=== PATIENT | female | born 1950 | race Caucasian/White ===

== ENCOUNTER 2020-09-05 12:10 | Emergency (ER) | payer MEDICARE, SELFPAY ==
--- NOTE | ~2020-09-05 | XR_ITS ---
EXAMINATION: XR hand RT min 3V, XR wrist RT min 3V EXAM DATE: 09/05/2020 13:00 INDICATION: Initial encounter following injury, with pain of the right hand, wrist. Fall. TECHNIQUE: Right hand frontal, lateral and oblique projections obtained and reviewed. Right wrist fro ntal, frontal with ulnar deviation, oblique and lateral projections obtained and reviewed. There is no prior study for comparison. FINDINGS: Right metacarpal bones are unremarkable. Mildly wide appearing scapholunate joint space. Th ere is mild to moderate polyarticular distal interphalangeal, 1st carpometacarpal primary osteoarthri tis. There are no acute fractures or dislocations identified. There is no subcutaneous gas. The sof t tissue is unremarkable. There are no radiopaque foreign bodies. IMPRESSION: 1. Right hand, wrist exam without acute osseous findings. 2. Mildly wide scapholunate joint space, could indicate age-indeterminate partial dissociation. 3. Osteoarthritis. Reviewed, dictated and finalized at location B. T TRIMMER IMPRESSION: 1. Right hand, wrist exam without acute osseous findings. 2. Mildly wide scapholunate joint space, could indicate age-indeterminate part ial dissociation. 3. Osteoarthritis.
--- NOTE | ~2020-09-05 | XR_ITS ---
EXAMINATION: XR shoulder RT min 2V DATE: 09/05/2020 13:00 INDICATION: Right shoulder pain. Fall. TECHNIQUE: 3 views of right shoulder were obtained. COMPARISON: None. FINDINGS: Bone alignment is normal. No fracture. There is severe osteoarthritis of acromioclavicular joint and mild osteoarthritis of glenohumeral joint. IMPRESSION: 1. Polyarticular osteoarthritis. Reviewed, dictated and finalized at location A. DRILL PRESS OPERATOR
--- NOTE | 2020-09-05 12:35 | ED.UPPEXIN ---
HPI - Extremity Injury (Upper) General Chief Complaint: Extremity Injury, Upper Stated Complaint: Right Arm Pain History of Present Illness HPI narrative: Lorie White is a 70 yo female with hypothyroid, copd, chronic anticoagulation, HTN, high cholesterol, GERD, who fell this morning going down the basement stairs and hit her right shoulder and wrist. There is bruising on the right side after fall; went and got second covid vaccine before coming here to be seen. She has history of breast cancer and has a prosthesis on left breast and wears a sleeve on her left arm due to lymphedema; after fall she is having difficulty manipulating hand or wrist and has multiple bruises on her arm where she fell Related Data Home Medications Medication Instructions Recorded Confirmed albuterol sulfate INHALATION 09/05/20 apixaban [Eliquis] mg 09/05/20 aspirin 09/05/20 carvedilol 09/05/20 furosemide 09/05/20 gabapentin 09/05/20 levothyroxine 09/05/20 lorazepam 09/05/20 lovastatin mg 09/05/20 mirtazapine mg 09/05/20 pantoprazole PO 09/05/20 sacubitril-valsartan [Entresto] 09/05/20 sennosides-docusate sodium [Stool PO 09/05/20 Softener-Laxative] spironolactone 09/05/20 tramadol mg 09/05/20 zolpidem 09/05/20 Allergies Allergy/AdvReac Type Severity Reaction Status Date / Time erythromycin base Allergy Mild RASH Verified 10/13/15 17:47 morphine Allergy Mild RASH Verified 10/13/15 17:47 Penicillins Allergy Mild RASH Verified 10/13/15 17:47 Macrolide Antibiotics Allergy Unknown Verified 10/13/15 17:47 Cephalosporins AdvReac Intermediate Nausea and Verified 10/13/15 17:47 Vomiting codeine AdvReac Intermediate Nausea and Verified 10/13/15 17:47 Vomiting hydrocodone AdvReac Intermediate Confusion Verified 10/13/15 17:47 meperidine AdvReac Intermediate Nausea and Verified 10/13/15 17:47 Vomiting CYCLOBENZAPRINE HCL Allergy Mild Uncoded 10/13/15 17:47 Chicken Meat Allergy Unknown Uncoded 10/14/15 05:12 TAXATINE Allergy Unknown Uncoded 04/30/10 11:51 BUTORPHANOL TARTRATE AdvReac Intermediate Nausea and Uncoded 10/13/15 17:47 Vomiting Review of Systems Review of Systems: Narrative: CONSTITUTIONAL: Denies fever, chills, sweats. EYES: Denies visual changes, redness, discharge. ENT: Denies rhinorrhea, congestion, sore throat, otalgia. CARDIOVASCULAR: Denies chest pain, palpitations, edema. RESPIRATORY: Denies dyspnea, wheezing, cough GASTROINTESTINAL: Denies abdominal pain, nausea, vomiting, diarrhea. GENITOURINARY: Denies dysuria, hematuria, abnormal discharge SKIN: Denies rash or itching. NEUROLOGIC: Denies numbness, or focal weakness. PSYCHIATRIC: Denies anxiety or depression. Right-sided arm and shoulder pain after fall this morning PMFSH Past Medical History Medical History Chronic anticoagulation High cholesterol HTN (hypertension) Family History Family History (Updated 09/05/20 @ 12:45 by Mary Avitia CNP) Other Breast cancer Social History Social History (Updated 09/05/20 @ 12:45 by Mary Avitia CNP) Smoking status: Never smoker Alcohol intake: current Comments At time of signature, I agree with nursing past medical, surgical, social and family history. There is no relevant family history pertinent to the presenting complaint. Exam Narrative: Exam Narrative: GENERAL: This is a well-nourished, well-developed patient, in mild distress. HEAD: normocephalic, atraumatic. EYES: PERRL. Sclera clear/white. Vision is grossly intact. EARS: External ears normal, auditory canals clear and without drainage, TMs normal without perforation. Hearing grossly intact. NOSE: External nose normal without nasal discharge, nares without redness, no rhinorrhea. THROAT: Mucous membranes moist, posterior pharynx NECK: Neck supple, non-tender CARDIOVASCULAR: Regular rate and rhythm without murmurs, gallops, or rubs. RESP
[2020-09-05 12:37] VITALS: BP 144/86; PULSE 82; RESP 18; TEMP 36.9; O2SAT 96
== END 2020-09-05 13:50 | disposition home or self-care (01) ==
PROVIDERS: Emergency Provider Nurse Practitioner
DX: S63.501A Unspecified sprain of right wrist, initial encounter (principal); S66.911A Strain of unspecified muscle, fascia and tendon at wrist and hand level, right hand, initial encounter; S69.91XA Unspecified injury of right wrist, hand and finger(s), initial encounter; W10.9XXA Fall (on) (from) unspecified stairs and steps, initial encounter; E78.00 Pure hypercholesterolemia, unspecified; I10 Essential (primary) hypertension; Z79.01 Long term (current) use of anticoagulants
CPT/HCPCS: 73030; 73110; 73130; 99214; G0463

== ENCOUNTER 2021-01-22 18:33 | Emergency (ER) | payer MEDICARE, SELFPAY ==
--- NOTE | 2021-01-22 18:34 | ED.HEATRA ---
HPI - Head Injury General Chief complaint: Wound/Laceration Stated complaint: Laceration on back of head Time Seen by Provider: 01/22/21 18:34 Source: patient, family and RN notes reviewed History of Present Illness HPI Narrative: Patient is a 70-year-old female who presents the urgent care with complaints of a posterior head injury. Patient states that she was walking into her doorway and fell backwards onto the concrete hitting a metal door frame on her way down. Patient states she has a history of neuropathy and has difficulty with balance at times. Patient states that happened approximately 20 minutes prior to arrival. Patient denies any loss of consciousness but is currently complaining of dizziness, nausea and posterior headache. Patient is currently on a blood thinner. No other acute complaints. Patient and granddaughter aware of the plan of care. Some parts of this dictation were generated by voice recognition software and may contain typographical and/or grammatical inaccuracies. Related Data Allergies Allergy/AdvReac Type Severity Reaction Status Date / Time No Known Allergies Allergy Verified 01/22/21 18:55 Review of Systems Review of Systems: CONSTITUTIONAL: Denies fever, chills, or sweats. EYES: Denies visual changes, redness, or discharge. ENT: Denies rhinorrhea, congestion, sore throat, or otalgia. CARDIOVASCULAR: Denies chest pain, palpitations, or edema. RESPIRATORY: Denies cough or dyspnea. GASTROINTESTINAL: Reports of nausea GENITOURINARY: Denies dysuria or hematuria. SKIN: Reports of a laceration to the back of the head MUSCULOSKELETAL: Denies back pain, joint pain, or myalgia. NEUROLOGIC: Reports of headache and dizziness All other systems reviewed are negative, except as documented in HPI. PMFSH Comments At the time of my signature, I reviewed and agree with the nursing past medical, surgical, social, and family history. There is no relevant family history pertinent to the patient complaint. Exam Narrative: GENERAL: This is a well-nourished, well-developed patient, in no apparent distress. HEAD: normocephalic, atraumatic. EYES: PERRL. Sclera clear/white. Vision is grossly intact. EARS: External ears normal NOSE: External nose normal with no obvious nasal discharge, nares without redness, no rhinorrhea. THROAT: Mucous membranes moist NECK: Neck supple CARDIOVASCULAR: Paced-pacemaker in defibrillator RESPIRATORY: Clear to auscultation. Breath sounds equal bilaterally. No wheezes, rales, or rhonchi. SKIN: 4 cm laceration to the occipital lobe, bleeding controlled. Warm, intact with no suspicious lesions or rash, good texture and turgor. NEURO: awake, alert, and oriented to person, place and time. There were no obvious focal neurologic abnormalities. EXTREMITIES: No clubbing, cyanosis, or edema. Lymphedema to left upper extremity. Neuropathy to bilateral lower extremities Course Vital Signs Vital signs: Vital Signs Temperature 97.8 F 01/22/21 18:43 Pulse Rate 77 01/22/21 18:43 Respiratory Rate 20 01/22/21 18:43 Blood Pressure 126/55 L 01/22/21 18:43 Pulse Oximetry 95 01/22/21 18:43 Temperature 97.8 F 01/22/21 18:43 Pulse Rate 77 01/22/21 18:43 Respiratory Rate 20 01/22/21 18:43 Blood Pressure 126/55 L 01/22/21 18:43 Pulse Oximetry 95 01/22/21 18:43 Reviewed Transfer Transfered to: [facility] Transfer rationale: Head injury with dizziness, nausea and headache Accepting physician: Dr. Tay MDM - Head Injury MDM Narrative Medical decision making narrative: Explained to the patient she will need to go via EMS to [facility] due to history of 3 brain aneurysms, head injury, dizziness, headache and nausea. Granddaughter is aware of the transfer. Patient is currently stable and report given to Dr. Tay. Differential Diagnosis Differential diagnosis: Likely concussion without loss of consciousness, closed head injury, postconcussion syndrome and subdural hem
[2021-01-22 18:43] VITALS: BP 126/55; PULSE 77; RESP 20; TEMP 36.6; O2SAT 95
--- NOTE | 2021-01-22 19:11 | PC.NURSE ---
sandwich peddler had went to registration desk while pt was signing in, initially pt to go to rm 1 after registration per sandwich peddler, wc was taken to registration desk and pt taken to rm 1 and registration was completed in room after new concern pt may be unsteady at desk in chair. after exam by sandwich peddler pt and granddaughter aware of need for higher level of care and requested to go to [facility] via ems. transfer sheet was handed to this rn while ems was in room transferring pt to stretcher, granddaughter signed per pt request, upon calling for nurse to nurse report wrong pt label was noticed and immediately reported to charge aide at [facility]. charge aide did state would apply correct label.
--- NOTE | 2021-01-22 19:20 | PC.NURSE ---
[facility] here about 1847.
== END 2021-01-22 18:52 | disposition short-term general hospital (02) ==
PROVIDERS: Emergency Provider Nurse Practitioner Family
DX: S01.01XA Laceration without foreign body of scalp, initial encounter (principal); W19.XXXA Unspecified fall, initial encounter; Z86.73 Personal history of transient ischemic attack (TIA), and cerebral infarction without residual deficits; G62.9 Polyneuropathy, unspecified; Z95.810 Presence of automatic (implantable) cardiac defibrillator
CPT/HCPCS: 99215; G0463

== ENCOUNTER 2021-01-22 19:10 | Emergency (ER) | payer MEDICARE, SELFPAY ==
--- NOTE | ~2021-01-22 | CT_ITS ---
EXAMINATION: CT brain wo con INDICATION: Head injury COMPARISON: 11/10/2014 TECHNIQUE: Standard unenhanced head CT. The dose-length product (DLP) was 426.79 mGy-cm. The mA was a djusted according to patient size. Iterative reconstruction technique was employed. FINDINGS: There is a left posterior scalp laceration. There is no acute intraparenchymal hemorrhage. No evidence of mass lesion. No evidence of acute infarction. There is mild periventricular and subcor tical hypodensity probably related to small vessel ischemic disease. There is mild prominence of the sulci and ventricles related to cerebral atrophy. Intracranial calcified cerebral atherosclerosis is noted. There are no extra-axial collections. There is no mass effect or midline shift. Changes in the globes are likely from ocular lens surgery. There is mild mucosal thickening of the paranasal sinuse s. IMPRESSION: 1. Left posterior scalp laceration without acute intracranial abnormality. 2. Age related findings. Reviewed, dictated and finalized at location A.
--- NOTE | ~2021-01-22 | CT_ITS ---
EXAMINATION: CT cervical spine wo con DATE: 01/22/2021 19:37 INDICATION: Head injury, neck pain TECHNIQUE: Computed tomography (CT) of the cervical spine was performed without intravenous contrast. The dose-length product (DLP) was 426.79 mGy-cm. Automated exposure control and iterative reconstruc tion technique were employed. COMPARISON: None FINDINGS: There is no fracture, dislocation, or subluxation. There is severe loss of intervertebral d isc space height from C3-4 through C6-7. The vertebral body heights are maintained. The odontoid is i ntact. There is severe multilevel facet and uncovertebral joint osteoarthritis. A left subclavian end ovascular stent is noted. There are partially imaged leads of a right-sided triple lead pacemaker IMPRESSION: 1. Severe cervical spondylosis without acute findings. Reviewed, dictated and finalized at location A.
[2021-01-22 19:08] VITALS: BP 141/76; PULSE 20; RESP 16; TEMP 36.6; O2SAT 98
--- NOTE | 2021-01-22 19:10 | ECG_ITS ---
Measurements Intervals [place] Rate: 69 P: 71 CA: 108 QRS: 178 QRSD: 192 T: -20 QT: 489 QTc: 524 Interpretive Statements ELECTRONIC VENTRICULAR PACEMAKER BASELINE ARTIFACT- II, III, AVF NO FURTHER INTERPRETATION IS POSSIBLE ATYPICAL ECG Electronically Signed On 01-23-2021 6:46:50 CDT by Anmol Lang D.O.
--- NOTE | 2021-01-22 19:12 | ED.FALL ---
HPI - Fall General Chief Complaint: Fall Stated Complaint: dizziness s/p fall with loc History of Present Illness HPI Narrative: 70 yo female w/ h/o CHF, htn, CAD on eliquis presents to the ED c/o head injury. She reports that she was walking up the steps when she lost her balance and fell. She believes that she did briefly lose consciousness after the fall. She currently has mild nausea and dizziness. Prior o the fall she reports feeling well. EMS reports a 5 cm laceration to posterior scalp. Related Data Home Medications Medication Instructions Recorded Confirmed albuterol sulfate INHALATION 01/22/21 apixaban [Eliquis] mg 01/22/21 carvedilol 01/22/21 furosemide 01/22/21 levothyroxine 01/22/21 lorazepam 01/22/21 lovastatin mg 01/22/21 magnesium gluconate mg 01/22/21 mirtazapine mg 01/22/21 pantoprazole PO 01/22/21 sacubitril-valsartan [Entresto] 01/22/21 spironolactone 01/22/21 tramadol mg 01/22/21 trazodone 01/22/21 zolpidem 01/22/21 Allergies Allergy/AdvReac Type Severity Reaction Status Date / Time azithromycin Allergy Nausea and Verified 01/22/21 19:17 Vomiting cephalexin [From Keflex] Allergy Nausea and Verified 01/22/21 19:17 Vomiting codeine Allergy Nausea and Verified 01/22/21 19:17 Vomiting Penicillins Allergy Nausea and Verified 01/22/21 19:17 Vomiting morphine AdvReac Nausea and Verified 01/22/21 19:17 Vomiting Review of Systems Review of Systems: All systems reviewed & are unremarkable except as noted in HPI and below Constitutional: Constitutional: Denies chills, Denies fever(s) and Denies weakness Eyes: Eyes: Reports no additional eye complaints ENT: Reports system reviewed and no additional complaints, except as documented Cardiovascular: Cardiovascular: Denies chest pain Respiratory: Respiratory: Denies dyspnea Gastrointestinal: Gastrointestinal: Denies abdominal pain and Reports nausea Genitourinary: Genitourinary: Reports no additional female genitourinary complaints Musculoskeletal: Musculoskeletal: Denies back pain Neurologic: Reports dizziness, Reports headache(s) and Denies weakness [facility] Past Medical History Medical History (Updated 01/23/21 @ 00:01 by Background Daemon) CAD (coronary artery disease) CHF (congestive heart failure) Exam Const: General: healthy appearing, no acute distress and alert Orientation/consciousness: patient oriented x3 HENMT: Head: laceration (occipetal scalp) Ears: TM's normal bilaterally Face and sinus: normal facial exam Neck: Neck: normal visual inspection Resp: Effort & Inspection: normal respiratory effort Auscultation: clear to auscultation bilaterally, no rales, no rhonchi and no wheezes Cardio: Jugular venous distension: no JVD Rate: regular rate Rhythm: regular rhythm Heart sounds: no murmurs GI: GI Palp: Yes Soft to palpation and No Tenderness to palpation present (GI) Back/Spine/Pelvis: Cervical Spine: No Cervical spine tenderness Thoracic/Lumbar Spine: No thoracic spinal tenderness and No lumbar spinal tenderness Skin: General skin exam: normal color Neuro: General: patient oriented x3 and moves all extremities Speech: normal speech Extrem: General: no edema Psych: Appearance: well kempt Affect: normal affect Course Vital Signs Vital signs: Vital Signs Temperature 36.6 C 01/22/21 19:08 Pulse Rate 20 L 01/22/21 19:08 Respiratory Rate 16 01/22/21 19:08 Blood Pressure 141/76 H 01/22/21 19:08 Pulse Oximetry 98 01/22/21 19:08 Temperature 36.6 C 01/22/21 19:08 Pulse Rate 20 L 01/22/21 19:08 Respiratory Rate 16 01/22/21 19:08 Blood Pressure 141/76 H 01/22/21 19:08 Pulse Oximetry 98 01/22/21 19:08 Procedures Laceration Laceration 1: Site: scalp Size (cm): 4 Description: linear Depth: simple, single layer Local Anesthetic: none Pre-repair: wound explored and irrigated =
--- NOTE | 2021-01-22 19:22 | PC.NURSE ---
Assumed care of pt at this time.
[2021-01-22] MEDS: ONDANSETRON INJ 4 MG/2 ML VIAL IV PUSH (19:50)
[2021-01-22] MEDS: MECLIZINE HCL 25 MG TABLET PO (19:50)
[2021-01-22 20:00] LABS: Basophils Percent Auto 0.6 % (0.2-1.2); Eosinophils Absolute Auto 0.1 K/mm3 (0-0.3); Hematocrit 34.6 % (37.0-47.0); Hemoglobin 11.4 g/dL (12.0-15.0); Immature Granulocyte Absolute 0.02 K/mm3 (0.00-0.031); Immature Granulocyte Percent A 0.3 % (0-0.5); Lymphocytes Absolute Auto 1.61 K/mm3 (0.9-3.2); Lymphocytes Percent Auto 23.2 % (18.3-44.2); Mean Corpuscular HGB Conc 32.9 g/dl (32-36); Mean Corpuscular Hemoglobin 31.1 pg (26-34); Mean Corpuscular Volume 94.5 fl (80-100); Mean Platelet Volume 10.4 fl (7.4-10.4); Monocytes Absolute Auto 0.9 K/mm3 (0.1-0.6); Monocytes Percent Auto 12.2 % (2.6-8.5); Neutrophils Absolute Auto 4.3 K/mm3 (1.3-6.7); Neutrophils Percent Auto 61.7 % (45.5-73.1); Platelet Count Result 270 k/mm3 (150-375); Red Blood Count 3.66 M/mm3 (4.2-5.4); White Blood Count 6.9 K/mm3 (4.5-10.0)
[2021-01-22 20:09] LABS: INR 0.9; Prothrombin Time 12.4 Seconds (11.1-14.7)
[2021-01-22 20:10] LABS: Anion Gap 8 mmol/L (8-16); Blood Urea Nitrogen 17 mg/dL (7-17); Calcium 9.1 mg/dL (8.4-10.2); Carbon Dioxide 28 mmol/L (22-30); Chloride 103 mmol/L (98-107); Estimated CRCL calculation 56 ml/min; Estimated Glomerular Filt Rate > 60; Glucose 100 mg/dL (65-110); Partial Thromboplastin Time 25.2 SECONDS (22.3-36.8); Potassium 3.7 mmol/L (3.4-5.0); Sodium 139 mmol/L (137-145)
[2021-01-22] MEDS: ACETAMINOPHEN 500 MG TABLET 1000 MG PO (20:34)
[2021-01-22] MEDS: PROMETHAZINE HCL 25 MG/ML AMPUL 12.5 MG IV PUSH (20:34)
--- NOTE | 2021-01-22 21:22 | PC.NURSE ---
iv line removed intact. coban applied.
== END 2021-01-22 21:23 | disposition home or self-care (01) ==
PROVIDERS: Emergency Provider Emergency Medicine
DX: S01.01XA Laceration without foreign body of scalp, initial encounter (principal); I50.9 Heart failure, unspecified; I25.10 Atherosclerotic heart disease of native coronary artery without angina pectoris; Z79.01 Long term (current) use of anticoagulants; W10.9XXA Fall (on) (from) unspecified stairs and steps, initial encounter
CPT/HCPCS: 12002; 36415; 70450; 72125; 80048; 85025; 85610; 85730; 93005; 96374; 96375; 99284; A9270; J2405; J2550

== ENCOUNTER 2021-04-07 13:26 | Outpatient (RCR) | payer MEDICARE, SELFPAY ==
--- NOTE | 2021-04-07 14:25 | PTOPEVAL ---
PHYSICAL THERAPY EVALUATION AND PLAN OF CARE Thank you for referring Lorie White to [facility].? The patient is scheduled to be seen for therapy?1x/week for 5 weeks. Please review, sign, date and return this plan of care JOSE DE JESUS. I agree with and certify that the following plan of care is medically necessary. Referring Physician Date Attending Provider: Bhavesh Lee Evaluation Outpatient Past Medical History Cardiovascular History Hx Congestive Heart Failure Yes Hx Hypercholesterolemia Yes Hx Hypertension Yes Hx Pacemaker Yes: defib Gastrointestinal History Hx Gastroesophageal Reflux Disease Yes Endocrine History Hx Hypothyroidism Yes Other History Hx Cancer Yes: left breast Diagnosis chronic CVA Subjective Information Lorie is here today to work on Query Text:As Reported By Patient/ gait and stepping. She has a Family diagnosis of neuropathy. She states she fell 3 months ago - was coming home from the store and went to step into the house and she fell backward and it the door with her head. Cannot identify that this fall led to a decrease in function but states that she feels like she walks on the sides of her feet. States she typically uses a walker for longer distance walking but furniture walks in the house. States that she does everything in the mornings because by the afternoon she is tired and cannot do the work. Self Report Pain Assessment Bilateral Knee(s) Reported Pain Level 2 Pain Description Aching Pain Score Pain Score 2: Self Report Interventions Used Interventions Used By Clinicians Exercise Lower Extremity Muscle Strength Testing Hip Strength Bilateral Hip Flexion Strength 4 Good Hip Extension Strength 3+ Fair + Hip Abduction Strength 3 Fair Knee Strength Bilateral Knee Flexion Strength 4- Good - Knee Extension Strength 4 Good Ankle Strength Bilateral Ankle Dorsiflexion Strength 2+ Poor + Ankle Plantarflexion Strength 2+ Poor + Balance Assessment Diaz Balance Assessment Sitting to Standing Several Tries w/Hands Unsupported Stance Ability Supervision- 2 minutes Sitting Unsupported, Feet on Floor Safely- 2 minutes Standing to Sitting
--- NOTE | 2021-04-22 14:24 | PCPTNOTE ---
Patient did not show up for scheduled appointment this date.
--- NOTE | 2021-04-29 08:55 | PCPTNOTE ---
Patient did not show up for scheduled appointment this date.
--- NOTE | 2021-04-29 08:57 | PCPTNOTE ---
PHYSICAL THERAPY DISCHARGE NOTE Attending Provider: Bhavesh Lee Patient:Lorie White Date of :1950 Patient has not returned for any further treatments since 04/07/2021, therefore will be discharged at this time. Patient?s initial visit was on 04/07/2021. She attended the evaluation only. Cancelled one appt and no showed two appts. Thank you for referring this patient to [facility]. Please review, sign, date and return this discharge summary JOSE DE JESUS. I have been updated about the patient's current status and I agree with discharge from the above service at this time. Referring Physician Date
== END 2021-04-29 12:00 | disposition home or self-care (01) ==
LOC: ANHPT 13:26
DX: I69.359 Hemiplegia and hemiparesis following cerebral infarction affecting unspecified side (principal); G62.9 Polyneuropathy, unspecified
CPT/HCPCS: 97110; 97163

== ENCOUNTER 2022-04-28 13:33 | Observation (INO) | payer MEDICARE, SELFPAY ==
[2022-04-28] VITALS (26 sets, daily range): BP systolic 110–142; BP diastolic 52–110; PULSE 66–77; RESP 11–20; TEMP 36.6–36.8; O2SAT 94–100; BMI 33.5
--- NOTE | ~2022-04-28 | XR_ITS ---
EXAMINATION: XR chest 1V portable DATE: 04/28/2022 14:07 INDICATION: Cerebrovascular accident. TECHNIQUE: A single frontal view of the chest was obtained. COMPARISON: None. FINDINGS: There are airspace opacities in right lower lung zone and left mid and lower lung zones. No pleural effusion or pneumothorax. Cardiomegaly is noted. There is a right chest pacer/defibrillator with leads in right atrium, right ventricle, and coronary sinus. There is a vascular stent overlying left upper chest. IMPRESSION: 1. Airspace opacities in right lower lung zone and left mid and lower lung zones, consistent with ate lectasis versus pneumonia. 2. Cardiomegaly. Reviewed, dictated and finalized at location A. IMPRESSION: 1. Airspace opacities in right lower lung zone and left mid and lower lung zone s, consistent with atelectasis versus pneumonia. 2. Cardiomegaly.
--- NOTE | ~2022-04-28 | CT_ITS ---
EXAMINATION: CT cervical spine wo con DATE: 04/28/2022 15:09 INDICATION: neck pain after fall TECHNIQUE: Computed tomography (CT) of the cervical spine was performed without intravenous contrast. Automated exposure control and iterative reconstruction technique were employed. The dose-length pro duct was 1199.69 mGy-cm. COMPARISON: 01/22/2021. CTA brain carotid 04/28/2022 FINDINGS: Vertebral Body Alignment: Intact. Exaggerated lordosis. Craniocervical and atlantoaxial alignment: Severe degenerative change. Alignment intact. Osseous structures/fracture: No evidence of a lytic or blastic process in the visualized spine. No e vidence of acute fracture. Cervical soft tissues: The paraspinal soft tissues planes are maintained. Biapical pleural scarring. Degenerative changes: Multilevel severe degenerative disc disease and facet arthropathy. Severe left C5-6 neural foraminal narrowing. No severe central canal narrowing. IMPRESSION: No acute fracture or traumatic malalignment in the cervical spine. Reviewed, dictated and finalized at location K.
--- NOTE | ~2022-04-28 | CT_ITS ---
EXAMINATION: CT brain wo con DATE: 04/28/2022 13:40 INDICATION: Slurred speech. Unresponsive. TECHNIQUE: Computed tomography (CT) of the head was performed without intravenous contrast. The mA wa s adjusted according to patient size. Iterative reconstruction technique was employed. The dose-lengt h product was 681.00 mGy-cm. COMPARISON: Head CT 01/22/2021, brain MRI 06/16/2010 FINDINGS: There is no intracranial hemorrhage, acute infarction, or abnormal intracranial mass lesion . The ventricles are normal in size. There are likely changes of ocular lens replacement surgeries. T here is mild mucosal thickening in the paranasal sinuses. The mastoid air cells are normal. IMPRESSION: 1. Normal brain. I called this result to Dr. Silver. Reviewed, dictated and finalized at location A.
--- NOTE | ~2022-04-28 | CT_ITS ---
EXAMINATION: CTA brain carotid DATE: 04/28/2022 14:49 INDICATION: Cerebrovascular accident. Neck pain. TECHNIQUE: Computed tomographic angiography (CTA) of the head was performed with 100 mL Omnipaque-350 intravenous contrast. CTA of the neck was performed with intravenous contrast. Automated exposure co ntrol and iterative reconstruction technique were employed. The dose-length product was 1199.69 mGy-c m. Maximum intensity projection and volume rendered 3D-reconstructions were created by the technologi st on a separate workstation. COMPARISON: Head CT 04/28/22 FINDINGS: HEAD CTA: There is no intracranial hemorrhage, acute infarction, or abnormal intracranial mass lesion . The ventricles are normal in size. There is mild mucosal thickening in the paranasal sinuses. There are likely changes of ocular lens replacement surgeries. The mastoid air cells are normal. Left vert ebral artery is dominant. There is no significant stenosis of basilar artery or the posterior cerebra l arteries. The posterior communicating arteries are normal. There is no significant stenosis of the intracranial internal carotid arteries or anterior or middle cerebral arteries. Anterior communicatin g artery is normal. There is no aneurysm. NECK CTA: There is mild scarring at the lung apices. There is mild peripheral scarring in anterolater al left lung. There are no pathologically enlarged lymph nodes. There is a stent in left subclavian a nd axillary veins. There is no significant stenosis of the vertebral arteries. There is plaque in the proximal internal carotid arteries. There is 0% stenosis of the proximal right internal carotid ivelisse ry relative to normal distal artery lumen diameter (NASCET criteria). There is 0% stenosis of the pro ximal left internal carotid artery relative to normal distal artery lumen diameter. There is severe c ervical and thoracic spondylosis. There is a chronic compression fracture of T5. IMPRESSION: 1. Normal brain. 2. No aneurysm or significant intracranial calcinosis. 3. 0% stenosis of the proximal internal carotid arteries relative to normal distal artery lumen diame ters (NASCET criteria). Reviewed, dictated and finalized at location A. IMPRESSION: 1. Normal brain. 2. No aneurysm or significant intracranial calcinosis. 3. 0% stenosis of the proximal internal carotid arteries relative to normal dis jeimy artery lumen diameters (NASCET criteria).
--- NOTE | ~2022-04-28 | XR_ITS ---
EXAM: XR hip BI 2V w AP pelvis DATE: 04/28/2022 15:33 HISTORY: bilateral posterior pelvic pain s/p fall today . COMPARISON: 09/15/2010. FINDINGS: Bilateral iliac stents. Partially visualized IVC filter Contrast-filled urinary bladder wh ich obscures some osseous detail. Decreased mineralization. No fracture or dislocation. No lytic or b lastic lesion. Lower lumbar degenerative disc disease. Mild bilateral hip osteoarthritis. No erosion or periosteal change. Soft tissues within normal limits. IMPRESSION: No acute osseous finding in the pelvis or bilateral hips.. Reviewed, dictated and finalized at location K.
--- NOTE | ~2022-04-28 | XR_ITS ---
XR chest 1V portable DATE: 05/01/2022 08:44 INDICATION: Pneumonia TECHNIQUE: Portable upright AP chest on 05/01/2022 at 0840 hours COMPARISON: 04/28/2022 portable AP chest FINDINGS: Prominent elevation of the left leaf of the diaphragm is again noted, with atelectasis at t he left lung base. There is mild infiltrate or atelectasis in the right lower lung. The lungs otherwi se appear essentially clear. No pleural effusion or pulmonary vascular congestion or pneumothorax. Cardiomegaly. Vascular stent overlying the course of the left subclavian and axillary arteries. Right-sided triple lead pacemaker device with leads overlying right atrium, right ventricle and coron madeline sinus. Osteopenia. Bilateral rotator cuff atrophy. Prominent thoracic dextroscoliosis and lumbar levoscolios is. IMPRESSION: Chronic left diaphragmatic elevation with atelectasis at the left lung base Mild infiltrate or atelectasis in the right lower lung Cardiomegaly Little interval change since 04/28/2022 Reviewed, dictated and finalized at location A. IMPRESSION: Chronic left diaphragmatic elevation with atelectasis at the left l effie base Mild infiltrate or atelectasis in the right lower lung Cardiomegaly Little interval change since 04/28/2022
[2022-04-28 13:43] LABS: Glucose Point of Care 132 mg/dl (65-105)
--- NOTE | 2022-04-28 13:50 | ECG_ITS ---
Measurements Intervals [place] Rate: 75 P: -27 TN: 89 QRS: 193 QRSD: 180 T: -11 QT: 486 QTc: 546 Interpretive Statements ELECTRONIC VENTRICULAR PACEMAKER BASELINE ARTIFACT- II, III, AVF NO FURTHER INTERPRETATION IS POSSIBLE ATYPICAL ECG NO PREVIOUS ECG AVAILABLE FOR COMPARISON Electronically Signed On 04-28-2022 14:05:06 CDT by Anmol Lang D.O.
--- NOTE | 2022-04-28 13:51 | ED.NEUROSD ---
HPI - Neuro Symptoms/Deficit General Chief Complaint: Suspected CVA Stated Complaint: CVA Time Seen by Provider: 04/28/22 13:34 History of Present Illness HPI Narrative: 68-year-old female history of coronary disease, CHF, hypertension high cholesterol with prior CVA approximately 2 years ago with left-sided deficit presented to the emergency department for evaluation after having a ground-level fall and suspected CVA. EMS called the scene after the patient had a fall. Upon arrival patient had decreased responsiveness. Patient's responsiveness did improve in route to the emergency room. Upon arrival to the emergency department patient is able to provide some history and answer some questions. Patient is unsure of how she ended up at the emergency department. Related Data Home Medications Medication Instructions Recorded Confirmed albuterol sulfate 90 mcg/actuation inhalation 09/05/20 aerosol inhaler apixaban 5 mg tablet (Eliquis) mg 09/05/20 aspirin 81 mg tablet,delayed 09/05/20 release carvedilol 3.125 mg tablet 09/05/20 furosemide 20 mg tablet 09/05/20 gabapentin 600 mg tablet 09/05/20 levothyroxine 100 mcg tablet 09/05/20 lorazepam 0.5 mg tablet 09/05/20 lovastatin 40 mg tablet mg 09/05/20 mirtazapine 15 mg tablet mg 09/05/20 pantoprazole 20 mg tablet,delayed PO 09/05/20 release sacubitril 24 mg-valsartan 26 mg 09/05/20 tablet (Entresto) sennosides 8.6 mg-docusate sodium PO 09/05/20 50 mg tablet (Stool Softener-Laxative) spironolactone 25 mg tablet 09/05/20 tramadol 50 mg tablet mg 09/05/20 zolpidem 5 mg tablet 09/05/20 albuterol sulfate 90 mcg/actuation inhalation 01/22/21 aerosol inhaler apixaban 5 mg tablet (Eliquis) mg 01/22/21 carvedilol 3.125 mg tablet 01/22/21 furosemide 20 mg tablet 01/22/21 levothyroxine 100 mcg tablet 01/22/21 lorazepam 0.5 mg tablet 01/22/21 lovastatin 40 mg tablet mg 01/22/21 magnesium gluconate 27 mg mg 01/22/21 magnesium (500 mg) tablet mirtazapine 15 mg tablet mg 01/22/21 pantoprazole 20 mg tablet,delayed PO 01/22/21 release sacubitril 24 mg-valsartan 26 mg 01/22/21 tablet (Entresto) spironolactone 25 mg tablet 01/22/21 tramadol 50 mg tablet mg 01/22/21 trazodone 50 mg tablet 01/22/21 zolpidem 5 mg tablet 01/22/21 Allergies Allergy/AdvReac Type Severity Reaction Status Date / Time erythromycin base Allergy Mild RASH Verified 09/14/21 15:30 morphine Allergy Mild RASH Verified 09/14/21 15:30 Penicillins Allergy Mild RASH Verified 09/14/21 15:30 Macrolide Antibiotics Allergy Unknown Verified 09/14/21 15:30 azithromycin Allergy Nausea and Verified 09/14/21 15:30 Vomiting cephalexin [From Keflex] Allergy Nausea and Verified 09/14/21 15:30 Vomiting Cephalosporins AdvReac Intermediate Nausea and Verified 09/14/21 15:30 Vomiting codeine AdvReac Intermediate Nausea and Verified 09/14/21 15:30 Vomiting hydrocodone AdvReac Intermediate Confusion Verified 09/14/21 15:30 meperidine AdvReac Intermediate Nausea and Verified 09/14/21 15:30 Vomiting CYCLOBENZAPRINE HCL Allergy Mild Uncoded 09/14/21 15:30 Chicken Meat Allergy Unknown Uncoded 09/14/21 15:30 TAXATINE Allergy Unknown Uncoded 09/14/21 15:30 BUTORPHANOL TARTRATE AdvReac Intermediate Nausea and Uncoded 09/14/21 15:30 Vomiting Review of Systems Review of Systems: CONSTITUTIONAL: Increased lethargy EYES: Denies visual changes, redness, or discharge. ENT: Denies rhinorrhea, congestion, sore throat, or otalgia. CARDIOVASCULAR: Denies chest pain, palpitations, or edema. RESPIRATORY: Denies cough or dyspnea. GASTROINTESTINAL: Denies abdominal pain, nausea, vomiting, or diarrhea. GENITOURINARY: Denies dysuria or hematuria. SKIN: Denies rash or itching. MUSCULOSKELETAL: Denies back pain, joint pain, or myalgia. NEUROLOGIC: See [facility] Past Medical History Medical History (Updated 04/28/22 @ 21:09 by Declan Silver MD)
[2022-04-28 14:08] LABS: Basophils Percent Auto 0.7 % (0.2-1.2); Eosinophils Absolute Auto 0.1 K/mm3 (0-0.3); Eosinophils Percent Auto 2.2 % (0-4.4); Hematocrit 36.4 % (37.0-47.0); Hemoglobin 11.9 g/dL (12.0-15.0); Immature Granulocyte Absolute 0.01 K/mm3 (0.00-0.031); Immature Granulocyte Percent A 0.2 % (0-0.5); Lymphocytes Absolute Auto 1.61 K/mm3 (0.9-3.2); Lymphocytes Percent Auto 35.3 % (18.3-44.2); Mean Corpuscular HGB Conc 32.7 g/dl (32-36); Mean Corpuscular Hemoglobin 31.2 pg (26-34); Mean Corpuscular Volume 95.3 fl (80-100); Mean Platelet Volume 10.2 fl (7.4-10.4); Monocytes Absolute Auto 0.5 K/mm3 (0.1-0.6); Monocytes Percent Auto 11.8 % (2.6-8.5); Neutrophils Absolute Auto 2.3 K/mm3 (1.3-6.7); Neutrophils Percent Auto 49.8 % (45.5-73.1); Platelet Count Result 255 k/mm3 (150-375); Red Blood Count 3.82 M/mm3 (4.2-5.4); Red Cell Distribution Width 11.9 % (11.5-14.5); White Blood Count 4.6 K/mm3 (4.5-10.0)
[2022-04-28 14:21] LABS: Lactic Acid Reflex 1.5 mmol/L (0.7-2.0)
[2022-04-28 14:22] LABS: Alanine Aminotransferase 16 U/L (6-35); Albumin Level 4.3 g/dL (3.5-5.1); Alkaline Phosphatase 74 U/L (38-126); Anion Gap 13 mmol/L (8-16); Aspartate Amino Transferase 28 U/L (14-36); Bilirubin,Total 0.6 mg/dL (0.2-1.3); Blood Urea Nitrogen 16 mg/dL (7-17); Calcium 8.6 mg/dL (8.4-10.2); Carbon Dioxide 31 mmol/L (22-30); Chloride 97 mmol/L (98-107); Estimated CRCL calculation 55 ml/min; Estimated Glomerular Filt Rate > 60; Glucose 119 mg/dL (65-110); Potassium 3.3 mmol/L (3.4-5.0); Sodium 141 mmol/L (137-145)
[2022-04-28 14:23] LABS: INR 1.1; Partial Thromboplastin Time 26.5 SECONDS (22.3-36.8); Prothrombin Time 13.6 Seconds (11.1-14.7)
[2022-04-28] MEDS: SODIUM CHLORIDE 0.9% IV 1,000 ML 999 ML IV CONT (14:30)
[2022-04-28 15:02] LABS: Amphetamine Screen Urine Negative (Negative); Barbiturate Screen Urine Negative (Negative); Benzodiazepines Screen Urine Negative (Negative); Cannabinoid Screen Urine Negative (Negative); Cocaine Screen Urine Negative (Negative); Methadone Screen Urine Negative (Negative); Opiate Screen Urine Negative (Negative); Phencyclidine Screen Urine Negative (Negative)
[2022-04-28 15:03] LABS: Influenza A QL RT-PCR Negative (Negative); Influenza B QL RT-PCR Negative (Negative); SARS-CoV-2 RNA PCR Negative
--- NOTE | 2022-04-28 17:12 | PC.NURSE ---
strong assist x2 to BSC. while patient sitting on commode, continue to fall to the right. attempted to ambulate patient. strong assist x2 as patient's leg very unstable. patient unable to ambulate. assisted patient back to bed, left side of face started to twitch, which is not normal per patient and family. Dr. Silver aware, assessed patient and plan for admission
[2022-04-28 17:32] LABS: Appearance Urine Clear (Clear); Bilirubin Urine Negative (Negative); Blood Urine Negative (Negative); Color Urine Yellow (Yellow); Glucose Urine UA Negative (Negative); Ketones Urine Negative (Negative); Leukocyte Esterase Ur Negative LEU/UL (Negative); Nitrate Urine Negative (Negative); Protein Urine Negative (Negative); Specific Grav Ur 1.015 (1.001-1.035); Urobilinogen Urine 0.2 mg/dL (<2.0); pH Urine 5.5 (5.0-9.0)
[2022-04-28 18:07] LABS: Add Urine Microscopic? NO
--- NOTE | 2022-04-28 18:49 | PM.IMHP ---
H&P: HPI History of Present Illness Date/Time: 04/28/22 18:49 Chief Complaint: Suspected CVA Narrative: This is a 71-year-old female patient who has a history of coronary artery disease, hypertension, prior CVA within the last 2 years and hyperlipidemia. The patient has had history of CVA with left side weakness. The patient came to the emergency room after ground level fall and suspicion for another CVA. EMS was called to the scene and the patient had decreased responsiveness. The patient's responsiveness today improve when she was in the emergency room. The patient was talking to me in full sentences. The patient was not sure of why she ended up in the ER. CT spine was read as no acute fracture or traumatic malalignment in the cervical spine. Hip and pelvis CT was read as no acute osseous findings in the pelvis or bilateral hips. Head and neck CTA was read as normal brain. No aneurysm or significant intracranial calcinosis. 0% stenosis of the proximal internal carotid arteries relative to normal distal artery lumen diameters. Chest x-ray was read as airspace opacities in the right lower Petterchak lung zones and left mid and lower lung zones consistent with atelectasis versus pneumonia. Cardiomegaly. Head CT was read as normal brain. The patient has a history of breast cancer and has had a left-sided mastectomy with lymphedema. The patient's potassium slightly low at 3.3. Urine was negative influenza A/B and COVID are negative as well. The patient was started on IV fluid and neurology has been consulted. The patient is being admitted to observation status on the date of service of 04/28/2022. Review of Systems Review of Systems: See HPI All systems reviewed & are unremarkable except as noted in HPI and below Constitutional: Constitutional: Reports as per HPI and Reports no additional constitutional complaints Eyes: Eyes: Reports as per HPI and Reports no additional eye complaints ENT: Reports system reviewed and no additional complaints, except as documented and Reports Normal hearing present Cardiovascular: Cardiovascular: Reports no additional cardiovascular complaints Respiratory: Respiratory: Reports no additional respiratory complaints and Reports no additional respiratory complaints Gastrointestinal: Gastrointestinal: Reports as per HPI and Reports no additional gastrointestinal complaints Musculoskeletal: Musculoskeletal: Reports no additional musculoskeletal complaints Integumentary/Breasts: Skin/Breast: Reports system reviewed and no additional complaints, except as docu and Reports as per HPI Neurologic: Reports system reviewed and no additional complaints, except as documented, Reports as per HPI and Reports Normal hearing present Psychiatric: Psychiatric: Reports no additional psychiatric complaints and Reports as per HPI Endocrine: Endocrine: Reports no additional endocrine complaints Hematologic/Lymphatic: Hematologic/Lymphatic: Reports no additional hematologic/lymphatic complaints Allergic/Immunologic: Allergic/Immunologic: Reports no additional allergic/immunologic complaints [facility] Past Medical History Medical History (Updated 04/28/22 @ 23:41 by Migdalia Aggarwal NP) Breast cancer chemo CAD (coronary artery disease) Cataracts, bilateral Chemotherapy-induced neuropathy CHF (congestive heart failure) Chronic anticoagulation High cholesterol History of CVA (cerebrovascular accident) HTN (hypertension) Hypothyroidism Insomnia TIKI on CPAP Surgical History Surgical History AICD (automatic cardioverter/defibrillator) present H/O breast biopsy H/O hysterectomy with oophorectomy H/O mastectomy left History of removal of pigmented skin lesion History of tonsillectomy S/P cholecystectomy Family History Family History Grandparent Breast cancer Father Rupture of bowel Cerebrova
--- NOTE | 2022-04-28 20:34 | ADMGEN ---
This patient, Lorie White, was admitted to Medical Room 343-01. Patient/family oriented to hospital policies and general routines including ID bracelet, bed and alarms, visiting hours, pain management, procedures, bathroom and other care routines, personal items, smoking policy, room service/diet, and visiting hours. Information on how to activate the Rapid Response Team has been discussed. Patient/Family are encouraged to report perceived risks to care and to ask questions if they do not understand what they are told or what they should do.
[2022-04-29] VITALS (15 sets, daily range): BP systolic 98–153; BP diastolic 54–71; PULSE 62–82; RESP 16–19; TEMP 36.1–36.6; O2SAT 94–98
--- NOTE | 2022-04-29 | ECHO_ITS ---
Patient Info Name: Lorie White Age: 71 years : 1950 Gender: Female Ht: 62 in Wt: 182 lbs BSA: 1.94 m2 HR: 72 bpm BP: 98 / 54 mmHg Heart Rhythm: Sinus Rhythm Technical Quality: Fair Exam Date: 04/29/2022 10:38 AM Exam Location: [facility] Card Pulmonary Patient Status: Inpatient Admit Date: 04/28/2022 Staff Ordering Physician: Migdalia Aggarwal NP Fashion Design Professor: Renay Archer RDCS Attending Provider: Rosalba Gan MD Referring Physician: Alessia ASHRAF; Exam Type: CA echo doppler color flow Study Info Indications - CVA Complete two-dimensional, color flow and Doppler transthoracic echocardiogram is performed. Summary 1. Complete two-dimensional, color flow and Doppler transthoracic echocardiogram is performed. 2. Left ventricular systolic function is normal, estimated at 60-65%. 3. The left ventricular diastolic function is normal. 4. Right ventricular systolic function is normal. 5. No significant valvular disease. Left Ventricle Left ventricular chamber dimension is normal. Left ventricular systolic function is normal, estimated at 60-65%. The left ventricular diastolic function is normal. Right Ventricle Right ventricular chamber dimension is normal. Right ventricular systolic function is normal. Left Atria Left atrial chamber dimension is normal. Right Atria Right atrial chamber dimension is normal. Aortic Valve The aortic valve is not well visualized. There is no aortic valve stenosis. There is no aortic valve regurgitation. There is mild aortic valve calcification. Pulmonic Valve The pulmonic valve is not well visualized. Mitral Valve The mitral valve has normal leaflets. There is no mitral valve stenosis. There is no mitral valve regurgitation. Tricuspid Valve The tricuspid valve leaflets are not well visualized. There is trace tricuspid valve regurgitation. Pericardium/Pleural There is no pericardial effusion. Inferior Vena Cava Normal inferior vena cava with >50% collapse upon inspiration consistent with normal right atrial pressure. Aorta The aortic root size at the sinus of Valsalva is normal. Left Ventricular Outflow Tract Name Value Normal LVOT 2D LVOT Diameter 2.0 cm LVOT Doppler LVOT Peak Gradient 6 mmHg LVOT Mean Gradient 3 mmHg LVOT VTI 23 cm LVOT VTI/AV VTI Ratio 0.8 LVOT Stroke Volume 72 ml LVOT CO 5.3 l/min LVOT CI 2.7 l/min/m2 Pulmonic Valve Name Value Normal RVOT Doppler RVOT Peak Gradient 3 mmHg PV Doppler PV Peak Gradient 3 mmHg M
[2022-04-29] MEDS: APIXABAN 5 MG TABLET PO ×3 (00:47→20:14)
[2022-04-29] MEDS: carvediloL 3.125 MG TABLET PO ×3 (00:47→20:13)
[2022-04-29] MEDS: traZODone HCL 50 MG TABLET PO ×2 (00:47→20:13)
[2022-04-29] MEDS: POTASSIUM CHLORIDE 20 MEQ PACKET (FOR LIQUID) PO (00:52)
[2022-04-29] MEDS: MIRTAZAPINE 15 MG TABLET PO ×2 (00:55→20:13)
[2022-04-29 06:12] LABS: Basophils Absolute Auto 0.1 K/mm3 (0.0-0.1); Basophils Percent Auto 1.1 % (0.2-1.2); Eosinophils Absolute Auto 0.1 K/mm3 (0-0.3); Eosinophils Percent Auto 2.1 % (0-4.4); Hematocrit 33.3 % (37.0-47.0); Hemoglobin 10.7 g/dL (12.0-15.0); Immature Granulocyte Absolute 0.01 K/mm3 (0.00-0.031); Immature Granulocyte Percent A 0.2 % (0-0.5); Lymphocytes Absolute Auto 1.36 K/mm3 (0.9-3.2); Lymphocytes Percent Auto 28.8 % (18.3-44.2); Mean Corpuscular HGB Conc 32.1 g/dl (32-36); Mean Corpuscular Hemoglobin 31.2 pg (26-34); Mean Corpuscular Volume 97.1 fl (80-100); Mean Platelet Volume 10.5 fl (7.4-10.4); Monocytes Absolute Auto 0.6 K/mm3 (0.1-0.6); Monocytes Percent Auto 13.6 % (2.6-8.5); Neutrophils Absolute Auto 2.6 K/mm3 (1.3-6.7); Neutrophils Percent Auto 54.2 % (45.5-73.1); Platelet Count Result 242 k/mm3 (150-375); Red Blood Count 3.43 M/mm3 (4.2-5.4); Red Cell Distribution Width 12.1 % (11.5-14.5); White Blood Count 4.7 K/mm3 (4.5-10.0)
[2022-04-29 06:30] LABS: Alanine Aminotransferase 14 U/L (6-35); Albumin Level 3.6 g/dL (3.5-5.1); Alkaline Phosphatase 62 U/L (38-126); Anion Gap 6 mmol/L (8-16); Aspartate Amino Transferase 24 U/L (14-36); Bilirubin,Total 0.9 mg/dL (0.2-1.3); Blood Urea Nitrogen 13 mg/dL (7-17); CRP < 0.5 mg/dL (<1.0); Calcium 8.2 mg/dL (8.4-10.2); Carbon Dioxide 28 mmol/L (22-30); Chloride 106 mmol/L (98-107); Estimated CRCL calculation 62 ml/min; Estimated Glomerular Filt Rate > 60; Glucose 85 mg/dL (65-110); Magnesium 1.9 mg/dL (1.6-2.3); Potassium 3.8 mmol/L (3.4-5.0); Sodium 140 mmol/L (137-145)
[2022-04-29 06:36] LABS: Lactic Acid Reflex 0.7 mmol/L (0.7-2.0)
[2022-04-29 07:02] LABS: Thyroid Stimulating Hormone Reflex 0.902 uIU/mL (0.465-4.68)
[2022-04-29] MEDS: POTASSIUM CHLORIDE 10 MEQ TABLET.ER PO (09:57)
[2022-04-29] MEDS: LOVASTATIN 20 MG TABLET 40 MG PO (09:57)
[2022-04-29] MEDS: ASPIRIN 81 MG ENTERIC TABLET PO (09:57)
[2022-04-29] MEDS: GABAPENTIN 300 MG CAPSULE 600 MG PO ×4 (09:57→20:13)
[2022-04-29] MEDS: FUROSEMIDE 40 MG TABLET PO (09:57)
[2022-04-29] MEDS: MAGNESIUM 27 MG TABLET (500 MG MAG GLUCONATE) PO ×2 (09:58→16:19)
[2022-04-29] MEDS: PANTOPRAZOLE 40 MG TABLET PO (09:58)
[2022-04-29] MEDS: SPIRONOLACTONE 25 MG TABLET PO (09:58)
[2022-04-29] MEDS: traMADol HCL (*CRX) 50 MG TABLET PO ×2 (10:01→20:13)
--- NOTE | 2022-04-29 10:37 | PCOTNOTE ---
Attempted to see pt. at this time. Pt. getting echo at this time and is unable to be seen at this time. Following
--- NOTE | 2022-04-29 12:52 | WPDNEURCNPN ---
Assessment and Plan Assessment and plan (1) History of CVA (cerebrovascular accident): Code(s): Z86.73 - Personal history of transient ischemic attack (TIA), and cerebral infarction without residual deficits Status: Acute (2) Chemotherapy-induced neuropathy: Code(s): G62.0 - Drug-induced polyneuropathy; T45.1X5A - Adverse effect of antineoplastic and immunosuppressive drugs, initial encounter Status: Acute (3) Gait instability: Code(s): R26.81 - Unsteadiness on feet Status: Acute Plan 1 TIA 2 right hemispheric stroke with left hemiparesis and gait instability because of the his stroke and neuropathy induced by the chemotherapy 3 status post cardiac defibrillator for history of carcinoma of the breast considering patient is already on apixaban will continue the medication as such will involve in the physical therapy Consult date: 04/29/22 Reason for consult: cerebrovascular accident HPI: Lorie White is a 71 year old female admitted to the hospital through the emergency room for the possibility of stroke in addition to ongoing history of 1. Coronary artery disease 2. Hypertension 3. Congestive heart failure 4. Hypercholesteremia 5. Previous cerebrovascular accident about 2 years ago with left-sided deficit. Brought to the ER for the ground level fall with the possibility of the stroke on EMS arrival patient had decreased responsiveness did improve in route to the emergency room and in the ER was able to provide some history. Patient had been taking apixaban 5 mg daily, aspirin 81 mg daily, carvedilol 3.125 mg daily, Lasix 20 mg daily, lovastatin 40 mg daily, has been documented to have multiple allergies has no history of smoking or alcohol consumption in the ER initial CT scan of the head was negative for acute bleed or stroke vital signs were normal so as the CBC and CMP except the potassium 3.3, influenza a and B and COVID were negative. Thatch does have history of carcinoma of the breast with left-sided mastectomy and lymphedema. On the floor seen by Migdalia rushing Review of Systems Review of Systems: All systems reviewed & are unremarkable except as noted in HPI and below PMFSH Past Medical History Medical History (Updated 04/28/22 @ 23:41 by Migdalia Aggarwal NP) Breast cancer chemo CAD (coronary artery disease) Cataracts, bilateral Chemotherapy-induced neuropathy CHF (congestive heart failure) Chronic anticoagulation High cholesterol History of CVA (cerebrovascular accident) HTN (hypertension) Hypothyroidism Insomnia TIKI on CPAP Surgical History Surgical History AICD (automatic cardioverter/defibrillator) present H/O breast biopsy H/O hysterectomy with oophorectomy H/O mastectomy left History of removal of pigmented skin lesion History of tonsillectomy S/P cholecystectomy Family History Family History Grandparent Breast cancer Father Rupture of bowel Cerebrovascular accident Mother Diabetes mellitus Acute myocardial infarction Sibling Acute myocardial infarction Diabetes mellitus Social History Social History (Updated 04/28/22 @ 23:36 by Migdalia Aggarwal NP) Social History: The patient lives with her . 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 She has 1 daughter Osbaldo who is her durable power civil litigation attorney for healthcare. The patient is a lifelong nonsmoker. She does not use any alcohol marijuana or illicit drugs. Code status full code. Smoking status: Never smoker Alcohol intake: never Substance use: never Has the Lack of Transportation Kept You From Medical Appointments or From Getting Medications?: No Within the Past 12 Months, Were You Worried Whether Your Food Would Run Out Before You Got Money to Buy More?: Never True What is Your Housing Situation Today?: I Have Housing Are You Worried That in the Next 2 Mon
[2022-04-29] MEDS: MECLIZINE HCL 25 MG TABLET PO (12:57)
[2022-04-29] MEDS: ONDANSETRON INJ 4 MG/2 ML VIAL IV PUSH (12:57)
--- NOTE | 2022-04-29 14:09 | PM.IMPN ---
Progress Note: A&P Assessment and Plan (1) History of CVA (cerebrovascular accident): Code(s): Z86.73 - Personal history of transient ischemic attack (TIA), and cerebral infarction without residual deficits Status: Acute Assessment and Plan: Left side residual The patient is on Eliquis and aspirin. -PT OT evaluation greatly be appreciated. rehabilitation case coordinator consultation greatly be appreciated for rehab. Neurology has been consulted and appreciate neurology consult. 04/29/2022 interval history: patient is 71-year-old female with history of breast cancer on chemotherapy patient had a ground level fall, patient has history of right hemispheric stroke with left hemiparesis and gait instability, there was a concern about the syncope and possibly stroke, CTA of the head and neck and CT of the brain are negative for any acute injury, patient is already on anticoagulation with Eliquis and anti-platelet with aspirin patient seen by neurologist recommending PT OT, patient will benefit going to acute rehab and further recommendation to follow. (2) Chemotherapy-induced neuropathy: Code(s): G62.0 - Drug-induced polyneuropathy; T45.1X5A - Adverse effect of antineoplastic and immunosuppressive drugs, initial encounter Status: Acute Assessment and Plan: -continue with patient's gabapentin. The patient had chemotherapy for breast cancer. (3) Gait instability: Code(s): R26.81 - Unsteadiness on feet Status: Acute Assessment and Plan: PT and OT evaluation would be greatly appreciated patient has peripheral neuropathy as well as an old CVA. (4) AICD (automatic cardioverter/defibrillator) present: Code(s): Z95.810 - Presence of automatic (implantable) cardiac defibrillator Status: Acute Assessment and Plan: -pacer spikes are noted on the monitor. (5) Breast cancer: Code(s): C50.919 - Malignant neoplasm of unspecified site of unspecified female breast Status: Acute Assessment and Plan: The patient has a history of left mastectomy with lymphedema. The patient has completed all the treatment and is considered in remission (6) Hypothyroidism: Code(s): E03.9 - Hypothyroidism, unspecified Status: Acute Assessment and Plan: Check thyroid studies she does not appear to be on any medication for thyroid. (7) TIKI on CPAP: Code(s): G47.33 - Obstructive sleep apnea (adult) (pediatric); Z99.89 - Dependence on other enabling machines and devices Status: Acute Assessment and Plan: Home settings for CPAP (8) HTN (hypertension): Code(s): I10 - Essential (primary) hypertension Status: Acute Assessment and Plan: -continue with Coreg Continue with Lasix-continue with spironolactone (9) High cholesterol: Code(s): E78.00 - Pure hypercholesterolemia, unspecified Status: Acute Assessment and Plan: Continue with lovastatin. (10) CAD (coronary artery disease): Code(s): I25.10 - Atherosclerotic heart disease of [place] coronary artery without angina pectoris Status: Acute Assessment and Plan: -continue with Coreg (11) CHF (congestive heart failure): Code(s): I50.9 - Heart failure, unspecified Status: Acute Assessment and Plan: -continue with Coreg and continue with Lasix. Continue with potassium supplement. The patient had to have a extra dose of potassium tonight due to a low potassium level. (12) Insomnia: Code(s): G47.00 - Insomnia, unspecified Status: Acute Assessment and Plan: Continue with trazodone and Remeron Plan The patient has a history of having dizziness with benign postural vertigo in the past and has Antivert ordered p.r.n. for vertigo. Subjective Date/time seen: 04/29/22 14:09 Suspected CVA HPI-Narrative: This is a 71-year-old female patient who has a history of coronary artery disease, hypertension, prior CVA withi
[2022-04-30] VITALS (11 sets, daily range): BP systolic 103–141; BP diastolic 69–81; PULSE 60–78; RESP 18–22; TEMP 36.4–36.6; O2SAT 94–98
[2022-04-30] MEDS: MECLIZINE HCL 25 MG TABLET PO ×2 (06:59→12:53)
[2022-04-30] MEDS: FUROSEMIDE 40 MG TABLET PO (08:55)
[2022-04-30] MEDS: SPIRONOLACTONE 25 MG TABLET PO (08:55)
[2022-04-30] MEDS: PANTOPRAZOLE 40 MG TABLET PO (08:55)
[2022-04-30] MEDS: MAGNESIUM 27 MG TABLET (500 MG MAG GLUCONATE) PO ×2 (08:55→16:32)
[2022-04-30] MEDS: POTASSIUM CHLORIDE 10 MEQ TABLET.ER PO (08:55)
[2022-04-30] MEDS: ASPIRIN 81 MG ENTERIC TABLET PO (08:55)
[2022-04-30] MEDS: APIXABAN 5 MG TABLET PO ×2 (08:55→20:35)
[2022-04-30] MEDS: carvediloL 3.125 MG TABLET PO ×2 (08:56→20:34)
[2022-04-30] MEDS: LOVASTATIN 20 MG TABLET 40 MG PO (08:56)
[2022-04-30] MEDS: GABAPENTIN 300 MG CAPSULE 600 MG PO ×4 (08:56→20:34)
[2022-04-30] MEDS: traMADol HCL (*CRX) 50 MG TABLET PO ×2 (12:53→20:35)
--- NOTE | 2022-04-30 13:08 | PM.IMPN ---
Progress Note: A&P Assessment and Plan (1) History of CVA (cerebrovascular accident): Code(s): Z86.73 - Personal history of transient ischemic attack (TIA), and cerebral infarction without residual deficits Status: Acute Assessment and Plan: Left side residual The patient is on Eliquis and aspirin. -PT OT evaluation greatly be appreciated. [place] program coordinator consultation greatly be appreciated for rehab. Neurology has been consulted and appreciate neurology consult. 04/30/2022 interval history: patient is 71-year-old female with history of breast cancer on chemotherapy patient had a ground level fall, patient has history of right hemispheric stroke with left hemiparesis and gait instability, there was a concern about the syncope and possibly stroke, CTA of the head and neck and CT of the brain are negative for any acute injury, patient is already on anticoagulation with Eliquis and anti-platelet with aspirin patient was seen by neurologist recommending PT OT, chest x-ray is also concerning for pneumonia started the patient on Levaquin, patient will benefit going to acute rehab and further recommendation to follow. (2) Chemotherapy-induced neuropathy: Code(s): G62.0 - Drug-induced polyneuropathy; T45.1X5A - Adverse effect of antineoplastic and immunosuppressive drugs, initial encounter Status: Acute Assessment and Plan: -continue with patient's gabapentin. The patient had chemotherapy for breast cancer. (3) Gait instability: Code(s): R26.81 - Unsteadiness on feet Status: Acute Assessment and Plan: PT and OT evaluation would be greatly appreciated patient has peripheral neuropathy as well as an old CVA. (4) AICD (automatic cardioverter/defibrillator) present: Code(s): Z95.810 - Presence of automatic (implantable) cardiac defibrillator Status: Acute Assessment and Plan: -pacer spikes are noted on the monitor. (5) Breast cancer: Code(s): C50.919 - Malignant neoplasm of unspecified site of unspecified female breast Status: Acute Assessment and Plan: The patient has a history of left mastectomy with lymphedema. The patient has completed all the treatment and is considered in remission (6) Hypothyroidism: Code(s): E03.9 - Hypothyroidism, unspecified Status: Acute Assessment and Plan: Check thyroid studies she does not appear to be on any medication for thyroid. (7) TIKI on CPAP: Code(s): G47.33 - Obstructive sleep apnea (adult) (pediatric); Z99.89 - Dependence on other enabling machines and devices Status: Acute Assessment and Plan: Home settings for CPAP (8) HTN (hypertension): Code(s): I10 - Essential (primary) hypertension Status: Acute Assessment and Plan: -continue with Coreg Continue with Lasix-continue with spironolactone (9) High cholesterol: Code(s): E78.00 - Pure hypercholesterolemia, unspecified Status: Acute Assessment and Plan: Continue with lovastatin. (10) CAD (coronary artery disease): Code(s): I25.10 - Atherosclerotic heart disease of [place] coronary artery without angina pectoris Status: Acute Assessment and Plan: -continue with Coreg (11) CHF (congestive heart failure): Code(s): I50.9 - Heart failure, unspecified Status: Acute Assessment and Plan: -continue with Coreg and continue with Lasix. Continue with potassium supplement. The patient had to have a extra dose of potassium tonight due to a low potassium level. (12) Insomnia: Code(s): G47.00 - Insomnia, unspecified Status: Acute Assessment and Plan: Continue with trazodone and Remeron Plan The patient has a history of having dizziness with benign postural vertigo in the past and has Antivert ordered p.r.n. for vertigo. Subjective Date/time seen: 04/30/22 13:08 04/30/2022 interval history: patient is 71-year-old female
[2022-04-30] MEDS: traZODone HCL 50 MG TABLET PO (20:34)
[2022-04-30] MEDS: MIRTAZAPINE 15 MG TABLET PO (20:36)
[2022-05-01 04:26] VITALS: BP 121/71; PULSE 75; RESP 20; TEMP 36.5; O2SAT 95
[2022-05-01 09:12] VITALS: PULSE 73
[2022-05-01] MEDS: PANTOPRAZOLE 40 MG TABLET PO (09:12)
[2022-05-01] MEDS: POTASSIUM CHLORIDE 10 MEQ TABLET.ER PO (09:12)
[2022-05-01] MEDS: GABAPENTIN 300 MG CAPSULE 600 MG PO ×3 (09:12→17:32)
[2022-05-01] MEDS: MAGNESIUM 27 MG TABLET (500 MG MAG GLUCONATE) PO ×2 (09:12→17:32)
[2022-05-01] MEDS: APIXABAN 5 MG TABLET PO (09:12)
[2022-05-01] MEDS: carvediloL 3.125 MG TABLET PO (09:12)
[2022-05-01] MEDS: FUROSEMIDE 40 MG TABLET PO (09:12)
[2022-05-01] MEDS: LOVASTATIN 20 MG TABLET 40 MG PO (09:12)
[2022-05-01] MEDS: SPIRONOLACTONE 25 MG TABLET PO (09:14)
[2022-05-01] MEDS: ASPIRIN 81 MG ENTERIC TABLET PO (09:14)
[2022-05-01] MEDS: MECLIZINE HCL 25 MG TABLET PO ×2 (09:19→17:32)
[2022-05-01] MEDS: traMADol HCL (*CRX) 50 MG TABLET PO (10:51)
[2022-05-01 14:00] VITALS: BP 112/56; PULSE 90; RESP 16; TEMP 36.9; O2SAT 94
--- NOTE | 2022-05-01 15:54 | PM.DS ---
DS: Admitting Diagnosis Discharge Date 05/01/2022 Admitting Diagnosis Suspected CVA DS: Discharge Diagnosis Discharge Diagnosis (1) History of CVA (cerebrovascular accident): Code(s): Z86.73 - Personal history of transient ischemic attack (TIA), and cerebral infarction without residual deficits Status: Acute Assessment and Plan: Left side residual The patient is on Eliquis and aspirin. -PT OT evaluation greatly be appreciated. behavioral therapy coordinator consultation greatly be appreciated for rehab. Neurology has been consulted and appreciate neurology consult. 04/30/2022 interval history: patient is 71-year-old female with history of breast cancer on chemotherapy patient had a ground level fall, patient has history of right hemispheric stroke with left hemiparesis and gait instability, there was a concern about the syncope and possibly stroke, CTA of the head and neck and CT of the brain are negative for any acute injury, patient is already on anticoagulation with Eliquis and anti-platelet with aspirin patient was seen by neurologist recommending PT OT, chest x-ray is also concerning for pneumonia started the patient on Levaquin, patient will benefit going to acute rehab and further recommendation to follow. (2) Chemotherapy-induced neuropathy: Code(s): G62.0 - Drug-induced polyneuropathy; T45.1X5A - Adverse effect of antineoplastic and immunosuppressive drugs, initial encounter Status: Acute Assessment and Plan: -continue with patient's gabapentin. The patient had chemotherapy for breast cancer. (3) Gait instability: Code(s): R26.81 - Unsteadiness on feet Status: Acute Assessment and Plan: PT and OT evaluation would be greatly appreciated patient has peripheral neuropathy as well as an old CVA. (4) AICD (automatic cardioverter/defibrillator) present: Code(s): Z95.810 - Presence of automatic (implantable) cardiac defibrillator Status: Acute Assessment and Plan: -pacer spikes are noted on the monitor. (5) Breast cancer: Code(s): C50.919 - Malignant neoplasm of unspecified site of unspecified female breast Status: Acute Assessment and Plan: The patient has a history of left mastectomy with lymphedema. The patient has completed all the treatment and is considered in remission (6) Hypothyroidism: Code(s): E03.9 - Hypothyroidism, unspecified Status: Acute Assessment and Plan: Check thyroid studies she does not appear to be on any medication for thyroid. (7) TIKI on CPAP: Code(s): G47.33 - Obstructive sleep apnea (adult) (pediatric); Z99.89 - Dependence on other enabling machines and devices Status: Acute Assessment and Plan: Home settings for CPAP (8) HTN (hypertension): Code(s): I10 - Essential (primary) hypertension Status: Acute Assessment and Plan: -continue with Coreg Continue with Lasix-continue with spironolactone (9) High cholesterol: Code(s): E78.00 - Pure hypercholesterolemia, unspecified Status: Acute Assessment and Plan: Continue with lovastatin. (10) CAD (coronary artery disease): Code(s): I25.10 - Atherosclerotic heart disease of [place] coronary artery without angina pectoris Status: Acute Assessment and Plan: -continue with Coreg (11) CHF (congestive heart failure): Code(s): I50.9 - Heart failure, unspecified Status: Acute Assessment and Plan: -continue with Coreg and continue with Lasix. Continue with potassium supplement. The patient had to have a extra dose of potassium tonight due to a low potassium level. (12) Insomnia: Code(s): G47.00 - Insomnia, unspecified Status: Acute Assessment and Plan: Continue with trazodone and Remeron Plan The patient has a history of having dizziness with benign postural vertigo in the past and has Antivert ordered p.r.n. for vertigo. DS: Summar
== END 2022-05-01 18:45 | disposition home health service (06) ==
LOC: ANHED 17:29 → ANH3MED 19:53
PROVIDERS: Nurse Practitioner; Admitting Provider Family Medicine; Emergency Provider Emergency Medicine; Visit Provider Family Medicine
DX: R46.4 Slowness and poor responsiveness (principal); W18.30XA Fall on same level, unspecified, initial encounter; I25.10 Atherosclerotic heart disease of native coronary artery without angina pectoris; I11.0 Hypertensive heart disease with heart failure; I50.9 Heart failure, unspecified; E03.9 Hypothyroidism, unspecified; G47.00 Insomnia, unspecified; E78.00 Pure hypercholesterolemia, unspecified; T45.1X5A Adverse effect of antineoplastic and immunosuppressive drugs, initial encounter; G62.0 Drug-induced polyneuropathy; J98.11 Atelectasis; Z20.822 Contact with and (suspected) exposure to COVID-19; G47.33 Obstructive sleep apnea (adult) (pediatric); Z86.73 Personal history of transient ischemic attack (TIA), and cerebral infarction without residual deficits; Z85.3 Personal history of malignant neoplasm of breast; Z90.12 Acquired absence of left breast and nipple; Z95.810 Presence of automatic (implantable) cardiac defibrillator; Z99.89 Dependence on other enabling machines and devices; Z79.51 Long term (current) use of inhaled steroids; Z79.01 Long term (current) use of anticoagulants; Z79.82 Long term (current) use of aspirin; Z79.891 Long term (current) use of opiate analgesic; Z83.3 Family history of diabetes mellitus; Z82.49 Family history of ischemic heart disease and other diseases of the circulatory system; Z82.3 Family history of stroke; Z80.3 Family history of malignant neoplasm of breast
CPT/HCPCS: 36415; 51701; 70450; 70496; 70498; 71045; 72125; 73521; 80053; 80307; 81003; 82948; 83605; 83735; 84443; 85025; 85610; 85730; 86140; 87502; 93005; 93306; 96360; 96365; 96366; 96375; 97161; 97165; 97535; 99285; A9270; G0378; J1956; J2405; J7030; L0140; Q9967; U0003; U0005

== ENCOUNTER 2022-10-05 12:16 | Emergency (ER) | payer MEDICARE, SELFPAY ==
[2022-10-05 12:32] VITALS: BP 140/86; PULSE 72; RESP 16; TEMP 37.1; O2SAT 98
--- NOTE | 2022-10-05 12:47 | ED.GENADULT ---
HPI - General Adult General Chief complaint: Wound/Laceration Stated complaint: Left Armpit Wound Source: patient Mode of arrival: ambulatory Limitations: no limitations History of Present Illness HPI narrative: Patient presents for evaluation of wound to the left axillary region that she 1st noticed yesterday. She states she appreciated a foul odor and noted the wound at that time. She has a history of lymphedema and has been using a compression sleeve. She states that the wound is a direct result of wear the sleeve was coming in contact with her skin. No fever, chills, nausea, vomiting. She reports drainage the affected area. She has several antibiotic allergies. Related Data Home Medications Medication Instructions Recorded Confirmed albuterol sulfate 90 mcg/actuation 1 puff inhalation Q4-6H 09/05/20 10/05/22 aerosol inhaler aspirin 81 mg tablet,delayed 81 mg PO DAILY 09/05/20 10/05/22 release gabapentin 600 mg tablet 600 mg PO QID 09/05/20 10/05/22 lorazepam 0.5 mg tablet 0.5 mg PO DAILY 09/05/20 10/05/22 lovastatin 40 mg tablet 40 mg PO DAILY 09/05/20 10/05/22 mirtazapine 15 mg tablet 15 mg PO HS 09/05/20 10/05/22 pantoprazole 20 mg tablet,delayed 40 mg PO DAILY 09/05/20 10/05/22 release sennosides 8.6 mg-docusate sodium 1 tablet PO BID 09/05/20 10/05/22 50 mg tablet (Stool Softener-Laxative) spironolactone 25 mg tablet 25 mg PO DAILY 09/05/20 10/05/22 tramadol 50 mg tablet 50 mg PO Q6-8H 09/05/20 10/05/22 apixaban 5 mg tablet (Eliquis) 5 mg PO BID 01/22/21 10/05/22 carvedilol 3.125 mg tablet 3.125 mg PO BID 01/22/21 10/05/22 furosemide 20 mg tablet 40 mg PO DAILY 01/22/21 10/05/22 trazodone 50 mg tablet 50 mg PO HS 01/22/21 10/05/22 magnesium gluconate 500 mg tablet 500 mg PO BID 04/28/22 10/05/22 meclizine 25 mg tablet 25 mg PO QID 04/28/22 10/05/22 potassium chloride 10 mEq 10 meq PO DAILY 04/28/22 10/05/22 capsule,extended release Allergies Allergy/AdvReac Type Severity Reaction Status Date / Time erythromycin base Allergy Mild RASH Verified 09/14/21 15:30 morphine Allergy Mild RASH Verified 09/14/21 15:30 Penicillins Allergy Mild RASH Verified 09/14/21 15:30 Macrolide Antibiotics Allergy Unknown Unknown Verified 10/05/22 12:30 azithromycin Allergy Nausea and Verified 09/14/21 15:30 Vomiting cephalexin [From Keflex] Allergy Nausea and Verified 09/14/21 15:30 Vomiting Cephalosporins AdvReac Intermediate Nausea and Verified 09/14/21 15:30 Vomiting codeine AdvReac Intermediate Nausea and Verified 09/14/21 15:30 Vomiting hydrocodone AdvReac Intermediate Confusion Verified 09/14/21 15:30 meperidine AdvReac Intermediate Nausea and Verified 09/14/21 15:30 Vomiting CYCLOBENZAPRINE HCL Allergy Mild Unknown Uncoded 10/05/22 12:30 Chicken Meat Allergy Unknown Unknown Uncoded 10/05/22 12:30 TAXATINE Allergy Unknown Unknown Uncoded 10/05/22 12:30 BUTORPHANOL TARTRATE AdvReac Intermediate Nausea and Uncoded 09/14/21 15:30 Vomiting Review of Systems Review of Systems: CONSTITUTIONAL: Denies fever, chills, or sweats. EYES: Denies visual changes, redness, or discharge. ENT: Denies rhinorrhea, congestion, sore throat, or otalgia. CARDIOVASCULAR: Denies chest pain, palpitations, or edema. RESPIRATORY: Denies cough or dyspnea. GASTROINTESTINAL: Denies abdominal pain, nausea, vomiting, or diarrhea. GENITOURINARY: Denies dysuria or hematuria. SKIN: Reports draining wound to the left axillary region MUSCULOSKELETAL: Denies back pain, joint pain, or myalgia. NEUROLOGIC: Denies headache, numbness, dizziness, or weakness. PSYCHIATRIC: Denies anxiety or depression. FORMERLY [facility], [facility] Past Medical History Medical History Breast cancer chemo CAD (coronary artery disease) Cataracts, bilateral Chemotherapy-induced neuropathy CHF (congestive heart failure) Chronic anticoagulation High cholesterol History of CVA (cerebrovascular accident)
== END 2022-10-05 13:00 | disposition home or self-care (01) ==
PROVIDERS: Emergency Provider Nurse Practitioner
DX: L03.112 Cellulitis of left axilla (principal); I25.10 Atherosclerotic heart disease of native coronary artery without angina pectoris; I11.0 Hypertensive heart disease with heart failure; I50.9 Heart failure, unspecified; E78.00 Pure hypercholesterolemia, unspecified; E03.9 Hypothyroidism, unspecified; G47.30 Sleep apnea, unspecified; Z85.3 Personal history of malignant neoplasm of breast; Z92.21 Personal history of antineoplastic chemotherapy; Z79.01 Long term (current) use of anticoagulants; Z90.12 Acquired absence of left breast and nipple; H26.9 Unspecified cataract; Z79.82 Long term (current) use of aspirin; Z95.810 Presence of automatic (implantable) cardiac defibrillator
CPT/HCPCS: 87070; 87075; 87205; 99213; G0463

== ENCOUNTER 2023-06-14 19:59 | Emergency (ER) | payer MEDICARE, SELFPAY ==
--- NOTE | ~2023-06-14 | CT_ITS ---
EXAMINATION: CT abdomen pelvis w con DATE: 06/14/2023 23:22 INDICATION: Abdominal pain. TECHNIQUE: Computed tomography (CT) of the abdomen and pelvis was performed with 100 mL Omnipaque 350 intravenous contrast. Automated exposure control and iterative reconstruction technique were employe d. The dose-length product was 1253.19 mGy-cm. COMPARISON: CT abdomen and pelvis 10/13/2015 FINDINGS: There is marked elevation of left hemidiaphragm. There is atelectasis bilaterally. No pleur al effusion. The heart size is normal. There are pacer wires in right atrium, right ventricle, and co ronary sinus. No pericardial effusion. The liver is normal. There are changes of cholecystectomy. The spleen, pancreas, and adrenal glands are normal. There is cortical thinning of the kidneys. There ar e cysts in the kidneys measuring up to 2.2 cm on the left. There is a filter in the inferior vena cav a. There are stents in the common iliac veins and external iliac veins. The appendix is normal. There is a large volume of stool in the colon. There is wall thickening of the rectum. There is focal wall thickening in the transverse colon. The small bowel is normal in caliber. There are no pathologicall y enlarged lymph nodes. There is no free intraperitoneal fluid. There is thoracolumbar levoscoliosis and severe spondylosis. IMPRESSION: 1. Wall thickening of the rectum, consistent with proctitis or less likely malignancy. 2. Focal wall thickening of the transverse colon. This finding may be transient or may be malignancy. Consider a single contrast enema. Reviewed, dictated and finalized at location E. [employer] SPECIALIST IMPRESSION: 1. Wall thickening of the rectum, consistent with proctitis or less likely arnoldo gnancy. 2. Focal wall thickening of the transverse colon. This finding may be transient or may be malignancy. Consider a single contrast enema.
--- NOTE | ~2023-06-14 | XR_ITS ---
EXAMINATION: XR abdomen/kub 1V DATE: 06/14/2023 21:19 INDICATION: Constipation. Abdominal pain. TECHNIQUE: A supine view of the abdomen on 2 radiographs was obtained. COMPARISON: CT abdomen and pelvis 10/13/2015 FINDINGS: There are dilated loops of small bowel. There is a moderate volume of stool in the colon. T here is a filter in the inferior vena cava. There are stents in the common and external iliac veins. Surgical clips in the right upper quadrant are likely from cholecystectomy. IMPRESSION: 1. Dilated small bowel, consistent with adynamic ileus versus small bowel obstruction. Reviewed, dictated and finalized at location E. [employer] MANAGER IMPRESSION: 1. Dilated small bowel, consistent with adynamic ileus versus small bowel obstr uction.
[2023-06-14 20:01] VITALS: BP 127/71; PULSE 99; RESP 20; TEMP 36.4; O2SAT 96
--- NOTE | 2023-06-14 21:27 | PC.NURSE ---
Patient was over in X-ray when radiology called out to ED for assistance as patient was passing out per radiology. Upon arrival in X-ray patient was lying flat and diaphoretic. ED staff retrieved a stretcher and took patient to ED RM 13.
[2023-06-14 21:34] VITALS: BP 116/78; PULSE 81; RESP 13; TEMP 36.6; O2SAT 99
[2023-06-14] MEDS: SODIUM CHLORIDE 0.9% IV 1,000 ML 999 ML IV CONT (22:05)
--- NOTE | 2023-06-14 22:08 | PC.NURSE ---
Upon doing soaps suds enema nursing staff attempted to get patient to commode when patient stated that she felt dizzy and felt like she was going to pass out. A bed kerr was then placed under the patient in the bed.
[2023-06-14 22:09] LABS: Basophils Percent Auto 0.3 % (0.2-1.2); Eosinophils Percent Auto 0.1 % (0-4.4); Hematocrit 37.1 % (37.0-47.0); Immature Granulocyte Absolute 0.07 K/mm3 (0.00-0.031); Immature Granulocyte Percent A 0.6 % (0-0.5); Lymphocytes Percent Auto 8.4 % (18.3-44.2); Mean Corpuscular HGB Conc 32.3 g/dl (32-36); Mean Corpuscular Hemoglobin 30.8 pg (26-34); Mean Corpuscular Volume 95.4 fl (80-100); Mean Platelet Volume 10.2 fl (7.4-10.4); Monocytes Absolute Auto 0.9 K/mm3 (0.1-0.6); Monocytes Percent Auto 7.4 % (2.6-8.5); Neutrophils Absolute Auto 9.9 K/mm3 (1.3-6.7); Neutrophils Percent Auto 83.2 % (45.5-73.1); Platelet Count Result 251 k/mm3 (150-375); Red Blood Count 3.89 M/mm3 (4.2-5.4); Red Cell Distribution Width 12.2 % (11.5-14.5); White Blood Count 11.9 K/mm3 (4.5-10.0)
[2023-06-14 22:17] LABS: Partial Thromboplastin Time 26.8 SECONDS (22.3-36.8)
[2023-06-14 22:18] LABS: Lactic Acid Reflex 1.1 mmol/L (0.7-2.0)
[2023-06-14 22:24] LABS: Alanine Aminotransferase 18 U/L (6-35); Albumin Level 4.3 g/dL (3.5-5.1); Alkaline Phosphatase 96 U/L (38-126); Anion Gap 7 mmol/L (8-16); Aspartate Amino Transferase 32 U/L (14-36); Blood Urea Nitrogen 18 mg/dL (7-17); Calcium 9.3 mg/dL (8.4-10.2); Carbon Dioxide 32 mmol/L (22-30); Chloride 102 mmol/L (98-107); Estimated CRCL calculation 53 ml/min; Estimated Glomerular Filt Rate > 60; Glucose 110 mg/dL (65-110); Lipase 59 U/L (23-300); Magnesium 2.5 mg/dL (1.6-2.3); Potassium 4.5 mmol/L (3.4-5.0); Sodium 141 mmol/L (137-145)
[2023-06-14 22:42] LABS: Appearance Urine Clear (Clear); Bilirubin Urine 1+ (Negative); Blood Urine Negative (Negative); Color Urine Dark Yellow (Yellow); Glucose Urine UA Negative (Negative); Ketones Urine Negative (Negative); Leukocyte Esterase Ur Negative LEU/UL (Negative); Nitrate Urine Negative (Negative); Protein Urine Negative (Negative); Specific Grav Ur 1.018 (1.001-1.035); Urobilinogen Urine 0.2 mg/dL (<2.0); pH Urine 5.5 (5.0-9.0)
[2023-06-14 22:56] LABS: Add Urine Microscopic? NO
[2023-06-14 23:20] VITALS: BP 119/61; PULSE 83; RESP 20; O2SAT 99
--- NOTE | 2023-06-14 23:23 | ED.GENADULT ---
HPI - General Adult General Chief complaint: Abdominal Pain Stated complaint: constipation Time Seen by Provider: 06/14/23 21:38 History of Present Illness HPI narrative: patient 72-year-old female presents the emergency department with chief complaint constipation. Patient reports he has not had a bowel movement in 4 days reports he has taken multiple things to try to make herself have a bowel movement without success. Patient reports she feels as though there is a soft ball in her rectum that she can not pass. the patient was over an x-ray getting a plain film x-ray of her abdomen and had a syncopal / near syncopal episode Related Data Home Medications Medication Instructions Recorded Confirmed albuterol sulfate 90 mcg/actuation 1 puff inhalation Q4-6H 09/05/20 10/05/22 aerosol inhaler aspirin 81 mg tablet,delayed 81 mg PO DAILY 09/05/20 10/05/22 release gabapentin 600 mg tablet 600 mg PO QID 09/05/20 10/05/22 lorazepam 0.5 mg tablet 0.5 mg PO DAILY 09/05/20 10/05/22 lovastatin 40 mg tablet 40 mg PO DAILY 09/05/20 10/05/22 mirtazapine 15 mg tablet 15 mg PO HS 09/05/20 10/05/22 pantoprazole 20 mg tablet,delayed 40 mg PO DAILY 09/05/20 10/05/22 release sennosides 8.6 mg-docusate sodium 1 tablet PO BID 09/05/20 10/05/22 50 mg tablet (Stool Softener-Laxative) spironolactone 25 mg tablet 25 mg PO DAILY 09/05/20 10/05/22 tramadol 50 mg tablet 50 mg PO Q6-8H 09/05/20 10/05/22 apixaban 5 mg tablet (Eliquis) 5 mg PO BID 01/22/21 10/05/22 carvedilol 3.125 mg tablet 3.125 mg PO BID 01/22/21 10/05/22 furosemide 20 mg tablet 40 mg PO DAILY 01/22/21 10/05/22 trazodone 50 mg tablet 50 mg PO HS 01/22/21 10/05/22 magnesium gluconate 500 mg tablet 500 mg PO BID 04/28/22 10/05/22 meclizine 25 mg tablet 25 mg PO QID 04/28/22 10/05/22 potassium chloride 10 mEq 10 meq PO DAILY 04/28/22 10/05/22 capsule,extended release Allergies Allergy/AdvReac Type Severity Reaction Status Date / Time erythromycin base Allergy Mild RASH Verified 09/14/21 15:30 morphine Allergy Mild RASH Verified 09/14/21 15:30 Penicillins Allergy Mild RASH Verified 09/14/21 15:30 Macrolide Antibiotics Allergy Unknown Unknown Verified 10/05/22 12:30 azithromycin Allergy Nausea and Verified 09/14/21 15:30 Vomiting cephalexin [From Keflex] Allergy Nausea and Verified 09/14/21 15:30 Vomiting Cephalosporins AdvReac Intermediate Nausea and Verified 09/14/21 15:30 Vomiting codeine AdvReac Intermediate Nausea and Verified 09/14/21 15:30 Vomiting hydrocodone AdvReac Intermediate Confusion Verified 09/14/21 15:30 meperidine AdvReac Intermediate Nausea and Verified 09/14/21 15:30 Vomiting CYCLOBENZAPRINE HCL Allergy Mild Unknown Uncoded 10/05/22 12:30 Chicken Meat Allergy Unknown Unknown Uncoded 10/05/22 12:30 TAXATINE Allergy Unknown Unknown Uncoded 10/05/22 12:30 BUTORPHANOL TARTRATE AdvReac Intermediate Nausea and Uncoded 09/14/21 15:30 Vomiting Review of Systems Review of Systems: A 10 system review of systems was completed on the patient and is negative except for what is stated in the HPI. Nursing and ancillary documentation was reviewed. [facility] Past Medical History Medical History Breast cancer chemo CAD (coronary artery disease) Cataracts, bilateral Chemotherapy-induced neuropathy CHF (congestive heart failure) Chronic anticoagulation High cholesterol History of CVA (cerebrovascular accident) HTN (hypertension) Hypothyroidism Insomnia TIKI on CPAP Surgical History Surgical History AICD (automatic cardioverter/defibrillator) present H/O breast biopsy H/O hysterectomy with oophorectomy H/O mastectomy left History of removal of pigmented skin lesion History of tonsillectomy S/P cholecystectomy Family History Family History
[2023-06-15 00:45] VITALS: BP 108/54; PULSE 83; RESP 14; O2SAT 98
[2023-06-15 01:28] VITALS: BP 105/59; PULSE 84; RESP 12; TEMP 36.8; O2SAT 98
== END 2023-06-15 01:29 | disposition home or self-care (01) ==
PROVIDERS: Emergency Provider Emergency Medicine
DX: K56.41 Fecal impaction (principal); R10.9 Unspecified abdominal pain; R55 Syncope and collapse; Z85.3 Personal history of malignant neoplasm of breast; I25.10 Atherosclerotic heart disease of native coronary artery without angina pectoris; I11.0 Hypertensive heart disease with heart failure; I50.9 Heart failure, unspecified; E03.9 Hypothyroidism, unspecified; G47.30 Sleep apnea, unspecified; Z79.01 Long term (current) use of anticoagulants
CPT/HCPCS: 36415; 74018; 74177; 80053; 81003; 83605; 83690; 83735; 84145; 85025; 85610; 85730; 96360; 96361; 99284; J7030; Q9967

== ENCOUNTER 2023-10-12 08:31 | Outpatient (CLI) | payer MEDICARE, SELFPAY ==
--- NOTE | 2023-10-24 11:27 | WPDSLEEPSTUD ---
Sleep Study Date of Study: 10/12/23 Ordering Provider: Niles Casper M.D. Interpreting Physician: Carola Suazo MD Sleep Study Type: Split Polysomnogram Height: 1.65 m Weight: 81.647 kg Body Mass Index: 29.9 Neck Circumference (inches): 17 [place]: 3 Reason for Sleep Study Waking from sleep feeling short of breath Sleep History Lorie White is a 73-year-old woman with shortness of breath while sleeping. She frequently awakens from sleep short of breath. She rarely wakes at night with heartburn, belching or coughing.??She rarely snores, occasionally snores loudly enough that others complain. She frequently has trouble sleeping when she has a cold. She constantly wakes up gasping for breath during the night. She constantly has breathing problems at night witnessed by others, and constantly sweats excessively at night. She rarely notices her heart pounding or beating irregularly during the night. She never falls asleep during the day. She never falls asleep involuntarily, never falls asleep while driving. She never experiences loss of muscle tone with strong emotion. She never feels paralyzed on waking or falling asleep. She never experiences vivid dreams upon waking or falling asleep. She never feels afraid of going to sleep. She never has nightmares. She never recalls her dreams. She occasionally has thoughts racing through her mind. She rarely feels sad or depressed. She occasionally feels anxiety. She never notices parts of her body jerk. She never kicks during the night. She rarely feels crawling or aching feelings in her legs. She never feels leg pain at night. She never has morning jaw pain, and never grinds her teeth at night. She rarely feels bothered by pain during the day, is occasionally awakened by pain during the night. She frequently wakes up feeling stiff in the morning, frequently wakes feeling sore or achy in the morning. She constantly awakens with pain in her neck, spine, very stiff especially with shoulder pain. Normal bedtime is 8:00 p.m., falling asleep within 15-30 minute, waking once at night, goes to the bathroom and returns to sleep easily. Her normal wake time is 5:00 a.m.. On weekends, bedtime is later, 9:00 p.m. and her wake time is 5:30 a.m.. She reports getting an average of 6 hours of sleep at night. She does not generally take naps in the afternoon or evening. A short nap lasting 10-15 minutes might be refreshing. Most of the time she feels adequate upon awakening. Habits:??Tobacco: Never smoker Caffeine: None. Alcohol: None. Recreational substances: None FORMERLY [facility], [facility] Past Medical History Medical History Breast cancer chemo CAD (coronary artery disease) Cataracts, bilateral Chemotherapy-induced neuropathy CHF (congestive heart failure) Chronic anticoagulation High cholesterol History of CVA (cerebrovascular accident) HTN (hypertension) Hypothyroidism Insomnia TIKI on CPAP Surgical History Surgical History AICD (automatic cardioverter/defibrillator) present H/O breast biopsy H/O hysterectomy with oophorectomy H/O mastectomy left History of removal of pigmented skin lesion History of tonsillectomy S/P cholecystectomy Family History Family History Grandparent Breast cancer Father Rupture of bowel Cerebrovascular accident Mother Diabetes mellitus Acute myocardial infarction Sibling Acute myocardial infarction Diabetes mellitus Social History Social History Social History: The patient lives with her . 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 She has 1 daughter Osbaldo who is her durable power assistant attorney general for healthcare. The patient is a lifelong nonsmoker. She does not use any alcohol marijuana or illicit drugs. Code status fu
[2023-10-24 11:47] VITALS: BMI 29.9
== END 2023-10-13 05:24 | disposition home or self-care (01) ==
LOC: ANHCSM 08:34
PROVIDERS: Visit Provider Internal Medicine Cardiovascular Disease
DX: G47.33 Obstructive sleep apnea (adult) (pediatric) (principal)
CPT/HCPCS: 95811

== ENCOUNTER 2024-03-30 12:51 | Outpatient (CLI) | payer MEDICARE, SELFPAY | END 2024-03-31 06:38 | disposition home or self-care (01) | LOC: ANHCSM 12:52 | PROVIDERS: Visit Provider Internal Medicine Cardiovascular Disease | DX: E66.09 Other obesity due to excess calories (principal) | CPT/HCPCS: 95811 ==

== ENCOUNTER 2024-09-06 14:45 | Emergency (ER) | payer MEDICARE, SELFPAY ==
--- NOTE | ~2024-09-06 | CT_ITS ---
CT brain wo con Ordering provider: Sterling Troy MD History: 74 years Female with . fall on EQ . Comparison: April 28, 2022 Technique: CT of the head without contrast. Radiation reduction technique utilized. The dose-length product was 681 mGy-cm. FINDINGS: BRAIN PARENCHYMA AND CSF SPACES: No midline shift, mass effect or hemorrhage. The brain parenchyma a nd CSF spaces are otherwise normal. Empty sella turcica. VISUALIZED PARANASAL SINUSES: Well aerated. MASTOIDS: Well aerated. BONES: The bones appear intact. SOFT TISSUES: Visualized nasopharynx is normal. Superficial soft tissues are normal. IMPRESSION: No acute intracranial findings. Reviewed, dictated and finalized at location A.
--- NOTE | ~2024-09-06 | CT_ITS ---
EXAMINATION: CT cervical spine wo con DATE: 09/06/2024 15:18 INDICATION: Neck injury. Fall. TECHNIQUE: Computed tomography (CT) of the cervical spine was performed without intravenous contrast. Automated exposure control and iterative reconstruction technique were employed. The dose-length pro duct was 382.90 mGy-cm. COMPARISON: CT cervical spine 04/28/2022 FINDINGS: There is mild scarring at the lung apices. There is 5 degrees levocurvature of cervical spi ne. There is 2 mm anterolisthesis of C7 on T1 and T1 on T2. There is mild chronic anterior wedging of T1 vertebral body. There is mildly decreased disc height at C2-C3, severely decreased disc height fr om C3-C4 through C6-C7, and moderately decreased disc height at C7-T1. The following disc levels are specifically discussed: C2-C3: There is severe right and mild left uncovertebral joint osteoarthritis. There is severe bilate ral facet joint osteoarthritis. There is mild bilateral neural foraminal stenosis. There is mild cent ral canal stenosis. C3-C4: There is severe bilateral uncovertebral joint osteoarthritis. There is severe bilateral facet joint osteoarthritis. There is mild bilateral neural foraminal stenosis. There is mild central canal stenosis. C4-C5: There is severe bilateral uncovertebral joint osteoarthritis. There is severe bilateral facet joint osteoarthritis. There is mild bilateral neural foraminal stenosis. There is mild central canal stenosis. C5-C6: There is severe bilateral uncovertebral joint osteoarthritis. There is severe bilateral facet joint osteoarthritis. There is mild right and moderate left neural foraminal stenosis. There is mild central canal stenosis. C6-C7: There is severe right and moderate left uncovertebral joint osteoarthritis. There is severe ri ght and mild left facet joint osteoarthritis. There is mild bilateral neural foraminal stenosis. Ther e is mild central canal stenosis. C7-T1: There is no uncovertebral joint osteoarthritis. There is severe bilateral facet joint osteoart hritis. There is mild bilateral neural foraminal stenosis. There is no central canal stenosis. IMPRESSION: 1. No fracture. 2. Severe cervical spondylosis. Reviewed, dictated and finalized at location B.
[2024-09-06 14:41] VITALS: BP 142/93; PULSE 74; RESP 14; TEMP 36.5; O2SAT 94
[2024-09-06 15:00] VITALS: BP 111/58; PULSE 72; RESP 17; O2SAT 94
--- NOTE | 2024-09-06 15:05 | ECG_ITS ---
Test Date: 2024-09-06 15:42:11 Measurements Intervals [place] Rate: 61 P: 53 MA: 132 QRS: 203 QRSD: 177 T: -8 QT: 489 QTc: 493 Interpretive Statements ELECTRONIC ATRIAL PACEMAKER ELECTRONIC VENTRICULAR PACEMAKER ABNORMAL RHYTHM ECG No previous ECG available for comparison Electronically Signed On 09-07-2024 16:45:04 CDT by Mitchel Galloway M.D.
--- NOTE | 2024-09-06 15:17 | ED.FALL ---
HPI - Fall General Chief Complaint: Fall Stated Complaint: fall hit head Time Seen by Provider: 09/06/24 14:47 History of Present Illness HPI Narrative: 74-year-old female with a past medical history including breast cancer status post resection currently in remission. AICD/pacemaker. She takes Eliquis daily for this. Patient presents to the emergency department today after mechanical fall from a chair. Patient was sitting down on her porch when it fell backwards and she hit her head and potentially loss consciousness. Patient is not actually sure if she lost consciousness but she denies this. Arrived in [place] but [place] presently has no neck pain. Denies any vision changes, nausea, vomiting, abdominal pain or back pain. States that she did not have any prodromal symptoms and the chair broke that led to the fall. Related Data Home Medications ?Medication ?Instructions ?Recorded ?Confirmed ?Last Taken ?Type albuterol sulfate 90 mcg/actuation 1 puff inhalation Q4-6H 09/05/20 10/05/22 Unknown History aerosol inhaler aspirin 81 mg tablet,delayed 81 mg PO DAILY 09/05/20 10/05/22 Unknown History release gabapentin 600 mg tablet 600 mg PO QID 09/05/20 10/05/22 Unknown History lorazepam 0.5 mg tablet 0.5 mg PO DAILY 09/05/20 10/05/22 Unknown History lovastatin 40 mg tablet 40 mg PO DAILY 09/05/20 10/05/22 Unknown History mirtazapine 15 mg tablet 15 mg PO HS 09/05/20 10/05/22 Unknown History pantoprazole 20 mg tablet,delayed 40 mg PO DAILY 09/05/20 10/05/22 Unknown History release sennosides 8.6 mg-docusate sodium 1 tablet PO BID 09/05/20 10/05/22 Unknown History 50 mg tablet (Stool Softener-Laxative) spironolactone 25 mg tablet 25 mg PO DAILY 09/05/20 10/05/22 Unknown History tramadol 50 mg tablet 50 mg PO Q6-8H 09/05/20 10/05/22 Unknown History apixaban 5 mg tablet (Eliquis) 5 mg PO BID 01/22/21 10/05/22 Unknown History carvedilol 3.125 mg tablet 3.125 mg PO BID 01/22/21 10/05/22 Unknown History furosemide 20 mg tablet 40 mg PO DAILY 01/22/21 10/05/22 Unknown History trazodone 50 mg tablet 50 mg PO HS 01/22/21 10/05/22 Unknown History magnesium gluconate 500 mg tablet 500 mg PO BID 04/28/22 10/05/22 Unknown History meclizine 25 mg tablet 25 mg PO QID 04/28/22 10/05/22 Unknown History potassium chloride 10 mEq 10 meq PO DAILY 04/28/22 10/05/22 Unknown History capsule,extended release Allergies Allergy/AdvReac Type Severity Reaction Status Date / Time erythromycin base Allergy Mild RASH Verified 09/06/24 14:46 morphine Allergy Mild RASH Verified 09/06/24 14:46 Penicillins Allergy Mild RASH Verified 09/06/24 14:46 Macrolide Antibiotics Allergy Unknown Unknown Verified 09/06/24 14:46 azithromycin Allergy Nausea and Verified 09/06/24 14:46 Vomiting cephalexin (From Keflex) Allergy Nausea and Verified 09/06/24 14:46 Vomiting Cephalosporins AdvReac Intermediate Nausea and Verified 09/06/24 14:46 Vomiting codeine AdvReac Intermediate Nausea and Verified 09/06/24 14:46 Vomiting hydrocodone AdvReac Intermediate Confusion Verified 09/06/24 14:46 meperidine AdvReac Intermediate Nausea and Verified 09/06/24 14:46 Vomiting CYCLOBENZAPRINE HCL Allergy Mild Unknown Uncoded 09/06/24 14:46 Chicken Meat Allergy Unknown Unknown Uncoded 09/06/24 14:46 TAXATINE Allergy Unknown Unknown Uncoded 09/06/24 14:46 BUTORPHANOL TARTRATE AdvReac Intermediate Nausea and Uncoded 09/06/24 14:46 Vomiting Review of Systems Review of Systems: As reviewed above in [facility] Past Medical History Medical History History of CVA (cerebrovascular accident) Chemotherapy-induced neuropathy Cataracts, bilateral Breast cancer chemo Insomnia Hypothyroidism TIKI on CPAP CHF (congestive heart failure) CAD (coronary artery disease) High cholesterol HTN (hypertension) Chronic anticoagulation Surgical History Surgical History History of tonsillectomy History of removal of pigmented skin lesion AICD (automatic cardioverter/defibrillator) present H/O breast biopsy H/O hysterectomy with oophorectomy S/P cholecystectomy H/O mastectomy left Family History Family History Grandparent Breast cancer Father Rupture of bowel Cerebrovascular accident Mother Diabetes mellitus Acute myocardial infarction Sibling Acute myocardial infarction Diabetes mellitus Social History Social History Social History: The patient lives with her . 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 She has 1 daughter Osbaldo who is her durable power regulatory attorney for healthcare. The patient is a lifelong nonsmoker. She does not use any alcohol marijuana or illicit drugs. Code status full code. Smoking status: Never smoker Alcohol intake: never Substance use: never Lack of Transportation: No Lack of Food: Never True Current Housing: I Have Housing Concerned About Future Housing: No Difficulty Paying Gas/Electric Bills: No Difficulty Paying for Meds: No Currently Unemployed: No Education: High School Diploma/GED Difficulty w/ Childcare or Family Care: No Spiritual care concerns: No Exam Narrative: GENERAL: Elderly, not in any distress, appears well. HEAD: [Normocephalic, atraumatic.] EYES: [PERRLA and EOMI.] ENT: Nares clear, no rhinorrhea or epistaxis. Mucous membranes moist. NECK: Supple. CHEST: [Clear to auscultation. No respiratory distress.] HEART: [Regular rate and rhythm]. No murmur heard. [Normal peripheral pulses.] ABDOMEN: [Soft, nondistended], [nontender], [No rigidity or guarding] EXTREMITIES: Left upper extremity with a limb alert bracelet, swollen secondary to chronic lymphedema, normal radial pulse. No injury or trauma to the upper lower extremities. No midline thoracic cervical or lumbar spine tenderness. No restricted range of motion of the head or neck. SKIN: Warm, dry, no rash. NEURO: [No focal deficits]. Alert and oriented [x3.] PSYCH: [Normal mood and affect.] Course Vital Signs Vital signs: Vital Signs Temperature 36.5 C 09/06/24 14:41 Pulse Rate 74 09/06/24 14:41 Respiratory Rate 14 09/06/24 14:41 Blood Pressure 142/93 H 09/06/24 14:41 Pulse Oximetry 94 03/13/25 14:41 Oxygen Delivery Room Air 09/06/24 14:41 Temperature 36.7 C 09/06/24 20:05 Pulse Rate 70 09/06/24 20:05 Respiratory Rate 19 09/06/24 20:05 Blood Pressure 119/72 09/06/24 20:05 Pulse Oximetry 97 09/06/24 20:05 Oxygen Delivery Room Air 09/06/24 14:41 MDM - Fall MDM Narrative Medical decision making narrative: 74-year-old female presenting for mechanical fall from her chair that broke underneath her weight. She fell backwards and hit her head. Unclear if she lost consciousness, patient denies this. She takes Eliquis daily. She has a history of breast cancer and an AICD. EKG obtained, CT head and CT cervical spine obtained given her elevated risk factors. No restricted range of motion, no neuro deficits appears awake alert oriented. Normal vital signs. Patient can safely be discharged home upon negative imaging studies and unremarkable EKG. Patient requested her normal dose of tramadol for pain control which was provided to her orally. CT shows no fractures or dislocation. Patient felt better after re-evaluation and wished to go home. She is medically safe and stable for discharge with regular PCP follow-up. Medical Records Attestation: I reviewed the patient's medical records. Imaging Data Attestation: I personally reviewed and interpreted this imaging study as follows: My impression: Impressions Head CT 09/06/24 15:18 IMPRESSION: No acute intracranial findings. Cervical Spine CT 09/06/24 15:22 IMPRESSION: 1. No fracture. 2. Severe cervical spondylosis. Discharge Plan Discharge Clinical Impression: Fall from ground level, CHI (closed head injury) Patient Disposition: Home, Self-Care Condition: Stable Instructions: Antibiotic Form, Head Injury (ED) Additional Instructions: Your CT scan shows no injury or fractures. Follow-up with regular doctor, Tylenol and ibuprofen for any pain control. Return with any new or worsening concerns otherwise. Patient Language: B[place] Prescriptions: No Action gabapentin 600 mg tablet 600 mg PO QID lovastatin 40 mg tablet 40 mg PO DAILY sennosides-docusate sodium [Stool Softener-Laxative] 8.6-50 mg tablet 1 tablet PO BID aspirin 81 mg tablet,delayed release (DR/EC) 81 mg PO DAILY tramadol 50 mg tablet 50 mg PO Q6-8H spironolactone 25 mg tablet 25 mg PO DAILY pantoprazole 20 mg tablet,delayed release (DR/EC) 40 mg PO DAILY lorazepam 0.5 mg tablet 0.5 mg PO DAILY Rx Instructions: May take 1/2 to 1 tab mirtazapine 15 mg tablet 15 mg PO HS Rx Instructions: Take 1/2 to 1 tab at bedtime albuterol sulfate 90 mcg/actuation HFA aerosol inhaler 1 puff INHALATION Q4-6H clindamycin HCl 300 mg capsule 300 mg PO Q6H Qty: 40 0RF trazodone 50 mg tablet 50 mg PO HS Rx Instructions: Take 1 or 2 tabs at HS carvedilol 3.125 mg tablet 3.125 mg PO BID furosemide 20 mg tablet 40 mg PO DAILY Eliquis 5 mg tablet 5 mg PO BID docusate sodium [Stool Softener] 100 mg capsule 100 mg PO BID Qty: 60 0RF potassium chloride 10 mEq Capsule, Extended Release 10 meq PO DAILY magnesium gluconate 500 mg Tablet 500 mg PO BID meclizine 25 mg Tablet 25 mg PO QID doxycycline hyclate 100 mg capsule 100 mg PO BID Qty: 10 0RF Follow-up/Referrals: UNKNOWN,DOCTOR [Primary Care Provider] - Time of Disposition: 19:46
[2024-09-06] MEDS: traMADol HCL (*CRX) 50 MG TABLET 100 MG PO (15:37)
[2024-09-06 16:50] VITALS: BP 121/75; PULSE 66; RESP 19; O2SAT 97
--- OUTSIDE RECORDS SUMMARY | 2024-09-06 16:58 | XMS_ITS ---
Author Organization [facility] Address [address] [facility] [address] [place] [address] Care Team Providers Care Emission Specialist Name Role Phone Qiana Cardenas Primary Care Provider Unavail able GUNJAN CARRERA Unavailable [phone] Medications Medication SIG (Take, Route, Frequency, Duration) Notes Start Date End Date Status Semaglutide-Weight Management 0.5 MG/0.5ML 0.5 mg Subcutaneous weekly for [address] bernal,deliver to [facility] 09/03/24 ,1 cc seamglut 09/01/2024 Active Carvedilol 3.125 MG TAKE 1 TABLET BY MOUTH TWICE A DAY for 90 Active Furosemide 40 MG TAKE 1 TABLET BY MOUTH EVERY DAY FOR 30 DAYS for 90 Active oxyCODONE HCl 5 MG 1 tablet as needed Orally every 6 hrs Not-Taking Semaglutide-Weight Management 0.25 MG/0.5ML 0.25mg Subcutaneous weekly for [address] carrera. Deliver 07/27. 1ML 07/26/2024 Active Baclofen 5 MG/ML 1 ml with food or milk Orally every 8 hrs for 30 day(s) Not-Taking Esomeprazole Magnesium 40 MG 1 capsule Orally Once a day for 30 day(s) Not-Taking Acetaminophen 500 MG 1 capsule as needed Orally every 6 hrs Not-Taking Docusate Sodium 100 MG 1 capsule as needed Orally Once a day for 30 day(s) Not-Taking Magnesium Gluconate 500 MG TAKE 1 TABLET BY MOUTH TWICE A DAY for 90 Not-Taking Famotidine 40 MG 1 tablet at bedtime Orally Once a day for 30 day(s) Not-Taking Cardizem LA 180 MG 1 tablet Orally Once a day for 30 day(s) Not-Taking Promethazine HCl 12.5 MG 1 tablet as needed Orally every 6 hrs for 30 day(s) Not-Taking Ambien 5 MG 1 tablet at bedtime Orally Once a day Not-Taking PARoxetine HCl 10 MG 1 tablet in the morning Orally Once a day for 30 day(s) Not-Taking Semaglutide-Weight Management 0.5 MG/0.5ML 0.5 mL Subcutaneous weekly for 30 days 05/10/2024 Not-Taking Furosemide 20 MG TAKE 2 TABLETS BY MOUTH EVERY DAY FOR 30 DAYS for 90 Active Eliquis 2.5 MG as directed Orally twice daily for 30 days 06/25/2024 Active Wegovy 0.5 MG/0.5ML 0.5 mL Subcutaneous for 28 days Approval through insurance until 06-26-2025 Active Eliquis 5 MG take one tablet by mouth twice daily for 90 days Active Pantoprazole Sodium 40 MG 1 tablet Orally Once a day for 90 days Active Lovastatin 40 MG TAKE 1 TABLET BY MOUTH EVERY DAY WITH A MEAL for 90 Active [address]in 0[address] 1 TABLET UNDER TONGUE EVERY 5 MINS, UP TO 3 DOSES NEEDED FOR CHEST PAIN for 90 Active Entresto 49-51 MG 1 tablet Orally Twice a day for 30 days 09/02/2020 Not-Taking Zepbound 2.5 MG/0.5ML as directed Subcutaneous Weekly for 28 days Not-Taking Multivitamin Adults 50+ - as directed Orally Active Cyanocobalamin 100 MCG as directed Orally Not-Takin g Mirtazapine 15 MG 1 tablet at bedtime Orally Once a day for 30 day(s) Active Senna-Docusate Sodium 8.6-50 MG 1 tablet in the evening as needed Orally Once a day for 30 day(s) Not-Taking traMADol HCl 50 MG 1 tablet as needed Orally every 6 hrs Active Aspir-81 81 MG 1 tablet Orally Once a day Active Gabapentin 600 MG 1 tablet Orally Three times a day Active Potassium Chloride ER 10 MEQ 1 capsule with food Orally Twice a day Active Ativan 0.5 MG 1 tablet at bedtime as needed Orally Once a day Not-Taking Levothyroxine Sodium 100 MCG 1 tablet on an empty stomach in the morning Orally Once a day Not-Taking Midodrine HCl 5 MG 1 tablet Orally Twice a day Not-Taking Hydrocortisone 10 MG 1 tablet with food or milk Orally every 12 hrs Not-Taking Vitamin C 500 MG as directed Orally Active Albuterol Sulfate HFA 108 (90 Base) MCG/ACT 1 puff as needed Inhalation every 4 hrs Active traZODone HCl 50 MG 1 tablet at bedtime as needed Orally Once a day Active Montelukast Sodium 10 MG 1 tablet Orally Once a day Active tiZANidine HCl 2 MG 1 tablet as needed Orally Three times a day Not-Taking Spironolactone 25 MG 1 tablet Orally Once a day Active MiraLax 17 GM/SCOOP as directed Orally Active Ondansetron HCl 4 MG 1 tablet Orally Once a day Not-Taking Gabapentin 300 MG 3 capsule Orally 4 times daily Active Vital Signs Blood pressure systolic 123 mm Hg 09/01/19 25 Blood pressure diastolic 78 mm Hg 025 Heart Rate 72 /min 08/31/2024 Weight 180 lbs 08/31/2024 BMI 32.92 kg/m2 08/31/2024 Height 62 in 08/31/2024 Respiratory Rate 16 /min 08/31/2024 Encounters Encounter Location Date Provider Diagnosis [facility] [address] [facility] [address] [place] [address] 08/31/2024 GUNJAN CARRERA Cardiomyopathy in diseases classified elsewhere I43 ; Other obesity due to excess calories E66.09 ; Lymphedema, not elsewhere classified I89.0 ; Varicose veins of unspecified lower extremity with inflammation I83.10 ; Sick sinus syndrome I49.5 and Shortness of breath R06.02 Assessments Encounter Date Diagnosis (ICD Code) Assessment Notes Treatment Notes Treatment Clinical Notes Section Notes 08/31/2024 Cardiomyopathy in diseases classified elsewhere (ICD-10 - I43) 08/31/2024 Other obesity due to excess calories (ICD-10 - E66.09) Slowly loosing weight,will semag to 0.5 mg qweek 08/31/2024 Lymphedema, not elsewhere classified (ICD-10 - I89.0) Stable 08/31/2024 Varicose veins of unspecified lower extremity with inflammation (ICD-10 - I83.10) 08/31/2024 Sick sinus syndrome (ICD-10 - I49.5) 08/31/2024 Shortness of breath (ICD-10 - R06.02) Plan Of Treatment Medication Medication Name Sig Start Date Stop Date Notes Semaglutide-Weight Management 0.5 MG/0.5ML 0.5 mg Subcutaneous weekly for 30 days 09/01/[address] bernal,deliver to [facility] 09/03/24 ,1 cc seamglut Treatment Notes Assessment Notes Other obesity due to excess calories Slo wly loosing weight,will semag to 0.5 mg qweek Lymphedema, not elsewhere classified Sta ble Next Appt Details Follow Up: 4 Weeks, Reason: Provider Name:GUNJAN GOLDSMITH, 09/28/2024 09:00:00 AM, [address], [address], Progress Notes * Lorie CAMPBELL ANNDOB: [birth year] (74 yo F)Acc No.[id number]:08/31/2024 Patient: Vilma CHIQUITALorie MARS ANN Provider: Pippa Carrera MD :[id number] A ge:74 Y S ex:Female Date:08/31/2024 Address:[address] [place] [address] , [place] [address] Pcp:Qiana Cardenas Subjective: * Chief Complaints: * * HPI: C onstitutional: Patient is a 73 year old female with PMHx of varicose veins, cardiomyopathy, HLD, and DVT who presents for a follow up 73 yowf with DCM/oom/chf/lymphedema came for fu after hospital admit.Doing well except legs hurting/swollen,right worse,right much better.Lost her ,grieving,has been having no cp/gaining weight,has more leg/feet edema,legs heavy/hurting,not wearing stockings,but feeling good,loosing weight [facility]govy [facility]. $$ she is interested in other options.Loosing weight. * ROS: G eneral/Constitutional: Admits C hange in appetite. D enies F atigue. D enies L ightheadedness. A dmits W eight loss. C ardiovascular: Denies C hest pain. D enies C hest pain at rest.?Denies C hest pain with exertion. D enies C laudication. A dmits D yspnea on exertion. P eripheral Vascular: Admits P ain/cramping in legs after exertion. A dmits?Painful extremities. D enies U lceration of feet. * Medical History: * Surgical History: * Hospitalization/Major Diagno stic Procedure: * Medications: T akingGabapentin 300 MG Capsule 3 capsule Orally 4 times daily Spironolactone 25 MG Tablet 1 tablet Orally Once a day Montelukast Sodium 10 MG Tablet 1 tablet Orally Once a day MiraLax 17 GM/SCOOP Powder as directed Orally Vitamin C 500 MG Capsule as directed Orally Albuterol Sulfate HFA 108 (90 Base) MCG/ACT Aerosol Solution 1 puff as needed Inhalation every 4 hrs traZODone HCl 50 MG Tablet 1 tablet at bedtime as needed Orally Once a day Potassium Chloride ER 10 MEQ Capsule Extended Release 1 capsule with food Orally Twice a day Aspir-81 81 MG Tablet Delayed Release 1 tablet Orally Once a day Gabapentin 600 MG Tablet 1 tablet Orally Three times a day Mirtazapine 15 MG Tablet 1 tablet at bedtime Orally Once a day Multivitamin Adults 50+ - Tablet as directed Orally traMADol HCl 50 MG Tablet 1 tablet as needed Orally every 6 hrs Pantoprazole Sodium 40 MG Tablet Delayed Release 1 tablet Orally Once a day Lovastatin 40 MG Tablet TAKE 1 TABLET BY MOUTH EVERY DAY WITH A MEAL Nitroglycerin 0.[address] 1 TABLET UNDER TONGUE EVERY 5 MINS, UP TO 3 DOSES NEEDED FOR CHEST PAIN Eliquis 5 MG Tablet take one tablet by mouth twice daily Furosemide 20 MG Tablet TAKE 2 TABLETS BY MOUTH EVERY DAY FOR 30 DAYS Eliquis 2.5 MG Tablet as directed Orally twice daily Wegovy 0.5 MG/0.5ML Solution Auto-injector 0.5 mL Subcutaneous , Notes to Pharmacist: Approval through insurance until [id number]-Weight Management 0.25 MG/0.5ML Solution Auto- injector 0.25mg Subcutaneous weekly , Notes to Pharmacist: Please invoice dr. carrera. Deliver 07/27. 1MLCarvedilol 3.125 MG Tablet TAKE 1 TABLET BY MOUTH TWICE A DAY Furosemide 40 MG Tablet TAKE 1 TABLET BY MOUTH EVERY DAY FOR 30 DAYS Taking Gabapentin 300 MG Capsule 3 capsule Orally 4 times daily Taking Spironolactone 25 MG Tablet 1 tablet Orally Once a day Taking Montelukast Sodium 10 MG Tablet 1 tablet Orally Once a day Taking MiraLax 17 GM/SCOOP Powder as directed Orally Taking Vitamin C 500 MG Capsule as directed Orally Taking Albuterol Sulfate HFA 108 (90 Base) MCG/ACT Aerosol Solution 1 puff as needed Inhalation every 4 hrs Taking traZODone HCl 50 MG Tablet 1 tablet at bedtime as needed Orally Once a day Taking Potassium Chloride ER 10 MEQ Capsule Extended Release 1 capsule with food Orally Twice a day Taking Aspir-81 81 MG Tablet Delayed Release 1 tablet Orally Once a day Taking Gabapentin 600 MG Tablet 1 tablet Orally Three times a day Taking Mirtazapine 15 MG Tablet 1 tablet at bedtime Orally Once a day Taking Multivitamin Adults 50+ - Tablet as directed Orally Taking traMADol HCl 50 MG Tablet 1 tablet as needed Orally every 6 hrs Taking Pantoprazole Sodium 40 MG Tablet Delayed Release 1 tablet Orally Once a day Taking Lovastatin 40 MG Tablet TAKE 1 TABLET BY MOUTH EVERY DAY WITH A MEAL Taking Nitroglycerin 0.[address] 1 TABLET UNDER TONGUE EVERY 5 MINS, UP TO 3 DOSES NEEDED FOR CHEST PAIN Taking Eliquis 5 MG Tablet take one tablet by mouth twice daily Taking Furosemide 20 MG Tablet TAKE 2 TABLETS BY MOUTH EVERY DAY FOR 30 DAYS Taking Eliquis 2.5 MG Tablet as directed Orally twice daily Taking Wegovy 0.5 MG/0.5ML Solution Auto-injector 0.5 mL Subcutaneous , Notes to Pharmacist: Approval through insurance until [id number] Semaglutide-Weight Management 0.25 MG/0.5ML Solution Auto-injector 0.25mg Subcutaneous weekly , Notes to Pharmacist: Please invoice dr. carrera. Deliver 07/27. 1MLTaking Carvedilol 3.125 MG Tablet TAKE 1 TABLET BY MOUTH TWICE A DAY Taking Furosemide 40 MG Tablet TAKE 1 TABLET BY MOUTH EVERY DAY FOR 30 DAYS Not-Taking/PRNtiZANidine HCl 2 MG Tablet 1 tablet as needed Orally Three times a day Ondansetron HCl 4 MG Tablet 1 tablet Orally Once a day Midodrine HCl 5 MG Tablet 1 tablet Orally Twice a day Hydrocortisone 10 MG Tablet 1 tablet with food or milk Orally every 12 hrs Ativan 0.5 MG Tablet 1 tablet at bedtime as needed Orally Once a day Levothyroxine Sodium 100 MCG Tablet 1 tablet on an empty stomach in the morning Orally Once a day Cyanocobalamin 100 MCG Tablet as directed Orally Senna-Docusate Sodium 8.6-50 MG Tablet 1 tablet in the evening as needed Orally Once a day Entresto 49-51 MG Tablet 1 tablet Orally Twice a day Zepbound 2.5 MG/0.5ML Solution as directed Subcutaneous Weekly Semaglutide- Weight Management 0.5 MG/0.5ML Solution Auto-injector 0.5 mL Subcutaneous weekly Promethazine HCl 12.5 MG Tablet 1 tablet as needed Orally every 6 hrs Famotidine 40 MG Tablet 1 tablet at bedtime Orally Once a day Cardizem LA 180 MG Tablet Extended Release 24 Hour 1 tablet Orally Once a day Ambien 5 MG Tablet 1 tablet at bedtime Orally Once a day PARoxetine HCl 10 MG Tablet 1 tablet in the morning Orally Once a day Docusate Sodium 100 MG Capsule 1 capsule as needed Orally Once a day Magnesium Gluconate 500 MG Tablet TAKE 1 TABLET BY MOUTH TWICE A DAY Baclofen 5 MG/ML Suspension 1 ml with food or milk Orally every 8 hrs Esomeprazole Magnesium 40 MG Capsule Delayed Release 1 capsule Orally Once a day Acetaminophen 500 MG Capsule 1 capsule as needed Orally every 6 hrs oxyCODONE HCl 5 MG Tablet 1 tablet as needed Orally every 6 hrs Not-Taking/PRN tiZANidine HCl 2 MG Tablet 1 tablet as needed Orally Three times a day Not-Taking/PRN Ondansetron HCl 4 MG Tablet 1 tablet Orally Once a day Not-Taking/PRN Midodrine HCl 5 MG Tablet 1 tablet Orally Twice a day Not-Taking/PRN Hydrocortisone 10 MG Tablet 1 tablet with food or milk Orally every 12 hrs Not-Taking/PRN Ativan 0.5 MG Tablet 1 tablet at bedtime as needed Orally Once a day Not-Taking/PRN Levothyroxine Sodium 100 MCG Tablet 1 tablet on an empty stomach in the morning Orally Once a day Not-Taking/PRN Cyanocobalamin 100 MCG Tablet as directed Orally Not-Taking/PRN Senna-Docusate Sodium 8.6-50 MG Tablet 1 tablet in the evening as needed Orally Once a day Not-Taking/PRN Entresto 49-51 MG Tablet 1 tablet Orally Twice a day Not-Taking/PRN Zepbound 2.5 MG/0.5ML Solution as directed Subcutaneous Weekly Not-Taking/PRN Semaglutide-Weight Management 0.5 MG/0.5ML Solution Auto-injector 0.5 mL Subcutaneous weekly Not-Taking/PRN Promethazine HCl 12.5 MG Tablet 1 tablet as needed Orally every 6 hrs Not-Taking/PRN Famotidine 40 MG Tablet 1 tablet at bedtime Orally Once a day Not-Taking/PRN Cardizem LA 180 MG Tablet Extended Release 24 Hour 1 tablet Orally Once a day Not-Taking/PRN Ambien 5 MG Tablet 1 tablet at bedtime Orally Once a day Not-Taking/PRN PARoxetine HCl 10 MG Tablet 1 tablet in the morning Orally Once a day Not-Taking/PRN Docusate Sodium 100 MG Capsule 1 capsule as needed Orally Once a day Not-Taking/PRN Magnesium Gluconate 500 MG Tablet TAKE 1 TABLET BY MOUTH TWICE A DAY Not-Taking/PRN Baclofen 5 MG/ML Suspension 1 ml with food or milk Orally every 8 hrs Not-Taking/PRN Esomeprazole Magnesium 40 MG Capsule Delayed Release 1 capsule Orally Once a day Not-Taking/PRN Acetaminophen 500 MG Capsule 1 capsule as needed Orally every 6 hrs Not-Taking/PRN oxyCODONE HCl 5 MG Tablet 1 tablet as needed Orally every 6 hrs Objective: * Vitals: O 2: 97, BP:123/78mm Hg, HR:72/min, Wt:180lbs, BMI:32.92Index, Ht: 62 in, RR:16/min. * Examination: G eneral Examination: GENERAL APPEARANCE: i n no acute distress, well developed, well nourished, obese. HEAD: n ormocephalic, atraumatic. ORAL CAVITY: m ucosa moist. NECK/THYROID: n wendi supple, full range of motion. SKIN: n o suspicious lesions, warm and dry. HEART: n o murmurs, regular rate and rhythm, S1, S2 normal.? LUNGS: c lear to auscultation bilaterally . ABDOMEN: n ormal, bowel sounds present, soft, nontender, nondistended , normal, bowel sounds present, soft, nontender, nondistended. EXTREMITIES: n o clubbing, cyanosis, 2-3+ edema/left arm ,?. NEUROLOGIC: a lert and oriented, cooperative with exam.? Assessment: * Assessment: 1. L ymphedema, not elsewhere classified - I89.0 (Primary) 2 . C ardiomyopathy in diseases classified elsewhere - I43 3 . O ther obesity due to excess calories - E66.09 4 . V aricose veins of unspecified lower extremity with inflammation - I83.10 5 . S ick sinus syndrome - I49.5 6 . S hortness of breath - R06.02 Plan: * Treatment: 2. O ther obesity due to excess calories Notes: Slowly loosing weight,will semag to 0.5 mg qweek * Procedure Codes: * Follow Up: 4 Weeks * * Sign off status: Completed true * Provider: Pippa Carrera MD Date: 0 08/31/2024 Generated for Printi ng/Faxing/eTransmitting on: 0 09/06/2024 04:58 PM CDT History and Physical Notes * Examination Category Sub-Category Detail Notes Category Not es General Examination GENERAL APPEARANCE: in no ac [place] distress, well developed, well nourished, obese HEAD: normocephalic, atrau matic NECK/THYROID: neck supple, full ra nge of motion HEART: no murmurs, regular rate and rhythm, S1, S2 normal LUNGS: clear to auscultatio n bilaterally ABDOMEN: normal, bowel sounds present, soft, nontender, nondistended , normal, bowel sounds present, soft, nontender, nondistended NEUROLOGIC: alert and oriented, cooperative with exam SKIN: no suspicious lesion s, warm and dry EXTREMITIES: no clubbing, cyanosi s, 2-3+ edema/left arm , ORAL CAVITY: mucosa moist
--- OUTSIDE RECORDS SUMMARY | 2024-09-06 16:59 | XMS_ITS ---
Author Organization [facility] Address [address] [place] [address] Care Team Providers Care Costumer Assistant Name Role Phone Gunjan Hanks Unavailable Unavaila Cooper Dobbs MD Unavailable [phone] Mirian Burkett MD Unavailable [phone] Aly Montana MD Unavailable [phone] Niles Carrera MD Unavailable [phone] Qiana Cardenas MD Primary Care Provider + Active Problems Problem Noted Date Diagnosed Date Vitamin D deficiency 01/15/2024 Assessment & Plan (01/17/2024 8:13 PM CDT): Stable. Continue vitamin-D 66941 units weekly. Chronic systolic congestive heart failure 2023 Assessment & Plan (04/10/2024 9:45 PM CDT): Stable. Continue current medications. Follow-up Cardiology. Report weight gain, edema, shortness of breath. Assessment & Plan (01/17/2024 8:14 PM CDT): Stable. Continue current medications. Follow-up Cardiology. Report shortness of breath, worsening lower extremity edema, weight gain. Sleep disturbance 10/17/2023 Assessment & Plan (01/17/2024 8:13 PM CDT): Stable. Continue mirtazapine 15 mg q.h.s. and trazodone 50 mg 1 or 2 tablets at bedtime as needed. Follow good night's sleep hygiene. Assessment & Plan (10/17/2023 10:46 PM CDT): Stable. Continue trazodone p.r.n.. Follow good night's sleep hygiene. Open fracture of right elbow with routine healin g 07/04/2023 Other dysphagia 11/22/2022 Assessment & Plan (11/22/2022 4:07 PM CDT): Refer to GI for evaluation. Continue PPI. Benign paroxysmal positional vertigo 09/29/2022 Vestibular migraine 08/12/2022 Assessment & Plan (08/22/2023 9:45 AM DAY WORKER): Since increasing her gabapentin and completing PT, she has noted improvement in her headache pattern with associated dizziness, photophobia, phonophobia and nausea. Can have intermittent dizziness, most prominent in the morning but denies that it interferes with her ADLs. Denies any significant episodes since her last visit. Notes that she is overall feeling really well. Plan: 1. Headache diary 2. Continue gabapentin to 900 mg q.i.d. 3. Fall precautions reviewed 4. Continue magnesium supplement 5. Consider introduction of a TCA for further symptom management 6. Continue to appreciate ENT input 7. Follow up in 6 months Assessment & Plan (03/08/2023 4:14 PM CDT): Since increasing her gabapentin and completing PT, she has noted improvement in her headache pattern with associated dizziness, photophobia, phonophobia and nausea. Denies any significant episodes since her last visit. Notes that she is overall feeling really well. Plan: 1. Headache diary 2. Continue gabapentin to 900 mg q.i.d. 3. Fall precautions reviewed 4. Continue magnesium supplement, add in riboflavin 400 mg daily. 5. Consider introduction of a TCA for further symptom management 6. Continue to appreciate ENT input 7. Follow up in 4-5 months Assessment & Plan (11/01/2022 12:33 PM CDT): Since increasing her gabapentin at her last visit, she is noted improvement in her headache pattern with associated dizziness, photophobia, phonophobia and nausea. She is also started a daily antihistamine for allergy type symptoms which has offered some relief as well. She is yet to start vestibular therapy with PT which could offer her further symptom relief. Denies any further medication for symptom management at this time. She would like to proceed with therapy to see if she would get further improvement. Plan: 1. Headache diary 2. Continue gabapentin to 900 mg q.i.d. 3. Fall precautions reviewed 4. Continue magnesium supplement, add in riboflavin 400 mg daily. 5. Consider introduction of a TCA for further symptom management 6. Continue to appreciate ENT input 7. Follow up in 3 months Assessment & Plan (09/06/2022 4:30 PM CDT): She has been having increase in dizzy spells that have not resolved with treatment by ENT/vestibular team. Symptoms are worsened with rapid head movements. Last for 5-60 minutes. Typically are accompanied by a pressure headache. Can have associated photophobia, phonophobia, and nausea. These seem suggestive of vestibular migraines, especially given her migraine history and associated symptoms. She is already on gabapentin, would like to maximize this medication as she is not having side effects and it can be beneficial for vestibular migraines. Plan: 1. Headache diary 2. Increase gabapentin to 900 mg q.i.d. 3. Fall precautions reviewed 4. Continue magnesium supplement, add in riboflavin 400 mg daily. 5. Consider introduction of a TCA for further symptom management 6. Continue to appreciate ENT input 7. Follow up in 6-8 weeks Thumb pain, right 03/04/2022 Assessment & Plan (03/04/2022 1:20 PM CDT): Improved after injection of steroids per Orthopedics I recommend 2nd opinion for recommended surgery by 1st orthopod patient agrees referral placed to Dr. Waldron Orthostatic hypotension 12/15/2021 Assessment & Plan (06/04/2024 5:26 PM DAY WORKER): Chronic, stable. She does not have a current prescription for midodrine, she is unsure if she takes this medication. Recommended following up with her archery equipment hay sorter about need for this medication. Assessment & Plan (04/10/2024 9:49 PM CDT): Stable. Continue midodrine. Change positions slowly. Maintain hydration Assessment & Plan (07/17/2023 4:55 PM DAY WORKER): Stable. Continue midodrine. Change positions slowly. Maintain hydration. Assessment & Plan (03/20/2023 3:33 PM CDT): Stable. Continue midodrine. Change positions slowly. Maintain hydration. Assessment & Plan (06/01/2022 9:50 PM DAY WORKER): Blood pressure stable. Continue midodrine. Change positions slowly. Increase fluid intake. Assessment & Plan (12/15/2021 8:26 PM CDT): Continue midodrine hydration change positions slowly follow blood pressure Abnormal chest CT 12/15/2021 Assessment & Plan (12/15/2021 8:27 PM CDT): Plan recheck CT scan of the chest in 1 week for resolution of opacities /consolidation on recent CT scan Weakness 11/28/2021 Assessment & Plan (12/15/2021 8:26 PM CDT): Encouraged healthy diet continue physical therapy Assessment & Plan (11/28/2021 9:53 AM CDT): ? Etiology. Possibly dehydration. Possibly due to adrenal insufficiency. With symptomatic hypotension, dizziness and weakness recommend ER evaluation. Caregiver will take her to [facility] er now for evaluation. Posterior neck pain 10/29/2021 Assessment & Plan (10/29/2021 10:12 AM CDT): Suspect muscular etiology I recommend topical heat gentle stretching exercises continue physical therapy increase Tylenol to 500 mg with tramadol as needed for pain along with topical heat and low-dose tizanidine patient aware of increased fall risk using this medication BMI 34.0-34.9,adult 08/11/2021 Assessment & Plan (04/10/2024 9:50 PM CDT): BMI Follow-up includes: Diet and exercise . Assessment & Plan (07/17/2023 5:00 PM DAY WORKER): BMI Follow-up includes: Diet and exercise . Assessment & Plan (11/22/2022 4:04 PM CDT): BMI Follow-up includes: Diet and exercise. Assessment & Plan (08/11/2021 9:13 PM DAY WORKER): BMI Follow-up includes: nutrition counseling, exercise counseling and education provided. Chronic idiopathic constipation 07/05/2021 Assessment & Plan (10/17/2023 10:45 PM CDT): Stable. Continue senexon Assessment & Plan (10/29/2021 10:11 AM CDT): In addition to MiraLax I recommend hydration with water and start senna S prescription sent in Assessment & Plan (08/11/2021 9:12 PM DAY WORKER): Continue bowel routine increased MiraLax as needed encourage hydration and ambulation Adrenal insufficiency 07/04/2021 Assessment & Plan (06/04/2024 5:02 PM DAY WORKER): Diagnosed with adrenal insufficiency during hospitalization for stroke in 2021. No longer on steroids. Unclear if she continues to take midodrine. Assessment & Plan (03/04/2022 1:21 PM CDT): Continue slow taper steroids per endocrine continue midodrine change positions slowly hydrate report worsening postural dizziness lightheadedness Assessment & Plan (12/15/2021 8:26 PM CDT): Continue steroid replacement therapy decrease to 40 mg twice a day for 1 week and then decrease to 30 mg twice a day thereafter follow-up with endocrinology next week for further direction Assessment & Plan (08/11/2021 9:14 PM DAY WORKER): Continue slow taper of steroids in the direction of endocrinology patient has cortisol a.m. level due this week Assessment & Plan (07/26/2021 11:56 AM DAY WORKER): Improving. Continue hydrocortisone. Follow-up endocrine. Reviewed hospital record 07/02-07/08/2021. Prediabetes 07/03/2021 Assessment & Plan (06/04/2024 5:27 PM DAY WORKER): Chronic, stable. Last A1c 6.0 12/2023. Continue diet lifestyle modifications. Assessment & Plan (01/17/2024 8:11 PM CDT): Stable. A1c 6.1 on 02/16/2023. Diet, weight loss, exercise Assessment & Plan (03/20/2023 3:33 PM CDT): Stable. Check lab. Diet, weight loss. Assessment & Plan (11/22/2022 4:08 PM CDT): Stable. Diet, weight loss. 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 Continue aspirin. Maintain blood pressure and cholesterol control. Assessment & Plan (08/22/2023 9:42 AM DAY WORKER): Returned to baseline post CVA in 2021. She denies any symptom recurrence. Does have slight left facial weakness that she notes when she is tired, not noted on exam today. Assessment & Plan (12/15/2021 8:24 PM CDT): Continue present medications and physical therapy report acute changes Assessment & Plan (08/11/2021 9:10 PM DAY WORKER): Continue present medications supportive care therapy report acute changes Assessment & Plan (07/26/2021 11:48 AM DAY WORKER): Stable. Continue aspirin daily. Report any neurological changes. Chronic constipation 01/07/2021 Assessment & Plan (06/04/2024 5:21 PM DAY WORKER): Chronic, not controlled. Reports that she sometimes has a bowel movement every day, sometimes every other day. Reports that she has to strain for bowel movements. She takes senna up to 3 times a day. She is also taking Amitiza. As tramadol maybe contributing to constipation, will trial Movantk if not cost prohibitive. Assessment & Plan (04/10/2024 9:50 PM CDT): Controlled. Increase Amitiza to b.i.d.. Continue MiraLax. Increase fiber in diet. Await colonoscopy Assessment & Plan (07/17/2023 4:50 PM DAY WORKER): Stable. Continue MiraLax daily. Continue stool softener b.i.d.. Continue high- fiber diet. Assessment & Plan (01/07/2021 11:53 AM CDT): Continue bowel routine increase physical activity hydration patient has colonoscopy next month and I gave her a recommendation for magnesium citrate now to help with present constipation and may improve some left-sided abdominal discomfort/fullness she has been experiencing Left-sided weakness 12/31/2020 Assessment & Plan (09/06/2022 4:28 PM CDT): Returned to baseline post CVA in 2021. She denies any symptom recurrence. Does overall feel weaker on the left side but feels this is similar to what she had prior to the CVA in 06/2021. Does have slight left facial weakness that she notes when she is tired, not noted on exam today. Assessment & Plan (01/07/2021 11:53 AM CDT): Nearly resolved etiology unclear PT OT recommended patient will set report any further neurologic symptoms History of skin cancer 04/10/2020 Assessment & Plan (08/11/2021 9:09 PM DAY WORKER): Continue skin protection and care follow with Dermatology Assessment & Plan (04/10/2020 11:32 PM CDT): Continue sun protection follow with Dermatology Annual physical exam 04/09/2020 Assessment & Plan (08/11/2021 9:13 PM DAY WORKER): Return to the office in 4 months Pneumovax 23 of booster vaccine given today follow with coding quality coordinator yearly Assessment & Plan (04/10/2020 11:31 PM CDT): Check fasting lab today return to the office in 4 months Hypertension, essential 04/09/2020 Assessment & Plan (07/26/2021 11:53 AM DAY WORKER): Stable continue current medication Assessment & Plan (04/23/2021 9:18 PM CDT): Stable. Continue current medication. Assessment & Plan (01/07/2021 11:55 AM CDT): Continue present medication follow numbers and recent lab okay Assessment & Plan (07/23/2020 7:51 PM DAY WORKER): Continue present medication follow numbers check lab Assessment & Plan (04/10/2020 11:27 PM CDT): Continue present medication follow numbers and lab Primary insomnia 12/26/2019 Assessment & Plan (06/04/2024 5:27 PM DAY WORKER): Chronic, stable. Continue trazodone 50 mg. Assessment & Plan (07/17/2023 4:55 PM DAY WORKER): Stable. Continue trazodone and good night's sleep hygiene. Assessment & Plan (07/26/2021 11:57 AM DAY WORKER): Stable. Continue trazodone and good night's sleep hygiene. Assessment & Plan (04/23/2021 9:20 PM CDT): Stable. Continue trazodone and good night's sleep hygiene. Assessment & Plan (01/07/2021 11:52 AM CDT): Patient given good night's sleep handout recommendations also will stop Ambien and start trazodone and let me know if not helpful Assessment & Plan (04/10/2020 11:21 PM CDT): Encourage good night's sleep habits use sleeping medication p.r.n. only Assessment & Plan (12/26/2019 10:37 AM CDT): Recommend patient discontinue mirtazapine use melatonin for sleep if necessary minimize use of zolpidem good night's sleep habits encouraged handout provided Acquired hypothyroidism 06/13/2019 Assessment & Plan (06/04/2024 5:06 PM DAY WORKER): Chronic, stable. Reviewed last TSH 1.27 12/2023. Continue levothyroxine 100 mcg. Assessment & Plan (07/17/2023 4:42 PM DAY WORKER): Stable. Continue levothyroxine Assessment & Plan (03/20/2023 3:30 PM CDT): Stable. Continue levothyroxine. Assessment & Plan (11/22/2022 4:03 PM CDT): Stable. Continue levothyroxine. Assessment & Plan (06/01/2022 9:41 PM DAY WORKER): Stable. Continue levothyroxine. Assessment & Plan (03/04/2022 1:24 PM CDT): Continue replacement therapy check lab yearly recent numbers at goal Assessment & Plan (04/23/2021 9:16 PM CDT): Stable. Cont levothyroxine. tsh 0.99 on 07/31/2020. 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 Continue compression sleeve. Assessment & Plan (01/07/2021 11:55 AM CDT): Continue therapy and compressive sleeve Assessment & Plan (10/25/2019 11:12 AM CDT): Continue compression and exercises from occupational therapy/lymphedema clinic patient high surgical risk so will not refer for any other aggressive procedure patient aware Assessment & Plan (05/18/2019 8:47 AM DAY WORKER): Continue compression left upper extremity Dyspnea on exertion 02/21/2019 Assessment & Plan (08/11/2021 9:11 PM DAY WORKER): Encourage aerobic exercise continue follow with Pulmonary Service report increased symptoms Assessment & Plan (12/25/2019 10:28 AM CDT): Equivocal methacholine challenge. Lungs are clear. Continue albuterol. Assessment & Plan (07/19/2019 10:45 PM DAY WORKER): Continue close follow-up with Pulmonary Service report increased symptoms Assessment & Plan (05/18/2019 8:45 AM DAY WORKER): Suspect large component deconditioning patient also has left hemidiaphragm elevation is going to get pulmonary function test and follow-up with Pulmonary Service I recommend patient notify me if symptoms worsen and in the meantime gradually increase aerobic exercise Assessment & Plan (02/21/2019 9:38 AM CDT): Etiology unclear but somewhat concerned about possible coronary artery disease will check stress test patient is to go to the emergency room if worsens Anxiety and depression 02/21/2019 Assessment & Plan (06/04/2024 5:28 PM DAY WORKER): Chronic, stable. Continue escitalopram 10 mg daily, mirtazapine 7.5 mg nightly. Assessment & Plan (11/22/2022 4:04 PM CDT): Stable. Continue mirtazapine. Assessment & Plan (03/04/2022 1:22 PM CDT): Continue present medication emotionally stable Assessment & Plan (12/15/2021 8:25 PM CDT): Continue present medication emotionally stable Assessment & Plan (07/23/2020 7:50 PM DAY WORKER): Emotionally stable on present medication Assessment & Plan (12/26/2019 10:34 AM CDT): Taper off mirtazapine over the next 3-4 weeks Next month continue benzodiazepine as needed report increased symptoms Assessment & Plan (10/25/2019 11:10 AM CDT): Emotionally stable present medication patient encouraged to decrease lorazepam use due to dependency and fall risk Assessment & Plan (07/19/2019 10:45 PM DAY WORKER): Emotionally stable on present medication Assessment & Plan (02/21/2019 9:39 AM CDT): Decrease mirtazapine 7.5 mg at bedtime since recently started on Paxil per coding quality coordinator use benzodiazepine p.r.n. History of colonic polyps 02/21/2019 Assessment & Plan (08/11/2021 9:10 PM DAY WORKER): Recheck colonoscopy 2023 Assessment & Plan (04/10/2020 11:29 PM CDT): Check lab recheck colonoscopy 2021 Assessment & Plan (02/21/2019 9:17 AM CDT): Recheck colonoscopy 2021 Chronic deep vein thrombosis (DVT) of left upper extremity 02/21/2019 Overview (06/04/2024): Has IVC filter Assessment & Plan (06/04/2024 5:22 PM DAY WORKER): Chronic. S/p IVC filter. Reports that at her last cardiology appointment a few months ago, she was taken off Eliquis. She reports that this was due to will blood pressures. Suspect that maybe medication was stopped in the setting of falls related to low blood pressure. Recommended follow-up with Private Branch Exchange Repairer regarding whether she should be on Eliquis. She has a appointment later this week. Assessment & Plan (06/04/2024 6:11 AM DAY WORKER): >>ASSESSMENT AND PLAN FOR HISTORY OF RECURRENT DEEP VEIN THROMBOSIS WRITTEN ON 02/21/2019 9:39 AM BY RUDDY VELASCO, DO Continue anticoagulation monitor falls Assessment & Plan (06/04/2024 6:11 AM DAY WORKER): >>ASSESSMENT AND PLAN FOR HISTORY OF RECURRENT DEEP VEIN THROMBOSIS WRITTEN ON 07/19/2019 10:44 PM BY RUDDY VELASCO, DO Continue anticoagulation avoid disruption in therapy Assessment & Plan (06/04/2024 6:11 AM DAY WORKER): >>ASSESSMENT AND PLAN FOR HISTORY OF RECURRENT DEEP VEIN THROMBOSIS WRITTEN ON 10/25/2019 11:12 AM BY RUDDY VELASCO, DO Continue long-term anticoagulation all other indication is likely paroxysmal atrial fibrillation Assessment & Plan (06/04/2024 6:11 AM DAY WORKER): >>ASSESSMENT AND PLAN FOR HISTORY OF RECURRENT DEEP VEIN THROMBOSIS WRITTEN ON 04/10/2020 11:28 PM BY RUDDY VELASCO, DO Continue lifetime anticoagulation Assessment & Plan (06/04/2024 6:11 AM DAY WORKER): >>ASSESSMENT AND PLAN FOR HISTORY OF RECURRENT DEEP VEIN THROMBOSIS WRITTEN ON 07/23/2020 7:51 PM BY RUDDY VELASCO, DO Continue preventive measures with blood thinning medication tolerating well Assessment & Plan (06/04/2024 6:11 AM DAY WORKER): >>ASSESSMENT AND PLAN FOR HISTORY OF RECURRENT DEEP VEIN THROMBOSIS WRITTEN ON 01/07/2021 11:55 AM BY RUDDY VELASCO, DO Continue anticoagulation life time report symptoms Assessment & Plan (06/04/2024 6:11 AM DAY WORKER): >>ASSESSMENT AND PLAN FOR HISTORY OF RECURRENT DEEP VEIN THROMBOSIS WRITTEN ON 04/23/2021 9:20 PM BY REAL ATR, MARIA D Stable. Continue anticoagulation. Assessment & Plan (06/04/2024 6:11 AM DAY WORKER): >>ASSESSMENT AND PLAN FOR HISTORY OF RECURRENT DEEP VEIN THROMBOSIS WRITTEN ON 07/26/2021 11:49 AM BY REAL GRAFF NP Stable. Continue Eliquis. Assessment & Plan (06/04/2024 6:11 AM DAY WORKER): >>ASSESSMENT AND PLAN FOR HISTORY OF RECURRENT DEEP VEIN THROMBOSIS WRITTEN ON 08/11/2021 9:09 PM BY RUDDY VELASCO, Continue long-term anticoagulation report falls bleeding or symptoms consistent with DVT Assessment & Plan (06/04/2024 6:11 AM DAY WORKER): >>ASSESSMENT AND PLAN FOR HISTORY OF RECURRENT DEEP VEIN THROMBOSIS WRITTEN ON 09/01/2021 2:30 PM BY LAKSHMI MARCIAL JR., MD Chronically anticoagulated with apixaban Assessment & Plan (06/04/2024 6:11 AM DAY WORKER): >>ASSESSMENT AND PLAN FOR HISTORY OF RECURRENT DEEP VEIN THROMBOSIS WRITTEN ON 12/15/2021 8:25 PM BY RUDDY VELASCO, DO Continue lifelong anticoagulation tolerating well report falls bleeding lower extremity unilateral swelling Assessment & Plan (06/04/2024 6:11 AM DAY WORKER): >>ASSESSMENT AND PLAN FOR HISTORY OF RECURRENT DEEP VEIN THROMBOSIS WRITTEN ON 03/04/2022 1:22 PM BY RUDDY VELASCO, DO Continue lifetime anticoagulation report bleeding falls asymmetrical swelling Assessment & Plan (06/04/2024 6:11 AM DAY WORKER): >>ASSESSMENT AND PLAN FOR HISTORY OF RECURRENT DEEP VEIN THROMBOSIS WRITTEN ON 06/01/2022 9:49 PM BY REAL ART NP Stable. Continue Eliquis. Assessment & Plan (06/04/2024 6:11 AM DAY WORKER): >>ASSESSMENT AND PLAN FOR HISTORY OF RECURRENT DEEP VEIN THROMBOSIS WRITTEN ON 07/17/2023 4:52 PM BY REAL ART NP Stable. Continue Eliquis. Assessment & Plan (06/04/2024 6:11 AM DAY WORKER): >>ASSESSMENT AND PLAN FOR HISTORY OF RECURRENT DEEP VEIN THROMBOSIS WRITTEN ON 10/17/2023 10:45 PM BY REAL ART NP Stable. Continue Eliquis. Assessment & Plan (06/04/2024 6:11 AM DAY WORKER): >>ASSESSMENT AND PLAN FOR HISTORY OF RECURRENT DEEP VEIN THROMBOSIS WRITTEN ON 04/10/2024 9:49 PM BY REAL GRAFF NP Stable. Continue Eliquis Assessment & Plan (01/17/2024 8:11 PM CDT): Stable. Continue Eliquis Assessment & Plan (03/20/2023 3:31 PM CDT): Stable. Continue Eliquis. Assessment & Plan (11/22/2022 4:05 PM CDT): Stable. Continue Eliquis. Lower extremity edema 02/10/2019 Assessment & Plan (01/17/2024 8:10 PM CDT): Stable. Continue furosemide. Elevate legs. Limit sodium intake. Recommend compression stockings. Assessment & Plan (10/17/2023 10:45 PM CDT): Minimal lower extremity edema. Decrease furosemide to 40 mg once a day. Limit sodium intake. Elevate legs. Encourage compression stockings. Assessment & Plan (03/20/2023 3:33 PM CDT): Stable. Continue Lasix. Elevate legs p.r.n.. Compression stockings. Assessment & Plan (03/04/2022 1:22 PM CDT): Increase Lasix to 40 mg a day potassium daily elevate legs continue low-salt diet report if not helpful Assessment & Plan (12/15/2021 8:25 PM CDT): Restart Lasix p.r.n. only along with potassium elevate legs low-salt diet Assessment & Plan (02/10/2019 11:17 PM CDT): Dependent. cxr neg. Inc lasix to 40mg 2 a day. Limit sodium intake. Enc support stockings. F/u 1 week or sooner if needed. Hemoptysis 10/20/2018 Assessment & Plan (10/20/2018 11:54 AM CDT): DD: Pulmonary edema , Pulmonary infection, oropharyngeal abscess,esophageal varices/vascular etiology, or other Upper GI bleed source, malignancy. Unable to reproduce hemoptysis here in office today. Dizziness 10/20/2018 Assessment & Plan (11/22/2022 4:05 PM CDT): Chronic, stable. Follow-up ENT. Discussed dizziness as possible side effect of tramadol, recommend limited use. Assessment & Plan (06/01/2022 9:48 PM DAY WORKER): Slight improvement off of meclizine. Continue exercises. Continue off meclizine. Reviewed Dr Maier's note, 05/12/2022. Change positions slowly. Maintain hydration. Assessment & Plan (03/04/2022 1:21 PM CDT): Continue meclizine as needed hydration change positions slowly follow with ENT Assessment & Plan (01/27/2022 6:09 PM CDT): Not controlled. Continue meclizine q.6 hours as needed. Change positions slowly. Maintain hydration. Follow-up ENT. Assessment & Plan (11/28/2021 9:52 AM CDT): Due to hypotension and weakness recommend patient go to ER for evaluation. Caregiver will drive her now to [facility] ER for further evaluation. Left foot pain 07/12/2018 Assessment & Plan (07/12/2018 11:20 AM DAY WORKER): Due to recent surgery, surgical wound and osteomyelitis. Tylenol es 2 tid prn. Cont daily dressing as per podiatry orders. Cont limited wgt bearing as per podiatry orders. 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 Continue yearly mammogram. Last mammogram 11/2023. Assessment & Plan (07/17/2023 4:52 PM DAY WORKER): Continue yearly mammogram. Last mammogram 10/12/2022. Assessment & Plan (08/11/2021 9:10 PM DAY WORKER): Continue mammogram due now on August 20 follow with breast surgeon Assessment & Plan (01/07/2021 11:57 AM CDT): Continue follow-up with breast surgeon and mammogram due later this year Assessment & Plan (04/10/2020 11:29 PM CDT): Diagnostic mammogram plan in May continue to follow with breast surgeon Assessment & Plan (02/21/2019 9:37 AM CDT): Continue self-breast exam and mammogram yearly along with follow-up coding quality coordinator and breast surgeon Hot flashes 08/26/2017 Assessment & Plan (02/21/2019 9:37 AM CDT): Continue low-dose SSRI per coding quality coordinator also decrease mirtazapine at bedtime Chronic bilateral low back pain with sciatica Assessment & Plan (06/04/2024 5:08 PM DAY WORKER): Chronic, stable. Follows with pain management for intervention. Continue gabapentin. Continue tramadol as needed. Opioid agreement signed today. Assessment & Plan (04/10/2024 9:52 PM CDT): Chronic, stable. Continue gabapentin. Continue tramadol p.r.n.. Follow-up pain management Assessment & Plan (01/17/2024 8:07 PM CDT): Chronic, stable. Continue gabapentin. Continue Tylenol extra strength p.r.n.. Continue tramadol q.6 hours p.r.n.. Assessment & Plan (10/17/2023 10:46 PM CDT): Chronic, stable. Continue current medications. Assessment & Plan (03/20/2023 3:31 PM CDT): Chronic, stable. Continue activity as tolerated. Tylenol extra-strength 2 tablets t.i.d. as needed for pain. Tramadol 1 or 2 tablets q.6 hours as needed for pain. Assessment & Plan (11/22/2022 4:05 PM CDT): Chronic, stable. Continue tramadol p.r.n.. Continue gabapentin. Assessment & Plan (08/11/2021 9:12 PM DAY WORKER): Continue present medication Tylenol tramadol as needed topical heat stretching exercises gabapentin Assessment & Plan (04/23/2021 9:21 PM CDT): Chronic, stable. Continue tramadol p.r.n.. Continue Tylenol p.r.n.. Continue gabapentin. Assessment & Plan (12/26/2019 10:36 AM CDT): Continue proper body mechanics stretching exercises follow-up with pain management patient aware of my concerns regarding increased risk of stroke off of anticoagulation for injections but is unable to get acceptable pain relief with present medication she will talk to pain management is aware that she will need to hold aspirin for 7 days and Eliquis for at least 2 full days before procedure it appears at this time the benefits seem to outweigh the risk Assessment & Plan (10/25/2019 11:10 AM CDT): Continue proper body mechanics stretching exercises topical heat Tylenol/tramadol I will discuss with Dr. Mares patient's pain management doctor about restarting spinal injections but will likely need to do this with Lovenox bridge for anticoagulation due to recent history of CVA off of Eliquis for ankle surgery Assessment & Plan (02/21/2019 9:37 AM CDT): Continue present medication and proper body mechanics follow with pain management Assessment & Plan (09/29/2017 9:02 PM CDT): Cont current medication. f/u pain mgt. Activity as tolerated Assessment & Plan (08/28/2017 10:16 PM DAY WORKER): Cont current meds. F/u pain mgt as needed Anemia 06/17/2017 Assessment & Plan (06/04/2024 5:07 PM DAY WORKER): Chronic, stable. Last hemoglobin 12.1 09/2023. Assessment & Plan (03/20/2023 3:30 PM CDT): Check lab to assess current status. Assessment & Plan (12/15/2021 8:24 PM CDT): Check lab report any obvious blood loss encouraged healthy diet Assessment & Plan (07/26/2021 11:48 AM DAY WORKER): Check lab to assess current status. Assessment & Plan (07/12/2018 11:22 AM DAY WORKER): Hold iron supplement, iron studies normal mar 2018. Check lab in 6 weeks Assessment & Plan (06/06/2018 11:35 PM DAY WORKER): Cont iron supplement. Check lab Assessment & Plan (09/29/2017 9:04 PM CDT): Cont iron supplement Hoarseness of voice 01/18/2017 Assessment & Plan (12/03/2017 9:23 AM CDT): F/u ent Assessment & Plan (01/18/2017 2:15 PM CDT): Concern is possible esophageal erosion or laryngeal erosions from acid reflux Plan is to start gaviscon qhs 15 ml Change from pepcid to omeprazole 20 mg bid Urgent referral to Dr. 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 Chronic RA lead is a MDT 4826 from 01/07/16. Yamel Rodriges Card Dr. CARRERA IS FOLLOWING THE PATIENTS ICD-LATITUDE RELEASED-12/15/2016 Assessment & Plan (08/11/2021 9:13 PM DAY WORKER): Continue follow with Cardiology report discharges Nonischemic cardiomyopathy 10/25/2016 Overview (07/12/2018): cardiac catheterization shows NO CAD,, EF 35% Assessment & Plan (04/10/2024 9:47 PM CDT): Stable. Continue current medication.. Follow-up cardiology. Assessment & Plan (01/17/2024 8:07 PM CDT): Stable. Continue current medications. Follow-up Cardiology. Assessment & Plan (10/17/2023 10:44 PM CDT): Stable. Continue current medications. Follow-up Cardiology. Report shortness of breath, chest pain or chest pressure. Assessment & Plan (07/17/2023 4:54 PM DAY WORKER): Stable. Continue current medications. Report shortness of breath, edema Assessment & Plan (11/22/2022 4:07 PM CDT): Stable. Continue current medications. Follow-up cardiology. Assessment & Plan (06/01/2022 9:50 PM DAY WORKER): Stable. Continue current medications. Report shortness of breath, chest pain, chest pressure. Assessment & Plan (03/04/2022 1:20 PM CDT): Increase Lasix 40 mg a day report increased shortness of breath continue present medication follow with Cardiology Assessment & Plan (08/11/2021 9:08 PM DAY WORKER): Continue present medication report increased shortness of breath swelling follow with Cardiology appointment this week Assessment & Plan (07/26/2021 11:57 AM DAY WORKER): Stable. Report chest pain, chest pressure, shortness of breath, weight gain, edema. Follow-up cardiology. Encourage patient to call archery equipment hay sorter to discuss Entresto, spironolactone and carvedilol and if he wants her to restart meds.. Assessment & Plan (04/23/2021 9:19 PM CDT): Stable. Continue current medication. Follow-up cardiology. Report shortness of breath, chest pain, chest pressure. Assessment & Plan (01/07/2021 11:55 AM CDT): Continue present medication no signs of congestive heart failure follow-up with Cardiology appointment soon Assessment & Plan (07/23/2020 7:50 PM DAY WORKER): Continue present medication under the direction of Cardiology report chest pain shortness of breath swelling Assessment & Plan (04/10/2020 11:26 PM CDT): Continue medication under the direction of Cardiology Assessment & Plan (12/26/2019 10:36 AM CDT): Clinically stable present medication follow with Cardiology Assessment & Plan (10/25/2019 11:12 AM CDT): Report chest pain pressure increased shortness of breath swelling follow with Cardiology continue present medication Assessment & Plan (02/21/2019 9:38 AM CDT): Recent echocardiogram per Cardiology will be obtained may need to repeat but 1st will check stress test continue present medication check lab Assessment & Plan (07/12/2018 11:19 AM DAY WORKER): Cont current medications. F/u cardiol today. Report sob, inc wgt, edema. Mobitz type II atrioventricular block 10/21/2016 Overview (11/19/2016): Mobitz type 2 second degree AV block Hyperlipidemia 10/08/2015 Overview (09/29/2016): HYPERLIPIDEMIA NEC/NOS Assessment & Plan (04/10/2024 9:45 PM CDT): Stable. Continue lovastatin and low-cholesterol diet. Assessment & Plan (01/17/2024 7:56 PM CDT): Stable. Continue lovastatin and low-cholesterol diet. Assessment & Plan (10/17/2023 10:43 PM CDT): Stable. Continue lovastatin and low-cholesterol diet. Assessment & Plan (07/17/2023 4:53 PM DAY WORKER): Stable. Continue statin and low-cholesterol diet. Assessment & Plan (03/20/2023 3:33 PM CDT): Stable. Continue statin and low-cholesterol diet. Assessment & Plan (11/22/2022 4:06 PM CDT): Stable. Continue statin and low-cholesterol diet. Assessment & Plan (06/01/2022 9:49 PM DAY WORKER): Stable. Continue lovastatin and low-cholesterol diet. Assessment & Plan (08/11/2021 9:09 PM DAY WORKER): Continue diet medication recent numbers at goal Assessment & Plan (07/26/2021 11:53 AM DAY WORKER): Stable. Continue lovastatin low-cholesterol diet. Last lipid panel 07/03/2021 total cholesterol 109, triglycerides 99, HDL 40, LDL 49. Assessment & Plan (01/07/2021 11:54 AM CDT): Recent lab in the hospital at [facility] continue medication diet Assessment & Plan (07/23/2020 7:49 PM DAY WORKER): Continue diet medication check fasting lab next several days Assessment & Plan (04/10/2020 11:28 PM CDT): Continue diet medication check fasting lab today Assessment & Plan (02/21/2019 9:34 AM CDT): Continue medication check fasting lab today encouraged healthy Assessment & Plan (02/10/2019 11:12 PM CDT): Stable. Cont statin and low chol diet Assessment & Plan (06/06/2018 11:36 PM DAY WORKER): Cont med and low chol diet Assessment & Plan (12/03/2017 9:23 AM CDT): Cont statin and low chol diet. Enc wt loss Generalized osteoarthritis 10/08/2015 Overview (09/29/2016): GENERAL OSTEOARTHROSIS Assessment & Plan (03/04/2022 1:23 PM CDT): Continue Tylenol/tramadol as needed topical heat stretching exercises walker use Assessment & Plan (12/15/2021 8:23 PM CDT): Tylenol/tramadol topical heat stretching exercises weight control encouraged Assessment & Plan (08/11/2021 9:13 PM DAY WORKER): Continue Tylenol/tramadol topical heat stretching exercises weight control Assessment & Plan (01/07/2021 11:54 AM CDT): Continue pain medication stretching exercises follow with pain management proper body mechanics topical heat Assessment & Plan (07/23/2020 7:49 PM DAY WORKER): Continue Tylenol topical heat stretching exercises weight control Assessment & Plan (04/10/2020 11:29 PM CDT): Continue Tylenol topical heat stretching exercises Assessment & Plan (12/26/2019 10:36 AM CDT): Continue present pain medication follow-up with pain management Assessment & Plan (10/25/2019 11:11 AM CDT): Tylenol topical heat stretching exercises tramadol as needed Assessment & Plan (02/21/2019 9:34 AM CDT): Continue pain medication under the direction of Pain Management encourage weight loss efforts Assessment & Plan (12/03/2017 9:22 AM CDT): Cont tylenol prn. Cont activity as tolerated Gastroesophageal reflux disease 10/08/2015 Overview (10/01/2016): ESOPHAGEAL REFLUX Assessment & Plan (06/04/2024 5:32 PM DAY WORKER): Chronic, not controlled. Reports that she has been taking pantoprazole 40 mg in the morning and omeprazole at night. Continues to have heartburn daily, PPI provides some relief. Endorses occasional regurgitation. Endorses some dysphagia but notes that it is related to prior throat surgery. Recommended increasing pantoprazole 40 mg 2 twice daily and stopping omeprazole. Recommended reaching out and scheduling an appointment with Dr. Rodrigez (GI). Assessment & Plan (04/10/2024 9:47 PM CDT): Stable. Continue pantoprazole and anti-reflux measures. Assessment & Plan (01/17/2024 8:01 PM CDT): Stable. Continue PPI and anti-reflux measures Assessment & Plan (10/17/2023 10:46 PM CDT): Stable. Continue PPI and anti-reflux measures. Assessment & Plan (07/17/2023 4:52 PM DAY WORKER): Stable. Continue PPI and anti-reflux measures. Assessment & Plan (03/20/2023 3:32 PM CDT): Stable. Continue PPI and anti-reflux measures. Assessment & Plan (11/22/2022 4:06 PM CDT): Stable. Continue PPI and anti-reflux measures. Assessment & Plan (08/11/2021 9:11 PM DAY WORKER): Continue anti-reflux measures and PPI therapy Assessment & Plan (07/26/2021 11:48 AM DAY WORKER): Stable. Continue pantoprazole and anti-reflux measures Assessment & Plan (01/07/2021 11:54 AM CDT): Continue anti-reflux measures and PPI therapy Assessment & Plan (07/23/2020 7:49 PM DAY WORKER): Continue anti-reflux measures and PPI therapy along with H2 eldon at night Assessment & Plan (04/10/2020 11:30 PM CDT): Continue anti-reflux measures and PPI therapy Assessment & Plan (10/25/2019 11:11 AM CDT): Continue anti-reflux measures and PPI therapy Assessment & Plan (02/21/2019 9:35 AM CDT): Continue anti-reflux measures and PPI therapy may need to see GI if continues to have problems with swallowing but 1st need to clear patient for cardiac status Assessment & Plan (02/10/2019 11:11 PM CDT): Stable. Cont famotidine and anti reflux ms Assessment & Plan (07/12/2018 11:21 AM DAY WORKER): Cont ppi and anti reflux ms Assessment & Plan (06/06/2018 11:33 PM DAY WORKER): Cont current med and anti reflux ms. Enc wt loss Assessment & Plan (12/03/2017 9:22 AM CDT): Cont med and anti reflux ms. Assessment & Plan (09/29/2017 9:02 PM CDT): Cont current meds and anti reflux ms Assessment & Plan (08/28/2017 10:15 PM DAY WORKER): Cont current meds. Enc anti reflux ms Assessment & Plan (01/18/2017 3:06 PM CDT): 1) replace pepcid with prilosec 20 mg po bid 2) add gaviscon ext strenght 15ml qhs 3) refer urgently to GI (endoscopy) Neuropathy 02/14/2014 Overview (10/01/2016): Neuropathy Assessment & Plan (04/10/2024 9:45 PM CDT): Stable. Continue gabapentin 300 mg q.i.d.. Assessment & Plan (01/17/2024 8:01 PM CDT): Stable. Continue gabapentin. Assessment & Plan (10/17/2023 10:43 PM CDT): Stable. Continue gabapentin. Assessment & Plan (08/22/2023 9:44 AM DAY WORKER): Lorie has a longstanding history of neuropathy that remains well controlled on gabapentin 900 mg q.i.d.. She feels as if her foot ''drags. On exam, her findings are consistent with that of a sensory neuropathy. There is a mild steppage gait on the left noted which could be related to her stroke history as well as her neuropathy. Has done well with PT in the past and continues with her daily exercises. Plan: 1. Continue gabapentin to 900 mg q.i.d. to assist with both neuropathy and vestibular migriane 2. Continue with HEP regimen provided by PT 3. Fall precautions reviewed 4. Continue to ambulate with a walker in public. 5. Follow-up 6 months Assessment & Plan (07/17/2023 4:53 PM DAY WORKER): Stable. Continue gabapentin. Assessment & Plan (03/08/2023 4:17 PM CDT): Lorie has a longstanding history of neuropathy that remains well controlled on gabapentin 900 mg q.i.d.. She feels as if her foot ''drags. On exam, her findings are consistent with that of a sensory neuropathy. There is a mild steppage gait notes which could be related to her stroke history as well as her neuropathy. Has done well with PT and continues with her daily exercises. Plan: 1. Continue gabapentin to 900 mg q.i.d. to assist with both neuropathy and vestibular migriane 2. Continue with HEP regimen provided by PT 3. Fall precautions reviewed 4. Continue to ambulate with a walker in public. 5. Follow-up 4-5 months Assessment & Plan (11/22/2022 4:07 PM CDT): Stable. Continue gabapentin. Assessment & Plan (11/01/2022 12:31 PM CDT): Lorie has a longstanding history of neuropathy that remains well controlled on gabapentin 900 mg q.i.d.. She does note that she has been having more difficulty with her left foot while ambulating. She feels as if her foot ''drags. On exam, her findings are consistent with that of a sensory neuropathy. There is a mild steppage gait notes which could be related to her stroke history as well as her neuropathy. She is yet to restart physical therapy which would offer her much assistance with her balance training as well as her vestibular training. Plan: 1. Continue gabapentin to 900 mg q.i.d. to assist with both neuropathy and vestibular migriane 2. Physical therapy- script was previously sent to where she requested, she is yet to start. 3. Fall precautions reviewed 4. Continue to ambulate with a walker in public. 5. Follow-up 3 months Assessment & Plan (09/06/2022 4:26 PM CDT): Lorie has a longstanding history of neuropathy that remains well controlled on gabapentin 600 mg q.i.d.. She does note that she has been having more difficulty with her left foot while ambulating. She feels as if her foot ''drags. On exam, her findings are consistent with that of a sensory neuropathy. There is a mild steppage gait notes which could be related to her stroke history as well as her neuropathy. She was recently d/c from PT. Had another fall today but notes there was no injury. Continues to fall fairly frequently. Plan: 1. Increase gabapentin to 900 mg q.i.d. to assist with both neuropathy and vestibular migriane 2. Physical therapy- she will call with where she would like this script sent 3. Fall precautions reviewed 4. Continue to ambulate with a walker in public. 5. Follow-up 6-8 weeks for vestibular migraine evaluation. Assessment & Plan (06/01/2022 9:49 PM DAY WORKER): Stable. Continue gabapentin. Assessment & Plan (03/04/2022 1:24 PM CDT): Continue present medication and skin care Assessment & Plan (12/15/2021 8:24 PM CDT): Continue skin care and gabapentin Assessment & Plan (08/11/2021 9:08 PM DAY WORKER): Continue gabapentin skin care Assessment & Plan (03/25/2021 10:42 AM CDT): Lorie has a longstanding history of neuropathy that remains well controlled on gabapentin 600 mg q.i.d.. She does note that she has been having more difficulty with her left foot while ambulating. She feels as if her foot ''drags. On exam, her findings are consistent with that of a sensory neuropathy. There is a mild steppage gait notes which could be related to her stroke history as well as her neuropathy. She denies any recent falls but does endorse balance concerns which are evident while she ambulates. She has not done any recent PT. Plan: 1. Continue with gabapentin 600 mg q.i.d. we will plan to increase as tolerated and as needed for neuropathy pain control 2. Physical therapy with [facility] 3. Fall precautions reviewed 4. Continue to ambulate with a walker in public. 5. 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 Sleep apnea 03/16/2011 Overview (09/29/2016): Sleep apnea Assessment & Plan (01/17/2024 8:00 PM CDT): Stable. Continue CPAP. Assessment & Plan (09/01/2021 2:29 PM DAY WORKER): Currently using CPAP at night. Interested in a dental appliance. Assessment & Plan (08/11/2021 9:16 PM DAY WORKER): Encourage weight loss efforts and CPAP compliance Assessment & Plan (04/10/2020 11:21 PM CDT): Encourage compliance with CPAP and weight loss efforts Assessment & Plan (12/26/2019 10:37 AM CDT): Patient with a remote history of sleep apnea will re-evaluate with sleep study now per Pulmonary recommendation I agree and treat if present Assessment & Plan (12/25/2019 10:28 AM CDT): Snoring, witnessed apneas consistent with obstructive sleep apnea. Low clinical suspicion for narcolepsy, REM behavior disorder, restless leg syndrome, parasomnia, movement or circadian rhythm disorder. Polysomnography warranted. Evaluate for home sleep study versus laboratory evaluation. Decision based on the presence and or absence of significant cardiopulmonary morbidity. (home) Discussed treatment options including CPAP, auto CPAP, mandibular advancement devices. Encourage weight loss. Reduction of 10% can lower the apnea-hypopnea index by 25% Briefly reviewed the suggested relationship between sleep disorder breathing and cardiovascular health. Discourage driving when drowsy until diagnosis, treatment for suspected sleep disorder breathing finalized. Emblem Fuser Tender regarding the use of alcohol, caffeine when applicable. Assessment & Plan (02/21/2019 9:16 AM CDT): Encourage weight loss efforts and continue mouth piece may need to be re- evaluated in light of increased swelling Assessment & Plan (01/11/2019 1:26 PM CDT): Doing well with CPAP. Denies snoring, apnea, daytime sleepiness Cerebral aneurysm 03/16/2011 Overview (09/29/2016): Brain aneurysm History of CVA with residual deficit Overview (06/04/2024): 1st stroke 2018, second stroke in 2021 with residual L hemiparesis Assessment & Plan (06/04/2024 5:25 PM DAY WORKER): Chronic, stable. Follows with Neurology. Continue aspirin 81mg, lovastatin 40 mg. Assessment & Plan (07/17/2023 4:52 PM DAY WORKER): Stable. Continue aspirin daily. Assessment & Plan (03/04/2022 1:21 PM CDT): Continue supportive care and present medication report acute neurologic change Assessment & Plan (08/11/2021 9:10 PM DAY WORKER): Continue therapy assistive device for ambulation present medication follow with Neurology Current Treatment and Therapy Plans No current plan information found. Past Treatment and Therapy Plans No past plan information found. Lifetime Dose Tracking * Chemical Lifetime Dose Automatic Entry Manual Entr y Fluoro Time 2.65 minutes 2.65 minutes 0 minutes Air kerma at the reference point (Ka,r) 23.93 mGy 2 3.93 mGy 0 mGy Resolved Problems Problem Noted Date Diagnosed Date Resolved Date Swelling of lower extremity 10/05/2023 06/04/2024 Bad odor of urine 07/05/2023 01/15/2024 Assessment & Plan (07/17/2023 4:48 PM DAY WORKER): Check UA to rule out infection. Increase water intake. Acute pain of right shoulder 07/04/2023 01/15/2024 Assessment & Plan (07/17/2023 4:47 PM DAY WORKER): Due to recent fall. Check x-ray. Heat p.r.n.. Topical analgesic rub p.r.n.. Tylenol extra-strength 2 tablets t.i.d. as needed for pain. Tramadol 1 or 2 tablets every 6 hours as needed for pain. Notify me if pain worsens or if no improvement will refer to scientific specialist. Right elbow pain 07/04/2023 01/15/2024 Assessment & Plan (07/17/2023 4:55 PM DAY WORKER): Due to recent fall. Check x-ray to rule out fracture. Ice p.r.n.. Topical analgesic rub p.r.n.. Tylenol extra-strength 2 tablets t.i.d. as needed for pain. tramadol 1 or 2 every 6 hours as needed for pain. Notify me if pain worsens or if no improvement will refer to scientific specialist. Chronic fatigue 11/11/2022 06/04/2024 Bilateral impacted cerumen 08/12/2022 0 02/28/2023 Fall 06/01/2022 06/04/2024 Assessment & Plan (06/01/2022 9:52 PM DAY WORKER): Will obtain copy of [facility] record. Recommend she use her walker. Continue home care physical therapy. Head injury 01/27/2022 06/04/2024 Assessment & Plan (01/27/2022 6:09 PM CDT): Due to fall. Head CT today was negative for abnormality. Report headache, worsening dizziness, nausea, vomiting. Pain and swelling of toe of left foot 01/27/2022 11/22/2022 Assessment & Plan (01/27/2022 6:11 PM CDT): Due to injury and trauma to toenail. X-ray negative for fracture. Elevate foot to prevent swelling. Tylenol extra-strength 2 tablets t.i.d. as needed for pain. With redness and traumatic removal of toenail will give doxycycline 100 mg b.i.d. x7 days. Keep toenail bed clean with soap and water. Triple antibiotic ointment and nonstick Band-Aid daily. Follow-up if increased swelling, increased pain, increased redness Hypotension 11/28/2021 06/04/2024 Assessment & Plan (01/17/2024 8:13 PM CDT): Stable. Continue midodrine. Change positions slowly. Maintain hydration. Recommend compression stockings Assessment & Plan (11/22/2022 4:06 PM CDT): Blood pressure stable. Continue midodrine. Maintain hydration Assessment & Plan (11/28/2021 9:54 AM CDT): ? Etiology. Possibly due to dehydration. Patient is symptomatic with hypotension. Patient referred to ER for further evaluation. Caregiver to drive her to [facility] ER now. Syncope 11/25/2021 06/04/2024 Acute upper back pain 10/29/20212022 Assessment & Plan (10/29/2021 10:13 AM CDT): Due to spinal tenderness will check x-ray for possible compression fracture increase Tylenol 500 mg up to 6 times a day if necessary along with tramadol topical heat muscle relaxant medication as needed back stretching exercises per therapy Wrist pain, acute, right 08/11/2021 Assessment & Plan (08/11/2021 9:06 PM DAY WORKER): Check x-ray today consider Arvind wrap Tylenol for pain Osteoporosis screening 08/11/202106/04 Assessment & Plan (08/11/2021 9:07 PM DAY WORKER): Check bone mineral density test now especially on steroids Routine physical examination 07/26/2021 08/11/2021 Metabolic acidosis 07/05/2021 Elevated troponin 07/03/2021 06/04/2024 History of systolic CHF (con gestive heart failure) 07/03/2021 06/04/2024 Assessment & Plan (03/20/2023 3:32 PM CDT): Stable. Continue spironolactone. Check weight daily. Report shortness of breath, weight gain of 2 lb in 24 hours or 5 lb in a week, report increased lower extremity edema. Assessment & Plan (11/22/2022 4:06 PM CDT): Stable. Continue current medication. Follow-up cardiology. Report lower extremity edema, weight gain, shortness of breath. Assessment & Plan (07/26/2021 11:50 AM DAY WORKER): Stable at this time. Encourage patient to schedule follow-up with Cardiology to discuss need to restart Entresto, carvedilol, spironolactone. Report edema, weight gain, shortness of breath. Pneumonia 06/09/2021 06/04/2024 Assessment & Plan (09/01/2021 2:29 PM DAY WORKER): CT imaging in June notable for left lower lobe infiltrate. Diminished breath sounds but clear. No longer on antibiotic therapy. Was admitted with a suspected stroke. Negative CT brain Acute nonintractable headache 12/31/2020 11/22/2022 Assessment & Plan (03/25/2021 11:05 AM CDT): Lorie presents today for hospital follow-up regarding an acute headache pattern that presented when she was recently hospitalized. She was given a dose of intravenous Keppra which did break her headache cycle. She denies that she has had any headaches since then. She does note a longstanding history of migraine headaches that have remained very infrequent for the past decade. She denies that her headaches are problematic at this time, therefore we will not need for any further preventive treatment. She is on gabapentin 600 mg q.i.d. which is offering some headache prevention I would believe. We will continue to monitor and treat as necessary. Pain in rib 12/19/2020 11/22/2022 Assessment & Plan (12/19/2020 3:31 PM CDT): Pain to the left chest wall or ER, rib, right underneath the rib is moves tenderness noted. No bruising, swelling, redness noted. Patient states pain is intermittent. Obtain x-ray of the left ribs and chest. Left upper quadrant abdominal pain 08/20/2020 11/22/2022 Assessment & Plan (04/23/2021 9:23 PM CDT): ? Etiology. Previous evaluation with EGD, CT scan negative. Stop famotidine. Stop pantoprazole 20 mg. Start pantoprazole 40 mg b.i.d. Notify of response in 1 week. Assessment & Plan (12/19/2020 3:32 PM CDT): Has been ongoing issue for about few months. CT from beginning of this year reviewed. Repeat ultrasound of the left upper quadrant and x-ray of the left ribs and chest ordered. Per patient the pain is intermittent. Likely a muscle sprain versus nerve pain. Continue gabapentin. Await test results for further recommendation. CBC CMP ordered as well. Agrees with plan of care Assessment & Plan (08/20/2020 10:38 AM DAY WORKER): Suspect muscle strain as CT scan unremarkable I recommend topical heat Tylenol tramadol report if not helpful or not resolved in next 3-4 weeks proper body mechanics encouraged BMI 36.0-36.9,adult 04/09/2020 11/23/19 23 Assessment & Plan (04/10/2020 11:30 PM CDT): BMI Follow-up includes: nutrition counseling, exercise counseling and education provided. BMI 37.0-37.9, adult 12/26/2019 023 Assessment & Plan (12/26/2019 10:35 AM CDT): Encouraged healthy diet exercise patient instructed to slowly taper off mirtazapine which should help also recommend sleep study to evaluate sleep apnea risk Pneumonia due to infectious organism 09/26/2019 01/15/2024 CVA, old, hemiparesis ([facility]) 09/26/2019 12/15/2021 Assessment & Plan (03/25/2021 11:00 AM CDT): Lorie has a longstanding history of stroke with residual left-sided weakness. She continues to have some mild gait difficulty in regards to her left foot dragging. She does have mild steppage gait on exam. Fortunately, there has not been any further evidence of strokes on her most recent scans. We will continue with present management. We reviewed stroke precautions. Assessment & Plan (07/23/2020 7:51 PM DAY WORKER): Continue present medication report acute changes Assessment & Plan (12/26/2019 10:37 AM CDT): Patient much improved continue present medication report acute changes Assessment & Plan (10/25/2019 11:11 AM CDT): Continue anticoagulation patient appears to be very sensitive to this likely has paroxysmal atrial fibrillation will need Lovenox bridge if elective procedures performed that require being off Eliquis patient aware Hypoxia 09/24/2019 01/15/2024 Hospital discharge follow-up 07/19/2019 12/19/2020 Assessment & Plan (07/19/2019 10:44 PM DAY WORKER): Continue present medication follow with Neurology and Pulmonary Service continue physical therapy in home at this time report any acute neurologic changes Lymphedema of left arm 06/13/201906/04 Assessment & Plan (08/11/2021 9:08 PM DAY WORKER): Continue compression and elevation Assessment & Plan (07/23/2020 7:50 PM DAY WORKER): Patient interested in referral to plastics for possible surgical intervention continue compression sleeve for now Assessment & Plan (04/10/2020 11:27 PM CDT): Continue compression sleeve elevate arm Closed left ankle fracture 06/08/2019 0 12/19/2020 Acute pain of right shoulder 03/05/2019 11/22/2022 Assessment & Plan (04/18/2019 9:47 AM CDT): Recent x-ray shows osteoarthritis continue topical heat stretching exercises Tylenol and/or tramadol follow with pain management may benefit from joint injection Assessment & Plan (03/07/2019 12:20 PM CDT): Djd, ? Rotator cuff tear. Xray with djd. Refer to ortho. Heat prn. Topical analgesic rub prn. Medrol dose pack. Tylenol 650 mg 2 tabs tid prn. Osteopenia 03/05/2019 08/11/2021 Assessment & Plan (04/10/2020 11:26 PM CDT): Continue calcium vitamin-D weight-bearing activity recheck bone mineral density test 2020 Health examination of defined subpopulation 02/21/2019 06/04/2024 Assessment & Plan (02/21/2019 9:38 AM CDT): Return to the office in 4 weeks for close follow-up recommend flu shot this fall may give at next office visit Chest pain 02/21/2019 11/22/2022 Assessment & Plan (02/21/2019 9:38 AM CDT): Check chemical stress test patient by the emergency room if develops chest discomfort and shortness of breath at rest Acute pain of right knee 02/21/2019 Assessment & Plan (02/21/2019 9:39 AM CDT): Check x-ray recommend topical heat and/or ice continue pain medication Need for hepatitis C screening test 02/21/2019 04/09/2020 Assessment & Plan (02/21/2019 9:39 AM CDT): Check lab due to patient's age Dysuria 02/02/2019 01/15/2024 Assessment & Plan (10/29/2021 10:13 AM CDT): Urine dip unremarkable with exception of trace blood symptoms very consistent with UTI will start 3 days of antibiotic and send urine off for culture Assessment & Plan (04/23/2021 9:18 PM CDT): Possible UTI. UA with 1+ leukocytes. Await C&S. Nitrofurantoin 100 mg b.i.d. x5 days. Notify me if symptoms worsen or if no improvement Assessment & Plan (02/10/2019 11:11 PM CDT): ua neg. Await c/s. Inc water intake Heart disease 01/11/2019 06/04/2024 Assessment & Plan (11/22/2022 4:06 PM CDT): Stable. Continue current medications. Follow-up cardiology. Assessment & Plan (09/01/2021 2:30 PM DAY WORKER): Pacemaker defibrillator. Chronically anticoagulated. Heart failure with preserved ejection fraction. Trivial shunt. Assessment & Plan (12/25/2019 10:27 AM CDT): Pacemaker defibrillator. Ischemic heart disease. Lungs are clear. No significant edema. Followed by Cardiology. Assessment & Plan (01/11/2019 1:26 PM CDT): Pacemaker/defibrillator. History of ischemic heart disease, heart block. Denies chest pain or symptoms of heart failure. Lungs are clear. No significant peripheral edema. Followed closely by Cardiology. Check BNP Cellulitis 11/23/2018 11/23/2018 Guaiac positive stools 11/23/201812/19 Assessment & Plan (11/23/2018 5:44 PM CDT): Hold anticoagulants continue H2 eldon check lab patient call tomorrow for results may need to have a repeat upper endoscopy if H&H significantly low Rash 11/23/2018 12/19/2020 Assessment & Plan (11/23/2018 5:43 PM CDT): Suspect cellulitis versus allergic reaction to insect/tick bites no obvious target lesions but signs of inflammation consistent with soft tissue infection will treat with doxycycline for 14 days to cover both possible Lyme disease and soft tissue infection cellulitis patient call if not improved in 48 hours or sooner for worsening continue cool compresses and Benadryl as needed for itching and swelling consistent with allergic reaction Dark stools 10/20/2018 12/19/2020 Overview (10/20/2018): Asymptomatic, intermittent x 1 week Assessment & Plan (11/23/2018 5:41 PM CDT): Suspect melena guaiac-positive hold vitamin E and Eliquis check lab continue H2 eldon Acute respiratory distress 10/20/2018 0 02/10/2019 Assessment & Plan (10/20/2018 4:18 PM CDT): Unable to maintain sats on room air & unstable to drive herself. EMS called to transport to [facility] ED. Discussed case with ED, Dr. Medina, who would like to discharge her. We discussed her BURNETT and desaturation requiring O2 3L via nc while in office. They will recheck Amb Ox in ED prior to discharge and consider admission if she fails to maintain sats on RA. Osteomyelitis of ankle and foot 06/26/2018 12/19/2020 Assessment & Plan (07/12/2018 11:19 AM DAY WORKER): Cont antibiotic. F/u infectious disease Other fatigue 05/30/2018 10/20/2018 Assessment & Plan (06/06/2018 11:35 PM DAY WORKER): Check lab Vocal cord paralysis 02/22/2018 022 Overview (02/22/2018): Added automatically from request for surgery [id number] Epistaxis 02/22/2018 12/19/2020 Overview (02/22/2018): Added automatically from request for surgery [id number] Nausea, vomiting, and diarrhea 09/09/2017 12/03/2017 Assessment & Plan (09/29/2017 9:03 PM CDT): Resolved. Diet as tolerated. zofran prn. Notify me if recurs. Hospital record reviewed Upper abdominal pain 09/09/2017 018 Atelectasis 09/09/2017 10/20/2018 Other chest pain 09/09/2017 09/29/2017 H/O mastectomy 05/23/2017 10/20/2018 Pharyngoesophageal dysphagia 01/18/2017 06/04/2024 Assessment & Plan (02/21/2019 9:36 AM CDT): Encourage patient to take small bites you thoroughly report increased symptoms may need to see GI eventually follow anti-reflux measures Assessment & Plan (01/18/2017 3:07 PM CDT): Concerning for possible neoplasm Patient reports food getting stuck ?snyder's ?esophageal obstruction See referral to GI urgently BMI 39.0-39.9,adult 01/18/2017 11/23/19 23 Assessment & Plan (02/21/2019 9:36 AM CDT): BMI Follow-up includes: nutrition counseling, exercise counseling and education provided. Assessment & Plan (02/10/2019 11:11 PM CDT): BMI Follow-up includes: nutrition counseling and exercise counseling. Assessment & Plan (07/12/2018 11:22 AM DAY WORKER): BMI Follow-up includes: nutrition counseling and exercise counseling. Assessment & Plan (06/06/2018 11:34 PM DAY WORKER): BMI Follow-up includes: nutrition counseling and exercise counseling. Assessment & Plan (12/03/2017 9:24 AM CDT): BMI Follow-up includes: nutrition counseling and exercise counseling. Assessment & Plan (09/29/2017 9:05 PM CDT): BMI Follow-up includes: nutrition counseling and exercise counseling. Assessment & Plan (08/28/2017 10:15 PM DAY WORKER): BMI Follow-up includes: nutrition counseling and exercise counseling. Assessment & Plan (01/18/2017 3:08 PM CDT): Recommend regular exercise and healthy diet Insomnia 10/08/2015 12/19/2020 Overview (10/01/2016): Insomnia Assessment & Plan (02/21/2019 9:35 AM CDT): Continue medication if necessary encourage good night's sleep habits Assessment & Plan (06/06/2018 11:34 PM DAY WORKER): Cont zolpidem prn. Follow good noc sleep hygiene Assessment & Plan (06/20/2017 9:51 PM DAY WORKER): Likely worsened due to anxiety, depression. Start mirtazapine 15mg hs. Enc good not sleep hygiene. Zolpidem prn. F/u 4 weeks or sooner if needed Carcinoma in situ of breast 04/04/2015 06/04/2024 Subcutaneous nodule 03/28/2014 12/20/19 21 Overview (09/30/2016): Subcutaneous nodule Hypothyroidism 11/10/2013 06/04/2024 Overview (10/01/2016): HYPOTHYROIDISM NOS Assessment & Plan (04/10/2024 9:45 PM CDT): Stable. Continue levothyroxine. Assessment & Plan (01/17/2024 8:01 PM CDT): Stable. Continue levothyroxine. Assessment & Plan (10/17/2023 10:43 PM CDT): Stable. Continue levothyroxine. Assessment & Plan (12/15/2021 8:24 PM CDT): Clinically euthyroid on replacement therapy lab recent lab during hospitalization at [facility] Assessment & Plan (08/11/2021 9:08 PM DAY WORKER): Continue thyroid replacement follow lab recent numbers at [facility] Assessment & Plan (07/26/2021 11:53 AM DAY WORKER): Stable. Continue levothyroxine. Last TSH 0.99 on 07/31/2020. Assessment & Plan (07/23/2020 7:49 PM DAY WORKER): Continue thyroid replacement check lab in the next several days Assessment & Plan (02/21/2019 9:34 AM CDT): Continue replacement therapy check lab today Assessment & Plan (02/10/2019 11:13 PM CDT): Stable. Cont med Assessment & Plan (07/12/2018 11:23 AM DAY WORKER): Cont current medication Assessment & Plan (06/06/2018 11:33 PM DAY WORKER): Cont current medication Assessment & Plan (12/03/2017 9:23 AM CDT): Cont current medication Assessment & Plan (09/29/2017 9:04 PM CDT): Cont current med Assessment & Plan (08/28/2017 10:15 PM DAY WORKER): Cont current medication Assessment & Plan (06/20/2017 9:54 PM DAY WORKER): Cont current medication Depression 10/31/2013 06/04/2024 Overview (09/29/2016): DEPRESSIVE DISORDER NEC Assessment & Plan (04/10/2024 9:45 PM CDT): Stable. Continue escitalopram. Assessment & Plan (01/17/2024 7:55 PM CDT): Stable. Continue current medications Assessment & Plan (10/17/2023 10:43 PM CDT): Not controlled. Start escitalopram 10 mg a day. Decrease mirtazapine to every other night for 1 week then every 3rd night for 1 week then DC. Notify me if symptoms worsen. If any thoughts of hurting self or others go to ER. Follow-up in 6 weeks or sooner as needed. Assessment & Plan (07/17/2023 4:52 PM DAY WORKER): Symptoms worsen since spouse recently. Patient does not want to adjust medication at this time. Continue mirtazapine. Recommend grief counseling through hospice service. Notify me if symptoms worsen or if wanting to adjust medication. Assessment & Plan (08/11/2021 9:11 PM DAY WORKER): Emotionally stable present medication no taper planned Assessment & Plan (07/26/2021 11:48 AM DAY WORKER): Stable. Continue mirtazapine at bedtime. Assessment & Plan (04/23/2021 9:17 PM CDT): Stable. Continue mirtazapine. Assessment & Plan (01/07/2021 11:54 AM CDT): Stable emotionally on present medication Assessment & Plan (07/12/2018 11:23 AM DAY WORKER): Cont current medication Assessment & Plan (06/06/2018 11:36 PM DAY WORKER): Cont current medication Assessment & Plan (12/03/2017 9:22 AM CDT): Cont current medication Assessment & Plan (09/29/2017 9:05 PM CDT): Cont current medications Assessment & Plan (08/28/2017 10:14 PM DAY WORKER): Cont current medication Assessment & Plan (06/20/2017 9:53 PM DAY WORKER): Poor control. Start mirtazapine 15mg hs. Enc pt to focus energy on her own health. Enc pt to limit the time she spends helping with her granddtr, dtr, spouse. Enc pt to eat well balanced meals. rec good noc sleep. F/u 4 weeks or sooner if needed Impaired glucose tolerance 10/31/2013 1 08/05/2023 Overview (10/01/2016): Prediabetes Assessment & Plan (08/11/2021 9:08 PM DAY WORKER): Continue diet weight control follow lab Assessment & Plan (07/23/2020 7:49 PM DAY WORKER): Stressed importance of diet exercise lose weight follow lab Assessment & Plan (04/10/2020 11:27 PM CDT): Patient encouraged to lose weight follow diet and lab check today Assessment & Plan (02/21/2019 9:34 AM CDT): Encouraged healthy diet check lab Impaired fasting glucose 09/04/2013 Overview (10/01/2016): IMPAIRED FASTING GLUCOSE Anxiety state 06/21/2013 12/19/2020 Overview (09/29/2016): ANXIETY STATE NOS Assessment & Plan (04/10/2020 11:30 PM CDT): Continue present medication emotionally stable encourage decrease use of benzodiazepine Assessment & Plan (07/12/2018 11:23 AM DAY WORKER): Cont lorazepam prn, enc limited use. 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
--- OUTSIDE RECORDS SUMMARY | 2024-09-06 16:59 | XMS_ITS | Encounter Summary ---
Author Organization [facility] Address 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
--- OUTSIDE RECORDS SUMMARY | 2024-09-06 16:59 | XMS_ITS | Referral Summary ---
Author Organization [facility] Address [address] [place] [address] Care Team Providers Care Automotive Mechanical Engineer Name Role Phone Gunjan Hanks Unavailable Unavaila Cooper Dobbs MD Unavailable [phone] Mirian Burkett MD Unavailable [phone] Aly Montana MD Unavailable [phone] Niles Carrera MD Unavailable [phone] Qiana Cardenas MD Primary Care Provider + Encounters Date Type Department Care Team Description 09/05/2024 11:56 AM CDT - 09/05/2024 11:59 PM CDT Hospital Encounter [facility] at [address] [address] Posterior neck pain Discharge Disposition: Discharge to home or self care 09/05/2024 11:15 AM CDT Office Visit [facility] [address] [place] [address] [address] [place] [address] Matt Art NP Posterior neck pain (Primary Dx) 08/27/[address] [place] [address] Qiana Cardenas MD Medical Question/Miscellane ous 08/16/2024 Telephone [place] [id number] [facility] [address] [place] [id number] Qiana Cardenas MD Symptom Based Call 08/06/[address] [place] [address] Qiana Cardenas MD Symptom Based Call (urinary pressure & burning ) from Last 3 Months Allergies Active Allergy Reactions Criticality Noted Date Comments Butorphanol Unknown Low Cephalexin Unknown,Rash,Vomiting Medium 06/04/2024 Chicken Derived Anaphylaxis High 06/22/2019 Codeine Headache,Rash Medium 06/04/2024 Erythromycin Nausea & Vomiting,Hives,Rash Medium 06/04/2024 Hydrocodone Nausea & Vomiting,Headache,Rash Medium 06/04/2024 Hydrocodone-Ibuprofen Unknown 10/02/2020 Hydromorphone Nausea & Vomiting Low Morphine Unknown Low Ondansetron Nausea & Vomiting,Rash,Vomiting Medium 06/04/2024 Opioids - Morphine Analogues Nausea & Vomiting Low Other Unknown 04/23/2021 Penicillamine Unknown 10/02/2020 Penicillins Hives,Nausea & Vomiting Medium Poultry Anaphylaxis High 03/21/2019 [place] Anaphylaxis High 06/22/2019 Medications nitroglycerin (NITROSTAT) 0.4 mg SL tabletIndication s:acute myocardial infarction Place 1 tablet (0.4 mg total) under the tongue every 5 (five) minutes as needed for chest pain Place 1 tablet (0.4 mg total) under the tongue every 5 (five) minutes as needed for chest pain Active apixaban (ELIQUIS) 5 mg tabletIndication s:VTE Prophylaxis Take 1 tablet (5 mg total) by mouth 2 (two) times a day Active aspirin 81 mg enteric coated tabletIndication s:prophalaxis Take 1 tablet (81 mg total) by mouth daily Active multivit abwcfaze-ppyw-RJ -calcium (THERA-M) 9 mg iron-400 mcg tabletIndication s:Vitamin Deficiency Prevention Take 1 tablet by mouth daily Active ascorbic acid (VITAMIN C) 500 mg tablet,chewable Take 2 tablet/chew tab (1,000 mg total) by mouth daily Active midodrine (PROAMATINE) 5 mg tabletIndication s:Symptomatic Orthostatic Hypotension Take 1 tablet (5 mg total) by mouth 2 (two) times a day Active cranberry 500 mg capsule Take 1 capsule by mouth daily Active albuterol HFA (PROVENTIL HFA,VENTOLIN HFA,PROAIR HFA) 90 mcg/actuation inhaler INHALE 2 PUFFS BY MOUTH EVERY 4 HOURS NEEDED FOR WHEEZING OR SHORTNESS OF BREATH 18 each 3 Active ondansetron (ZOFRAN) 4 mg tablet Take 1 tablet (4 mg total) by mouth every 8 (eight) hours as needed for nausea or vomiting 20 tablet 1 Active magnesium oxide (MAG-OX) 400 mg (241.3 mg elemental magnesium) tablet Take 1 tablet (400 mg total) by mouth daily Active ergocalciferol (VITAMIN D) 50,000 unit capsule Take 1 capsule (50,000 Units total) by mouth once a week Active carvediloL (COREG) 3.125 mg tablet Take 1 tablet (3.125 mg total) by mouth 2 (two) times a day Active cyanocobalamin, vitamin B-12, 1,000 mcg tablet extended release Take 1,000 mcg by mouth daily Active potassium chloride ER 10 mEq CR tablet TAKE 1 TABLET BY MOUTH EVERY DAY 90 tablet 1 Active furosemide (LASIX) 40 mg tablet Take 1 tablet (40 mg total) by mouth 2 (two) times a day Active lubiprostone (AMITIZA) 24 mcg capsule TAKE 1 CAPSULE BY MOUTH TWICE A DAY WITH MEALS 60 capsule Active gabapentin (NEURONTIN) 300 mg capsuleIndicatio ns:Neuropathy Take 1 capsule (300 mg total) by mouth 4 (four) times a day Along with one 600 mg capsule qid Active Additional Information Patient taking differently:300 mg oral3 times daily, Along with one 600 mg capsule qid, Reported on 09/05/[address] (PROTONIX) 40 mg EC tablet TAKE 1 TABLET BY MOUTH EVERY DAY 90 tablet 1 Active spironolactone (ALDACTONE) 25 mg tablet TAKE 1 TABLET BY MOUTH EVERY DAY 100 tablet 1 Active naloxegoL (MOVANTIK) 12.5 mg tabletIndication s:Chronic constipation Take 1 tablet (12.5 mg total) by mouth daily 30 tablet Active Wegovy 0.25 mg/0.5 mL auto-injector INJECT 0.5 ML SUBCUTANEOUSLY ONE TIME PER WEEK FOR 28 DAYS Active lovastatin (MEVACOR) 40 mg tablet TAKE 1 TABLET BY MOUTH EVERY DAY WITH A MEAL 90 tablet 1 Active montelukast (SINGULAIR) 10 mg tabletIndication s:Acute nonintractable headache, unspecified headache type TAKE 1 TABLET BY MOUTH EVERY DAY AT NIGHT 90 tablet 024 Active traZODone (DESYREL) 50 mg tablet TAKE 1-2 TABLETS BY MOUTH DAILY AT BEDTIME NEEDED FOR SLEEP 180 tablet Active mirtazapine (REMERON) 15 mg tabletIndication s:Anxiety and depression TAKE 1/2 TABLET BY MOUTH NIGHTLY 45 tablet 1 Active levothyroxine (SYNTHROID) 100 mcg tablet TAKE 1 TABLET BY MOUTH CAPTAIN ROOM SERVICE BEFORE BREAKFAST 90 tablet 1 Active benzonatate (TESSALON) 100 mg capsuleIndicatio ns:Cough Take 1 capsule (100 mg total) by mouth 3 (three) times a day as needed for cough 20 capsule 025 Active gabapentin (NEURONTIN) 600 mg tablet TAKE 1 TABLET BY MOUTH 4 TIMES A DAY ALONG WITH A 300 MG CAPSULE 360 tablet Active Additional Information Patient taking differently: 600 mg oral 3 times daily, Reported on 09/05/2024 traMADoL (ULTRAM) 50 mg tablet TAKE 1-2 TABLETS BY MOUTH EVERY 6 HOURS NEEDED FOR PAIN. MAX 8 TABS/24 HOURS. 240 tablet 3 Active senna-docusate (Senexon-S) 8.6-50 mg TAKE 1-2 TABLETS BY MOUTH TWICE DAILY FOR CONSTIPATION 180 tablet 1 Active tiZANidine (ZANAFLEX) 2 mg tablet every 8 hours Active tirzepatide, weight loss, (Zepbound) 2.5 mg/0.5 mL solution vial as directed Subcutaneous Weekly for 28 days Active escitalopram (LEXAPRO) 10 mg tablet Take 2 tablets (20 mg total) by mouth daily Active methylPREDNISolo ne (MEDROL DOSEPACK) 4 mg Dosepack Take as directed on package. 21 tablet 025 2024 Active escitalopram (LEXAPRO) 10 mg tablet TAKE 1 TABLET BY MOUTH EVERY DAY 90 tablet 1 024 2024 Discontinued(R eorder) senna-docusate (Senexon-S) 8.6-50 mg TAKE 1-2 TABLETS BY MOUTH TWICE DAILY FOR CONSTIPATION 180 tablet 1 024 2024 Discontinued traMADoL (ULTRAM) 50 mg tablet TAKE 1-2 TABLETS BY MOUTH EVERY 6 HOURS NEEDED FOR PAIN. MAX 8 TABS/24 HOURS. 240 tablet 025 2024 Discontinued gabapentin (NEURONTIN) 600 mg tablet TAKE 1 TABLET BY MOUTH 4 TIMES A DAY ALONG WITH A 300 MG CAPSULE 120 tablet 2 025 2024 Discontinued nitrofurantoin monohydrate (MACROBID) 100 mg capsule Take 1 capsule (100 mg total) by mouth 2 (two) times a day for 5 days 10 capsule 025 2024 Active Problems Problem Noted Date Diagnosed Date Vitamin D deficiency 01/15/2024 Assessment & Plan (01/17/2024 8:13 PM CDT): Stable. Continue vitamin-D 83907 units weekly. Chronic systolic congestive heart failure [...] 08/12/2022 Assessment & Plan (08/22/2023 9:45 AM HORSE RACING MANAGER): Since increasing her gabapentin and completing PT, [...] 12/15/2021 Assessment & Plan (06/04/2024 5:26 PM HORSE RACING MANAGER): Chronic, stable. She does not have a current prescription for midodrine, she is unsure if she takes this medication. Recommended following up with her terry cloth cutter hand about need for this medication. Assessment & Plan (04/10/2024 9:49 PM CDT): Stable. Continue midodrine. Change positions slowly. Maintain hydration Assessment & Plan (07/17/2023 4:55 PM HORSE RACING MANAGER): Stable. Continue midodrine. Change positions slowly. Maintain hydration. Assessment & Plan (03/20/2023 3:33 PM CDT): Stable. Continue midodrine. Change positions slowly. Maintain hydration. Assessment & Plan (06/01/2022 9:50 PM HORSE RACING MANAGER): Blood pressure stable. Continue midodrine. Change positions [...] ER evaluation. Caregiver will take her to [facility] er now for evaluation. Posterior neck pain [...] . Assessment & Plan (07/17/2023 5:00 PM HORSE RACING MANAGER): BMI Follow-up includes: Diet and exercise . Assessment & Plan (11/22/2022 4:04 PM CDT): BMI Follow-up includes: Diet and exercise. Assessment & Plan (08/11/2021 9:13 PM HORSE RACING MANAGER): BMI Follow-up includes: nutrition counseling, exercise counseling and education provided. Chronic idiopathic constipation 07/05/2021 Assessment & Plan (10/17/2023 10:45 PM CDT): Stable. Continue senexon Assessment & Plan (10/29/2021 10:11 AM CDT): In addition to MiraLax I recommend hydration with water and start senna S prescription sent in Assessment & Plan (08/11/2021 9:12 PM HORSE RACING MANAGER): Continue bowel routine increased MiraLax as needed encourage hydration and ambulation Adrenal insufficiency 07/04/2021 Assessment & Plan (06/04/2024 5:02 PM HORSE RACING MANAGER): Diagnosed with adrenal insufficiency during hospitalization for [...] direction Assessment & Plan (08/11/2021 9:14 PM HORSE RACING MANAGER): Continue slow taper of steroids in the direction of endocrinology patient has cortisol a.m. level due this week Assessment & Plan (07/26/2021 11:56 AM HORSE RACING MANAGER): Improving. Continue hydrocortisone. Follow-up endocrine. Reviewed hospital record 07/02-07/08/2021. Prediabetes 07/03/2021 Assessment & Plan (06/04/2024 5:27 PM HORSE RACING MANAGER): Chronic, stable. Last A1c 6.0 12/2023. Continue diet lifestyle modifications. Assessment & Plan (01/17/2024 8:11 PM CDT): Stable. A1c 6.1 on 02/16/2023. Diet, weight loss, exercise Assessment & Plan (03/20/2023 3:33 PM CDT): Stable. Check lab. Diet, weight loss. Assessment & Plan (11/22/2022 4:08 PM CDT): Stable. Diet, weight loss. Hemiparesis affecting left s alysha as late effect of chronic cerebrovascular accident (CVA) ([facility]) 07/03/2021 Assessment & Plan (01/17/2024 8:12 PM CDT): Stable. Continue aspirin. Maintain blood pressure and cholesterol control. Assessment & Plan (08/22/2023 9:42 AM HORSE RACING MANAGER): Returned to baseline post CVA in 2021. She denies any symptom recurrence. Does have slight left facial weakness that she notes when she is tired, not noted on exam today. Assessment & Plan (12/15/2021 8:24 PM CDT): Continue present medications and physical therapy report acute changes Assessment & Plan (08/11/2021 9:10 PM HORSE RACING MANAGER): Continue present medications supportive care therapy report acute changes Assessment & Plan (07/26/2021 11:48 AM HORSE RACING MANAGER): Stable. Continue aspirin daily. Report any neurological changes. Chronic constipation 01/07/2021 Assessment & Plan (06/04/2024 5:21 PM HORSE RACING MANAGER): Chronic, not controlled. Reports that she sometimes [...] colonoscopy Assessment & Plan (07/17/2023 4:50 PM HORSE RACING MANAGER): Stable. Continue MiraLax daily. Continue stool softener [...] 04/10/2020 Assessment & Plan (08/11/2021 9:09 PM HORSE RACING MANAGER): Continue skin protection and care follow with Dermatology Assessment & Plan (04/10/2020 11:32 PM CDT): Continue sun protection follow with Dermatology Annual physical exam 04/09/2020 Assessment & Plan (08/11/2021 9:13 PM HORSE RACING MANAGER): Return to the office in 4 months Pneumovax 23 of booster vaccine given today follow with lance crewmember/mlrs sergeant yearly Assessment & Plan (04/10/2020 11:31 PM CDT): Check fasting lab today return to the office in 4 months Hypertension, essential 04/09/2020 Assessment & Plan (07/26/2021 11:53 AM HORSE RACING MANAGER): Stable continue current medication Assessment & Plan (04/23/2021 9:18 PM CDT): Stable. Continue current medication. Assessment & Plan (01/07/2021 11:55 AM CDT): Continue present medication follow numbers and recent lab okay Assessment & Plan (07/23/2020 7:51 PM HORSE RACING MANAGER): Continue present medication follow numbers check lab Assessment & Plan (04/10/2020 11:27 PM CDT): Continue present medication follow numbers and lab Primary insomnia 12/26/2019 Assessment & Plan (06/04/2024 5:27 PM HORSE RACING MANAGER): Chronic, stable. Continue trazodone 50 mg. Assessment & Plan (07/17/2023 4:55 PM HORSE RACING MANAGER): Stable. Continue trazodone and good night's sleep hygiene. Assessment & Plan (07/26/2021 11:57 AM HORSE RACING MANAGER): Stable. Continue trazodone and good night's sleep [...] 06/13/2019 Assessment & Plan (06/04/2024 5:06 PM HORSE RACING MANAGER): Chronic, stable. Reviewed last TSH 1.27 12/2023. Continue levothyroxine 100 mcg. Assessment & Plan (07/17/2023 4:42 PM HORSE RACING MANAGER): Stable. Continue levothyroxine Assessment & Plan (03/20/2023 3:30 PM CDT): Stable. Continue levothyroxine. Assessment & Plan (11/22/2022 4:03 PM CDT): Stable. Continue levothyroxine. Assessment & Plan (06/01/2022 9:41 PM HORSE RACING MANAGER): Stable. Continue levothyroxine. Assessment & Plan (03/04/2022 [...] aware Assessment & Plan (05/18/2019 8:47 AM HORSE RACING MANAGER): Continue compression left upper extremity Dyspnea on exertion 02/21/2019 Assessment & Plan (08/11/2021 9:11 PM HORSE RACING MANAGER): Encourage aerobic exercise continue follow with Pulmonary Service report increased symptoms Assessment & Plan (12/25/2019 10:28 AM CDT): Equivocal methacholine challenge. Lungs are clear. Continue albuterol. Assessment & Plan (07/19/2019 10:45 PM HORSE RACING MANAGER): Continue close follow-up with Pulmonary Service report increased symptoms Assessment & Plan (05/18/2019 8:45 AM HORSE RACING MANAGER): Suspect large component deconditioning patient also has [...] 02/21/2019 Assessment & Plan (06/04/2024 5:28 PM HORSE RACING MANAGER): Chronic, stable. Continue escitalopram 10 mg daily, mirtazapine 7.5 mg nightly. Assessment & Plan (11/22/2022 4:04 PM CDT): Stable. Continue mirtazapine. Assessment & Plan (03/04/2022 1:22 PM CDT): Continue present medication emotionally stable Assessment & Plan (12/15/2021 8:25 PM CDT): Continue present medication emotionally stable Assessment & Plan (07/23/2020 7:50 PM HORSE RACING MANAGER): Emotionally stable on present medication Assessment & Plan (12/26/2019 10:34 AM CDT): Taper off mirtazapine over the next 3-4 weeks Next month continue benzodiazepine as needed report increased symptoms Assessment & Plan (10/25/2019 11:10 AM CDT): Emotionally stable present medication patient encouraged to decrease lorazepam use due to dependency and fall risk Assessment & Plan (07/19/2019 10:45 PM HORSE RACING MANAGER): Emotionally stable on present medication Assessment & Plan (02/21/2019 9:39 AM CDT): Decrease mirtazapine 7.5 mg at bedtime since recently started on Paxil per lance crewmember/mlrs sergeant use benzodiazepine p.r.n. History of colonic polyps 02/21/2019 Assessment & Plan (08/11/2021 9:10 PM HORSE RACING MANAGER): Recheck colonoscopy 2023 Assessment & Plan (04/10/2020 11:29 PM CDT): Check lab recheck colonoscopy 2021 Assessment & Plan (02/21/2019 9:17 AM CDT): Recheck colonoscopy 2021 Chronic deep vein thrombosis (DVT) of left upper extremity 02/21/2019 Overview (06/04/2024): Has IVC filter Assessment & Plan (06/04/2024 5:22 PM HORSE RACING MANAGER): Chronic. S/p IVC filter. Reports that at her last cardiology appointment a few months ago, she was taken off Eliquis. She reports that this was due to will blood pressures. Suspect that maybe medication was stopped in the setting of falls related to low blood pressure. Recommended follow-up with Employment Appeals Examiner regarding whether she should be on Eliquis. She has a appointment later this week. Assessment & Plan (06/04/2024 6:11 AM HORSE RACING MANAGER): >>ASSESSMENT AND PLAN FOR HISTORY OF RECURRENT DEEP VEIN THROMBOSIS WRITTEN ON 02/21/2019 9:39 AM BY RUDDY VELASCO, DO Continue anticoagulation monitor falls Assessment & Plan (06/04/2024 6:11 AM HORSE RACING MANAGER): >>ASSESSMENT AND PLAN FOR HISTORY OF RECURRENT DEEP VEIN THROMBOSIS WRITTEN ON 07/19/2019 10:44 PM BY RUDDY VELASCO, DO Continue anticoagulation avoid disruption in therapy Assessment & Plan (06/04/2024 6:11 AM HORSE RACING MANAGER): >>ASSESSMENT AND PLAN FOR HISTORY OF RECURRENT DEEP VEIN THROMBOSIS WRITTEN ON 10/25/2019 11:12 AM BY RUDDY VELASCO, DO Continue long-term anticoagulation all other indication is likely paroxysmal atrial fibrillation Assessment & Plan (06/04/2024 6:11 AM HORSE RACING MANAGER): >>ASSESSMENT AND PLAN FOR HISTORY OF RECURRENT DEEP VEIN THROMBOSIS WRITTEN ON 04/10/2020 11:28 PM BY RUDDY VELASCO, DO Continue lifetime anticoagulation Assessment & Plan (06/04/2024 6:11 AM HORSE RACING MANAGER): >>ASSESSMENT AND PLAN FOR HISTORY OF RECURRENT DEEP VEIN THROMBOSIS WRITTEN ON 07/23/2020 7:51 PM BY RUDDY VELASCO, DO Continue preventive measures with blood thinning medication tolerating well Assessment & Plan (06/04/2024 6:11 AM HORSE RACING MANAGER): >>ASSESSMENT AND PLAN FOR HISTORY OF RECURRENT DEEP VEIN THROMBOSIS WRITTEN ON 01/07/2021 11:55 AM BY RUDDY VELASCO, DO Continue anticoagulation life time report symptoms Assessment & Plan (06/04/2024 6:11 AM HORSE RACING MANAGER): >>ASSESSMENT AND PLAN FOR HISTORY OF RECURRENT DEEP VEIN THROMBOSIS WRITTEN ON 04/23/2021 9:20 PM BY MATT ART NP Stable. Continue anticoagulation. Assessment & Plan (06/04/2024 6:11 AM HORSE RACING MANAGER): >>ASSESSMENT AND PLAN FOR HISTORY OF RECURRENT DEEP VEIN THROMBOSIS WRITTEN ON 07/26/2021 11:49 AM BY MATT GRAFF NP Stable. Continue Eliquis. Assessment & Plan (06/04/2024 6:11 AM HORSE RACING MANAGER): >>ASSESSMENT AND PLAN FOR HISTORY OF RECURRENT DEEP VEIN THROMBOSIS WRITTEN ON 08/11/2021 9:09 PM BY RUDDY VELASCO, DO Continue long-term anticoagulation report falls bleeding or symptoms consistent with DVT Assessment & Plan (06/04/2024 6:11 AM HORSE RACING MANAGER): >>ASSESSMENT AND PLAN FOR HISTORY OF RECURRENT DEEP VEIN THROMBOSIS WRITTEN ON 09/01/2021 2:30 PM BY LAKSHMI MARCIAL JR., MD Chronically anticoagulated with apixaban Assessment & Plan (06/04/2024 6:11 AM HORSE RACING MANAGER): >>ASSESSMENT AND PLAN FOR HISTORY OF RECURRENT DEEP VEIN THROMBOSIS WRITTEN ON 12/15/2021 8:25 PM BY RUDDY VELASCO, DO Continue lifelong anticoagulation tolerating well report falls bleeding lower extremity unilateral swelling Assessment & Plan (06/04/2024 6:11 AM HORSE RACING MANAGER): >>ASSESSMENT AND PLAN FOR HISTORY OF RECURRENT DEEP VEIN THROMBOSIS WRITTEN ON 03/04/2022 1:22 PM BY RUDDY VELASCO, DO Continue lifetime anticoagulation report bleeding falls asymmetrical swelling Assessment & Plan (06/04/2024 6:11 AM HORSE RACING MANAGER): >>ASSESSMENT AND PLAN FOR HISTORY OF RECURRENT DEEP VEIN THROMBOSIS WRITTEN ON 06/01/2022 9:49 PM BY MATT ART NP Stable. Continue Eliquis. Assessment & Plan (06/04/2024 6:11 AM HORSE RACING MANAGER): >>ASSESSMENT AND PLAN FOR HISTORY OF RECURRENT DEEP VEIN THROMBOSIS WRITTEN ON 07/17/2023 4:52 PM BY MATT ART NP Stable. Continue Eliquis. Assessment & Plan (06/04/2024 6:11 AM HORSE RACING MANAGER): >>ASSESSMENT AND PLAN FOR HISTORY OF RECURRENT DEEP VEIN THROMBOSIS WRITTEN ON 10/17/2023 10:45 PM BY MATT ART NP Stable. Continue Eliquis. Assessment & Plan (06/04/2024 6:11 AM HORSE RACING MANAGER): >>ASSESSMENT AND PLAN FOR HISTORY OF RECURRENT DEEP VEIN THROMBOSIS WRITTEN ON 04/10/2024 9:49 PM BY MATT GRAFF NP Stable. Continue Eliquis Assessment & [...] use. Assessment & Plan (06/01/2022 9:48 PM HORSE RACING MANAGER): Slight improvement off of meclizine. Continue exercises. [...] evaluation. Caregiver will drive her now to [facility] ER for further evaluation. Left foot pain 07/12/2018 Assessment & Plan (07/12/2018 11:20 AM HORSE RACING MANAGER): Due to recent surgery, surgical wound and osteomyelitis. Tylenol es 2 tid prn. Cont daily dressing as per podiatry orders. Cont limited wgt bearing as per podiatry orders. 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 Continue yearly mammogram. Last mammogram 11/2023. Assessment & Plan (07/17/2023 4:52 PM HORSE RACING MANAGER): Continue yearly mammogram. Last mammogram 10/12/2022. Assessment & Plan (08/11/2021 9:10 PM HORSE RACING MANAGER): Continue mammogram due now on August 20 follow with breast surgeon Assessment & Plan (01/07/2021 11:57 AM CDT): Continue follow-up with breast surgeon and mammogram due later this year Assessment & Plan (04/10/2020 11:29 PM CDT): Diagnostic mammogram plan in May continue to follow with breast surgeon Assessment & Plan (02/21/2019 9:37 AM CDT): Continue self-breast exam and mammogram yearly along with follow-up lance crewmember/mlrs sergeant and breast surgeon Hot flashes 08/26/2017 Assessment & Plan (02/21/2019 9:37 AM CDT): Continue low-dose SSRI per lance crewmember/mlrs sergeant also decrease mirtazapine at bedtime Chronic bilateral low back pain with sciatica Assessment & Plan (06/04/2024 5:08 PM HORSE RACING MANAGER): Chronic, stable. Follows with pain management for [...] gabapentin. Assessment & Plan (08/11/2021 9:12 PM HORSE RACING MANAGER): Continue present medication Tylenol tramadol as needed [...] tolerated Assessment & Plan (08/28/2017 10:16 PM HORSE RACING MANAGER): Cont current meds. F/u pain mgt as needed Anemia 06/17/2017 Assessment & Plan (06/04/2024 5:07 PM HORSE RACING MANAGER): Chronic, stable. Last hemoglobin 12.1 09/2023. Assessment & Plan (03/20/2023 3:30 PM CDT): Check lab to assess current status. Assessment & Plan (12/15/2021 8:24 PM CDT): Check lab report any obvious blood loss encouraged healthy diet Assessment & Plan (07/26/2021 11:48 AM HORSE RACING MANAGER): Check lab to assess current status. Assessment & Plan (07/12/2018 11:22 AM HORSE RACING MANAGER): Hold iron supplement, iron studies normal mar 2018. Check lab in 6 weeks Assessment & Plan (06/06/2018 11:35 PM HORSE RACING MANAGER): Cont iron supplement. Check lab Assessment & [...] Overview (12/15/2016): [employer] DDD Inogen X4 IRON HANDLER-D implanted on 10/26/16 for NICM/CHF/Mobitz II. Chronic RA lead is a MDT 5076 from 01/07/16. Yamel Rodriges Card Dr. CARRERA IS FOLLOWING THE PATIENTS ICD-LATITUDE RELEASED-12/15/2016 Assessment & Plan (08/11/2021 9:13 PM HORSE RACING MANAGER): Continue follow with Cardiology report discharges Nonischemic [...] pressure. Assessment & Plan (07/17/2023 4:54 PM HORSE RACING MANAGER): Stable. Continue current medications. Report shortness of breath, edema Assessment & Plan (11/22/2022 4:07 PM CDT): Stable. Continue current medications. Follow-up cardiology. Assessment & Plan (06/01/2022 9:50 PM HORSE RACING MANAGER): Stable. Continue current medications. Report shortness of breath, chest pain, chest pressure. Assessment & Plan (03/04/2022 1:20 PM CDT): Increase Lasix 40 mg a day report increased shortness of breath continue present medication follow with Cardiology Assessment & Plan (08/11/2021 9:08 PM HORSE RACING MANAGER): Continue present medication report increased shortness of breath swelling follow with Cardiology appointment this week Assessment & Plan (07/26/2021 11:57 AM HORSE RACING MANAGER): Stable. Report chest pain, chest pressure, shortness of breath, weight gain, edema. Follow-up cardiology. Encourage patient to call terry cloth cutter hand to discuss Entresto, spironolactone and carvedilol and if he wants her to restart meds.. Assessment & Plan (04/23/2021 9:19 PM CDT): Stable. Continue current medication. Follow-up cardiology. Report shortness of breath, chest pain, chest pressure. Assessment & Plan (01/07/2021 11:55 AM CDT): Continue present medication no signs of congestive heart failure follow-up with Cardiology appointment soon Assessment & Plan (07/23/2020 7:50 PM HORSE RACING MANAGER): Continue present medication under the direction of [...] lab Assessment & Plan (07/12/2018 11:19 AM HORSE RACING MANAGER): Cont current medications. F/u cardiol today. Report [...] diet. Assessment & Plan (07/17/2023 4:53 PM HORSE RACING MANAGER): Stable. Continue statin and low-cholesterol diet. Assessment & Plan (03/20/2023 3:33 PM CDT): Stable. Continue statin and low-cholesterol diet. Assessment & Plan (11/22/2022 4:06 PM CDT): Stable. Continue statin and low-cholesterol diet. Assessment & Plan (06/01/2022 9:49 PM HORSE RACING MANAGER): Stable. Continue lovastatin and low-cholesterol diet. Assessment & Plan (08/11/2021 9:09 PM HORSE RACING MANAGER): Continue diet medication recent numbers at goal Assessment & Plan (07/26/2021 11:53 AM HORSE RACING MANAGER): Stable. Continue lovastatin low-cholesterol diet. Last lipid panel 07/03/2021 total cholesterol 109, triglycerides 99, HDL 40, LDL 49. Assessment & Plan (01/07/2021 11:54 AM CDT): Recent lab in the hospital at [facility] continue medication diet Assessment & Plan (07/23/2020 7:49 PM HORSE RACING MANAGER): Continue diet medication check fasting lab next several days Assessment & Plan (04/10/2020 11:28 PM CDT): Continue diet medication check fasting lab today Assessment & Plan (02/21/2019 9:34 AM CDT): Continue medication check fasting lab today encouraged healthy Assessment & Plan (02/10/2019 11:12 PM CDT): Stable. Cont statin and low chol diet Assessment & Plan (06/06/2018 11:36 PM HORSE RACING MANAGER): Cont med and low chol diet Assessment [...] encouraged Assessment & Plan (08/11/2021 9:13 PM HORSE RACING MANAGER): Continue Tylenol/tramadol topical heat stretching exercises weight control Assessment & Plan (01/07/2021 11:54 AM CDT): Continue pain medication stretching exercises follow with pain management proper body mechanics topical heat Assessment & Plan (07/23/2020 7:49 PM HORSE RACING MANAGER): Continue Tylenol topical heat stretching exercises weight [...] REFLUX Assessment & Plan (06/04/2024 5:32 PM HORSE RACING MANAGER): Chronic, not controlled. Reports that she has [...] measures. Assessment & Plan (07/17/2023 4:52 PM HORSE RACING MANAGER): Stable. Continue PPI and anti-reflux measures. Assessment & Plan (03/20/2023 3:32 PM CDT): Stable. Continue PPI and anti-reflux measures. Assessment & Plan (11/22/2022 4:06 PM CDT): Stable. Continue PPI and anti-reflux measures. Assessment & Plan (08/11/2021 9:11 PM HORSE RACING MANAGER): Continue anti-reflux measures and PPI therapy Assessment & Plan (07/26/2021 11:48 AM HORSE RACING MANAGER): Stable. Continue pantoprazole and anti-reflux measures Assessment & Plan (01/07/2021 11:54 AM CDT): Continue anti-reflux measures and PPI therapy Assessment & Plan (07/23/2020 7:49 PM HORSE RACING MANAGER): Continue anti-reflux measures and PPI therapy along [...] ms Assessment & Plan (07/12/2018 11:21 AM HORSE RACING MANAGER): Cont ppi and anti reflux ms Assessment & Plan (06/06/2018 11:33 PM HORSE RACING MANAGER): Cont current med and anti reflux ms. Enc wt loss Assessment & Plan (12/03/2017 9:22 AM CDT): Cont med and anti reflux ms. Assessment & Plan (09/29/2017 9:02 PM CDT): Cont current meds and anti reflux ms Assessment & Plan (08/28/2017 10:15 PM HORSE RACING MANAGER): Cont current meds. Enc anti reflux ms [...] gabapentin. Assessment & Plan (08/22/2023 9:44 AM HORSE RACING MANAGER): Lorie has a longstanding history of neuropathy [...] months Assessment & Plan (07/17/2023 4:53 PM HORSE RACING MANAGER): Stable. Continue gabapentin. Assessment & Plan (03/08/2023 [...] evaluation. Assessment & Plan (06/01/2022 9:49 PM HORSE RACING MANAGER): Stable. Continue gabapentin. Assessment & Plan (03/04/2022 1:24 PM CDT): Continue present medication and skin care Assessment & Plan (12/15/2021 8:24 PM CDT): Continue skin care and gabapentin Assessment & Plan (08/11/2021 9:08 PM HORSE RACING MANAGER): Continue gabapentin skin care Assessment & Plan [...] months Assessment & Plan (07/23/2020 7:49 PM HORSE RACING MANAGER): Continue gabapentin skin care report changes Assessment & Plan (04/10/2020 11:31 PM CDT): Increase gabapentin 4 times a day skin care stressed Assessment & Plan (10/25/2019 11:12 AM CDT): Continue skin care and gabapentin Assessment & Plan (02/21/2019 9:34 AM CDT): Continue present medication skin care report changes check lab Assessment & Plan (08/28/2017 10:16 PM HORSE RACING MANAGER): Cont current meds 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 Sleep apnea 03/16/2011 Overview (09/29/2016): Sleep apnea Assessment & Plan (01/17/2024 8:00 PM CDT): Stable. Continue CPAP. Assessment & Plan (09/01/2021 2:29 PM HORSE RACING MANAGER): Currently using CPAP at night. Interested in a dental appliance. Assessment & Plan (08/11/2021 9:16 PM HORSE RACING MANAGER): Encourage weight loss efforts and CPAP compliance [...] treatment for suspected sleep disorder breathing finalized. Nuclear Medicine Officer regarding the use of alcohol, caffeine when [...] hemiparesis Assessment & Plan (06/04/2024 5:25 PM HORSE RACING MANAGER): Chronic, stable. Follows with Neurology. Continue aspirin 81mg, lovastatin 40 mg. Assessment & Plan (07/17/2023 4:52 PM HORSE RACING MANAGER): Stable. Continue aspirin daily. Assessment & Plan (03/04/2022 1:21 PM CDT): Continue supportive care and present medication report acute neurologic change Assessment & Plan (08/11/2021 9:10 PM HORSE RACING MANAGER): Continue therapy assistive device for ambulation present medication follow with Neurology Resolved Problems Problem Noted Date Diagnosed Date Resolved Date Swelling of lower extremity 10/05/2023 06/04/2024 Bad odor of urine 07/05/2023 01/15/2024 Assessment & Plan (07/17/2023 4:48 PM HORSE RACING MANAGER): Check UA to rule out infection. Increase water intake. Acute pain of right shoulder 07/04/2023 01/15/2024 Assessment & Plan (07/17/2023 4:47 PM HORSE RACING MANAGER): Due to recent fall. Check x-ray. Heat p.r.n.. Topical analgesic rub p.r.n.. Tylenol extra-strength 2 tablets t.i.d. as needed for pain. Tramadol 1 or 2 tablets every 6 hours as needed for pain. Notify me if pain worsens or if no improvement will refer to application security specialist. Right elbow pain 07/04/2023 01/15/2024 Assessment & Plan (07/17/2023 4:55 PM HORSE RACING MANAGER): Due to recent fall. Check x-ray to rule out fracture. Ice p.r.n.. Topical analgesic rub p.r.n.. Tylenol extra-strength 2 tablets t.i.d. as needed for pain. tramadol 1 or 2 every 6 hours as needed for pain. Notify me if pain worsens or if no improvement will refer to application security specialist. Chronic fatigue 11/11/2022 06/04/2024 Bilateral impacted cerumen 08/12/2022 0 02/28/2023 Fall 06/01/2022 06/04/2024 Assessment & Plan (06/01/2022 9:52 PM HORSE RACING MANAGER): Will obtain copy of [facility] record. Recommend she use her walker. Continue [...] further evaluation. Caregiver to drive her to [facility] ER now. Syncope 11/25/2021 06/04/2024 [...] 08/11/2021 Assessment & Plan (08/11/2021 9:06 PM HORSE RACING MANAGER): Check x-ray today consider Arvind wrap Tylenol for pain Osteoporosis screening 08/11/202106/04 Assessment & Plan (08/11/2021 9:07 PM HORSE RACING MANAGER): Check bone mineral density test now especially [...] breath. Assessment & Plan (07/26/2021 11:50 AM HORSE RACING MANAGER): Stable at this time. Encourage patient to schedule follow-up with Cardiology to discuss need to restart Entresto, carvedilol, spironolactone. Report edema, weight gain, shortness of breath. Pneumonia 06/09/2021 06/04/2024 Assessment & Plan (09/01/2021 2:29 PM HORSE RACING MANAGER): CT imaging in June notable for left [...] care Assessment & Plan (08/20/2020 10:38 AM HORSE RACING MANAGER): Suspect muscle strain as CT scan unremarkable I recommend topical heat Tylenol tramadol report if not helpful or not resolved in next 3-4 weeks proper body mechanics encouraged BMI 36.0-36.9,adult 04/09/2020 11/23/19 Assessment & Plan (04/10/2020 11:30 PM CDT): BMI Follow-up includes: nutrition counseling, exercise counseling and education provided. BMI 37.0-37.9, adult 12/26/2019 05 023 Assessment & Plan (12/26/2019 10:35 AM CDT): Encouraged healthy diet exercise patient instructed to slowly taper off mirtazapine which should help also recommend sleep study to evaluate sleep apnea risk Pneumonia due to infectious organism 09/26/2019 01/15/2024 CVA, old, hemiparesis ([facility]) 09/26/2019 12/15/2021 Assessment & Plan [...] precautions. Assessment & Plan (07/23/2020 7:51 PM HORSE RACING MANAGER): Continue present medication report acute changes Assessment [...] 12/19/2020 Assessment & Plan (07/19/2019 10:44 PM HORSE RACING MANAGER): Continue present medication follow with Neurology and Pulmonary Service continue physical therapy in home at this time report any acute neurologic changes Lymphedema of left arm 06/13/201906/04 Assessment & Plan (08/11/2021 9:08 PM HORSE RACING MANAGER): Continue compression and elevation Assessment & Plan (07/23/2020 7:50 PM HORSE RACING MANAGER): Patient interested in referral to plastics for [...] cardiology. Assessment & Plan (09/01/2021 2:30 PM HORSE RACING MANAGER): Pacemaker defibrillator. Chronically anticoagulated. Heart failure with [...] drive herself. EMS called to transport to [facility] ED. Discussed case with ED, Dr. Medina, who would like to discharge her. We discussed her BURNETT and desaturation requiring O2 3L via nc while in office. They will recheck Amb Ox in ED prior to discharge and consider admission if she fails to maintain sats on RA. Osteomyelitis of ankle and foot 06/26/2018 12/19/2020 Assessment & Plan (07/12/2018 11:19 AM HORSE RACING MANAGER): Cont antibiotic. F/u infectious disease Other fatigue 05/30/2018 10/20/2018 Assessment & Plan (06/06/2018 11:35 PM HORSE RACING MANAGER): Check lab Vocal cord paralysis 02/22/2018 022 Overview (02/22/2018): Added automatically from request for surgery [id number] Epistaxis 02/22/2018 12/19/2020 Overview (02/22/2018): Added automatically from request for surgery [id number] Nausea, vomiting, and diarrhea 09/09/2017 12/03/2017 Assessment [...] counseling. Assessment & Plan (07/12/2018 11:22 AM HORSE RACING MANAGER): BMI Follow-up includes: nutrition counseling and exercise counseling. Assessment & Plan (06/06/2018 11:34 PM HORSE RACING MANAGER): BMI Follow-up includes: nutrition counseling and exercise counseling. Assessment & Plan (12/03/2017 9:24 AM CDT): BMI Follow-up includes: nutrition counseling and exercise counseling. Assessment & Plan (09/29/2017 9:05 PM CDT): BMI Follow-up includes: nutrition counseling and exercise counseling. Assessment & Plan (08/28/2017 10:15 PM HORSE RACING MANAGER): BMI Follow-up includes: nutrition counseling and exercise counseling. Assessment & Plan (01/18/2017 3:08 PM CDT): Recommend regular exercise and healthy diet Insomnia 10/08/2015 12/19/2020 Overview (10/01/2016): Insomnia Assessment & Plan (02/21/2019 9:35 AM CDT): Continue medication if necessary encourage good night's sleep habits Assessment & Plan (06/06/2018 11:34 PM HORSE RACING MANAGER): Cont zolpidem prn. Follow good noc sleep hygiene Assessment & Plan (06/20/2017 9:51 PM HORSE RACING MANAGER): Likely worsened due to anxiety, depression. Start mirtazapine 15mg hs. Enc good not sleep hygiene. Zolpidem prn. 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 Continue levothyroxine. Assessment & Plan (01/17/2024 8:01 PM CDT): Stable. Continue levothyroxine. Assessment & Plan (10/17/2023 10:43 PM CDT): Stable. Continue levothyroxine. Assessment & Plan (12/15/2021 8:24 PM CDT): Clinically euthyroid on replacement therapy lab recent lab during hospitalization at goal Assessment & Plan (08/11/2021 9:08 PM HORSE RACING MANAGER): Continue thyroid replacement follow lab recent numbers at goal Assessment & Plan (07/26/2021 11:53 AM HORSE RACING MANAGER): Stable. Continue levothyroxine. Last TSH 0.99 on 07/31/2020. Assessment & Plan (07/23/2020 7:49 PM HORSE RACING MANAGER): Continue thyroid replacement check lab in the next several days Assessment & Plan (02/21/2019 9:34 AM CDT): Continue replacement therapy check lab today Assessment & Plan (02/10/2019 11:13 PM CDT): Stable. Cont med Assessment & Plan (07/12/2018 11:23 AM HORSE RACING MANAGER): Cont current medication Assessment & Plan (06/06/2018 11:33 PM HORSE RACING MANAGER): Cont current medication Assessment & Plan (12/03/2017 9:23 AM CDT): Cont current medication Assessment & Plan (09/29/2017 9:04 PM CDT): Cont current med Assessment & Plan (08/28/2017 10:15 PM HORSE RACING MANAGER): Cont current medication Assessment & Plan (06/20/2017 9:54 PM HORSE RACING MANAGER): Cont current medication Depression 10/31/2013 06/04/2024 Overview [...] needed. Assessment & Plan (07/17/2023 4:52 PM HORSE RACING MANAGER): Symptoms worsen since spouse recently. Patient does not want to adjust medication at this time. Continue mirtazapine. Recommend grief counseling through hospice service. Notify me if symptoms worsen or if wanting to adjust medication. Assessment & Plan (08/11/2021 9:11 PM HORSE RACING MANAGER): Emotionally stable present medication no taper planned Assessment & Plan (07/26/2021 11:48 AM HORSE RACING MANAGER): Stable. Continue mirtazapine at bedtime. Assessment & Plan (04/23/2021 9:17 PM CDT): Stable. Continue mirtazapine. Assessment & Plan (01/07/2021 11:54 AM CDT): Stable emotionally on present medication Assessment & Plan (07/12/2018 11:23 AM HORSE RACING MANAGER): Cont current medication Assessment & Plan (06/06/2018 11:36 PM HORSE RACING MANAGER): Cont current medication Assessment & Plan (12/03/2017 9:22 AM CDT): Cont current medication Assessment & Plan (09/29/2017 9:05 PM CDT): Cont current medications Assessment & Plan (08/28/2017 10:14 PM HORSE RACING MANAGER): Cont current medication Assessment & Plan (06/20/2017 9:53 PM HORSE RACING MANAGER): Poor control. Start mirtazapine 15mg hs. Enc pt to focus energy on her own health. Enc pt to limit the time she spends helping with her granddtr, dtr, spouse. Enc pt to eat well balanced meals. rec good noc sleep. F/u 4 weeks or sooner if needed Impaired glucose tolerance 10/31/2013 1 08/05/2023 Overview (10/01/2016): Prediabetes Assessment & Plan (08/11/2021 9:08 PM HORSE RACING MANAGER): Continue diet weight control follow lab Assessment & Plan (07/23/2020 7:49 PM HORSE RACING MANAGER): Stressed importance of diet exercise lose weight [...] benzodiazepine Assessment & Plan (07/12/2018 11:23 AM HORSE RACING MANAGER): Cont lorazepam prn, enc limited use. 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 Overview (10/01/2016): ANT PITUIT HYPERFUNC NEC Acute cystitis without hematuria 11/22/2022 Septic shock 08/11/2021 Immunizations Immunization Administration Dates Next Due Influenza, Quad, Adjuvantate d, Intramuscular 03/02/2023 Influenza, Quadrivalent, Hig h Dose, Preservative Free, Intrr 03/07/2020 Influenza, Trivalent, High D ose, Split, Preservative Free, Intramuscular 03/13/2022,03/03/2019,03/03/2019,03/14,03/03/2017,03/26/2016,03/17/2016 ,03/06/2015,03/28/2014 Influenza, Trivalent, IM (MDV) 03/27/2015,2012 Influenza, Unspecified 02/27/2021,2017,03/26/2018,03/27,03/27/2017 Pfizer SARS-CoV-2 Monovalent Vaccination (12+ Yrs) PURPLE 04/06/2021,09/05/2020,08/15/2020 Pfizer Sars-Cov-2 Bivalent V accination (12+ YRS) 03/13/2022 Pneumococcal Polysaccharide PPV23 08/11/2021,03/2011 Pneumococcal, Unspecified 06/27/2013 Tdap 04/28/2012 ZOSTER LIVE 03/26/2016,03/17/2016 ZOSTER Recombinant 08/07/2018,04/13/2018 Social History Tobacco Use Types Packs/Day Years Used Date Smoking Tobacco: Never Smokeless Tobacco: Never Tobacco Cessation:Counseling Given: Not Answered Alcohol Use Standard Drinks/Week Comments No 0 (1 standard drink = 0.6 oz pur e alcohol) Social Connection and Isolat ion Panel [NHANES] Answer Date Recorded In a typical week, how many times do you talk on the phone with family, friends, or neighbors? More than three times a week 07/06/2021 How often do you get togethe r with friends or relatives? More than three times a week 07/06/2021 How often do you attend [facility] or adventist services? Never 07/06/2021 Do you belong to any clubs o r organizations such as adventist groups, unions, fraternal or athletic groups, or school groups? Yes 07/06/2021 How often do you attend meet ings of the clubs or organizations you belong to? Never 07/06/2021 Are you , , di vorced, , never , or living with a partner? 07/06/2021 AUDIT-C Answer Date Recorded Q1: How often do you have a drink containing alcohol? Never 04/18/2024 Q2: How many drinks containi ng alcohol do you have on a typical day when you are drinking? Patient does not drink Q3: How often do you have si x or more drinks on one occasion? Never 04/18/2024 Overall Financial Resource Strain (CARDIA) Answe r Date Recorded How hard is it for you to pa y for the very basics like food, housing, medical care, and heating? Not hard at all 07/06/2021 PHQ-2 Answer Date Recorded PHQ-2 Total Score (If total score is 3 or more points, staff should administer the PHQ-9) 0 09/05/2024 Exercise Vital Sign Answer Date Recorde d On average, how many days pe r week do you engage in moderate to strenuous exercise (like a brisk walk)? 7 days 04/09/2020 On average, how many minutes do you engage in exercise at this level? 30 min 04/09/2020 Hunger Vital Sign Answer Date Recorded Within the past 12 months, y ou worried that your food would run out before you got the money to buy more. Never true 07/06/19 22 Within the past 12 months, t he food you bought just didn't last and you didn't have money to get more. Never true 07/06/2021 PRAPARE - Transportation Answer Date Re corded In the past 12 months, has l ack of transportation kept you from medical appointments or from getting medications? No 06/27 In the past 12 months, has l ack of transportation kept you from meetings, work, or from getting things needed for daily living? No 07/06/2021 PHQ-9 Answer Date Recorded PHQ-9 Total Score 8 03/19/2024 Personal Safety Answer Date Recorded Have you ever been in or are you currently in a harmful physical or emotional relationship or is someone making you feel afraid or unsafe? 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 Not on file Not on file Not on f ile Last Filed Vital Signs Vital Sign Reading Time Taken Comments Blood Pressure 120/72 09/05/2024 11:14 AM CDT Pulse 72 09/05/2024 11:14 AM CDT Temperature 36.9 C (98.4 F) 04/18/2024 1:09 PM CDT Respiratory Rate 14 04/18/2024 2:37 PM CDT Oxygen Saturation 93% 09/05/2024 11:14 AM CDT Inhaled Oxygen Concentration - - Weight 80.7 kg (178 lb) 09/05/2024 11:14 AM CDT Height 157.5 cm (5' 2.01 ) 09/05/2024 11:14 AM C DT Body Mass Index 32.55 09/05/2024 11:14 AM CDT Plan of Treatment Not on file Medical Devices Implanted Type Area Dough Mixer Device Identifier Shelf Expiration Date Model / Serial / Lot Icd-10/26/2016 Implanted: 7 by Jameson Montesinos MD (Quantity not on file) ICD Right: Chest [employer] INOGEN CRTD / [id number] / Description:This patient had a JENNIFER SCI DDD Inogen X4 IRON HANDLER-D implanted on 10/26/16 for NICM/CHF/Mobitz II. Chronic RA lead is a MDT 5076 from 01/07/16, she is in the office today for a device check and chronic programming. The patient has an incision to the right pectoral area, that is well healed W/O signs of infection. Interrogation of the patients device demonstrates that the Bi-V/ICD is functioning appropriately according to the manufacturers recommendations with appropriate battery voltage, charge time, shock impedances, lead impedances, stable atrial, ventricular and CS pacing and sensing thresholds. There were no ventricular arrhythmias noted. (5) mode switches, < 1 minute in duration, IEGM s brief atrial flutter. Atrial, RV, and CS amplitudes were decreased for chronic TH. AP-10 %, RVP-99 %, CSP-99% Presenting Rhythm-atrial tracking, Underlying Rhythm-Mobitx II with VPC s Battery V-JUSTIN, 8 years to TREMAINE, Charge Time 9.0 sec., Shock impedances: 66 ohms Atrial- 5.8 mv, 616 ohms, 0.7 V @ .50 ms RV- 15.8 mv, 495 ohms, 0.7 V @ .50 ms CS- 7.7 mv, 1140 ohms, 1.8 V @ 2.0 ms-Paced and sensed-LV tip 1to LVR 2 Plan: 1) Bi-V ICD evaluation as noted above without arrhythmias. 2) Patient will have device F/U with Dr. Carrera, her Latitude monitor is transferred. Thank you for allowing us to participate in the care of this patient. Please feel free to call the office at [phone], if you have any questions or should you require additional information. Sincerely, Ginny Nascimento RN, [facility], CCDS-Arrhythmia Device Specialist [employer] [id number] Prolaryn Plus Waterbased Injectable Syringe Thin Wall Needle Latex Free - [id number] Implanted:Qty: 1 on 03/03/2018 by Chris Dunlap MD at [facility] Left: [facility] [employer] 07/06/2019 [id number] / / [id number] Description:0.4ml injected [employer]Ortho [id number] Morena-Loc Vlp 3.5mm 14mm Self Tap Lock Foot Fibula Cortical Screw - [id number] Implanted:Qty: 2 on 06/10/2019 by Aly Montana MD at [facility] Left: Ankle [employer]/O rtho [id number] / / [employer]hew[employer]Richco/Ortho [id number] Morena-Loc Vlp 3.5mm 12mm Self Tap Lock Foot Fibula Cortical Screw - [id number] Implanted:Qty: 4 on 06/10/2019 by Aly Montana MD at [facility] Left: Ankle [employer]/Rich[employer]/O rtho [id number] / / Li [employer]hew[employer]Richco/Ortho [id number] Morena-Loc Vlp 3.5mm 12mm Self Tap Foot Cortical Hexagon Low - [id number] Implanted:Qty: 3 on 06/10/2019 by Aly Montana MD at [facility] Left: Ankle [employer]Rich[employer]/O rtho [id number] / / [employer]hew[employer]Rich[employer]/Ortho [id number] Morena-Loc Vlp 107mm 7 Hole Locking Left Lateral Distal Fibular - [id number] Implanted:Qty: 1 on 06/10/2019 by Aly Montana MD at [facility] Left: Ankle [employer]Rich[employer]/O rtho [id number] / / Explanted Type Area Dough Mixer Device Identifier Shelf Expiration Date Model / Serial / Lot Li [employer] Nephew/Richco/O rtho [id number] Meghan 2mm 150mm [place] [employer] Wire Fixation - [id number] Explanted:Qty: 1 on 06/10/2019 at [facility] Left: Ankle [employer]/Or tho [id number] / / Description:. Item listed in EPIC under implant screen, so sandy entered on implant screen as implanted/explanted for charging, and left supply screen items as non-chargeable Procedures Procedure Name Priority Date/Time Associated Diagnosis Comments XR SPINE CERVICAL COMPLETE 4 OR 5 VW Schedule Routine, Read Routine (OP Routine) 09/05/2024 12:14 PM CDT Posterior neck pain COLONOSCOPY 04/18/2024 1:07 PM CDT SCREENING MAMMOGRAM RIGHT W YASIR UNILATERAL ONLY Schedule Routine, Read Routine (OP Routine) 12/13/2023 2:58 PM CDT History of breast cancer Encounter for screening mammogram for malignant neoplasm of breast DEXA AXIAL SKELETON BONE DENSITY 1 OR MORE SITES Schedule Routine, Read Routine (OP Routine) 08/11/2021 2:49 PM HORSE RACING MANAGER Osteoporosis screening Asymptomatic menopausal state HEPATITIS C ANTIBODY Routine 02/21/2019 9:40 AM CDT Need for hepatitis C screening test from Last 3 Months or Most Recently Relevant to Health Maintenance Results * XR Spine Cervical Complete 4 or 5 Views (09/05/2024 12:14 PM CDT) Anatomical Region Laterality Modality Spine N/A Radiographic Maddison ging 09/05/2024 12:5 1 PM CDT Impressions 09/05/2024 12:51 PM CDT There is minimal anterolisthesis at C4-C5 that is unchanged. Otherwise, there is preservation of normal vertebral body alignment. There is loss of disc space height and endplate degenerative change at C3-C4 through C6-C7. There is facet and uncovertebral joint degenerative change at multiple levels. Neuroforaminal narrowing is suspected bilaterally and most pronounced on the right at C4-C5 and C5-C6. This can be further delineated with cross-sectional imaging as clinically warranted. The prevertebral soft tissues are normal. There is partial visualization of a stent along the left upper extremity and leads from a right chest device. Electronically signed by: Bhavesh Mac M.D. Narrative 09/05/2024 12:51 PM CDT XR SPINE CERVICAL COMPLETE 4 OR 5 VW: 09/05/2024 12:00 PM CLINICAL INDICATION: Posterior neck pain. COMPARISON: CT cervical spine dated 11/25/2021. Procedure Note Bhavesh Mac MD - 09/05/2024 XR SPINE CERVICAL COMPLETE 4 OR 5 VW: 09/05/2024 12:00 PM CLINICAL INDICATION: Posterior neck pain. COMPARISON: CT cervical spine dated 11/25/2021. IMPRESSION: There is minimal anterolisthesis at C4-C5 that is unchanged. Otherwise, there is preservation of normal vertebral body alignment. There is loss of disc space height and endplate degenerative change at C3-C4 through C6-C7. There is facet and uncovertebral joint degenerative change at multiple levels. Neuroforaminal narrowing is suspected bilaterally and most pronounced on the right at C4-C5 and C5-C6. This can be further delineated with cross-sectional imaging as clinically warranted. The prevertebral soft tissues are normal. There is partial visualization of a stent along the left upper extremity and leads from a right chest device. Electronically signed by: Bhavesh Mac M.D. us Matt Morgan Graff PERSONNEL RECORDS CLERK IMG XR PROCEDURES Final Re sult * Colonoscopy (04/18/2024 1:07 PM CDT) Anatomical Region Laterality Modality Other Narrative Procedure Note Job Rodrigez MD - 04/18/2024 1:07 PM CDT ENDOSCOPY LAB Patient Name: Lorie White Procedure Date: 04/18/2024 1:07 PM Admit Type: Outpatient Room: [facility] 3 Date of : 1950 Instrument Name: [id number] Gender: Female Note Status: Finalized Procedure: Colonoscopy Indications: High risk colon cancer surveillance: Personalhistory of colonic polyps, Last colonoscopy: February2021 Providers: Job Rodrigez M.D. Referring MD: Ruddy Velasco D.O. Medicines: Propofol per Anesthesia Complications: No immediate complications. Estimated blood loss:None. Estimated Blood Loss: Estimated blood loss: none. Procedure: Pre-Anesthesia Assessment: - The anesthesia plan was to use moderate sedation/analgesia (conscious sedation). - The risks and benefits of the procedure and the sedation options and risks were discussed with the patient. All questions were answered and informed consent was obtained. The benefits, risks and alternatives of theprocedure and sedation were discussed and informed consentwas obtained. All questions were answered. Please referto the signed informed consent document in the medical record. The scope was passed under direct vision.The Colonoscope was introduced through the anus and advanced to the the cecum, identified byappendiceal orifice and ileocecal valve. The colonoscopy was performed without difficulty. The patient tolerated the procedure well. The quality of the bowel preparation was good. The quality of the bowel preparation was evaluated using the BBPS (BostonBowel Preparation Scale) with scores of: Right Colon = 2 (minor amount of residual staining, small fragmentsof stool and/or opaque liquid, but mucosa seen well), Transverse Colon = 2 (minor amount of residual staining, small fragments of stool and/or opaque liquid, but mucosa seen well) and Left Colon = 2 (minor amount of residual staining, small fragmentsof stool and/or opaque liquid, but mucosa seen well).The total BBPS score equals 6. The bowel preparationused was Plenvu via split dose instruction. Bowel prepwas administered using a split dose. AI Technology was utilized during the procedure to aid in polyp detection. Findings: The perianal exam findings include non-thrombosed externalhemorrhoids and non-thrombosed internal hemorrhoids. A 7 mm polyp was found in the hepatic flexure. The polyp was sessile. The polyp was removed with a cold snare. Resection and retrieval were complete. Three sessile polyps were found in the transverse colon. The polypswere 5 to 6 mm in size. These polyps were removed with a cold snare. Resection and retrieval were complete. A 4 mm polyp was found in the transverse colon. The polyp wassessile. The polyp was removed with a jumbo cold forceps. Resection andretrieval were complete. An 8 mm polyp was found in the rectum. The polyp was sessile. Thepolyp was removed with a cold snare. Resection and retrieval werecomplete. A diffuse area of mild melanosis was found in the entire colon. Impression: - Non-thrombosed external hemorrhoids and non-thrombosed internal hemorrhoids found onperianal exam. - One 7 mm polyp at the hepatic flexure, removedwith a cold snare. Resected and retrieved. - Three 5 to 6 mm polyps in the transverse colon, removed with a cold snare. Resected andretrieved. - One 4 mm polyp in the transverse colon, removedwith a jumbo cold forceps. Resected and retrieved. - One 8 mm polyp in the rectum, removed with a cold snare. Resected and retrieved. - Melanosis in the colon. Recommendation: - Await pathology results. - Repeat colonoscopy in 3 years for surveillance. - Return to GI office PRN. Electronically signed by Job Rodrigez M.D. Job Rodrigez M.D. 04/18/2024 2:06:12 PM Number of Addenda: 0 Note Initiated On: 04/18/2024 1:07 PM Scope Withdrawal Time: 0 hours 25 minutes 50 seconds Scope In: 1:31:13 PM Scope Out: 2:02:42 PM us Job Rodrigez MD ENDOSCOPY PROCEDURES Final Re sult * Screening Mammogram Right W Yasir Unilateral Only (12/13/2023 2:58 PM CDT) Anatomical Region Laterality Modality Breast Right Mammography Narrative 12/15/2023 11:20 AM CDT Mammogram Technique: Right Breast Digital Breast Tomosynthesis, Unilateral C-view 2D Screening mammogram. Views obtained: right craniocaudal and right mediolateral oblique. Computer Aided Detection was performed. Mammogram Findings: The present examination has been compared to prior imaging studies performed at [facility] on 05/27/2020, 10/06/2021 and 10/12/2022. There are scattered areas of fibroglandular density. There is no suspicious abnormality in the right breast. Patient status post contralateral mastectomy for personal history of breast cancer. Impression: There is no mammographic evidence of malignancy. Annual screening mammography is recommended. OVERALL FINAL ASSESSMENT: BI-RADS CATEGORY 1: Negative. Procedure Note Shelby Odonnell MD - 12/15/2023 Mammogram Technique: Right Breast Digital Breast Tomosynthesis, Unilateral C-view 2DScreening mammogram. Views obtained: right craniocaudal and right mediolateral oblique. Computer Aided Detection was performed. Mammogram Findings: The present examination has been compared to prior imaging studies performed at [facility] on 05/27/2020, 10/06/2021 and 10/12/2022. There are scattered areas of fibroglandular density. There is no suspicious abnormality in the right breast. Patient status post contralateral mastectomy for personal history ofbreast cancer. Impression: There is no mammographic evidence of malignancy. Annual screening mammography is recommended. OVERALL FINAL ASSESSMENT: BI-RADS CATEGORY 1: Negative. us Kary Uribe NP IMG MAMMO PROCEDURES Fin al Result * Dexa Axial Skeleton Bone Density 1 or 2 Site (08/11/2021 2:49 PM HORSE RACING MANAGER) Anatomical Region Laterality Modality Body N/A Digital Radiogra phy 08/11/2021 2:50 PM HORSE RACING MANAGER Impressions 08/11/2021 2:50 PM HORSE RACING MANAGER BMD near the young adult mean. Based on BMD alone, there is no increased risk of fragility fracture. If followup is to be done, for technical reasons, it should be performed on this same machine. Electronically signed by: Jason Corbin M.D. Narrative 08/11/2021 2:50 PM HORSE RACING MANAGER EXAM: Bone mineral density examination HISTORY: Postmenopausal screening bone density.. DXA BMD was done at [facility] on a [facility]. Precision testing at this site has resulted in a least significant change of: Lumbar spine: 0.033 g/sq cm Total Hip: 0.027 g/sq cm Femoral Neck: 0.035 g/sq cm BMD L1-L4 is 1.340 g/sq cm corresponding to a T score of 2.7. BMD left femoral neck is 0.757 g/sq cm corresponding to a T score of -0.8. BMD total left hip is 0.847 g/sq cm corresponding to a T score of -0.8. The 10-year fracture risk for major osteoporotic fracture: Not calculated. The 10-year fracture risk for hip fracture: Not calculated. COMPARISON: When comparison is made with most recent prior bone density exam, there has been no significant interval change in total bone density of the spine or hip. Procedure Note Jason Corbin MD - 08/11/2021 EXAM: Bone mineral density examination HISTORY: Postmenopausal screening bone density.. DXA BMD was done at [facility] on [facility]. Precision testing at this site has resulted in a least significant change of: Lumbar spine: 0.033 g/sq cm Total Hip: 0.027 g/sq cm Femoral Neck: 0.035 g/sq cm BMD L1-L4 is 1.340 g/sq cm corresponding to a T score of 2.7. BMD left femoral neck is 0.757 g/sq cm corresponding to a T score of -0.8. BMD total left hip is 0.847 g/sq cm corresponding to a T score of -0.8. The 10-year fracture risk for major osteoporotic fracture: Not calculated. The 10-year fracture risk for hip fracture: Not calculated. COMPARISON: When comparison is made with most recent prior bone density exam, there has been no significant interval change in total bone density of the spine or hip. IMPRESSION: BMD near the young adult mean. Based on BMD alone, there is no increased risk of fragility fracture. If followup is to be done, for technical reasons, it should be performed on this same machine. Electronically signed by: Jason Corbin M.D. us Ruddy Velasco DO IMG DXA PROCEDURES Final Result * Hepatitis C antibody (02/21/2019 9:40 AM CDT) Hep C Ab Non-Reactiv e Non-Reactiv e [facility] Blood specimen (specimen) 02/21/2019 9:40 AM CDT 02/21/2019 10:28 AM CDT Ruddy Velasco DO LAB MICROBIOLOGY - GENERAL ORDE [place] Final Result [facility] [address] Department of [employer] [place], [place] [id number] from Last 3 Months or Most Recently Relevant to [place] [address] [employer] MEDICARE [place]OLD [place] [id number] [facility] REF T MEDICARE [facility] MEDICARE [facility] T MEDICARE [facility] Advance Directives For more information, please contact: [phone] Documents on File Type Date Recorded Patient Print Traffic Manager Expl anation ADVANCE DIRECTIVE 03/03/2018 10:18 AM ADVANCE DIRECTIVE 09/09/2017 11:18 AM ADVANCE DIRECTIVE 09/09/2017 Advance Di rective Checklist ADVANCE DIRECTIVE 05/23/2017 Advance Di rective Checklist * Full Code (Latest Code Status on File) Date Activated Date Inactivated Comments 11/25/2021 3:21 PM 11/30/2021 7:52 PM * LIMITED - No CPR Date Activated Date Inactivated Comments 07/02/2021 6:32 PM 07/08/2021 8:06 PM * Full Code Date Activated Date Inactivated Comments 06/09/2021 9:37 AM 06/14/2021 9:06 PM * Full Code Date Activated Date Inactivated Comments 03/04/2021 10:00 AM 03/04/2021 3:50 PM * Full Code Date Activated Date Inactivated Comments 01/01/2021 3:00 AM 01/02/2021 8:08 PM Care Teams Automotive Mechanical Engineer Relationship Specialty Start Date End Date Qiana Cardenas MD [address] [place] [address] PCP - General Family Medicine 06/04/24 Gunjan Hanks SLP Speech Language Pathologist Speech Therapy 03/21/18 Cooper Cruz MD Consulting Physician Internal Medicine 10/20/18 Mirian Burkett MD [address] [facility] [address] [place] [address] Consulting Physician Neurology 07/10/19 Aly Montana MD [address] [facility] [address] [place] [address] Consulting Physician Orthopedic Surgery 07/10/19 Niles Carrera MD [address] [address] Cardiology 07/10/19
--- OUTSIDE RECORDS SUMMARY | 2024-09-06 16:59 | XMS_ITS ---
Author Organization [facility] Address [address] [facility] [address] [address] Care Team Providers Care Auto Body Worker Name Role Phone Qiana Cardenas Primary Care Provider Unavail GUNJAN Hogan Unavailable [phone] Encounters Encounter Location Date Provider Diagnosis [facility] [address] [address] 08/02/2024 GUNJAN CARERRA Plan Of Treatment Next Appt Details Provider Name:GUNJAN GOLDSMITH, 09/28/2024 09:00:00 AM, [address] [facility] [address], [place], [address], Progress Notes * Lorie CAMPBELL ANNDOB: [birth year] (73 yo F)Acc No.[id number]:08/02/2024 Patient: Vilma CHIQUITAHER Lorie CAMBPELL :1950 A ge:73 Y S ex:Female [address]:[address] [place], [place] [address]yessenia Gustafson, [place], [address] * true * Date: Generated for Printi ng/Faxing/eTransmitting on: 0 09/06/2024 04:59 PM CDT
--- OUTSIDE RECORDS SUMMARY | 2024-09-06 16:59 | XMS_ITS ---
Author Organization [facility]onique gement Address [address] [facility] [address] [place] [address] Care Team Providers Care Water Reclamation Systems Operator Name Role Phone Medhat DAWSON, Raciel Primary Care Provider Akhil Pelaez Unavailable [phone] Allergies Allergen (clinical drug ingredient) Drug/Non Drug Allergy documented on EMR Reaction Allergy Type Onset Date Status butorphanol Butorphanol Tartrate Unknown Drug Allergy Active cephalexin Cephalexin Unknown Drug Allergy Activ e codeine Codeine Sulfate Unknown Drug Allergy A ctive Erythrocin Unknown Drug Allergy Active acetaminophen / hydrocodone Hydrocodone-Acetamino phen Unknown Drug Allergy Active Influenza Vac Typ A& B Surf Ant Unknown Drug Allergy Active morphine Morphine Sulfate Unknown Drug Allergy Active Vicodin Unknown Drug Allergy Active Penicillin Unknown Drug Allergy Active REASON FOR VISIT BACK PAIN Medications Medication SIG (Take, Route, Frequency, Duration) Notes Start Date End Date Status Cranberry Extract 250 MG Orally Active Famotidine 40 MG Orally Act kurtis Gabapentin 300 MG TAKE 1 CAPSULE BY [facility] THREE TIMES A DAY for 30 Active Vitamin D 2000 UNIT 1 tablet Orally Once a day Active Zolpidem Tartrate 5 MG 1 tablet at bedti me Orally Once a day Active Vitamin B Complex - Orally Active Nystatin 584554 U/ML Mouth/Throat Active Senokot 8.6 MG 2 tablets at bedtime as needed Orally Once a day Active Spironolactone 50 MG 1 tablet Orally Onc e a day Active traMADol HCl 50 MG 1 tablet as needed Orally Every 8 hours Active Gabapentin 300 MG 2 Orally Three times a day Active Furosemide 20 MG 1 tablet Orally Once a day Active Levothyroxine Sodium 100 MCG 1 tablet on an empty stomach in the morning Orally Once a day Active LORazepam 0.5 MG 1 tablet as needed Orally every 6 hrs Active Lovastatin 40 MG 1 tablet with a meal Orally Once a day Active Social History Tobacco Use: Social History Observation Description Date Details (start date - stop date) Never Smoker NA - NA Tobacco Use/Smoking Question Answer Notes Are you a nonsmoker Alcohol Screen (Audit-C) Question Answer Notes Did you have a drink containing alcohol in the p ast year? No Points 0 Interpretation Negative Vital Signs Temperature 97.2 degrees Fahrenheit 07/11/19 25 Blood pressure systolic 101 mm Hg 07/11/19 25 Blood pressure diastolic 61 mm Hg 025 Heart Rate 64 /min 07/11/2024 Respiratory Rate 16 /min 07/11/2024 Height 62 in 07/11/2024 Weight 185 lbs 07/11/2024 BMI 33.83 kg/m2 07/11/2024 Encounters Encounter Location Date Provider Diagnosis [facility] [address] [facility] [address] [place] [address] 07/11/2024 Akhil Mares Radiculopathy, lumbar region M54.16 Assessments Encounter Date Diagnosis (ICD Code) Assessment Notes Treatment Notes Treatment Clinical Notes Section Notes 07/11/2024 Radiculopathy, lumbar region (ICD-10 - M54.16) Lumbar radicular pain is the patient's primary diagnosis of an proceed today with a bilateral L4 transforaminal epidural steroid injection. Patient tolerated very well will call with any questions or concerns 07/11/2024 Other The risk of thi s procedure were discussed with the patient in which they verbalized understanding and wished to proceed. The patient will continue to be part of a comprehensive pain management program. Continuation of these procedures are due to pain being severe enough to cause a significant degree of functional disability or vocational disability. and the procedure providing at least 50% sustained improvement of pain and/or 50% objective improvement in function (using same scale as baseline) . Patients primary care provider has been notified regarding continuation of procedures and prolonged repeat steroid use. Plan Of Treatment Treatment Notes Assessment Notes Radiculopathy, lumbar region Lumbar radi cular pain is the patient's primary diagnosis of an proceed today with a bilateral L4 transforaminal epidural steroid injection. Patient tolerated very well will call with any questions or concerns Other The risk of this pro cedure were discussed with the patient in which they verbalized understanding and wished to proceed. The patient will continue to be part of a comprehensive pain management program. Continuation of these procedures are due to pain being severe enough to cause a significant degree of functional disability or vocational disability. and the procedure providing at least 50% sustained improvement of pain and/or 50% objective improvement in function (using same scale as baseline) . Patients primary care provider has been notified regarding continuation of procedures and prolonged repeat steroid use. Next Appt Details Provider Name:Akhil Freeman zulay, 10/19/2024 01:15:00 PM, [address] [place] [address], [address], [address], Progress Notes * Macie CAMPBELLeDOB:1950 ([age] yo F)Acc No.[id number]*DOS:07/11/2024 Patient: Lorie GIRARD * Provider: Thea Mares MD :[id number] A ge:73 Y S ex:Female Date:07/11/2024 Address:[address] [place] [address] [id number] Pcp:Raciel Meléndez MD Subjective: * Chief Complaints: * B ACK PAIN * HPI: * Pain Evaluation: Patient presents to the office today with complaints of hip pain They state the pain has been present for several years and began gradually and has gotten worse over time . The pain is more bilateral and radiation of the pain occurs down bilateral legs . Associated symptoms include numbness, weakness and tingling . The quality of pain is severe , constant and worse in the mornings . The patient rates their pain a 7/10 using the numerical rating scale. They describe their pain as shooting, throbbing, aching and stabbing and worsens with sitting, weather changes, moving from sitting to standing, walking and stress / fatigue . Improvement in pain occurs with standing, activity modification, stretching and medications . They have tried the following conservative treatments with minimal improvements; activity modifications and medication management . Medications include but not limited to gabapentin . Imaging studies performed include MRI of the lumbar spine . The patient comes in today upon referral from Dr. Meléndez . The patient does not take a blood thinner. O n 04/02/2024 the patient underwent a DANIELE L4 SNR. They reported 90-100% relief that lasted for 2 months . Improvement in ADLs during this time include getting in and out of bed and walking . P terrell has pain in the bilateral L4 nerve root distribution. We are going to do a bilateral L4 transforaminal epidural steroid injection under fluoroscopy. * Medical History: * Surgical History: S tomach 04/2017callas removed 05/2018 * Hospitalization/Major Diagno stic Procedure: F daniela, Dehydration 08/2017 * Family History: F ather: unknown. M other: unknown. * Social History: T obacco Use: T obacco Use/Smoking A re you a n onsmoker D rugs/Alcohol: A lcohol Screen (Audit-C) D id you have a drink containing alcohol in the past year? N o P oints 0 I nterpretation N egative Caffeine I ntake: n one * Medications: T akingCranberry Extract 250 MG Capsule Orally Famotidine 40 MG Tablet Dispersible Orally Gabapentin 300 MG Tablet 2 Orally Three times a day Furosemide 20 MG Tablet 1 tablet Orally Once a day Levothyroxine Sodium 100 MCG Tablet 1 tablet on an empty stomach in the morning Orally Once a day LORazepam 0.5 MG Tablet 1 tablet as needed Orally every 6 hrs Lovastatin 40 MG Tablet 1 tablet with a meal Orally Once a day Nystatin 068405 U/ML Suspension Reconstituted Mouth/Throat Senokot 8.6 MG Tablet 2 tablets at bedtime as needed Orally Once a day Spironolactone 50 MG Tablet 1 tablet Orally Once a day traMADol HCl 50 MG Tablet 1 tablet as needed Orally Every 8 hours Vitamin B Complex - Capsule Orally Vitamin D 2000 UNIT Tablet 1 tablet Orally Once a day Zolpidem Tartrate 5 MG Tablet 1 tablet at bedtime Orally Once a day Gabapentin 300 MG Capsule TAKE 1 CAPSULE BY MOUTH THREE TIMES A DAY Medication List reviewed and reconciled with the patientTaking Cranberry Extract 250 MG Capsule Orally Taking Famotidine 40 MG Tablet Dispersible Orally Taking Gabapentin 300 MG Tablet 2 Orally Three times a day Taking Furosemide 20 MG Tablet 1 tablet Orally Once a day Taking Levothyroxine Sodium 100 MCG Tablet 1 tablet on an empty stomach in the morning Orally Once a day Taking LORazepam 0.5 MG Tablet 1 tablet as needed Orally every 6 hrs Taking Lovastatin 40 MG Tablet 1 tablet with a meal Orally Once a day Taking Nystatin 632197 U/ML Suspension Reconstituted Mouth/Throat Taking Senokot 8.6 MG Tablet 2 tablets at bedtime as needed Orally Once a day Taking Spironolactone 50 MG Tablet 1 tablet Orally Once a day Taking traMADol HCl 50 MG Tablet 1 tablet as needed Orally Every 8 hours Taking Vitamin B Complex - Capsule Orally Taking Vitamin D 2000 UNIT Tablet 1 tablet Orally Once a day Taking Zolpidem Tartrate 5 MG Tablet 1 tablet at bedtime Orally Once a day Taking Gabapentin 300 MG Capsule TAKE 1 CAPSULE BY MOUTH THREE TIMES A DAY Medication List reviewed and reconciled with the patient * Allergies: V icodinHydrocodone-AcetaminophenButorphanol TartrateMorphine SulfateInfluenza Vac Typ A&B Surf AntPenicillinCodeine SulfateErythrocinCephalexinno[Allergies Verified] Objective: * Vitals: H t: 62 in, Wt:185lbs, Pain scale:71-10, BP:101/61mm Hg, Temp:97.2F, HR:64/min, RR:16/min, BMI:33.83Index. * Examination: G eneral Examination: P atient has pain in the bilateral L4 patient has pain in the lumbar paraspinous muscles patient has pain with lumbar flexion compared to lumbar extension. Assessment: * Assessment: 1. R adiculopathy, lumbar region - M54.16 (Primary) Plan: * Treatment: 2. O thers Notes: The risk of this procedure were discussed with the patient in which they verbalized understanding and wished to proceed. The patient will continue to be part of a comprehensive pain management program. Continuation of these procedures are due to pain being severe enough to cause a significant degree of functional disability or vocational disability. and the procedure providing at least 50% sustained improvement of pain and/or 50% objective improvement in function (using same scale as baseline) . Patients primary care provider has been notified regarding continuation of procedures and prolonged repeat steroid use. * Procedure Codes: * Preventive Medicine: Screenings: F ALL RISK SCREENING Fall Risk Assessment: N o falls in the past year * * ING MACHINE OPERATOR Sign off status: Completed true * Provider: Thea Mares MD Date: 0 07/11/2024 Generated for Rayray castano/Gael/Shaan on: 0 09/06/2024 04:58 PM CDT History and Physical Notes * Examination Category Sub-Category Detail Notes Category Not es General Examination Patient has pain in the bilateral L4 patient has pain in the lumbar paraspinous muscles patient has pain with lumbar flexion compared to lumbar extension
--- OUTSIDE RECORDS SUMMARY | 2024-09-06 16:59 | XMS_ITS | Clinical Summary ---
Author Organization [facility] Address [address] [place] [address] Care Team Providers Care Cistern Room Working Supervisor Name Role Phone Gunjan Hanks Unavailable Unavaila Cooper Dobbs MD Unavailable [phone] Mirian Burkett MD Unavailable [phone] Aly Montana MD Unavailable [phone] Niles Carrera MD Unavailable [phone] Qiana Cardenas MD Primary Care Provider + Allergies Active Allergy Reactions Criticality Noted Date [...] & Vomiting Medium Poultry Anaphylaxis High 03/21/2019 [place] Anaphylaxis High 06/22/2019 Medications nitroglycerin (NITROSTAT) 0.4 [...] mg total) by mouth daily Active multivit odhdzkla-ewko-MD -calcium (THERA-M) 9 mg iron-400 mcg tabletIndication [...] OR SHORTNESS OF BREATH 18 each 3 022 Active ondansetron (ZOFRAN) 4 mg tablet Take 1 tablet (4 mg total) by mouth every 8 (eight) hours as needed for nausea or vomiting 20 tablet 1 022 Active magnesium oxide (MAG-OX) 400 mg (241.3 mg elemental magnesium) tablet Take 1 tablet (400 mg total) by mouth daily 023 Active ergocalciferol (VITAMIN D) 50,000 unit capsule Take 1 capsule (50,000 Units total) by mouth once a week Active carvediloL (COREG) 3.125 mg tablet Take 1 tablet (3.125 mg total) by mouth 2 (two) times a day 024 Active cyanocobalamin, vitamin B-12, 1,000 mcg tablet extended release Take 1,000 mcg by mouth daily Active potassium chloride ER 10 mEq CR tablet TAKE 1 TABLET BY MOUTH EVERY DAY 90 tablet 1 024 Active furosemide (LASIX) 40 mg tablet Take 1 tablet (40 mg total) by mouth 2 (two) times a day 024 Active lubiprostone (AMITIZA) 24 mcg capsule TAKE 1 CAPSULE BY MOUTH TWICE A DAY WITH MEALS 60 capsule 024 Active gabapentin (NEURONTIN) 300 mg capsuleIndicatio ns:Neuropathy Take 1 capsule (300 mg total) by mouth 4 (four) times a day Along with one 600 mg capsule qid 024 Active Additional Information Patient taking differently:300 mg oral3 times daily, Along with one 600 mg capsule qid, Reported on 09/05/[address] (PROTONIX) 40 mg EC tablet TAKE 1 TABLET BY MOUTH EVERY DAY 90 tablet 1 024 Active spironolactone (ALDACTONE) 25 mg tablet TAKE 1 TABLET BY MOUTH EVERY DAY 100 tablet 1 024 Active naloxegoL (MOVANTIK) 12.5 mg tabletIndication s:Chronic constipation Take 1 tablet (12.5 mg total) by mouth daily 30 tablet 024 Active Wegovy 0.25 mg/0.5 mL auto-injector INJECT 0.5 ML SUBCUTANEOUSLY ONE TIME PER WEEK FOR 28 DAYS Active lovastatin (MEVACOR) 40 mg tablet TAKE 1 TABLET BY MOUTH EVERY DAY WITH A MEAL 90 tablet 1 024 Active montelukast (SINGULAIR) 10 mg tabletIndication s:Acute nonintractable headache, unspecified headache type TAKE 1 TABLET BY MOUTH EVERY DAY AT NIGHT 90 tablet 024 Active traZODone (DESYREL) 50 mg tablet TAKE 1-2 TABLETS BY MOUTH DAILY AT BEDTIME NEEDED FOR SLEEP 180 tablet 024 Active mirtazapine (REMERON) 15 mg tabletIndication s:Anxiety and depression TAKE 1/2 TABLET BY MOUTH NIGHTLY 45 tablet 1 024 Active levothyroxine (SYNTHROID) 100 mcg tablet 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 MAX 8 TABS/24 HOURS. 240 tablet 3 Active senna-docusate (Senexon-S) 8.6-50 mg TAKE 1-2 TABLETS BY MOUTH TWICE DAILY FOR CONSTIPATION 180 tablet 1 025 Active tiZANidine (ZANAFLEX) 2 mg tablet every [...] (01/17/2024 8:13 PM CDT): Stable. Continue vitamin-D 99442 units weekly. Chronic systolic congestive heart failure [...] 08/12/2022 Assessment & Plan (08/22/2023 9:45 AM FINGER COBBLER): Since increasing her gabapentin and completing PT, [...] 12/15/2021 Assessment & Plan (06/04/2024 5:26 PM FINGER COBBLER): Chronic, stable. She does not have a current prescription for midodrine, she is unsure if she takes this medication. Recommended following up with her weekend caregiver about need for this medication. Assessment & Plan (04/10/2024 9:49 PM CDT): Stable. Continue midodrine. Change positions slowly. Maintain hydration Assessment & Plan (07/17/2023 4:55 PM FINGER COBBLER): Stable. Continue midodrine. Change positions slowly. Maintain hydration. Assessment & Plan (03/20/2023 3:33 PM CDT): Stable. Continue midodrine. Change positions slowly. Maintain hydration. Assessment & Plan (06/01/2022 9:50 PM FINGER COBBLER): Blood pressure stable. Continue midodrine. Change positions [...] ER evaluation. Caregiver will take her to [facility] now for evaluation. Posterior neck pain [...] . Assessment & Plan (07/17/2023 5:00 PM FINGER COBBLER): BMI Follow-up includes: Diet and exercise . Assessment & Plan (11/22/2022 4:04 PM CDT): BMI Follow-up includes: Diet and exercise. Assessment & Plan (08/11/2021 9:13 PM FINGER COBBLER): BMI Follow-up includes: nutrition counseling, exercise counseling and education provided. Chronic idiopathic constipation 07/05/2021 Assessment & Plan (10/17/2023 10:45 PM CDT): Stable. Continue senexon Assessment & Plan (10/29/2021 10:11 AM CDT): In addition to MiraLax I recommend hydration with water and start senna S prescription sent in Assessment & Plan (08/11/2021 9:12 PM FINGER COBBLER): Continue bowel routine increased MiraLax as needed encourage hydration and ambulation Adrenal insufficiency 07/04/2021 Assessment & Plan (06/04/2024 5:02 PM FINGER COBBLER): Diagnosed with adrenal insufficiency during hospitalization for [...] direction Assessment & Plan (08/11/2021 9:14 PM FINGER COBBLER): Continue slow taper of steroids in the direction of endocrinology patient has cortisol a.m. level due this week Assessment & Plan (07/26/2021 11:56 AM FINGER COBBLER): Improving. Continue hydrocortisone. Follow-up endocrine. Reviewed hospital record 07/02-07/08/2021. Prediabetes 07/03/2021 Assessment & Plan (06/04/2024 5:27 PM FINGER COBBLER): Chronic, stable. Last A1c 6.0 12/2023. Continue diet lifestyle modifications. Assessment & Plan (01/17/2024 8:11 PM CDT): Stable. A1c 6.1 on 02/16/2023. Diet, weight loss, exercise Assessment & Plan (03/20/2023 3:33 PM CDT): Stable. Check lab. Diet, weight loss. Assessment & Plan (11/22/2022 4:08 PM CDT): Stable. Diet, weight loss. Hemiparesis affecting left s alysha as late effect of chronic cerebrovascular accident (CVA) ([facility]) 07/03/2021 Assessment & Plan (01/17/2024 8:12 PM CDT): Stable. Continue aspirin. Maintain blood pressure and cholesterol control. Assessment & Plan (08/22/2023 9:42 AM FINGER COBBLER): Returned to baseline post CVA in 2021. She denies any symptom recurrence. Does have slight left facial weakness that she notes when she is tired, not noted on exam today. Assessment & Plan (12/15/2021 8:24 PM CDT): Continue present medications and physical therapy report acute changes Assessment & Plan (08/11/2021 9:10 PM FINGER COBBLER): Continue present medications supportive care therapy report acute changes Assessment & Plan (07/26/2021 11:48 AM FINGER COBBLER): Stable. Continue aspirin daily. Report any neurological changes. Chronic constipation 01/07/2021 Assessment & Plan (06/04/2024 5:21 PM FINGER COBBLER): Chronic, not controlled. Reports that she sometimes [...] colonoscopy Assessment & Plan (07/17/2023 4:50 PM FINGER COBBLER): Stable. Continue MiraLax daily. Continue stool softener [...] 04/10/2020 Assessment & Plan (08/11/2021 9:09 PM FINGER COBBLER): Continue skin protection and care follow with Dermatology Assessment & Plan (04/10/2020 11:32 PM CDT): Continue sun protection follow with Dermatology Annual physical exam 04/09/2020 Assessment & Plan (08/11/2021 9:13 PM FINGER COBBLER): Return to the office in 4 months Pneumovax 23 of booster vaccine given today follow with glove turner and former automatic yearly Assessment & Plan (04/10/2020 11:31 PM CDT): Check fasting lab today return to the office in 4 months Hypertension, essential 04/09/2020 Assessment & Plan (07/26/2021 11:53 AM FINGER COBBLER): Stable continue current medication Assessment & Plan (04/23/2021 9:18 PM CDT): Stable. Continue current medication. Assessment & Plan (01/07/2021 11:55 AM CDT): Continue present medication follow numbers and recent lab okay Assessment & Plan (07/23/2020 7:51 PM FINGER COBBLER): Continue present medication follow numbers check lab Assessment & Plan (04/10/2020 11:27 PM CDT): Continue present medication follow numbers and lab Primary insomnia 12/26/2019 Assessment & Plan (06/04/2024 5:27 PM FINGER COBBLER): Chronic, stable. Continue trazodone 50 mg. Assessment & Plan (07/17/2023 4:55 PM FINGER COBBLER): Stable. Continue trazodone and good night's sleep hygiene. Assessment & Plan (07/26/2021 11:57 AM FINGER COBBLER): Stable. Continue trazodone and good night's sleep [...] 06/13/2019 Assessment & Plan (06/04/2024 5:06 PM FINGER COBBLER): Chronic, stable. Reviewed last TSH 1.27 12/2023. Continue levothyroxine 100 mcg. Assessment & Plan (07/17/2023 4:42 PM FINGER COBBLER): Stable. Continue levothyroxine Assessment & Plan (03/20/2023 3:30 PM CDT): Stable. Continue levothyroxine. Assessment & Plan (11/22/2022 4:03 PM CDT): Stable. Continue levothyroxine. Assessment & Plan (06/01/2022 9:41 PM FINGER COBBLER): Stable. Continue levothyroxine. Assessment & Plan (03/04/2022 [...] aware Assessment & Plan (05/18/2019 8:47 AM FINGER COBBLER): Continue compression left upper extremity Dyspnea on exertion 02/21/2019 Assessment & Plan (08/11/2021 9:11 PM FINGER COBBLER): Encourage aerobic exercise continue follow with Pulmonary Service report increased symptoms Assessment & Plan (12/25/2019 10:28 AM CDT): Equivocal methacholine challenge. Lungs are clear. Continue albuterol. Assessment & Plan (07/19/2019 10:45 PM FINGER COBBLER): Continue close follow-up with Pulmonary Service report increased symptoms Assessment & Plan (05/18/2019 8:45 AM FINGER COBBLER): Suspect large component deconditioning patient also has [...] 02/21/2019 Assessment & Plan (06/04/2024 5:28 PM FINGER COBBLER): Chronic, stable. Continue escitalopram 10 mg daily, mirtazapine 7.5 mg nightly. Assessment & Plan (11/22/2022 4:04 PM CDT): Stable. Continue mirtazapine. Assessment & Plan (03/04/2022 1:22 PM CDT): Continue present medication emotionally stable Assessment & Plan (12/15/2021 8:25 PM CDT): Continue present medication emotionally stable Assessment & Plan (07/23/2020 7:50 PM FINGER COBBLER): Emotionally stable on present medication Assessment & Plan (12/26/2019 10:34 AM CDT): Taper off mirtazapine over the next 3-4 weeks Next month continue benzodiazepine as needed report increased symptoms Assessment & Plan (10/25/2019 11:10 AM CDT): Emotionally stable present medication patient encouraged to decrease lorazepam use due to dependency and fall risk Assessment & Plan (07/19/2019 10:45 PM FINGER COBBLER): Emotionally stable on present medication Assessment & Plan (02/21/2019 9:39 AM CDT): Decrease mirtazapine 7.5 mg at bedtime since recently started on Paxil per glove turner and former automatic use benzodiazepine p.r.n. History of colonic polyps 02/21/2019 Assessment & Plan (08/11/2021 9:10 PM FINGER COBBLER): Recheck colonoscopy 2023 Assessment & Plan (04/10/2020 11:29 PM CDT): Check lab recheck colonoscopy 2021 Assessment & Plan (02/21/2019 9:17 AM CDT): Recheck colonoscopy 2021 Chronic deep vein thrombosis (DVT) of left upper extremity 02/21/2019 Overview (06/04/2024): Has IVC filter Assessment & Plan (06/04/2024 5:22 PM FINGER COBBLER): Chronic. S/p IVC filter. Reports that at her last cardiology appointment a few months ago, she was taken off Eliquis. She reports that this was due to will blood pressures. Suspect that maybe medication was stopped in the setting of falls related to low blood pressure. Recommended follow-up with Bilingual Interpreter regarding whether she should be on Eliquis. She has a appointment later this week. Assessment & Plan (06/04/2024 6:11 AM FINGER COBBLER): >>ASSESSMENT AND PLAN FOR HISTORY OF RECURRENT DEEP VEIN THROMBOSIS WRITTEN ON 02/21/2019 9:39 AM BY RUDDY VELASCO, DO Continue anticoagulation monitor falls Assessment & Plan (06/04/2024 6:11 AM FINGER COBBLER): >>ASSESSMENT AND PLAN FOR HISTORY OF RECURRENT DEEP VEIN THROMBOSIS WRITTEN ON 07/19/2019 10:44 PM BY RUDDY VELASCO, DO Continue anticoagulation avoid disruption in therapy Assessment & Plan (06/04/2024 6:11 AM FINGER COBBLER): >>ASSESSMENT AND PLAN FOR HISTORY OF RECURRENT DEEP VEIN THROMBOSIS WRITTEN ON 10/25/2019 11:12 AM BY RUDDY VELASCO, DO Continue long-term anticoagulation all other indication is likely paroxysmal atrial fibrillation Assessment & Plan (06/04/2024 6:11 AM FINGER COBBLER): >>ASSESSMENT AND PLAN FOR HISTORY OF RECURRENT DEEP VEIN THROMBOSIS WRITTEN ON 04/10/2020 11:28 PM BY RUDDY VELASCO, DO Continue lifetime anticoagulation Assessment & Plan (06/04/2024 6:11 AM FINGER COBBLER): >>ASSESSMENT AND PLAN FOR HISTORY OF RECURRENT DEEP VEIN THROMBOSIS WRITTEN ON 07/23/2020 7:51 PM BY RUDDY VELASCO, DO Continue preventive measures with blood thinning medication tolerating well Assessment & Plan (06/04/2024 6:11 AM FINGER COBBLER): >>ASSESSMENT AND PLAN FOR HISTORY OF RECURRENT DEEP VEIN THROMBOSIS WRITTEN ON 01/07/2021 11:55 AM BY RUDDY VELASCO, DO Continue anticoagulation life time report symptoms Assessment & Plan (06/04/2024 6:11 AM FINGER COBBLER): >>ASSESSMENT AND PLAN FOR HISTORY OF RECURRENT DEEP VEIN THROMBOSIS WRITTEN ON 04/23/2021 9:20 PM BY MATT ART NP Stable. Continue anticoagulation. Assessment & Plan (06/04/2024 6:11 AM FINGER COBBLER): >>ASSESSMENT AND PLAN FOR HISTORY OF RECURRENT DEEP VEIN THROMBOSIS WRITTEN ON 07/26/2021 11:49 AM BY MATT GRAFF NP Stable. Continue Eliquis. Assessment & Plan (06/04/2024 6:11 AM FINGER COBBLER): >>ASSESSMENT AND PLAN FOR HISTORY OF RECURRENT DEEP VEIN THROMBOSIS WRITTEN ON 08/11/2021 9:09 PM BY RUDDY VELASCO, DO Continue long-term anticoagulation report falls bleeding or symptoms consistent with DVT Assessment & Plan (06/04/2024 6:11 AM FINGER COBBLER): >>ASSESSMENT AND PLAN FOR HISTORY OF RECURRENT DEEP VEIN THROMBOSIS WRITTEN ON 09/01/2021 2:30 PM BY LAKSHMI MARCIAL JR., MD Chronically anticoagulated with apixaban Assessment & Plan (06/04/2024 6:11 AM FINGER COBBLER): >>ASSESSMENT AND PLAN FOR HISTORY OF RECURRENT DEEP VEIN THROMBOSIS WRITTEN ON 12/15/2021 8:25 PM BY RUDDY VELASCO, DO Continue lifelong anticoagulation tolerating well report falls bleeding lower extremity unilateral swelling Assessment & Plan (06/04/2024 6:11 AM FINGER COBBLER): >>ASSESSMENT AND PLAN FOR HISTORY OF RECURRENT DEEP VEIN THROMBOSIS WRITTEN ON 03/04/2022 1:22 PM BY RUDDY VELASCO, DO Continue lifetime anticoagulation report bleeding falls asymmetrical swelling Assessment & Plan (06/04/2024 6:11 AM FINGER COBBLER): >>ASSESSMENT AND PLAN FOR HISTORY OF RECURRENT DEEP VEIN THROMBOSIS WRITTEN ON 06/01/2022 9:49 PM BY MATT ART NP Stable. Continue Eliquis. Assessment & Plan (06/04/2024 6:11 AM FINGER COBBLER): >>ASSESSMENT AND PLAN FOR HISTORY OF RECURRENT DEEP VEIN THROMBOSIS WRITTEN ON 07/17/2023 4:52 PM BY MATT ART NP Stable. Continue Eliquis. Assessment & Plan (06/04/2024 6:11 AM FINGER COBBLER): >>ASSESSMENT AND PLAN FOR HISTORY OF RECURRENT DEEP VEIN THROMBOSIS WRITTEN ON 10/17/2023 10:45 PM BY MATT ART NP Stable. Continue Eliquis. Assessment & Plan (06/04/2024 6:11 AM FINGER COBBLER): >>ASSESSMENT AND PLAN FOR HISTORY OF RECURRENT [...] use. Assessment & Plan (06/01/2022 9:48 PM FINGER COBBLER): Slight improvement off of meclizine. Continue exercises. [...] evaluation. Caregiver will drive her now to [facility] ER for further evaluation. Left foot pain 07/12/2018 Assessment & Plan (07/12/2018 11:20 AM FINGER COBBLER): Due to recent surgery, surgical wound and osteomyelitis. Tylenol es 2 tid prn. Cont daily dressing as per podiatry orders. Cont limited wgt bearing as per podiatry orders. 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 Continue yearly mammogram. Last mammogram 11/2023. Assessment & Plan (07/17/2023 4:52 PM FINGER COBBLER): Continue yearly mammogram. Last mammogram 10/12/2022. Assessment & Plan (08/11/2021 9:10 PM FINGER COBBLER): Continue mammogram due now on August 20 follow with breast surgeon Assessment & Plan (01/07/2021 11:57 AM CDT): Continue follow-up with breast surgeon and mammogram due later this year Assessment & Plan (04/10/2020 11:29 PM CDT): Diagnostic mammogram plan in May continue to follow with breast surgeon Assessment & Plan (02/21/2019 9:37 AM CDT): Continue self-breast exam and mammogram yearly along with follow-up glove turner and former automatic and breast surgeon Hot flashes 08/26/2017 Assessment & Plan (02/21/2019 9:37 AM CDT): Continue low-dose SSRI per glove turner and former automatic also decrease mirtazapine at bedtime Chronic bilateral low back pain with sciatica Assessment & Plan (06/04/2024 5:08 PM FINGER COBBLER): Chronic, stable. Follows with pain management for [...] gabapentin. Assessment & Plan (08/11/2021 9:12 PM FINGER COBBLER): Continue present medication Tylenol tramadol as needed [...] tolerated Assessment & Plan (08/28/2017 10:16 PM FINGER COBBLER): Cont current meds. F/u pain mgt as needed Anemia 06/17/2017 Assessment & Plan (06/04/2024 5:07 PM FINGER COBBLER): Chronic, stable. Last hemoglobin 12.1 09/2023. Assessment & Plan (03/20/2023 3:30 PM CDT): Check lab to assess current status. Assessment & Plan (12/15/2021 8:24 PM CDT): Check lab report any obvious blood loss encouraged healthy diet Assessment & Plan (07/26/2021 11:48 AM FINGER COBBLER): Check lab to assess current status. Assessment & Plan (07/12/2018 11:22 AM FINGER COBBLER): Hold iron supplement, iron studies normal mar 2018. Check lab in 6 weeks Assessment & Plan (06/06/2018 11:35 PM FINGER COBBLER): Cont iron supplement. Check lab Assessment & [...] Overview (12/15/2016): [employer] DDD Inogen X4 EXPLORATION DRILLER-D implanted on 10/26/16 for NICM/CHF/Mobitz II. Chronic RA lead is a MDT 5084 from 01/07/16. Yamel Rodriges Card Dr. CARRERA IS FOLLOWING THE PATIENTS ICD-LATITUDE RELEASED-12/15/2016 Assessment & Plan (08/11/2021 9:13 PM FINGER COBBLER): Continue follow with Cardiology report discharges Nonischemic [...] pressure. Assessment & Plan (07/17/2023 4:54 PM FINGER COBBLER): Stable. Continue current medications. Report shortness of breath, edema Assessment & Plan (11/22/2022 4:07 PM CDT): Stable. Continue current medications. Follow-up cardiology. Assessment & Plan (06/01/2022 9:50 PM FINGER COBBLER): Stable. Continue current medications. Report shortness of breath, chest pain, chest pressure. Assessment & Plan (03/04/2022 1:20 PM CDT): Increase Lasix 40 mg a day report increased shortness of breath continue present medication follow with Cardiology Assessment & Plan (08/11/2021 9:08 PM FINGER COBBLER): Continue present medication report increased shortness of breath swelling follow with Cardiology appointment this week Assessment & Plan (07/26/2021 11:57 AM FINGER COBBLER): Stable. Report chest pain, chest pressure, shortness of breath, weight gain, edema. Follow-up cardiology. Encourage patient to call weekend caregiver to discuss Entresto, spironolactone and carvedilol and if he wants her to restart meds.. Assessment & Plan (04/23/2021 9:19 PM CDT): Stable. Continue current medication. Follow-up cardiology. Report shortness of breath, chest pain, chest pressure. Assessment & Plan (01/07/2021 11:55 AM CDT): Continue present medication no signs of congestive heart failure follow-up with Cardiology appointment soon Assessment & Plan (07/23/2020 7:50 PM FINGER COBBLER): Continue present medication under the direction of [...] lab Assessment & Plan (07/12/2018 11:19 AM FINGER COBBLER): Cont current medications. F/u cardiol today. Report [...] diet. Assessment & Plan (07/17/2023 4:53 PM FINGER COBBLER): Stable. Continue statin and low-cholesterol diet. Assessment & Plan (03/20/2023 3:33 PM CDT): Stable. Continue statin and low-cholesterol diet. Assessment & Plan (11/22/2022 4:06 PM CDT): Stable. Continue statin and low-cholesterol diet. Assessment & Plan (06/01/2022 9:49 PM FINGER COBBLER): Stable. Continue lovastatin and low-cholesterol diet. Assessment & Plan (08/11/2021 9:09 PM FINGER COBBLER): Continue diet medication recent numbers at [facility] Assessment & Plan (07/26/2021 11:53 AM FINGER COBBLER): Stable. Continue lovastatin low-cholesterol diet. Last lipid panel 07/03/2021 total cholesterol 109, triglycerides 99, HDL 40, LDL 49. Assessment & Plan (01/07/2021 11:54 AM CDT): Recent lab in the hospital at [facility] continue medication diet Assessment & Plan (07/23/2020 7:49 PM FINGER COBBLER): Continue diet medication check fasting lab next several days Assessment & Plan (04/10/2020 11:28 PM CDT): Continue diet medication check fasting lab today Assessment & Plan (02/21/2019 9:34 AM CDT): Continue medication check fasting lab today encouraged healthy Assessment & Plan (02/10/2019 11:12 PM CDT): Stable. Cont statin and low chol diet Assessment & Plan (06/06/2018 11:36 PM FINGER COBBLER): Cont med and low chol diet Assessment [...] encouraged Assessment & Plan (08/11/2021 9:13 PM FINGER COBBLER): Continue Tylenol/tramadol topical heat stretching exercises weight control Assessment & Plan (01/07/2021 11:54 AM CDT): Continue pain medication stretching exercises follow with pain management proper body mechanics topical heat Assessment & Plan (07/23/2020 7:49 PM FINGER COBBLER): Continue Tylenol topical heat stretching exercises weight [...] REFLUX Assessment & Plan (06/04/2024 5:32 PM FINGER COBBLER): Chronic, not controlled. Reports that she has [...] measures. Assessment & Plan (07/17/2023 4:52 PM FINGER COBBLER): Stable. Continue PPI and anti-reflux measures. Assessment & Plan (03/20/2023 3:32 PM CDT): Stable. Continue PPI and anti-reflux measures. Assessment & Plan (11/22/2022 4:06 PM CDT): Stable. Continue PPI and anti-reflux measures. Assessment & Plan (08/11/2021 9:11 PM FINGER COBBLER): Continue anti-reflux measures and PPI therapy Assessment & Plan (07/26/2021 11:48 AM FINGER COBBLER): Stable. Continue pantoprazole and anti-reflux measures Assessment & Plan (01/07/2021 11:54 AM CDT): Continue anti-reflux measures and PPI therapy Assessment & Plan (07/23/2020 7:49 PM FINGER COBBLER): Continue anti-reflux measures and PPI therapy along [...] ms Assessment & Plan (07/12/2018 11:21 AM FINGER COBBLER): Cont ppi and anti reflux ms Assessment & Plan (06/06/2018 11:33 PM FINGER COBBLER): Cont current med and anti reflux ms. Enc wt loss Assessment & Plan (12/03/2017 9:22 AM CDT): Cont med and anti reflux ms. Assessment & Plan (09/29/2017 9:02 PM CDT): Cont current meds and anti reflux ms Assessment & Plan (08/28/2017 10:15 PM FINGER COBBLER): Cont current meds. Enc anti reflux ms [...] gabapentin. Assessment & Plan (08/22/2023 9:44 AM FINGER COBBLER): Lorie has a longstanding history of neuropathy [...] months Assessment & Plan (07/17/2023 4:53 PM FINGER COBBLER): Stable. Continue gabapentin. Assessment & Plan (03/08/2023 [...] evaluation. Assessment & Plan (06/01/2022 9:49 PM FINGER COBBLER): Stable. Continue gabapentin. Assessment & Plan (03/04/2022 1:24 PM CDT): Continue present medication and skin care Assessment & Plan (12/15/2021 8:24 PM CDT): Continue skin care and gabapentin Assessment & Plan (08/11/2021 9:08 PM FINGER COBBLER): Continue gabapentin skin care Assessment & Plan [...] months Assessment & Plan (07/23/2020 7:49 PM FINGER COBBLER): Continue gabapentin skin care report changes Assessment & Plan (04/10/2020 11:31 PM CDT): Increase gabapentin 4 times a day skin care stressed Assessment & Plan (10/25/2019 11:12 AM CDT): Continue skin care and gabapentin Assessment & Plan (02/21/2019 9:34 AM CDT): Continue present medication skin care report changes check lab Assessment & Plan (08/28/2017 10:16 PM FINGER COBBLER): Cont current meds 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 Sleep apnea 03/16/2011 Overview (09/29/2016): Sleep apnea Assessment & Plan (01/17/2024 8:00 PM CDT): Stable. Continue CPAP. Assessment & Plan (09/01/2021 2:29 PM FINGER COBBLER): Currently using CPAP at night. Interested in a dental appliance. Assessment & Plan (08/11/2021 9:16 PM FINGER COBBLER): Encourage weight loss efforts and CPAP compliance [...] treatment for suspected sleep disorder breathing finalized. Field Tech regarding the use of alcohol, caffeine when [...] hemiparesis Assessment & Plan (06/04/2024 5:25 PM FINGER COBBLER): Chronic, stable. Follows with Neurology. Continue aspirin 81mg, lovastatin 40 mg. Assessment & Plan (07/17/2023 4:52 PM FINGER COBBLER): Stable. Continue aspirin daily. Assessment & Plan (03/04/2022 1:21 PM CDT): Continue supportive care and present medication report acute neurologic change Assessment & Plan (08/11/2021 9:10 PM FINGER COBBLER): Continue therapy assistive device for ambulation present medication follow with Neurology Resolved Problems Problem Noted Date Diagnosed Date Resolved Date Swelling of lower extremity 10/05/2023 06/04/2024 Bad odor of urine 07/05/2023 01/15/2024 Assessment & Plan (07/17/2023 4:48 PM FINGER COBBLER): Check UA to rule out infection. Increase water intake. Acute pain of right shoulder 07/04/2023 01/15/2024 Assessment & Plan (07/17/2023 4:47 PM FINGER COBBLER): Due to recent fall. Check x-ray. Heat p.r.n.. Topical analgesic rub p.r.n.. Tylenol extra-strength 2 tablets t.i.d. as needed for pain. Tramadol 1 or 2 tablets every 6 hours as needed for pain. Notify me if pain worsens or if no improvement will refer to scalp treatment specialist. Right elbow pain 07/04/2023 01/15/2024 Assessment & Plan (07/17/2023 4:55 PM FINGER COBBLER): Due to recent fall. Check x-ray to rule out fracture. Ice p.r.n.. Topical analgesic rub p.r.n.. Tylenol extra-strength 2 tablets t.i.d. as needed for pain. tramadol 1 or 2 every 6 hours as needed for pain. Notify me if pain worsens or if no improvement will refer to scalp treatment specialist. Chronic fatigue 11/11/2022 06/04/2024 Bilateral impacted cerumen 08/12/2022 0 02/28/2023 Fall 06/01/2022 06/04/2024 Assessment & Plan (06/01/2022 9:52 PM FINGER COBBLER): Will obtain copy of [facility] record. Recommend she use her walker. [...] further evaluation. Caregiver to drive her to [facility] ER now. Syncope 11/25/2021 06/04/2024 [...] 08/11/2021 Assessment & Plan (08/11/2021 9:06 PM FINGER COBBLER): Check x-ray today consider Arvind wrap Tylenol for pain Osteoporosis screening 08/11/202106/04 Assessment & Plan (08/11/2021 9:07 PM FINGER COBBLER): Check bone mineral density test now especially [...] breath. Assessment & Plan (07/26/2021 11:50 AM FINGER COBBLER): Stable at this time. Encourage patient to schedule follow-up with Cardiology to discuss need to restart Entresto, carvedilol, spironolactone. Report edema, weight gain, shortness of breath. Pneumonia 06/09/2021 06/04/2024 Assessment & Plan (09/01/2021 2:29 PM FINGER COBBLER): CT imaging in June notable for left [...] care Assessment & Plan (08/20/2020 10:38 AM FINGER COBBLER): Suspect muscle strain as CT scan unremarkable [...] infectious organism 09/26/2019 01/15/2024 CVA, old, hemiparesis ([facility] 09/26/2019 12/15/2021 Assessment & Plan (03/25/2021 11:00 [...] precautions. Assessment & Plan (07/23/2020 7:51 PM FINGER COBBLER): Continue present medication report acute changes Assessment [...] 12/19/2020 Assessment & Plan (07/19/2019 10:44 PM FINGER COBBLER): Continue present medication follow with Neurology and Pulmonary Service continue physical therapy in home at this time report any acute neurologic changes Lymphedema of left arm 06/13/201906/04 Assessment & Plan (08/11/2021 9:08 PM FINGER COBBLER): Continue compression and elevation Assessment & Plan (07/23/2020 7:50 PM FINGER COBBLER): Patient interested in referral to plastics for [...] cardiology. Assessment & Plan (09/01/2021 2:30 PM FINGER COBBLER): Pacemaker defibrillator. Chronically anticoagulated. Heart failure with [...] drive herself. EMS called to transport to [facility] ED. Discussed case with ED, Dr. Medina, who would like to discharge her. We discussed her BURNETT and desaturation requiring O2 3L via nc while in office. They will recheck Amb Ox in ED prior to discharge and consider admission if she fails to maintain sats on RA. Osteomyelitis of ankle and foot 06/26/2018 12/19/2020 Assessment & Plan (07/12/2018 11:19 AM FINGER COBBLER): Cont antibiotic. F/u infectious disease Other fatigue 05/30/2018 10/20/2018 Assessment & Plan (06/06/2018 11:35 PM FINGER COBBLER): Check lab Vocal cord paralysis 02/22/2018 022 Overview (02/22/2018): Added automatically from request for surgery [id number] Epistaxis 02/22/2018 12/19/2020 Overview (02/22/2018): Added automatically from request for surgery [id number] Nausea, vomiting, and diarrhea 09/09/2017 12/03/2017 Assessment [...] counseling. Assessment & Plan (07/12/2018 11:22 AM FINGER COBBLER): BMI Follow-up includes: nutrition counseling and exercise counseling. Assessment & Plan (06/06/2018 11:34 PM FINGER COBBLER): BMI Follow-up includes: nutrition counseling and exercise counseling. Assessment & Plan (12/03/2017 9:24 AM CDT): BMI Follow-up includes: nutrition counseling and exercise counseling. Assessment & Plan (09/29/2017 9:05 PM CDT): BMI Follow-up includes: nutrition counseling and exercise counseling. Assessment & Plan (08/28/2017 10:15 PM FINGER COBBLER): BMI Follow-up includes: nutrition counseling and exercise counseling. Assessment & Plan (01/18/2017 3:08 PM CDT): Recommend regular exercise and healthy diet Insomnia 10/08/2015 12/19/2020 Overview (10/01/2016): Insomnia Assessment & Plan (02/21/2019 9:35 AM CDT): Continue medication if necessary encourage good night's sleep habits Assessment & Plan (06/06/2018 11:34 PM FINGER COBBLER): Cont zolpidem prn. Follow good noc sleep hygiene Assessment & Plan (06/20/2017 9:51 PM FINGER COBBLER): Likely worsened due to anxiety, depression. Start [...] therapy lab recent lab during hospitalization at [facility] Assessment & Plan (08/11/2021 9:08 PM FINGER COBBLER): Continue thyroid replacement follow lab recent numbers at [facility] Assessment & Plan (07/26/2021 11:53 AM FINGER COBBLER): Stable. Continue levothyroxine. Last TSH 0.99 on 07/31/2020. Assessment & Plan (07/23/2020 7:49 PM FINGER COBBLER): Continue thyroid replacement check lab in the next several days Assessment & Plan (02/21/2019 9:34 AM CDT): Continue replacement therapy check lab today Assessment & Plan (02/10/2019 11:13 PM CDT): Stable. Cont med Assessment & Plan (07/12/2018 11:23 AM FINGER COBBLER): Cont current medication Assessment & Plan (06/06/2018 11:33 PM FINGER COBBLER): Cont current medication Assessment & Plan (12/03/2017 9:23 AM CDT): Cont current medication Assessment & Plan (09/29/2017 9:04 PM CDT): Cont current med Assessment & Plan (08/28/2017 10:15 PM FINGER COBBLER): Cont current medication Assessment & Plan (06/20/2017 9:54 PM FINGER COBBLER): Cont current medication Depression 10/31/2013 06/04/2024 Overview [...] needed. Assessment & Plan (07/17/2023 4:52 PM FINGER COBBLER): Symptoms worsen since spouse recently. Patient does not want to adjust medication at this time. Continue mirtazapine. Recommend grief counseling through hospice service. Notify me if symptoms worsen or if wanting to adjust medication. Assessment & Plan (08/11/2021 9:11 PM FINGER COBBLER): Emotionally stable present medication no taper planned Assessment & Plan (07/26/2021 11:48 AM FINGER COBBLER): Stable. Continue mirtazapine at bedtime. Assessment & Plan (04/23/2021 9:17 PM CDT): Stable. Continue mirtazapine. Assessment & Plan (01/07/2021 11:54 AM CDT): Stable emotionally on present medication Assessment & Plan (07/12/2018 11:23 AM FINGER COBBLER): Cont current medication Assessment & Plan (06/06/2018 11:36 PM FINGER COBBLER): Cont current medication Assessment & Plan (12/03/2017 9:22 AM CDT): Cont current medication Assessment & Plan (09/29/2017 9:05 PM CDT): Cont current medications Assessment & Plan (08/28/2017 10:14 PM FINGER COBBLER): Cont current medication Assessment & Plan (06/20/2017 9:53 PM FINGER COBBLER): Poor control. Start mirtazapine 15mg hs. Enc pt to focus energy on her own health. Enc pt to limit the time she spends helping with her granddtr, dtr, spouse. Enc pt to eat well balanced meals. rec good noc sleep. F/u 4 weeks or sooner if needed Impaired glucose tolerance 10/31/2013 1 08/05/2023 Overview (10/01/2016): Prediabetes Assessment & Plan (08/11/2021 9:08 PM FINGER COBBLER): Continue diet weight control follow lab Assessment & Plan (07/23/2020 7:49 PM FINGER COBBLER): Stressed importance of diet exercise lose weight [...] benzodiazepine Assessment & Plan (07/12/2018 11:23 AM FINGER COBBLER): Cont lorazepam prn, enc limited use. 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 Overview (10/01/2016): ANT PITUIT HYPERFUNC NEC Acute cystitis without hematuria 11/22/2022 Septic shock 08/11/2021 Encounters Date Type Department Care Team Description 09/05/2024 11:56 AM CDT - 09/05/2024 11:59 PM CDT Hospital Encounter [facility] at [address] [phone] Posterior neck pain Discharge Disposition: Discharge to home or self care 09/05/2024 11:15 AM CDT Office Visit [facility] [address] [place] [phone] Matt Art, MARIA D Posterior neck pain (Primary Dx) 08/27/2024 Telephone [place] [id number] [facility] [address] [place] [phone] Qiana Cardenas MD Medical Question/Miscellane ous 08/16/2024 Telephone [facility] [address] [place] [address] Qiana Cardenas MD Symptom Based Call 08/06/2024 Telephone [facility] [address] [place] [address] [address] [place] [phone] Qiana Cardenas MD Symptom Based Call (urinary pressure & burning ) from Last 3 Months Immunizations Immunization Administration Dates Next Due Influenza, [...] 04/28/2012 ZOSTER LIVE 03/26/2016,03/17/2016 ZOSTER Recombinant 08/07/2018,04/13/2018 Surgical History Surgery Date Site/Laterality Comments CHOLECYSTECTOMY 06/27/1997 - 06/26/1998 JOESPH FUNDOPLICATION 05/27/2017 - 06/26/2017 INSERT VENA CAVA FILTER 06/27/2000 - 06/26/2001 OTHER SURGICAL HISTORY left subclavian to brachial vein stent ILIAC VEIN ANGIOPLASTY / STENTING Bilateral common/external iliac veins TOTAL ABDOMINAL HYSTERECTOMY W/ BILATERAL SALPINGOOPHORECTOMY MASTECTOMY Left CARDIAC DEFIBRILLATOR PLACEMENT 11/20/2016 Leap Motion DDD Inogen EXPLORATION DRILLER-D CARDIAC CATHETERIZATION 07/06/2016 No significant CAD OTHER SURGICAL HISTORY 06/02/2018 Left left foot surgery OTHER SURGICAL HISTORY 06/14/2018 Left 2nd foot surgery OTHER SURGICAL HISTORY 06/19/2018 Left bone removed from left big toe LEG SURGERY 06/10/2019 Left OTHER SURGICAL HISTORY 03/27/2020 - 04/26/2020 cancer removed from nose MOHS SURGERY 03/27/2020 - 04/26/2020 IR PICC LINE PLACEMENT > 5 YEARS 06/21/2018 N/A Medical History Medical History Date Comments Epistaxis History of complete heart block 2015 Osteoarthritis Anxiety and depression GERD (gastroesophageal reflu x disease) Insomnia DVT (deep venous thrombosis) ([facility]) 2000 DVT & PE - IVC filter Neuropathy chemo-induced BL E Dyslipidemia Hypothyroidism PONV (postoperative nausea a nd vomiting) Vocal cord paralysis left Nonischemic cardiomyopathy (HCC) 10/2016 cardiac catheterization shows NO CAD,, EF 35% Obesity (BMI 35.0-39.9 witho ut comorbidity) BMI 37 Peptic ulceration 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 no interventions, no issues H/O mastectomy 05/23/2017 AICD (automatic cardioverter/defibrillator) present cardiac defibrilla tor Colon polyp Neuromuscular disorder (HCC) Osteopenia Depression Breast cancer (HCC) Ovarian cancer (HCC) Diverticulosis Sleep apnea uses mouth guard Anemia Chronic constipation Dysphagia Coronary artery disease Stroke (HCC) Carcinoma in situ of breast 04/04/2015 Family History Medical History Relation Name Comments No Known Problems Brother Coronary artery disease Father Gout Father Heart disease Mother Coronary artery disease Sister Diabetes type II Sister Colon cancer Neg Hx Relation Name Status Comments Brother Alive Father (Age 90) Mother (Age 60) Sister (Age 60) Social History Tobacco Use Types Packs/Day Years [...] week 07/06/2021 How often do you attend chur ch or voodoo services? 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 Not on file Not on file Not on f ile Obstetrics History Para Term AB IAB SAB Ectopic Multiple Livin g Live Births 1 1 1 Date Outcome GA Total Labor Labor/2nd/3rd Weight Sex Type Anes PTL Lalita A1 A5 Name Clin 1970 F N Living Nick Complications:None Last Filed Vital Signs Vital Sign Reading [...] 09/05/2024 11:14 AM CDT Plan of Treatment Health Maintenance Due Date Last Done Comments Hepatitis B Screening 1968 DTaP/Tdap/Td Vaccine (2 - Td or Tdap) 04/28/2022 04/28/2012 Pneumococcal vaccine 65+ (2 of 2 - PCV) 08/11/2022 08/11/2021, 06/27/2013, 05/06/2011 Well Visit 65+ 08/11/2022 08/11/2021, 04/09/2020 Osteoporosis Screening-Bone Density Scan 08/11/2023 08/11/2021, 08/11/2021, 04/18/2019, Additional history exists Covid-19 Vaccine (2023-2 5 season) 2024 03/13/2022, 04/06/2021, 09/05/2020, Additional history exists Influenza Vaccine (#1) 2024 , 03/13/2022, 02/27/2021, Additional history exists Depression Screening 09/05/2025 09/05/2024, 03/19/2024, 03/19/2024, Additional history exists Fall Risk Assessment 09/05/2025 09/05/2024, 04/18/2024, 03/19/2024, Additional history exists Zoster Vaccine Completed 08/07/2018, 03/27, 03/26/2016, Additional history exists Hepatitis C Screening Completed 02/21/2019 Breast Cancer Screening-Mammogram Discontinued 12/13/2023, 10/12/2022, 10/06/2021, Additional history exists Colon Cancer Screening-CT Colonography Discontinued 04/18/2024, 03/04/2021, 01/10/2017, Additional history exists Colon Cancer Screening-Colonoscopy Discontinued 04/18/2024, 03/04/2021, 01/10/2017, Additional history exists Colon Cancer Screening-DNA Stool Discontinued 04/18/2024, 03/04/2021, 01/10/2017, Additional history exists Colon Cancer Screening-FIT Discontinued 04/18, 03/04/2021, 01/10/2017, Additional history exists Colon Cancer Screening-FOBT Discontinued 03/28, 03/04/2021, 01/10/2017, Additional history exists Colon Cancer Screening-Sigmoidoscopy Discontinued 04/18/2024, 03/04/2021, 01/10/2017, Additional history exists Colorectal Cancer Screening Discontinued Medical Devices Implanted Type Area Pants Busheler Device Identifier Shelf Expiration Date Model / Serial / Lot Icd-10/26/2016 Implanted: 7 by Jameson Montesinos MD (Quantity not on file) ICD Right: Chest [employer] [place] [employer] INOGEN CRTD / [id number] / Description:This patient had a JENNIFER SCI DDD Inogen X4 EXPLORATION DRILLER-D implanted on 10/26/16 for NICM/CHF/Mobitz II. Chronic RA lead is a MDT 5075 from 01/07/16, she is in the office [...] feel free to call the office at [phone], if you have any questions or should you require additional information. Sincerely, Ginny Nascimento RN, [facility], CCDS-Arrhythmia Device Specialist [employer] [id number] Prolaryn Plus Waterbased Injectable Syringe Thin Wall Needle Latex Free - [id number] Implanted:Qty: 1 on 03/03/2018 by Chris Dunlap MD at [facility] Left: Throat [employer] 07/06/2019 [id number] / / [id number] Description:0.4ml injected Li [employer] Nephew/Richco/Ortho [id number] Morena-Loc Vlp 3.5mm 14mm Self Tap Lock Foot Fibula Cortical Screw - [id number] Implanted:Qty: 2 on 06/10/2019 by Aly Montana MD at [facility] Left: Ankle [employer]Richco/O rtho [id number] / / Li [employer] Nephew/Richco/Ortho [id number] Morena-Loc Vlp 3.5mm 12mm Self Tap Lock Foot Fibula Cortical Screw - [id number] Implanted:Qty: 4 on 06/10/2019 by Aly Montana MD at [facility] Left: Ankle [employer]hew/Richco/O rtho [id number] / / Li [employer] Nephew/Richco/Ortho [id number] Morena-Loc Vlp 3.5mm 12mm Self Tap Foot Cortical Hexagon Low - [id number] Implanted:Qty: 3 on 06/10/2019 by Aly Montana MD at [facility] Left: Ankle [employer]/Richco/O rtho [id number] / / Li [employer]hew/Richco/Ortho [id number] Morena-Loc Vlp 107mm 7 Hole Locking Left Lateral Distal Fibular - [id number] Implanted:Qty: 1 on 06/10/2019 by Aly Montana MD at [facility] Left: Ankle [employer]hew/Richco/O rtho [id number] / / Explanted Type Area Pants Busheler Device Identifier Shelf Expiration Date Model / Serial / Lot Li & Nephew/Richco/O rtho [id number] Meghan 2mm 150mm [place] [employer] Wire Fixation - [id number] Explanted:Qty: 1 on 06/10/2019 at [facility] Left: Ankle [employer]hew/Richco/Or tho [id number] / / Description:. Item listed in EPIC [...] Read Routine (OP Routine) 08/11/2021 2:49 PM FINGER COBBLER Osteoporosis screening Asymptomatic menopausal state HEPATITIS C [...] Bhavesh Mac M.D. us Matt Morgan Graff GLOVE OPERATOR IMG XR PROCEDURES Final Re sult * Colonoscopy (04/18/2024 1:07 PM CDT) Anatomical Region Laterality Modality Other Narrative Procedure Note Job Rodrigez MD - 04/18/2024 1:07 PM CDT ENDOSCOPY LAB Patient Name: Lorie White Procedure Date: 04/18/2024 1:07 PM Admit Type: Outpatient Room: [facility] 3 Date of : 1950 Instrument Name: [...] compared to prior imaging studies performed at [facility] on 05/27/2020, 10/06/2021 and 10/12/2022. There [...] compared to prior imaging studies performed at [facility] on 05/27/2020, 10/06/2021 and 10/12/2022. There [...] 1 or 2 Site (08/11/2021 2:49 PM FINGER COBBLER) Anatomical Region Laterality Modality Body N/A Digital Radiogra phy 08/11/2021 2:50 PM FINGER COBBLER Impressions 08/11/2021 2:50 PM FINGER COBBLER BMD near the young adult mean. Based on BMD alone, there is no increased risk of fragility fracture. If followup is to be done, for technical reasons, it should be performed on this same machine. Electronically signed by: Jason Corbin M.D. Narrative 08/11/2021 2:50 PM FINGER COBBLER EXAM: Bone mineral density examination HISTORY: Postmenopausal screening bone density.. DXA BMD was done at [facility] on a [employer] W. Precision testing at this site has [...] bone density.. DXA BMD was done at [facility] on a [employer] W. Precision testing at this site has [...] C Ab Non-Reactiv e Non-Reactiv e [facility] Blood specimen (specimen) 02/21/2019 9:40 AM CDT 02/21/2019 10:28 AM CDT us Ruddy Velasco DO LAB MICROBIOLOGY - GENERAL ORDNatalia PINEDA Final Result [facility] [address] Department [place] [address] from Last 3 Months or Most Recently Relevant to Health Maintenance Insurance [employer] MEDICARE [facility] REF T MEDICARE [facility] MEDICARE [facility] MEDICARE [facility] Advance Directives For more information, please contact: [phone] Documents on File Type Date Recorded Patient Caser In Expl anation ADVANCE DIRECTIVE 03/03/2018 10:18 AM [...] 3:00 AM 01/02/2021 8:08 PM Care Teams Cistern Room Working Supervisor Relationship Specialty Start Date End Date Qiana Cardenas MD [address] [place] [address] PCP - General Family Medicine 06/04/24 Gunjan Hanks SLP Speech Language Pathologist Speech Therapy 03/21/18 Cooper Cruz MD Consulting Physician Internal Medicine 10/20/18 Mirian Burkett MD [address] [address] Consulting Physician Neurology 07/10/19 Aly Montana MD [address] [facility] [address] [place] [address] Consulting Physician Orthopedic Surgery 07/10/19 Niles Carrera MD [address] [facility] [address] [place] [address] Cardiology 07/10/19
--- OUTSIDE RECORDS SUMMARY | 2024-09-06 16:59 | XMS_ITS | Encounter Summary ---
Author Organization [facility] Address [address] [address] Care Team Providers Care Service Desk Specialist Name Role Phone Raciel Meléndez DO Primary Care Provider [phone] Gunjan Hanks Unavailable Unavaila Cooper Dbobs MD Unavailable [phone] Sarah Keane MA Unavailable [phone] Mirian Burkett MD Unavailable [phone] Aly Montana MD Unavailable [phone] Niles Casper MD Unavailable [phone] Sherrie Cotton OT Unavailable Qiana Cardenas MD Primary Care Provider + Encounter Details Date Type Department Care Team (Late st Contact Info) Description 10/21/2016 Orders Only Arrhythmia Center Provider, MD Mary [address] [place] [id number] Social History Tobacco Use Types Packs/Day Years Used Date Smoking Tobacco: Never Alcohol Use Standard Drinks/Week Comments No 0 (1 standard drink = 0.6 oz pur e alcohol) Comments Unknown Sex and Gender Information Value Date Recorded Sex Assigned at Not on file Legal Sex Female 12:12 AM FUR BLOWING MACHINE ATTENDANT Gender Identity Not on file Sexual Orientation Not on file documented as of this encounter Plan of Treatment Not on file documented as of this encounter Procedures Procedure Name Priority Date/Time Associated Diagnosis Comments CARDIOLOGY REPORT 10/21/2016 CARDIOLOGY REPORT 10/21/2016 documented in this encounter Results * CARDIOLOGY REPORT (10/21/2016) Anatomical Region Laterality Modality Other Narrative 10/21/2016 Ordered by an unspecified provider. Historical Provider [facility] CARDIAC SERVICES PROCE DURES Final Result * CARDIOLOGY REPORT (10/21/2016) Anatomical Region Laterality Modality Other Narrative 10/21/2016 Ordered by an unspecified provider. Historical Provider CV CARDIAC SERVICES PROCE DURES Final Result documented in this encounter Visit Diagnoses Not on filedocumented in this encounter Additional Health Concerns Infection Onset Date Last Indicated Resolved Time COVID19 09/24/2019 09/24/2019 09/25/2019 11:2 5 AM CDT Respiratory Infection (OLEG), contact + droplet Comment:Covid not detected 09/26/2019 09/26/2019 10/03/2019 3: 05 AM CDT COVID: Suspected 07/28/2020 07/28/2020 07/28/2020 4:28 PM FUR BLOWING MACHINE ATTENDANT Respiratory Infection (OLEG), contact + droplet Comment:Automatically added due to negative COVID-19 result. 07/28/2020 07/28/2020 08/11/2020 3:0 6 AM FUR BLOWING MACHINE ATTENDANT COVID: Suspected 06/09/2021 06/09/2021 06/09/2021 4:06 AM FUR BLOWING MACHINE ATTENDANT documented as of this encounter Care Teams Service Desk Specialist Relationship Specialty Start Date End Date Raciel Meléndez DO [address] [facility] [address] [place] [address] PCP - General 09/24/16 06/03/24 Qiana Cardenas MD [address] [place] [address] PCP - General Family Medicine 06/04/24 Gunjan Hanks SLP Speech Language Pathologist Speech Therapy 03/21/18 Cooper Cruz MD Consulting Physician Internal Medicine 10/20/18 Sarah Keane, OZIEL [address] [place] [address] [address] [facility] [address] [place] [address] ACO Care Soil Engineer 06/21/19 07/10/19 Mirian Burkett MD [address] [facility] [address] [place] [address] Consulting Physician Neurology 07/10/19 Aly Montana MD [address] [facility] [address] [place] [address] Consulting Physician Orthopedic Surgery 07/10/19 Niles Casper MD [address] [facility] [address] [place] [address] Cardiology 07/10/19 [place] [address] [facility] [address] [place] [address] Occupational Therapist Occupational Therapy 08/01/20 documented as of this encounter
--- OUTSIDE RECORDS SUMMARY | 2024-09-06 16:59 | XMS_ITS | Encounter Summary ---
Author Organization [facility] Address [address] [place] [address] Care Team Providers Care Cable Tender Name Role Phone Gunjan Hanks Unavailable Unavaila Cooper Dobbs MD Unavailable [phone] Mirian Burkett MD Unavailable [phone] Aly Montana MD Unavailable [phone] Niles Casper MD Unavailable [phone] Qiana Cardenas MD Primary Care Provider + Encounter Details Date Type Department Care Team (Latest Contact Info) Description 09/05/2024 11:56 AM CDT - 09/05/2024 11:59 PM CDT Hospital Encounter [facility] at [address] [phone] Posterior neck pain Discharge Disposition: Discharge to home or self care Social History Tobacco Use Types Packs/Day Years Used Date Smoking Tobacco: Never Smokeless Tobacco: Never Alcohol Use Standard Drinks/Week Comments [...] week 07/06/2021 How often do you attend [facility] or mormon services? 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 Not on file Not on file Not on f ile documented as of this encounter Medications at Time of Discharge albuterol HFA (PROVENTIL HFA,VENTOLIN HFA,PROAIR HFA) 90 mcg/actuation inhaler INHALE 2 PUFFS BY MOUTH EVERY 4 HOURS NEEDED FOR WHEEZING OR SHORTNESS OF BREATH 18 each 3 2 apixaban (ELIQUIS) 5 mg tabletIndications:V TE Prophylaxis Take 1 tablet (5 mg total) by mouth 2 (two) times a day ascorbic acid (VITAMIN C) 500 mg tablet,chewable Take 2 tablet/chew tab (1,000 mg total) by mouth daily aspirin 81 mg enteric coated tabletIndications:p rophalaxis Take 1 tablet (81 mg total) by mouth daily benzonatate (TESSALON) 100 mg capsuleIndications: Cough Take 1 capsule (100 mg total) by mouth 3 (three) times a day as needed for cough 20 capsule 5 carvediloL (COREG) 3.125 mg tablet Take 1 tablet (3.125 mg total) by mouth 2 (two) times a day 4 cranberry 500 mg capsule Take 1 capsule by mouth daily cyanocobalamin, vitamin B-12, 1,000 mcg tablet extended release Take 1,000 mcg by mouth daily ergocalciferol (VITAMIN D) 50,000 unit capsule Take 1 capsule (50,000 Units total) by mouth once a week escitalopram (LEXAPRO) 10 mg tablet Take 2 tablets (20 mg total) by mouth daily 5 furosemide (LASIX) 40 mg tablet Take 1 tablet (40 mg total) by mouth 2 (two) times a day 4 gabapentin (NEURONTIN) 300 mg capsuleIndications: Neuropathy Take 1 capsule (300 mg total) by mouth 4 (four) times a day Along with one 600 mg capsule qid 4 gabapentin (NEURONTIN) 600 mg tablet TAKE 1 TABLET BY MOUTH 4 TIMES A DAY ALONG WITH A 300 MG CAPSULE 360 tablet 5 levothyroxine (SYNTHROID) 100 mcg tablet TAKE 1 TABLET BY MOUTH REMOTE SENSING SPECIALIST BEFORE BREAKFAST 90 tablet 1 5 lovastatin (MEVACOR) 40 mg tablet TAKE 1 TABLET BY MOUTH EVERY DAY WITH A MEAL 90 tablet 1 4 lubiprostone (AMITIZA) 24 mcg capsule TAKE 1 CAPSULE BY MOUTH TWICE A DAY WITH MEALS 60 capsule 4 magnesium oxide (MAG-OX) 400 mg (241.3 mg elemental magnesium) tablet Take 1 tablet (400 mg total) by mouth daily 3 methylPREDNISolone (MEDROL DOSEPACK) 4 mg Dosepack Take as directed on package. 21 tablet 5 09/12/19 25 midodrine (PROAMATINE) 5 mg tabletIndications:S ymptomatic Orthostatic Hypotension Take 1 tablet (5 mg total) by mouth 2 (two) times a day mirtazapine (REMERON) 15 mg tabletIndications:A nxiety and depression TAKE 1/2 TABLET BY MOUTH NIGHTLY 45 tablet 1 4 montelukast (SINGULAIR) 10 mg tabletIndications:A cute nonintractable headache, unspecified headache type TAKE 1 TABLET BY MOUTH EVERY DAY AT NIGHT 90 tablet 4 multivit gkbezusl-tiyu-RW-ca lcium (THERA-M) 9 mg iron-400 mcg tabletIndications:V itamin Deficiency Prevention Take 1 tablet by mouth daily naloxegoL (MOVANTIK) 12.5 mg tabletIndications:C hronic constipation Take 1 tablet (12.5 mg total) by mouth daily 30 tablet 4 nitroglycerin (NITROSTAT) 0.4 mg SL tabletIndications:a cute myocardial infarction Place 1 tablet (0.4 mg total) under the tongue every 5 (five) minutes as needed for chest pain Place 1 tablet (0.4 mg total) under the tongue every 5 (five) minutes as needed for chest pain ondansetron (ZOFRAN) 4 mg tablet Take 1 tablet (4 mg total) by mouth every 8 (eight) hours as needed for nausea or vomiting 20 tablet [address] (PROTONIX) 40 mg EC tablet TAKE 1 TABLET BY MOUTH EVERY DAY 90 tablet 1 4 potassium chloride ER 10 mEq CR tablet TAKE 1 TABLET BY MOUTH EVERY DAY 90 tablet 1 4 senna-docusate (Senexon-S) 8.6-50 mg TAKE 1-2 TABLETS BY MOUTH TWICE DAILY FOR CONSTIPATION 180 tablet 1 5 spironolactone (ALDACTONE) 25 mg tablet TAKE 1 TABLET BY MOUTH EVERY DAY 100 tablet 1 4 tirzepatide, weight loss, (Zepbound) 2.5 mg/0.5 mL solution vial as directed Subcutaneous Weekly for 28 days tiZANidine (ZANAFLEX) 2 mg tablet every 8 hours traMADoL (ULTRAM) 50 mg tablet TAKE 1-2 TABLETS BY MOUTH EVERY 6 HOURS NEEDED FOR PAIN. MAX 8 TABS/24 HOURS. 240 tablet 3 5 traZODone (DESYREL) 50 mg tablet TAKE 1-2 TABLETS BY MOUTH DAILY AT BEDTIME NEEDED FOR SLEEP 180 tablet 4 Wegovy 0.25 mg/0.5 mL auto-injector INJECT 0.5 ML SUBCUTANEOUSLY ONE TIME PER WEEK FOR 28 DAYS documented as of this encounter Discharge Disposition Disposition Code Departure Means Destination Discharge to home or self care documented in this encounter Plan of Treatment Not on file documented as of this encounter Procedures Procedure Name Priority Date/Time Associated Diagnosis Comments XR SPINE CERVICAL COMPLETE 4 OR 5 VW Schedule Routine, Read Routine (OP Routine) 09/05/2024 12:14 PM CDT Posterior neck pain documented in this encounter Results * XR Spine Cervical Complete 4 [...] device. Electronically signed by: Bhavesh Mac M.D. Matt Seth CLINICAL DENTAL TECHNICIAN IMG XR PROCEDURES Final Re sult documented in this encounter Visit Diagnoses Diagnosis Posterior neck pain Cervicalgia documented in this encounter Care Teams Cable Tender Relationship Specialty Start Date End Date Qiana Cardenas MD [address] [place] [address] PCP - General Family Medicine 06/04/24 Gunjan Hanks SLP Speech Language Pathologist Speech Therapy 03/21/18 Cooper Cruz MD Consulting Physician Internal Medicine 10/20/18 Mirian Burkett MD [address] [facility] [address] [place] [address] Consulting Physician Neurology 07/10/19 Aly Montana MD [address] [facility] [address] [place] [address] Consulting Physician Orthopedic Surgery 07/10/19 Niles Casper MD [address] [facility] [address] [place] [address] Cardiology 07/10/19 documented as of this encounter
--- OUTSIDE RECORDS SUMMARY | 2024-09-06 17:00 | XMS_ITS ---
Author Organization [facility] Address [address] [facility] [address] [place] [address] Care Team Providers Care Systems Mgr Name Role Phone Qiana Cardenas Primary Care Provider Unavail able GUNJAN CARRERA Unavailable [phone] REASON FOR VISIT Phone message Encounters Encounter Location [place] [address] 08/30/2024 GUNJAN CARRERA Plan Of Treatment Next Appt Details Provider Name:GUNJAN GOLDSMITH, 09/28/2024 09:00:00 AM, [address] [facility], [place], [address], Progress Notes * Lorie CAMPBELL ANNDOB: [birth year] (74 yo F)Acc No.[id number]:08/30/2024 Patient: Vilma JONATAN Lorie CAMPBELL :1950 A ge:74 Y S ex:Female Address:[address] [place] [address] , [place], [address] * true * Date: Generated for Printi ng/Faxing/eTransmitting on: 0 09/06/2024 05:00 PM CDT
--- OUTSIDE RECORDS SUMMARY | 2024-09-06 17:00 | XMS_ITS | Data Portability ---
Author Organization [place] - [facility], Main Office Address [address] [place] [address] Assessment Encounter Date Assessment Date Assessment LastModified by Organization Details LastModified Time 07/20/2023 07/20/2023 72-year-old male shoulder and right thumb. She has a history of shoulder rotator cuff arthropathy as well as a thumb CMC arthritis. She he was previously seen in March and wrist cortisone injections in both. She reports both she well up until a week or 2 ago. She is wanting to get repeat injections today. She is still taking tramadol and Tylenol. She has pain and crepitus with shoulder range of motion, weakness with elevation and external rotation. She has positive grind, pain at the thumb CMC. We repeated cortisone injections for both her shoulder and her thumb CMC. She tolerated 3 4 months as needed. She still does not want to consider surgery so we will plan to continue doing cortisone injections. Not available 07/20/2023 22:25:38 11/02/2023 11/02/2023 73-year-old female presents for follow-up of her right shoulder and her bilateral thumbs. She has previously had an injection back in June. She reports that was very helpful, but that has since worn off and she wants repeat injections. She currently rates her pain as 10/10 and she has difficulty with gripping and doing everyday activities. She is tenderness palpation at the CMC joints of the bilateral thumbs. Positive grind. She does have lymphedema throughout the left upper extremity up to the level of the wrist. She has pain in the right shoulder as well as crepitus, weakness with elevation external rotation. 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 She tolerated all these well. She may follow-up with us as needed. She wants to have another set of injections in a few months. Not available 11/02/2023 16:52:11 01/25/2024 01/25/2024 73-year-old female presents for follow-up of her right shoulder and bilateral thumb CMCs. She was seen at the beginning of October and received injections in all 3. The injections did help significantly, but they have since worn off and her pain is getting worse. She is still taking tramadol, gabapentin, using ice and heat. She wants repeat injections today. Exam unchanged, she still has tenderness over the bilateral CMC with positive grind, pain in the shoulder with movement We perform injections of the bilateral thumb CMC as well as right shoulder. She tolerated well. She may follow up as needed for future injections. Not available 01/25/2024 14:08:05 04/27/2024 04/27/2024 73-year-old female presents for follow-up of her right shoulder and bilateral thumb CMCs. She was seen in December and received injections in all 3. The injections did help significantly, but they have since worn off and her pain is getting worse. She is still taking tramadol, gabapentin, using ice and heat. She wants repeat injections today. Today she has a new problem of contractures in her left index and middle fingers. She states they are not painful but she is no longer able to straighten the fingers and she does not have control of their movements. Left index and middle fingers contracted, unable to be passively straightened. Exam unchanged otherwise, she still has tenderness over the bilateral CMC with positive grind, pain in the shoulder with movement We performed injections of the bilateral thumb CMC as well as right shoulder. We discussed that we could try an injection into the left index finger to see if it helped her extend the finger. If it did she could return for an injection into the middle finger. We recommend a hand consult, she said she would like to look into it on her own, we provided her with names of local hand surgeons. She tolerated injections well. She may follow up as needed for future injections, at least 3 months from now. Not available 04/27/2024 11:24:18 08/03/2024 08/03/2024 73-year-old female presents for follow-up of her right shoulder and bilateral thumb CMCs. We see her for cortisone injections every 3 months. The injections help significantly, but they wear off around 2 months. She is still taking tramadol, gabapentin, using ice and heat. She wants repeat injections today. Exam unchanged. She still has tenderness over the bilateral CMC with positive grind, pain in the shoulder with movement. We performed injections of the bilateral thumb CMC as well as right shoulder. She tolerated injections well. She may follow up as needed for future injections, at least 3 months from now. Not available 08/03/2024 11:04:56 Plan of Treatment Reminders Order Date Submit Date Provider Last Modified By Organization Details Last Modified Time Details Appointments Any 5 2024 09:30A Ac Anderson MD Not available Not available Not available Lab None recorded. Referral None recorded. Procedures injection /aspirati on joint/bur sa (PROC) 2024 025 [email or web address] In-Office Order, Internal Use Only DO Not Attach Compendium DO Not Attach Compendium, Do Not Delete/merge, [id number] 08/03/2024 12:59:29 injection /aspirati on joint/bur sa (PROC) 2024 025 [email or web address] In-Office Order, Internal Use Only DO Not Attach Compendium DO Not Attach Compendium, Do Not Delete/merge, [id number] 08/03/2024 12:59:29 injection /aspirati on joint/bur sa (PROC) 2023 024 [email or web address] In-Office Order, Internal Use Only DO Not Attach Compendium DO Not Attach Compendium, Do Not Delete/merge, [id number] 04/27/2024 10:51:51 injection /aspirati on joint/bur sa (PROC) 2023 024 [email or web address] In-Office Order, Internal Use Only DO Not Attach Compendium DO Not Attach Compendium, Do Not Delete/merge, [id number] 04/27/2024 10:51:52 injection /aspirati on joint/bur sa (PROC) 2023 024 [email or web address] In-Office Order, Internal Use Only DO Not Attach Compendium DO Not Attach Compendium, Do Not Delete/merge, [id number] 04/27/2024 11:02:31 injection /aspirati on joint/bur sa (PROC) - in office procedure , administe red by provider 2023 024 [email or web address] In-Office Order, Internal Use Only DO Not Attach Compendium DO Not Attach Compendium, Do Not Delete/merge, [id number] 01/25/2024 12:17:08 injection /aspirati on joint/bur sa (PROC) - in office procedure , administe red by provider 2023 024 [email or web address] In-Office Order, Internal Use Only DO Not Attach Compendium DO Not Attach Compendium, Do Not Delete/merge, [id number] 01/25/2024 12:17:08 injection /aspirati on joint/bur sa (PROC) 2023 024 [email or web address] In-Office Order, Internal Use Only DO Not Attach Compendium DO Not Attach Compendium, Do Not Delete/merge, [id number] 11/03/2023 11:32:29 injection /aspirati on joint/bur sa (PROC) 2023 024 [email or web address] In-Office Order, Internal Use Only DO Not Attach Compendium DO Not Attach Compendium, Do Not Delete/merge, [id number] 11/03/2023 11:32:29 injection /aspirati on joint/bur sa (PROC) 2023 024 [email or web address] In-Office Order, Internal Use Only DO Not Attach Compendium DO Not Attach Compendium, Do Not Delete/merge, [id number] 11/02/2023 11:17:38 injection /aspirati on joint/bur sa (PROC) - in office procedure , administe red by provider 2023 024 [email or web address] In-Office Order, Internal Use Only DO Not Attach Compendium DO Not Attach Compendium, Do Not Delete/merge, [id number] 07/21/2023 11:59:35 injection /aspirati on joint/bur sa (PROC) 2023 024 [email or web address] In-Office Order, Internal Use Only DO Not Attach Compendium DO Not Attach Compendium, Do Not Delete/merge, [id number] 07/21/2023 12:00:36 Surgeries None recorded. Imaging XR, hand 2023 024 [facility] [place], [address] [facility] [address], [place], [address], 11/03/2023 09:14:29 Medication Orders bupivacai ne HCl 0.5 % (5 mg/mL) injection solution 2024 025 [id number], [address] [place], [address], 08/03/2024 11:09:38 Kenalog 10 mg/mL suspensio n for injection 2024 025 [id number], [address] [place], [address], 08/03/2024 11:09:39 bupivacai ne HCl 0.5 % (5 mg/mL) injection solution 2024 025 [id number], [address] [place], [address], 08/03/2024 11:09:39 Kenalog 10 mg/mL suspensio n for injection 2024 025 [id number], [address] [place], [address], 08/03/2024 11:09:39 bupivacai ne HCl 0.5 % (5 mg/mL) injection solution 2023 024 [id number], [address] [place], [address], 04/27/2024 11:33:58 Kenalog 10 mg/mL suspensio n for injection 2023 024 [place] [address] [id number], [address], [place], [address], 04/27/2024 11:33:58 bupivacai ne HCl 0.5 % (5 mg/mL) injection solution 2023 024 [place] [address] [id number], [address], [place], [address], 04/27/2024 11:33:58 Kenalog 10 mg/mL suspensio n for injection 2023 024 [place] [address] [id number], [address], [place], [address], 04/27/2024 11:33:58 bupivacai ne HCl 0.5 % (5 mg/mL) injection solution 2023 024 [place] [address] [id number], [address], [place], [address], 04/27/2024 11:33:58 Kenalog 10 mg/mL suspensio n for injection 2023 024 [place] [address] [id number], [address], [place], [address], 04/27/2024 11:33:58 Marcaine 0.5 % (5 mg/mL) injection solution 2023 024 [id number], [address], [place], [address], 01/25/2024 23:19:56 Kenalog 10 mg/mL suspensio n for injection 2023 024 [email or web address] [id number], [address], [place], [address], 01/25/2024 23:19:56 Marcaine 0.5 % (5 mg/mL) injection solution [address][id number], [address] [place], [address], 01/25/2024 23:19:56 Kenalog 10 mg/mL suspensio n for injection [address] #[id number], [address], [place], [address], 01/25/2024 23:19:56 bupivacai ne HCl 0.5 % (5 mg/mL) injection solution [address] #[id number], [address] [place], [address], 11/02/2023 12:12:35 Kenalog 10 mg/mL suspensio n for injection [address] #[id number], [address] [place], [address], 11/02/2023 12:12:35 bupivacai ne HCl 0.5 % (5 mg/mL) injection solution [address] #[id number], [address] [place], [address], 11/02/2023 12:12:35 Kenalog 10 mg/mL suspensio n for injection [address] #[id number], [address] [place], [address], 11/02/2023 12:12:35 bupivacai ne HCl 0.5 % (5 mg/mL) injection solution [address] #[id number], [address] [place], [address], 11/02/2023 12:12:35 Kenalog 10 mg/mL suspensio n for injection 2023 024 [facility] #[id number], [address], [place], [address], 11/02/2023 12:12:35 Kenalog 10 mg/mL suspensio n for injection 2023 024 [email or web address] Not available 07/21/2023 12:10:52 ropivacai ne (PF) 5 mg/mL (0.5 %) injection solution 2023 024 [email or web address] 1 Not available 07/21/2023 12:10:53 Patient TargetsNo targets recorded. Patient InstructionsNo instructions recorded. Reason for Referral None Reported. Results Created Date Observation Date Name Description Value Unit Range Abnormal Flag Note LastModifiedBy Organization Detail LastModifiedTime 11/02/19 24 XR, hand No observ ation record ed. [email or web address] [facility] [place] [address], [place], [address], 11/02/2023 11:01:34 Result Notes None recorded. Problems Name Problem SNOMED Code Status Onset Date Resolution Date Notes Provider Name and Address Organization Details Recorded Time Dry skin 39719838 Active 2018 Not Available [facility] 3 13:12:36 Contractur e of joint of toe 618339291 Active 2018 Not Available [facility] 3 13:12:36 Malignant tumor of breast 816123870 Active 2017 Not Available [facility] 3 13:12:36 Shoulder joint pain 156623648 Active Not Available [facility] 3 13:12:36 Back problem 905758993 Active 2017 Not Available [facility] 3 13:12:36 Bowel problem 216871821 Active 2017 Not Available [facility] 3 13:12:36 Impingemen t syndrome of right shoulder region 0119874947803 02 Active 2021 Not Available [facility] 3 13:12:36 Pain of right wrist 7494948604512 00 Active 2021 Not Available [facility] 3 13:12:36 Arthritis 0958225 Active 2017 Not Available [facility] 3 13:12:36 Osteonecro sis 826235147 Active 2018 Not Available [facility] 3 13:12:36 Sleep disorder 37345477 Active 2017 Not Available [facility] 3 13:12:36 Onychomyco sis of toenails 762733812 Active 2018 Not Available [facility] 3 13:12:37 Disorder of rotator cuff 711043806 Active Not Available [facility] 3 13:12:37 Disorder of bursa of shoulder region 63542351 Active Not Available [facility] 3 13:12:37 Heart disease 80700415 Active 2017 Not Available [facility] 3 13:12:37 Arthritis of first carpometac arpal joint of right hand 3087007909695 100 Active 2022 WILLIE Sandoval, [facility] 3 10:37:49 Shoulder joint pain 514197591 Active 2022 Ilda amaro, [facility] 3 10:37:57 Osteoarthr osis of the carpometac arpal joint of the thumb 08364679 Active 2023 Vimal Anderson MD [address] [place] [address], [address] , [facility] [employer] [facility] 4 22:25:45 Pain of left hand 9325826058929 03 Active 2023 JNE Hernandez, [facility] 4 11:01:23 Problem Notes None recorded. Procedures Surgical History Date Name Laterality Status Provider Name and Address Organization Details Recorded Time 08/03/19 25 Ortho - Cortisone Injection completed Thu Seay NP [address], [address], [place], [address], [facility] 08/03/2024 11:07:34 04/27/20 24 Ortho - Cortisone Injection completed Thu Seay, [employer] [address], [address], [place], [address], [facility] 04/27/2024 11:26:20 01/25/20 24 Ortho - Cortisone Injection completed Vimal Anderson MD [address], [address], [place], [address], [facility] 01/25/2024 14:09:29 01/25/20 24 Arthrocentesis Intermediate Joint/Bursa completed Vimal Anderson MD [address], [address], [place], [address], [facility] 01/25/2024 14:08:49 11/02/19 24 Ortho - Cortisone Injection completed Vimal Anderson MD [address], [address], [place], [address], [facility] 11/02/2023 16:50:03 07/20/19 24 Ortho - Cortisone Injection completed Vimal Anderson MD [address], [address], [place], [address], [facility] 07/20/2023 22:23:31 04/06/20 23 Ortho - Cortisone Injection completed Thu Seay, MARIA D [address], [place], [address], [facility] 04/06/2023 10:49:43 Breast Surgery completed WILLIE Sandoval [place] - [facility] 09/28/2022 10:36:21 Imaging Results Imaging Date Name Status LastModified by [facility]iz [facility] Details LastModified Time 11/02/2023 XR, hand completed [email or web address] [facility] [place] [address], [place], [address], 11/02/2023 11:01:34 Procedure Notes None recorded. Medical Equipment None Reported. Allergies Allergen ID Allergen Name Allergen Category Reaction Reaction Severity Criticality Documentation Date Start Date Code Code System Note Provider Name and Address Organization Details Recorded Time 98397 Product containin g penicilli n (product) medicatio n hives rash Not available Not available Not available 08/25/2022 99965 8001 SNOMED nause a and vomit ing Not Available [facility] 3 13:14:58 89825 Substance with morphinan structure and opioid receptor agonist mechanism of action (substanc e) medicatio n Not available Not available Not available 08/25/2022 22436 9000 SNOMED nause a and vomit ing throa t close s Swapna Alfaro [employer] prem, [facility] [employer] [facility] 4 11:53:04 63217 ondansetr on medicatio n vomiting Not available Not available 08/25/2022 35645 RxNorm rash, nause a Not Available [facility] 3 13:14:58 41966 morphine medicatio n Not available Not available Not available 08/25/2022 7052 RxNorm throa t close s Swapna Alfaro [employer] prem, [facility] [employer] [facility] 4 11:52:41 42989 hydromorp mike medicatio n Not available Not available Not available 08/25/2022 3423 RxNorm nause a and vomit ing throa t close s Swapna Alfaro [employer] null, [facility] [employer] [facility] 4 11:52:30 43913 hydrocodo ne Not available headache rash Not available Not available Not available 08/25/2022 5489 RxNorm nause a and vomit ing Not Available [facility] 3 13:14:58 50592 E-Mycin medicatio n hives rash Not available Not available Not available 08/25/2022 44098 8 RxNorm nause a and vomit ing Not Available [facility] 3 13:14:59 10003 codeine medicatio n rash Not available Not available 08/25/2022 2670 RxNorm heada yosi Not Available [facility] 3 13:14:59 08844 cephalexi n medicatio n rash vomiting Not available Not available Not available 08/25/2022 2231 RxNorm Not Available [facility] 3 13:14:59 48544 butorphan ol medicatio n Not available Not available Not available 08/25/2022 1841 RxNorm Not Available [facility] 3 13:14:59 Medications Name Sig Start Date Stop Date Status Note LastModified by Organization Details LastModified Time levocarniti ne and semaglutide 100,2.65mg/ ml #504639 INJECT 0.25MG (9 UNITS) SUB-Q WEEKLY active Not Available Not Available No t Available hydrocortis one 5 mg tablet TAKE 2 TABLETS BY MOUTH IN THE MORNING AND 1 TABLET IN THE EVENING 03/30 completed Not Available Not Available Not Available furosemide 40 mg tablet TAKE 1 TABLET BY MOUTH EVERY DAY FOR 30 DAYS active Not Available Not Available No t Available Vitamin B-2 100 mg tablet TAKE 4 TABLETS BY MOUTH DAILY active Not Available Not Available No t Available venlafaxine ER 37.5 mg capsule,ext ended release 24 hr TAKE 1 CAPSULE BY MOUTH EVERY DAY 03/30 completed Not Available Not Available Not Available gabapentin 600 mg tablet TAKE 1 TABLET BY MOUTH 4 TIMES A DAY ALONG WITH A 300 MG CAPSULE active Not Available Not Available No t Available doxycycline hyclate 100 mg capsule TAKE 1 CAPSULE BY MOUTH TWICE A DAY 04/06 completed Not Available Not Available Not Available paroxetine 10 mg tablet 09/09 completed Not Available Not Available Not Available cyanocobala min (vit B-12) 100 mcg tablet TAKE 1/2 (ONE-HALF ) TABLET BY MOUTH ONCE DAILY 03/30 completed Not Available Not Available Not Available tizanidine 2 mg tablet TAKE 1 OR 2 TABLETS EVERY 8 HOURS NEEDED FOR MUSCLE PAIN 04/06 completed Not Available Not Available Not Available clindamycin HCl 300 mg capsule TAKE 1 CAPSULE BY MOUTH EVERY 8 HOURS UNTIL GONE 01/24 completed Not Available Not Available Not Available ammonium lactate 12 % lotion APPLY TO AFFECTED AREA OF FEET TWICE A DAY NEEDED 09/09 completed Not Available Not Available Not Available trazodone 50 mg tablet TAKE 1-2 TABLETS BY MOUTH DAILY AT BEDTIME NEEDED FOR SLEEP active Not Available Not Available No t Available Penlac 8 % topical solution APPLY TO THE AFFECTED AREA(S) BY TOPICAL ROUTE ONCE DAILY PREFERABL Y AT BEDTIME OR 8 HOURS BEFORE WASHING 03/20 completed Not Available Not Available Not Available diltiazem CD 180 mg capsule,ext ended release 24 hr TAKE ONE CAPSULE BY MOUTH EVERY DAY 09/09 completed Not Available Not Available Not Available Lidocaine Viscous 2 % mucosal solution 04/06 completed Not Available Not Available Not Available benzonatate 200 mg capsule TAKE 1 CAPSULE BY MOUTH THREE TIMES A DAY NEEDED FOR COUGH 03/30 completed Not Available Not Available Not Available phenazopyri dine 200 mg tablet 03/30 completed Not Available Not Available Not Available ondansetron HCl 4 mg tablet TAKE 1 TABLET BY MOUTH EVERY 8 HOURS NEEDED FOR NAUSEA AND VOMITING 04/06 completed Not Available Not Available Not Available famotidine 40 mg tablet TAKE 1 TABLET BY MOUTH TWICE A DAY 03/30 completed Not Available Not Available Not Available bupivacaine HCl 0.5 % (5 mg/mL) injection solution Take 4 mg by injection route. 2024 active Not Available Not Available Not Avai lable prednisone 20 mg tablet 09/04 completed Not Available Not Available Not Available lovastatin 40 mg tablet TAKE 1 TABLET BY MOUTH EVERY DAY WITH A MEAL active Not Available Not Available No t Available methylpredn isolone 4 mg tablet 09/09 completed Not Available Not Available Not Available midodrine 5 mg tablet TAKE 1 TABLET BY MOUTH TWICE A DAY BEFORE BREAKFAST AND DINNER 04/06 completed Not Available Not Available Not Available meclizine 12.5 mg tablet TAKE 1 TABLET BY MOUTH ONCE EVERY 6 HOURS NEEDED FOR DIZZINESS 04/06 completed Not Available Not Available Not Available potassium chloride ER 10 mEq tablet,exte nded release TAKE 1 TABLET BY MOUTH EVERY DAY active Not Available Not Available No t Available clopidogrel 75 mg tablet TAKE 1 TABLET BY MOUTH EVERY DAY 09/09 completed Not Available Not Available Not Available ciprofloxac in 500 mg tablet TAKE 1 TABLET BY MOUTH TWICE A DAY FOR 7 DAYS 09/04 completed Not Available Not Available Not Available sulfamethox azole 800 mg-trimetho prim 160 mg tablet TAKE 1 TABLET BY MOUTH TWICE A DAY FOR 3 DAYS 04/06 completed Not Available Not Available Not Available aspirin 81 mg tablet,chanda yed release TAKE 1 TABLET BY MOUTH EVERY DAY 03/30 completed Not Available Not Available Not Available doxycycline monohydrate 100 mg tablet TAKE 1 TABLET BY MOUTH TWICE A DAY FOR 7 DAYS 09/09 completed Not Available Not Available Not Available tramadol 50 mg tablet TAKE 1-2 TABLETS BY MOUTH EVERY 6 HOURS NEEDED FOR PAIN. MAX 8 TABS/24 HOURS. 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 2020 active Not Available Not Available Not Avai lable alprazolam 0.5 mg tablet TAKE 1/2 OR 1 TABLET BY MOUTH DAILY NEEDED FOR ANXIETY active Not Available Not Available No t Available magnesium oxide 400 mg (241.3 mg magnesium) tablet TAKE 1 TABLET BY MOUTH EVERY DAY 03/20 completed Not Available Not Available Not Available lorazepam 0.5 mg tablet TAKE 1/2 TO 1 TABLET BY MOUTH NEEDED FOR ANXIETY active Not Available Not Available No t Available Kenalog 10 mg/mL suspension for injection Take 1 mg by injection route. 2024 active [facility]: [phone] Not Available Not Available Not Available meclizine 25 mg tablet TAKE 1 TABLET BY MOUTH EVERY 6 HOURS NEEDED FOR DIZZINESS . 09/28 completed Not Available Not Available Not Available doxycycline monohydrate 100 mg capsule TAKE 1 TABLET/CA PSULE (100 MG TOTAL) BY MOUTH 2 (TWO) TIMES A DAY FOR 10 DAYS active Not Available Not Available No t Available pantoprazol e 40 mg tablet,chanda yed release TAKE 1 TABLET BY MOUTH EVERY DAY active Not Available Not Available No t Available biotin 10,000 mcg capsule Take by oral route. 03/20 completed Not Available Not Available Not Available ferrous sulfate 325 mg (65 mg iron) tablet TAKE 1 TABLET BY MOUTH EVERY DAY WITH BREAKFAST 03/30 completed Not Available Not Available Not Available nitroglycer in 0.[address] 1 TABLET UNDER TONGUE EVERY 5 MINS, UP TO 3 DOSES NEEDED FOR CHEST PAIN active Not Available Not Available No t Available docusate sodium 100 mg capsule TAKE 1 CAPSULE BY MOUTH TWICE DAILY active Not Available Not Available No t Available Senokot 8.6 mg tablet Take 2 tablets every day by oral route. 12/25 completed Not Available Not Available Not Available gabapentin 300 mg capsule TAKE 1 CAPSULE BY MOUTH 4 TIMES A DAY ALONG WITH A 600 MG TABLET active Not Available Not Available No t Available omeprazole 20 mg capsule,del ayed release TAKE 1 CAPSULE BY MOUTH TWICE DAILY 09/09 completed Not Available Not Available Not Available bumetanide 1 mg tablet TAKE 1 TABLET BY MOUTH EVERY DAY 03/30 completed Not Available Not Available Not Available montelukast 10 mg tablet TAKE 1 TABLET BY MOUTH EVERY DAY AT NIGHT active Not Available Not Available No t Available zolpidem 5 mg tablet TAKE 1 TABLET BY MOUTH EVERY DAY AT BEDTIME NEEDED FOR SLEEP 03/30 completed Not Available Not Available Not Available furosemide 20 mg tablet TAKE 2 TABLETS BY MOUTH EVERY DAY active Not Available Not Available No t Available mirtazapine 15 mg tablet TAKE 1/2 TABLET BY MOUTH NIGHTLY active Not Available Not Available No t Available ergocalcife rol (vitamin D2) 1,250 mcg (50,000 unit) capsule TAKE 1 CAPSULE BY MOUTH ONCE A WEEK 03/30 completed Not Available Not Available Not Available hydrocortis one 10 mg tablet TAKE 4 TABS BY MOUTH TWICE DAILY X7 DAYS, THEN 3 TABS TWICE DAILY X7 DAYS BEFORE YOU SEE DR. ROLAND 04/06 completed Not Available Not Available Not Available nystatin 100,000 unit/gram topical powder 09/09 completed Not Available Not Available Not Available levofloxaci n 500 mg tablet active Not Available Not Available Not Available methylpredn isolone 4 mg tablets in a dose pack TAKE 6 TABLETS ON DAY 1 DIRECTED ON PACKAGE AND DECREASE BY 1 TAB EACH DAY FOR A TOTAL OF 6 DAYS 09/04 completed Not Available Not Available Not Available albuterol sulfate HFA 90 mcg/actuati on aerosol inhaler INHALE 2 PUFFS BY MOUTH EVERY 4 HOURS NEEDED FOR WHEEZING OR SHORTNESS OF BREATH. active Not Available Not Available No t Available ondansetron 4 mg disintegrat ing tablet DISSOLVE 1 TABLET BY MOUTH 30 MIN PRIOR TO EACH PREP FOR NAUSEA AND VOMITING active Not Available Not Available No t Available oxycodone 5 mg tablet 09/09 completed Not Available Not Available Not Available trimethoben zamide 300 mg capsule TK ONE C PO Q 4 H PRN N 03/30 completed Not Available Not Available Not Available Gentle Laxative (bisacodyl) 10 mg rectal suppository INSERT 1 SUPPOSITO RY INTO THE RECTUM ONCE DAILY NEEDED FOR CONSTIPAT ION 09/04 completed Not Available Not Available Not Available escitalopra m 10 mg tablet TAKE 1 TABLET BY MOUTH EVERY DAY active Not Available Not Available No t Available nitrofurant oin monohydrate /macrocryst als 100 mg capsule TAKE 1 CAPSULE BY MOUTH TWICE A DAY FOR 5 DAYS active Not Available Not Available No t Available lisinopril 2017 active Not Available Not Available Not Avai lable lubiproston e 24 mcg capsule TAKE 1 CAPSULE BY MOUTH TWICE A DAY WITH MEALS active Not Available Not Available No t Available lidocaine (PF) 10 mg/mL (1 %) injection solution In office injection administe red by the provider 09/04 completed [facility]: [phone]- [phone] Not Available Not Available Not Available magnesium gluconate 27 mg magnesium (500 mg) tablet TAKE 1 TABLET BY MOUTH TWICE A DAY 04/06 completed Not Available Not Available Not Available cholecalcif sirisha (vit D3)(bulk) 03/30 completed Not Available Not Available Not Available GaviLyte-G 236 gram-22.74 gram-6.74 gram-5.86 gram oral solution 09/09 completed Not Available Not Available Not Available Senexon-S 8.6 mg-50 mg tablet TAKE 1-2 TABLETS BY MOUTH TWICE DAILY FOR CONSTIPAT ION active Not Available Not Available No t Available ropivacaine (PF) 5 mg/mL (0.5 %) injection solution Take 1 mL by injection route. 2023 active [facility] [phone] Not Available Not Available Not Available Linzess 145 mcg capsule 09/09 completed Not Available Not Available Not Available Eliquis 5 mg tablet TAKE 1 TABLET BY MOUTH TWICE A DAY 09/28 completed Not Available Not Available Not Available Eliquis 2.5 mg tablet TAKE 1 TABLET BY MOUTH TWICE A DAY X 30 DAYS DIRECTED active Not Available Not Available No t Available Entresto 49 mg-51 mg tablet Take 1 tablet twice a day by oral route. active Not Available Not Available No t Available Entresto 24 mg-26 mg tablet TAKE 1 TABLET BY MOUTH TWICE A DAY 03/30 completed Not Available Not Available Not Available Fluzone High-Dose 5289-7432 (PF) 180 mcg/0.5 mL intramuscul ar syringe ADM 0.5ML IM UTD active Not Available Not Available No t Available Shingrix (PF) 50 mcg/0.5 mL intramuscul ar suspension, kit TO BE ADMINISTE RED BY PHARMACIS T FOR IMMUNIZAT ION 09/04 completed Not Available Not Available Not Available Fluzone High-Dose (PF) 180 mcg/0.5 mL intramuscul ar syringe TO BE ADMINISTE RED BY PHARMACIS T FOR IMMUNIZAT ION 09/04 completed Not Available Not Available Not Available Fluzone High-Dose (PF) 180 mcg/0.5 mL intramuscul ar syringe TO BE ADMINISTE RED BY PHARMACIS T FOR IMMUNIZAT ION active Not Available Not Available No t Available Wegovy 0.25 mg/0.5 mL subcutaneou s pen injector INJECT 0.5 ML SUBCUTANE OUSLY ONE TIME PER WEEK FOR 28 DAYS active Not Available Not Available No t Available Wegovy 0.5 mg/0.5 mL subcutaneou s pen injector INJECT 0.5 ML SUBCUTANE OUSLY WEEKLY active Not Available Not Available No t Available Vitals Date Recorded Body height Body mass index (BMI) Body weight Provider Name and Address Organization Details Last Updated DateTime 07/20/2023 157.48 cm 32.9 kg/m2 24257.63 g Swapna Alfaro [facility] 07/20/2023 14:35:29 Date Recorded Body height Body mass index (BMI) Body weight Pain severity - 0-10 verbal numeric rating [Score] - Reported Provider Name and Address Organization Details Last Updated DateTime 11/02/2023 157.48 cm 33.7 kg/m2 97308 g 10 Kacey Caballero Vilma [facility] 11/02/2023 10:41:38 Date Recorded Body height Body mass index (BMI) Body weight Provider Name and Address Organization Details Last Updated DateTime 01/25/2024 165.1 cm 30 kg/m2 45634.63 g Swapna Alfaro [facility]NA [facility] 01/25/2024 11:50:43 Date Recorded Body height Body mass index (BMI) Body weight Pain severity - 0-10 verbal numeric rating [Score] - Reported Provider Name and Address Organization Details Last Updated DateTime 03/21/2024 165.1 cm 30.8 kg/m2 41620.59 g 9 Kacey Pereramargie Vilma [facility] [employer] 03/21/2024 10:55:57 Date Recorded Body height Body mass index (BMI) Body weight Provider Name and Address Organization Details Last Updated DateTime 04/27/2024 165.1 cm 30 kg/m2 36709.63 g Kacey Caballero [facility] [employer] [facility] 04/27/2024 10:27:38 Date Recorded Body height Body mass index (BMI) Body weight Provider Name and Address Organization Details Last Updated DateTime 08/03/2024 165.1 cm 30 kg/m2 00481.63 g Kacey Caballero [facility] [employer] 08/03/2024 10:28:21 Social History Question Answer Notes LastModified by Organizat ion Details LastModified Time Tobacco Smoking Status Former Smoker [facility] 01/25/2024 11:54:45 What Is Your Level Of Alcohol Consumption? None [id number] Information not available 08/25/2022 What Was The Date Of Your Most Recent Tobacco Screening? 09/04/2021 [id number] Information not available 08/25/2022 Sex: Unknown Functional Status None recorded. Mental Status None recorded. Family History Relationship Description Onset Age of this Age Resolved Age Notes LastModified by Organization Details LastModified Time Mother Family history of malignant neoplasm [id number] Not available 08/25/2022 13:12:04 Mother Diabetes mellitus [id number] Not available 08/25/2022 13:12:04 Mother Complication of anesthesia [email or web address] Not available 09/28 10:34:46 Mother Heart disease [email or web address] Not available 2022 10:34:53 Mother Hypertensive disorder [email or web address] Not available 2022 10:35:17 Father Cerebrovascu lar accident [email or web address] Not available 09/2022 10:35:05 Brother Kidney disease [email or web address] Not available 2022 10:35:27 Medical History Condition Response ARTHRITIS Y CANCER: SPECIFY Y CARDIAC ARRHYTHMIA Y USE OF BLOOD THINNERS Y BLOOD CLOTS Y SKIN PROBLEMS Y HEART DISEASE/HEART PROBLEMS Y LUNG DISEASE/DISORDER Y HEART ARRHYTHMIA Y STROKE/TIA Y Gynecological HistoryNo gynecological history recorded. Obstetrics History GPAL:G 0 P 0 0 0 0 Past Encounters Encounter ID Performer Location Encounter Start Date Encounter Closed Date Diagnosis/Indication Diagnosis SNOMED-CT Code Diagnosis ICD10 Code Diagnosis Note [id number] [facility] [address] [place] [address] 09/09/2020 00:00:00 09/09/2020 17:32:11 [id number] [facility] [address] [place] [address] 09/30/2020 00:00:00 09/30/2020 12:05:11 [id number] [facility] [address] [place] [address] 10/21/2020 00:00:00 10/21/2020 12:33:15 [id number] [facility] [address] [place] [address] 02/24/2021 00:00:00 02/24/2021 15:54:58 [id number] [facility] [address] [place] [address] 06/05/2021 00:00:00 06/05/2021 12:15:00 [id number] [facility] [address] [place] [address] 09/04/2021 00:00:00 09/04/2021 11:20:15 [id number] [facility] [address] [place] [address] 03/03/2022 00:00:00 03/03/2022 17:24:59 [id number] [facility] [address] [place] [address] 05/18/2022 00:00:00 05/18/2022 10:57:04 [id number] [facility] [address] [place] [address] 06/29/2022 00:00:00 06/29/2022 11:34:07 [id number] Chris Baez MD [facility] [address] [place] [address] 09/28/2022 09:54:39 09/28/2022 11:06:11 Impingement syndrome of right shoulder region 2668283902 70781 M75.41 injected the right shoulder starting standard protocol 8 cc xylocaine 2 cc Kenalog and of her continue with her therapy program at home Pain of right wrist 3169 213247 83064 M25.531 injected her thumb CMC joint 1 cc xylocaine 1 cc Kenalog starting standard protocol continue with splinting as needed and see her back in 3 months Arthritis of first carpometacarpal joint of right hand 9632536032 377790 M13.841 [id number] OSBALDO Russo [facility] [address] [place] [address] 12/29/2022 13:58:23 12/29/2022 14:27:11 Impingement syndrome of right shoulder region 8110502640 09764 M75.41 Patient returns to clinic for repeat shoulder injection. Using standard technique and sterile protocol 8 cc of ropivacain e and 2 cc of Kenalog was injected into the right shoulder. Patient will follow-up in [address] Anderson for re-evaluat ion. Pain of right wrist 3169 535473 47813 M25.531 Arthritis of first carpometacarpal joint of right hand 9773879732 973892 M13.841 Patient has been wearing her brace and has had recurrence of her pain over the last month. She is interested in repeat steroid injection into the right thumb CMC joint. Using standard technique and sterile protocol 1 cc ropivacain e 1 cc of Kenalog was injected into the right thumb CMC joint. Patient will follow-up in [address] Anderson. [id number] Thu Seay NP [facility] [address] [place] [address] 04/06/2023 10:12:08 04/06/2023 10:37:28 Shoulder joint pain 001362951 M25.511 Arthritis of first carpometacarpal joint of right hand 0635469046 943656 M13.156 [id number] Vimal Anderson MD [facility] [place] [address] [place] [address] 07/20/2023 14:19:52 07/20/2023 15:35:26 Shoulder joint pain 957118399 M25.511 Osteoarthr osis of the carpometacarpal joint of the thumb 27213211 M18.9 [id number] Vimal Anderson MD [facility] [address] [place] [address] 11/02/2023 10:36:59 11/02/2023 11:17:55 Shoulder joint pain 176605128 M25.511 Arthritis of first carpometacarpal joint of right hand 6132070466 525654 M13.841 Pain of left hand 144922 6330 96486 M79.809 [id number] Vimal Anderson MD [facility] [address] [place] [address] 01/25/2024 11:17:24 01/25/2024 12:18:48 Arthritis of first carpometacarpal joint of right hand 6424557129 859082 M13.841 Impingemen t syndrome of right shoulder region 0198440998 45000 M75.41 Pain of right wrist 3169 064961 33086 M25.531 Shoulder joint pain 2679 98146 M25.511 Osteoarthr osis of the carpometacarpal joint of the thumb 39407580 M18.0 [id number] Thu Seay, BRANCH BANKER [facility] [address] [place] [address] 04/27/2024 10:24:43 04/27/2024 11:02:57 Arthritis of first carpometacarpal joint of right hand 9188034108 510346 M13.841 Pain of left hand 615569 5566 63991 M79.642 Shoulder joint pain 2679 91354 M25.418 [id number] Thu Seay, MARIA D [facility] [address] [place] [address] 08/03/2024 10:20:28 08/03/2024 10:46:56 Arthritis of first carpometacarpal joint of right hand 8178016788 854636 M13.841 Shoulder joint pain 2679 46916 M25.511 Health Concerns Section Related Observation LastModified by Organization Detai ls LastModified Time None Recorded Concern Status LastModified by Organization Details LastModified Time None Recorded Advance Directives Directive None Recorded Payers Encounter Date Sequence Insurance Name Policy Number Policy Osuna Covered Member ID Osuna Member ID Guarantor Name 07/20/2023 1 [employer] (MEDICARE REPLACEMENT PPO) [id number] Lorie A White [id number] Kiana M White 11/02/2023 1 [employer] (MEDICARE REPLACEMENT PPO) [id number] Lorie A White [id number] Lorie Shen White 01/25/2024 1 [employer] (MEDICARE REPLACEMENT PPO) [id number] Lorie A White [id number] Kiana Ac White 04/27/2024 1 [employer] (MEDICARE REPLACEMENT PPO) [id number] Lorie A White [id number] Kiana M White 08/03/2024 1 [employer] (MEDICARE REPLACEMENT HMO) [id number] Lorie A White [id number] Kiana Ac White OBGyn Episode No OBEpisode recorded.
--- OUTSIDE RECORDS SUMMARY | 2024-09-06 17:00 | XMS_ITS | Encounter Summary ---
[facility] Organization [facility] Address [address] [place] [address] Care Team Providers Care Firestopper Technician Name Role Phone Raciel Meléndez DO Primary Care Provider Unavailab le Encounter Details Date Type Department Care Team (Late st Contact Info) Description 09/04/2024 External Device Data [facility] ABSTRACTION Provider, Abstract NO ADDRESS ON FILE Social History Tobacco Use Types Packs/Day Years Used Date Smoking Tobacco: Never Smokeless Tobacco: Never Alcohol Use Standard Drinks/Week Comments No 0 (1 standard drink = 0.6 oz pur e alcohol) Feeling Safe Answer Date Recorded Within the last year, have y ou been afraid of your partner or ex-partner? No 12/31/2021 Within the last year, have y ou been humiliated or emotionally abused in other ways by your partner or ex-partner? No Within the last year, have y ou been kicked, hit, slapped, or otherwise physically hurt by your partner or ex-partner? No 12/31/2021 Within the last year, have y ou been raped or forced to have any kind of sexual activity by your partner or ex-partner? No 12/31/2021 Social Connections Answer Date Recorded Frequency of Communication with Friends and Fami ly Not on file 12/31/2021 Frequency of Social Gatherings with Friends and Family Not on file 12/31/2021 Attends Spiritism Services Not on file 12/31 Active Member of Clubs or Organizations Not on f ile 12/31/2021 Attends Club or Organization Meetings Not on lucy e 12/31/2021 Are you , , di vorced, , never , or living with a partner? 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
--- OUTSIDE RECORDS SUMMARY | 2024-09-06 17:00 | XMS_ITS | Clinical Summary ---
Author Organization [facility] Address [address] [place] [address] Phone Care Team Providers Care Door Assembler Name Role Phone Raciel Meléndez DO Primary Care Provider Unavailab le Allergies Active Allergy Reactions Criticality Noted Date Comments Cephalexin Hives High 05/11/2011 Chicken Derived Anaphylaxis High 05/11/2011 Codeine Anaphylaxis,Hives High 05/11/2011 Erythromycin Lactobionate Other (See Comments) 03/04/2023 Flu Vaccine [id number](5yrup)Pf Other (See Comments) 03/04/2023 Hydrocodone-Acetaminophen Other (See Comments) 03/04/2023 Morphine Hives High 05/11/2011 Penicillin G Hives High 05/11/2011 Medications furosemide (LASIX) 20 mg tablet Take 40 mg by mouth daily . Active omeprazole (PriLOSEC) 20 mg Capsule, Delayed Release(E.C.) Take 20 mg by mouth daily . Active lovastatin (MEVACOR) 40 mg Oral tablet Take 40 mg by mouth daily with supper. Active gabapentin (GRALISE) 600 mg Extended Release 24 hour tablet Take 600 mg by mouth 3 times daily . Active traMADol (ULTRAM) 50 mg Oral tablet Take 100 mg by mouth every 6 hours as needed. Active POLYETHYLENE GLYCOL 3350 (MIRALAX ORAL) Take by mouth. Active cyanocobalamin (VITAMIN B-12) 50 mcg Tablet Take 50 mcg by mouth daily. Active diltiaZEM (CARDIZEM LA) 180 mg Extended Release 24 hour tablet Take 180 mg by mouth daily. Active docusate sodium (COLACE) 100 mg capsule Take 100 mg by mouth 2 times daily. Active famotidine (PEPCID) 40 mg tablet Take 40 mg by mouth 2 times daily. Active levothyroxine 100 mcg tablet Take 100 mcg by mouth daily early childhood coordinator. Active LORazepam (ATIVAN) 0.5 mg tablet Take 0.5 mg by mouth every 8 hours as needed for Anxiety. Active mirtazapine (REMERON) 15 mg tablet Take 15 mg by mouth daily at bedtime. Active multivitamin (DAILY-ANALISA) tablet Take 1 Tablet by mouth daily. Active promethazine (PHENERGAN) 12.5 mg Tablet Take 12.5 mg by mouth every 6 hours as needed for Nausea/Emesis. Active spironolactone (ALDACTONE) 25 mg tablet Take 25 mg by mouth daily. Active vitamin E 400 unit capsule Take 400 Units by mouth daily. Active zolpidem (AMBIEN) 5 mg tablet Take 5 mg by mouth nightly as needed for Insomnia. Active PARoxetine HCl (PAXIL) 10 mg tablet Take 1 Tablet (10 mg) by mouth daily. 30 Tablet 2 9 Active aspirin (ECOTRIN EC) 81 mg Tablet, Delayed Release (E.C.) Take 81 mg by mouth daily. Active zolpidem (AMBIEN) 5 mg tablet Take 5 mg by mouth nightly as needed. Active potassium chloride (KLOR-CON) 10 mEq Extended Release tablet Take 10 mEq by mouth. 2 Active midodrine (PROAMATINE) 5 mg tablet Take 5 mg by mouth 2 times daily. 2 Active pantoprazole (PROTONIX) 40 mg Tablet, Delayed Release (E.C.) Take 40 mg by mouth daily. Active ondansetron (ZOFRAN ODT) 4 mg Tablet, Rapid Dissolve Take 4 mg by mouth. 1 Active hydrocortisone (CORTEF) 10 mg tablet Take 4 tablets twice daily for 1 week, then 3 tablets twice daily for 1 week before you see 2 Active ascorbic acid (VITAMIN C) 500 mg Tablet, Chewable Take 1,000 mg by mouth daily. Active traZODone (DESYREL) 50 mg tablet Take 1 Or 2 Tablets At Bedtime if needed For sleep 2 Active tiZANidine (ZANAFLEX) 2 mg Tablet TAKE 1 OR 2 TABLETS EVERY 8 HOURS NEEDED FOR MUSCLE PAIN 2 Active albuterol sulfate 90 mcg/Actuation inhaler Take 2 Puffs by inhalation. Active Cranberry 400 mg Capsule Take by mouth. Acti ve conjugated estrogens (Premarin) 0.625 mg/gram vaginal creamIndication s:Frequent UTI Insert 0.5 Grams vaginally twice weekly. 30 Gram 3 2 Active Active Problems Problem Noted Date Diagnosed Date History of CVA with residual deficit 12/31/2021 Overview (12/31/2021): Last Assessment & Plan: Continue therapy assistive device for ambulation present medication follow with Neurology Abnormal CT of the chest 12/31/2021 Adrenal insufficiency 07/04/2021 Overview (12/31/2021): Last Assessment & Plan: Continue steroid replacement therapy decrease to 40 mg twice a day for 1 week and then decrease to 30 mg twice a day thereafter follow-up with endocrinology next week for further direction Chronic deep vein thrombosis (DVT) of left upper extremity 07/03/2021 Spinal stenosis of lumbar region 01/28/2020 Other spondylosis with radiculopathy, lumbar reg ion 01/28/2020 Other secondary scoliosis, lumbar region 020 Primary insomnia 12/26/2019 Overview (12/31/2021): Last Assessment & Plan: Recommend patient discontinue mirtazapine use melatonin for sleep if necessary minimize use of zolpidem good night's sleep habits encouraged handout provided Last Assessment & Plan: Stable. Continue trazodone and good night's sleep hygiene. 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 Lungs are clear. Continue albuterol. Last Assessment & Plan: Encourage aerobic exercise continue follow with Pulmonary Service report increased symptoms Lower extremity edema 02/10/2019 Overview (12/31/2021): Last Assessment & Plan: Dependent. cxr neg. Inc lasix to 40mg 2 a day. Limit sodium intake. Enc support stockings. F/u 1 week or sooner if needed. Last Assessment & Plan: Restart Lasix p.r.n. only along with potassium elevate legs low-salt diet Lymphedema of left arm 01/04/2019 Overview (12/31/2021): Last Assessment & Plan: Continue therapy and compressive sleeve Last Assessment & Plan: Continue compression and elevation Chronic idiopathic constipation 01/04/2019 Overview (12/31/2021): Last Assessment & Plan: Continue bowel routine increase physical activity hydration patient has colonoscopy next month and I gave her a recommendation for magnesium citrate now to help with present constipation and may improve some left-sided abdominal discomfort/fullness she has been experiencing Last Assessment & Plan: In addition to MiraLax I recommend hydration with water and start senna S prescription sent in Dysuria 01/04/2019 Overview (12/31/2021): Last Assessment & Plan: Urine dip unremarkable with exception of trace blood symptoms very consistent with UTI will start 3 days of antibiotic and send urine off for culture Vocal cord paralysis 02/22/2018 Overview (01/28/2020): Added automatically from request for surgery [id number] History of vaginal dysplasia 12/12/2017 History of uterine cancer 12/12/2017 History of breast cancer 12/12/2017 Heart disease 12/05/2017 Overview (01/28/2020): Last Assessment & Plan: Pacemaker defibrillator. Ischemic heart disease. Lungs are clear. No significant edema. Followed by Cardiology. Arthritis 12/05/2017 Hot flashes 08/26/2017 Overview (01/28/2020): Last Assessment & Plan: Continue low-dose SSRI per clearance coordinator also decrease mirtazapine at bedtime Chronic bilateral low back pain with sciatica Overview (12/31/2021): Last Assessment & Plan: Continue present medication Tylenol tramadol as needed topical heat stretching exercises gabapentin AICD (automatic cardioverter/defibrillator) pres ent 12/15/2016 Overview (12/31/2021): Overview: JENNIFER SCI DDD Inogen X4 RN BURN-D implanted on 10/26/16 for NICM/CHF/Mobitz II. Chronic RA lead is a MDT 5016 from 01/07/16. Yamel CARRERA IS FOLLOWING THE PATIENTS ICD-LATITUDE RELEASED-12/15/2016 JENNIFER SCI DDD Inogen X4 RN BURN-D implanted on 10/26/16 for NICM/CHF/Mobitz II. Chronic RA lead is a MDT 5076 from 01/07/16. Yamel Howell[place] Card Dr. CARRERA IS FOLLOWING THE PATIENTS ICD-LATITUDE RELEASED-12/15/2016 Last Assessment & Plan: Continue follow with Cardiology report discharges Nonischemic cardiomyopathy 10/25/2016 Overview (12/31/2021): cardiac catheterization shows NO CAD,, EF 35% Last Assessment & Plan: Clinically stable present medication follow with Cardiology cardiac catheterization shows NO CAD,, EF 35% Last Assessment & Plan: Continue present medication report increased shortness of breath swelling follow with Cardiology appointment this week Mobitz type II atrioventricular block 10/21/2016 Overview (01/28/2020): Overview: Mobitz type 2 second degree AV block Insomnia 10/08/2015 Overview (01/28/2020): Insomnia Last Assessment & Plan: Continue medication if necessary encourage good night's sleep habits Gastroesophageal reflux disease 10/08/2015 Overview (01/28/2020): ESOPHAGEAL REFLUX Last Assessment & Plan: Continue anti-reflux measures and PPI therapy 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 Cont levothyroxine. tsh 0.99 on 07/31/2020. HYPOTHYROIDISM NOS Last Assessment & Plan: Clinically euthyroid on replacement therapy lab recent lab during hospitalization at goal Anxiety and depression 10/31/2013 Overview (12/31/2021): Last Assessment & Plan: Taper off mirtazapine over the next 3-4 weeks Next month continue benzodiazepine as needed report increased symptoms DEPRESSIVE DISORDER NEC Last Assessment & Plan: Emotionally stable present medication no taper planned Last Assessment & Plan: Continue present medication emotionally stable Pulmonary embolism 06/29/2011 Overview (01/28/2020): Pulmonary embolism Last Assessment & Plan: Vena cava filter, indefinite long-term oral anticoagulation. Malignant neoplasm of ovary 05/06/2011 Overview (01/28/2020): Overview: Ovarian cancer Sleep apnea 03/16/2011 Overview (12/31/2021): Sleep apnea Last Assessment & Plan: Patient with a remote history of sleep apnea will re-evaluate with sleep study now per Pulmonary recommendation I agree and treat if present Sleep apnea Last Assessment & Plan: Currently using CPAP at night. Interested in a dental appliance. Neuropathy Overview (12/12/2017): due to chemotherapy while being treated for breast cancer Resolved Problems Problem Noted Date Diagnosed Date Resolved Date BMI 37.0-37.9, adult 12/26/2019 022 Overview (01/28/2020): Last Assessment & Plan: Encouraged healthy diet exercise patient instructed to slowly taper off mirtazapine which should help also recommend sleep study to evaluate sleep apnea risk Vaginal odor 02/20/2019 01/28/2020 Vaginal discharge 02/20/2019 01/28/2020 Boil of buttock 01/04/2019 01/28/2020 Hot flashes due to menopause 01/04/2019 01/28/2020 Pelvic pressure in female 01/04/2019 Vaginal spotting 12/12/2017 01/28/2020 BMI 39.0-39.9,adult 01/18/2017 01/01/20 22 Overview (01/28/2020): Last Assessment & Plan: BMI Follow-up includes: nutrition counseling, exercise counseling and education provided. Hyperlipidemia 10/08/2015 12/31/2021 Overview (01/28/2020): HYPERLIPIDEMIA NEC/NOS Last Assessment & Plan: Continue medication check fasting lab today encouraged healthy Encounters Date Type Department Care Team Description 09/04/2024 External Device Data STL ABSTRACTION Provider, Abstract 09/04/2024 External Device Data STL ABSTRACTION Provider, Abstract from Last 3 Months Family History Medical History Relation Name Comments Hypertension Brother Arthritis Daughter Osbaldo Brain Cancer Daughter Osbaldo Healthy Daughter Osbaldo Heart Disease Mother Breast Cancer Paternal Aunt Blaire Breast Cancer Paternal Cousin Heart Disease Sister Colon Cancer Neg Hx Ovarian Cancer Neg Hx Uterine Cancer Neg Hx Relation Name Status Comments Brother Alive Daughter Osbaldo Alive Father (Age 90) bowel issu e Mother (Age 68) [place] Paternal Aunt Blaire Paternal Cousin Alive Sister (Age 67) [place] Social History Tobacco Use Types Packs/Day Years [...] and Family Not on file 12/31/2021 Attends Jain Services Not on file 12/31 Active Member of Clubs or Organizations Not on f ile 12/31/2021 Attends Club or Organization Meetings Not on lucy e 12/31/2021 Are you , , di vorced, , never , or living with a partner? 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 Gender Identity Not on file Sexual Orientation Not on file Occupation Industry Job Start Date Job End Date Not on file Not on file Not on file Not on file Last Filed Vital Signs Vital Sign Reading Time Taken Comments Blood Pressure 124/80 03/04/2023 9:55 AM CDT Pulse 93 01/04/2019 1:31 PM CDT Temperature 36.9 C (98.5 F) 01/04/2019 1:31 PM CDT Respiratory Rate 23 01/04/2019 1:31 PM CDT Oxygen Saturation 96% 01/04/2019 1:31 PM CDT Inhaled Oxygen Concentration - - Weight 83 kg (183 lb) 03/04/2023 9:55 AM CDT Height 157.5 cm (5' 2 ) 03/04/2023 9:55 AM CDT Body Mass Index 33.47 03/04/2023 9:55 AM CDT Plan of Treatment Health Maintenance Due Date Last Done Comments DTAP/TDAP/TD VACCINES (2 - T d or Tdap) 04/28/2022 04/28/2012 PNEUMOCOCCAL VACCINE 50+ YEA RS (2 of 2 - PCV) 08/11/2022 08/11/2021, 06/27/2013, 05/06/2011 RSV VACCINE (60+ or ) (1 - 1-dose 75+ series) 2023 INFLUENZA VACCINE (#1) 2024 3, 03/13/2022, 03/07/2020, Additional history exists COVID-19 Vaccine ( - 2023-2 5 season) 2024 03/13/2022, 04/06/2021, 09/05/2020, Additional history exists ZOSTER VACCINE Completed 08/07/2018, 03/27, 03/26/2016, Additional history exists COLORECTAL SCREENING Discontinued 03/04/2021, 03/04/2021, 08/16/2012, Additional history exists Colorectal Cancer Screening Discontinued OSTEOPOROSIS SCREENING Completed 2, 08/11/2021, 04/18/2019 FIT-DNA Q 3 years Discontinued FIT/FOBT Q 1 year Discontinued Flex Sig/CT Colonography Q 5 years Discontinued Procedures Procedure Name Priority Date/Time Associated Diagnosis Comments ENDOSCOPY, COLON, SCREENING Routine 08/16/2012 from Last 3 Months or Most Recently Relevant to Health Maintenance Results * (ABNORMAL) ENDOSCOPY, COLON, SCREENING (08/16/2012) Cristian Hahn MD GI PROCEDURE ORDERABLES Edited [facility] from Last 3 Months or Most Recently Relevant to Health Maintenance Insurance [place] [address] [id number] [facility] MCR Care Teams Door Assembler Relationship Specialty Start Date End Date Raciel Meléndez DO PCP - General Geriatric Medicine 08/09/12
--- OUTSIDE RECORDS SUMMARY | 2024-09-06 17:00 | XMS_ITS | Encounter Summary ---
Author Organization [facility] Healthcare Address [address] [place] [address] Care Team Providers Care Tester Vibrator Equipment Name Role Phone Gunjan Hanks Unavailable Unavaila Cooper Dobbs MD Unavailable [phone] Mirian Burkett MD Unavailable [phone] Aly Montana MD Unavailable [phone] Niles Casper MD Unavailable [phone] Qiana Cardenas MD Primary Care Provider + Encounter Details Date Type Department Care Team (Late st Contact Info) Description 09/05/2024 11:15 AM CDT Office Visit [facility] Medicine [address] [facility] [address] [place] [address] Matt Guillaume, MARIA D [address] [facility] [address] [place] [address] Posterior neck pain (Primary Dx) Social History Tobacco Use Types [...] often do you attend chur ch or restorationism services? 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 Not on file Not on file Not on f ile documented as of this encounter Last Filed Vital Signs Vital Sign Reading Time Taken Comments Blood Pressure 120/72 09/05/2024 11:14 AM CDT Pulse 72 09/05/2024 11:14 AM CDT Temperature - - Respiratory Rate - - Oxygen Saturation 93% 09/05/2024 11:14 AM CDT Inhaled Oxygen Concentration - - Weight 80.7 kg (178 lb) 09/05/2024 11:14 AM CDT Height 157.5 cm (5' 2.01 ) 09/05/2024 11:14 AM C DT Body Mass Index 32.55 09/05/2024 11:14 AM CDT documented in this encounter Patient Instructions * Patient Instructions* Matt Guillaume NP - 09/05/2024 11:15 AM CDT Increase Escitalopram to 2 tablets once a day documented in this encounter Ordered Prescriptions Prescription Sig Dispense Quantity Refills Last Filled Start Date End Date methylPREDNISolone (MEDROL DOSEPACK) 4 mg Dosepack Take as directed on package. 21 tablet 09/05/2024 escitalopram (LEXAPRO) 10 mg tablet Take 2 tablets (20 mg total) by mouth daily 09/05/2024 documented in this encounter Plan of Treatment Not on file documented as of this encounter Results * XR Spine Cervical [...] signed by: Bhavesh Mac M.D. us Matt Seth CLINICAL QUALITY ANALYST IMG XR PROCEDURES Final Re sult documented in this encounter Visit Diagnoses Diagnosis Posterior neck pain- Primary Cervicalgia Posterior neck pain Cervicalgia documented in this encounter Discontinued Medications Medication Sig Discontinue Reason Start Date End Da te escitalopram (LEXAPRO) 10 mg tablet TAKE 1 TABLET BY MOUTH EVERY DAY Reorder 05/28/2024 09/05/2024 documented as of this encounter Historical Medications * This list may reflect changes made after this encounter. tirzepatide, weight loss, (Zepbound) 2.5 mg/0.5 mL solution vial as directed Subcutaneous Weekly for 28 days tiZANidine (ZANAFLEX) 2 mg tablet every 8 hours added in this encounter Care Teams Tester Vibrator Equipment Relationship Specialty Start Date End Date Qiana Cardenas MD [address] [place] [address] PCP - General Family Medicine 06/04/24 Gunjan Hanks SLP Speech Language Pathologist Speech Therapy 03/21/18 Cooper Cruz MD Consulting Physician Internal Medicine 10/20/18 Mirian Burkett MD [address] [facility] [address] [place] [address] Consulting Physician Neurology 07/10/19 Aly Montana MD [address] [facility] [address] [place] [address] Consulting Physician Orthopedic Surgery 07/10/19 Niles Casper MD [address] [facility] [address] [place] [address] Cardiology 07/10/19 documented as of this encounter
--- OUTSIDE RECORDS SUMMARY | 2024-09-06 17:00 | XMS_ITS ---
Author Organization [facility] Address [address] [place] [address] Care Team Providers Care Airline Managerial Supervisor Name Role Phone Medhat DAWSON, Raciel Primary Care Provider Akhil Pelaez Unavailable [phone] Allergies Allergen (clinical drug ingredient) Drug/Non Drug [...] Unknown Drug Allergy Active REASON FOR VISIT DANIELE L4 TF KYLEE Medications Medication SIG (Take, Route, Frequency, Duration) Notes Start Date End Date Status Vitamin B Complex - Orally Active Vitamin D 2000 UNIT 1 tablet Orally Once a day Active traMADol HCl 50 MG 1 tablet as needed Orally Every 8 hours Active Zolpidem Tartrate 5 MG 1 tablet at bedti tn Orally Once a day Active Gabapentin 300 MG TAKE 1 CAPSULE BY [facility] THREE TIMES A DAY for 30 Active Nystatin 456781 U/ML Mouth/Throat Active Senokot 8.6 MG 2 tablets at bedtime as needed Orally Once a day Active Lovastatin 40 MG 1 tablet with a meal Orally Once a day Active Spironolactone 50 MG 1 tablet Orally Onc e a day Active LORazepam 0.5 MG 1 tablet as needed Orally every 6 hrs Active Cranberry Extract 250 MG Orally Active Famotidine 40 MG Orally Act kurtis Levothyroxine Sodium 100 MCG 1 tablet on an empty stomach in the morning Orally Once a day Active Gabapentin 300 MG 2 Orally Three times a day Active Furosemide 20 MG 1 tablet Orally Once a day Active Vital Signs Temperature 97.5 degrees Fahrenheit 07/19/19 25 Blood pressure systolic 120 mm Hg 07/19/19 25 Blood pressure diastolic 65 mm Hg 025 Heart Rate 63 /min 07/19/2024 Respiratory Rate 17 /min 07/19/2024 Height 62 in 07/19/2024 Weight 185 lbs 07/19/2024 BMI 33.83 kg/m2 07/19/2024 Encounters Encounter Location Date Provider Diagnosis [facility] [address] [place] [address] [address] [place] [address] 07/19/2024 Akhil Mares Radiculopathy, lumbar region M54.16 Assessments Encounter Date Diagnosis (ICD Code) Assessment Notes Treatment Notes Treatment Clinical Notes Section Notes 07/19/2024 Radiculopathy, lumbar region (ICD-10 - M54.16) Lumbar radicular pain is the patient's primary diagnosis right proceed with a bilateral L4 transforaminal epidural steroid injection. Patient tolerated very well will call with any questions or concerns Plan Of Treatment Treatment Notes Assessment Notes Radiculopathy, lumbar region Lumbar radi cular pain is the patient's primary diagnosis right proceed with a bilateral L4 transforaminal epidural steroid injection. Patient tolerated very well will call with any questions or concerns Next Appt Details Provider Name:Akhil Freeman zulay, 10/19/2024 01:15:00 PM, [address] [facility], [address], [place], [address], Procedure Notes * Category Sub-Category Detail Notes Lumbar Transforaminal Epidural Steroid Injection Bilateral L4 The patient was identified in the holding area and the operative permit was explained and signed. I have discussed with the patient the risks, benefits, side effects and complications of a fluoroscopically guided transforaminal lumbar epidural injection. I have answered the patient's questions regarding the procedure and have given the patient the opportunity to refuse the procedure. I also have discussed alternative methods of treatment. The patient stated understanding of the procedure and wished to proceed with a fluoroscopically guided transforaminal lumbar epidural injection. The patient was taken to the fluoroscopic suite and placed on a C-arm table in the prone position. Noninvasive blood pressure, pulse oximetry, and an EKG tracing were used to monitor the patient continuously throughout the procedure. A nurse was in attendance for the duration of the procedure to carefully monitor the patient. Please refer to the nursing record for vital sign documentation and for any doses of sedatives and medications. I was present and gave the order for any medications given to the patient. The procedure was performed on the bilateral L4 nerve roots. A sterile Betadine preparation and then a sterile drape were applied to the lumbosacral region of the back. The fluoroscopic unit was manipulated in a caudad/cephalad position until the disc spaces of the joints were in clear focus. The unit was then positioned in the oblique view until the pedicle and articulating processes were clearly visible. Using fluoroscopic guidance, 3.5 inch, 25 gauge Quincke needle was placed on the six o'clock position of the pedicle. The needle was then slowly walked off the lamina into the nerve root foramen. A lateral fluoroscopic projection showed the needle tip entering the superior posterior aspect of the desired intervertebral foramen. Using AP fluoroscopic projection, 0.3 cc of Omnipaque (240 mg/cc) was injected through the needle and a neurogram was produced. There was clear dye spread through each nerve root sheath and into the epidural space. There was no cerebrospinal fluid or blood aspirated from the needle. A preservative free solution of 1 cc of 10 mg/cc of dexamethasone and 1.5 cc of 1% Lidocaine was injected. There were no signs or symptoms of intrathecal or intravascular injection. The needle was removed intact. The procedure was then repeated on the opposite side using the same technique. The patient tolerated the procedure well and there were no complications. The patient was taken to the recovery area. The patient remained in stable condition with no apparent complications. Post procedure instructions were given to the patient and a follow up appointment was confirmed. The patient was also discharged with information on how to reach the clinic or labor relations representative physician at any time for questions or complaints Conscious Sedation Moderate Sedation Services We discussed the risks / benefits and technical aspects of having the procedure done under local anesthesia versus moderate sedation while remaining responsive. I asked the patient as to whether they can remain calm and relatively still throughout the procedure, to which the patient stated: []. Based on my experience with other patients undergoing this procedure, I am concerned about the ability of the patient to remain sufficiently still during the procedure, either due to pain or anxiety or both, so as not to compromise the safety of the procedure, as well as to avoid unnecessary distress to the patient. Therefore, based on the nature of this specific procedure, and the responses from the patient, I determined that moderate sedation was medically necessary. A registered nurse who is trained to observe and monitor the patient during moderate sedation was with the patient the entire time of the sedation period. Moderate sedation was provided by the nurse via physician orders, who assisted in the monitoring of the patient's level of consciousness and physiological status. This nurse monitored and recorded vital signs including blood pressure, pulse, oxygen saturation and continuous electrocardiogram (ECG) during this period. In addition, estimates of sedation depth as well as the amounts and timing of the intravenous sedative were also recorded and can be found in the nurse documentation. Progress Notes * Avani CAMPBELLOB:1950 ([age] yo F)Acc No.[id number]*DOS:07/19/2024 Progress Note Patient: Lorie GIRARD * Provider: Thea Mares MD :1950 A ge:73 Y S ex:Female Date:07/19/2024 Address:[address] [place], [place] [id number] Pcp:Raciel Meléndez MD Subjective: * Chief Complaints: * B [place] L4 TF KYLEE * HPI: * Pain Evaluation: Patient presents [...] F ather: unknown. M other: unknown. * Medications: T akingCranberry Extract 250 MG [...] a meal Orally Once a day Nystatin 325125 U/ML Suspension Reconstituted Mouth/Throat Senokot 8.6 MG [...] meal Orally Once a day Taking Nystatin 600105 U/ML Suspension Reconstituted Mouth/Throat Taking Senokot 8.6 [...] Vitals: H t: 62 in, Wt:185lbs, Pain scale:101-10, BP:120/65mm Hg, Temp:97.5F, HR:63/min, RR:17/min, BMI:33.83Index. Assessment: * Assessment: 1. R adiculopathy, lumbar region - M54.16 (Primary) Plan: * Treatment: * Procedures: L umbar Transforaminal Epidural Steroid Injection: Bilateral L4 T he patient was identified in the holding area and the operative permit was explained and signed. I have discussed with the patient the risks, benefits, side effects and complications of a fluoroscopically guided transforaminal lumbar epidural injection. I have answered the patient's questions regarding the procedure and have given the patient the opportunity to refuse the procedure. I also have discussed alternative methods of treatment. The patient stated understanding of the procedure and wished to proceed with a fluoroscopically guided transforaminal lumbar epidural injection. The patient was taken to the fluoroscopic suite and placed on a C-arm table in the prone position. Noninvasive blood pressure, pulse oximetry, and an EKG tracing were used to monitor the patient continuously throughout the procedure. A nurse was in attendance for the duration of the procedure to carefully monitor the patient. Please refer to the nursing record for vital sign documentation and for any doses of sedatives and medications. I was present and gave the order for any medications given to the patient. The procedure was performed on the bilateral L4 nerve roots. A sterile Betadine preparation and then a sterile drape were applied to the lumbosacral region of the back. The fluoroscopic unit was manipulated in a caudad/cephalad position until the disc spaces of the joints were in clear focus. The unit was then positioned in the oblique view until the pedicle and articulating processes were clearly visible. Using fluoroscopic guidance, 3.5 inch, 25 gauge Quincke needle was placed on the six o'clock position of the pedicle. The needle was then slowly walked off the lamina into the nerve root foramen. A lateral fluoroscopic projection showed the needle tip entering the superior posterior aspect of the desired intervertebral foramen. Using AP fluoroscopic projection, 0.3 cc of Omnipaque (240 mg/cc) was injected through the needle and a neurogram was produced. There was clear dye spread through each nerve root sheath and into the epidural space. There was no cerebrospinal fluid or blood aspirated from the needle. A preservative free solution of 1 cc of 10 mg/cc of dexamethasone and 1.5 cc of 1% Lidocaine was injected. There were no signs or symptoms of intrathecal or intravascular injection. The needle was removed intact. The procedure was then repeated on the opposite side using the same technique. The patient tolerated the procedure well and there were no complications. The patient was taken to the recovery area. The patient remained in stable condition with no apparent complications. Post procedure instructions were given to the patient and a follow up appointment was confirmed. The patient was also discharged with information on how to reach the clinic or labor relations representative physician at any time for questions or complaints. C onscious Sedation: Moderate Sedation Services W benoit discussed the risks / benefits and technical aspects of having the procedure done under local anesthesia versus moderate sedation while remaining responsive. I asked the patient as to whether they can remain calm and relatively still throughout the procedure, to which the patient stated: []. Based on my experience with other patients undergoing this procedure, I am concerned about the ability of the patient to remain sufficiently still during the procedure, either due to pain or anxiety or both, so as not to compromise the safety of the procedure, as well as to avoid unnecessary distress to the patient. Therefore, based on the nature of this specific procedure, and the responses from the patient, I determined that moderate sedation was medically necessary. A registered nurse who is trained to observe and monitor the patient during moderate sedation was with the patient the entire time of the sedation period. Moderate sedation was provided by the nurse via physician orders, who assisted in the monitoring of the patient's level of consciousness and physiological status. This nurse monitored and recorded vital signs including blood pressure, pulse, oxygen saturation and continuous electrocardiogram (ECG) during this period. In addition, estimates of sedation depth as well as the amounts and timing of the intravenous sedative were also recorded and can be found in the nurse documentation. . * Procedure Codes: A 4550 TRAY FEESUPPLY [id number] LUMBAR SNRI - TRANSFORAMINAL CHGED [facility] ELAINE [address], Modifiers: 50 * Preventive Medicine: Screenings: F ALL RISK SCREENING Fall Risk Assessment: N o falls in the past year * * NER CONCRETE PIPE Sign off status: Completed true * Provider: Thea Mares MD Date: 07/19/2024 Generated for Bali eyad/Gael/eTransmitting on: 0 09/06/2024 05:00 PM CDT
--- OUTSIDE RECORDS SUMMARY | 2024-09-06 17:00 | XMS_ITS | Referral Summary ---
Author Organization [facility] Address [address] [place] [address] Care Team Providers Care Car Driver Name Role Phone Raciel Meléndez DO Primary Care Provider [phone] Source Comments [facility],non-owned Affiliates and Associated Physician Practices is amultiple site organization consisting of ambulatory clinics and hospital sitesin [place], [place], [place]. This disclosure is being madepursuant to the Care Everywhere program and may not contain all information available regarding this patient. Last updated 18.[facility] Allergies Active Allergy Reactions Criticality Noted Date Comments Butorphanol Nausea and/or Vomiting 04/20/2018 Cephalexin Nausea and/or Vomiting 04/20/2018 Poultry Meal Rash,Swelling Medium 04/20/2018 THROAT SWELLING Codeine Rash,Nausea and/or Vomiting Medium 04/20/20 18 Erythromycin Rash,Nausea and/or Vomiting Medium 2017 Hydrocodone Nausea and/or Vomiting 04/20/2018 Hydromorphone Nausea and/or Vomiting,Headache 04/20/2018 Morphine Nausea and/or Vomiting,Headache 04/20/2018 Penicillins Rash,Nausea and/or Vomiting Medium 018 Medications * Be aware that medications may not be up to date on this document. Alwaysverify current medications with the patient. Medication Sig Dispensed Refills Start Date End Date Status apixaban (ELIQUIS) 5 MG tablet Take 5 mg by mouth 2 times daily Active bumetanide (BUMEX) 1 MG tablet Take 1 mg by mouth once daily Active Cholecalciferol (D3 HIGH POTENCY) 2000 UNITS Take by mouth once daily Active clopidogrel (PLAVIX) 75 MG tablet Take 75 mg by mouth once daily Active Cranberry 250 MG Take by mouth once daily Active ferrous sulfate 325 (65 FE) MG tablet Take 325 mg by mouth once daily Active gabapentin (NEURONTIN) 600 MG tablet Take 600 mg by mouth 3 times daily Active levothyroxine (SYNTHROID) 100 MCG tablet Take 100 mcg by mouth daily before breakfast Active LORazepam (ATIVAN) 0.5 MG tablet Take 0.5 mg by mouth every 8 hours as needed for Anxiety Active lovastatin (MEVACOR) 40 MG tablet Take 40 mg by mouth at bedtime Active mirtazapine (REMERON) 15 MG tablet Take 15 mg by mouth at bedtime Active ondansetron (ZOFRAN) 4 MG tablet Take 4 mg by mouth every 6 hours as needed for Nausea/Vomiting Active spironolactone (ALDACTONE) 25 MG tablet Take 25 mg by mouth once daily Active venlafaxine XR 24hr (EFFEXOR XR) 37.5 MG capsule Take 37.5 mg by mouth daily with breakfast Active B Complex Vitamins (VITAMIN B COMPLEX PO) Take by mouth once daily Active vitamin E (TOCOPHERYL) 400 UNIT tablet Take by mouth once daily Active zolpidem (AMBIEN) 5 MG tablet Take 5 mg by mouth nightly as needed for Insomnia Active multivitamin daily tablet Take 1 tablet by mouth daily with food Active Sennosides-Docusat e Sodium (KAYLYN-COLACE PO) Take by mouth once daily Active acetaminophen (TYLENOL) 325 MG tablet Take 325 mg by mouth every 4 hours as needed for Fever or Pain Maximum allowable Acetaminophen amount = 4 Grams (4000 mg) / 24 hours. Active omeprazole (PRILOSEC) 40 MG capsule Take 1 capsule by mouth 2 times daily,before breakfast and supper 06/03/2018 Active traMADol (ULTRAM) 50 MG tablet Take 2 tablets by mouth every 6 hours as needed 30 tablet 06/23/2018 Active vancomycin (VANCOCIN) injection 1,250 mg by Intravenous route every 24 hours 06/23/2018 Active Active Problems Problem Noted Date Diagnosed Date Infection of deep incisional surgical site after procedure 06/14/2018 Left foot pain 06/02/2018 Social History Tobacco Use Types Packs/Day Years Used Date Smoking Tobacco: Never Smokeless Tobacco: Never Alcohol Use Standard Drinks/Week Comments No 0 (1 standard drink = 0.6 oz pur e alcohol) Sex and Gender Information Value Date Recorded Sex Assigned at Not on file Gender Identity Not on file Sexual Orientation Not on file Last Filed Vital Signs Vital Sign Reading Time Taken Comments Blood Pressure 142/78 06/23/2018 4:35 AM ANGLESMITH HELPER Pulse 76 06/23/2018 4:35 AM ANGLESMITH HELPER Temperature 36.6 C (97.8 F) 06/23/2018 4:35 AM ANGLESMITH HELPER Respiratory Rate 18 06/23/2018 4:35 AM ANGLESMITH HELPER Oxygen Saturation 95% 06/23/2018 4:35 AM ANGLESMITH HELPER Inhaled Oxygen Concentration - - Weight 88.5 kg (195 lb) 06/14/2018 1:52 PM ANGLESMITH HELPER Height 152.4 cm (5') 06/14/2018 1:52 PM ANGLESMITH HELPER Body Mass Index 38.08 06/14/2018 1:52 PM ANGLESMITH HELPER Functional Status Functional Status Response Date of Assess ment Is person deaf or have serious hearing difficult y? No 06/14/2018 Is person blind or have serious difficulty seein g? No 06/14/2018 Does person have serious dif ficulty walking/climbing stairs? No 06/14/2018 Does person have difficulty dressing/bathing? No 06/14/2018 Does person have difficulty doing errands alone? No 06/14/2018 Cognitive Status Response Date of Assessm ent Does person have difficulty concentrating/remembering/making decisions? No 06/14/2018 Plan of Treatment Not on file Medical Devices Implanted Type Area Juice Bar Team Member Device Identifier Shelf Expiration Date Model / Serial / Lot Sub Bngf [employer] Dbm Bvn Clgn Ptty 1ml Implanted:Qty: 1 on 06/21/2018 by Gerson Ingram DPM at [facility] [employer] [id number] / / [id number] Explanted Type Area Juice Bar Team Member Device Identifier Shelf Expiration Date Model / Serial / Lot Wire K Asns 1.2mm 100mm 3mm Screw Fx Flynn Explanted:Qty: 2 on 06/02/2018 at [facility] Left: Foot [employer] [id number] / / Screw 3mm 16mm Flynn Rvrs Cut Flut Ft Hand Implanted:Qty: 2 on 06/02/2018 by Gerson Ingram DPM at [facility] Explanted:Qty: 2 on 06/16/2018 by Gerson Ingram DPM at [facility] Left: Foot [employer] [id number] / / Advance Directives Documents on File Type Date Recorded Patient Field Advisor Expl anation Adv Directive/Living Will/POA 06/09/2018 1:32 AM * Full Code (Latest Code Status on File) Date Activated Date Inactivated Comments 06/14/2018 4:33 PM 06/23/2018 12:20 PM * Full Code Date Activated Date Inactivated Comments 06/02/2018 11:01 AM 06/03/2018 6:29 PM Care Teams Car Driver Relationship Specialty Start Date End Date Raciel Meléndez DO PCP - General Internal Medicine Geriatric Medicine 02/15/18
--- OUTSIDE RECORDS SUMMARY | 2024-09-06 17:00 | XMS_ITS ---
Author Organization [facility] Address [address] [place] [address] Care Team Providers Care Revolving Inventory Clerk Name Role Phone Medhat DAWSON, Raciel Primary Care Provider Akhil Pelaez Unavailable [phone] REASON FOR VISIT [facility] MCR-approved Encounters Encounter Location Date Provider Diagnosis [facility] [address] [place] [address] 07/11/2024 Akhil Mares Plan Of Treatment Next Appt Details Provider Name:Akhil biswas, 10/19/2024 01:15:00 PM, [address] [address] [facility], [address], [place], [address], Progress Notes * CAMPBELL, SueDOB:1950 ([age] yo F)Acc No.[id number]*DOS:07/11/2024 Patient: Lorie GIRARD * :1950 A ge:73 Y S ex:Female [address], [place], [address] * true * Date: Generated for Printi ng/Faxing/eTransmitting on: 0 09/06/2024 05:00 PM CDT
--- OUTSIDE RECORDS SUMMARY | 2024-09-06 17:00 | XMS_ITS | Clinical Summary ---
Author Organization [facility] Address [address] [place] [address] Care Team Providers Care Dairy Equipment Repairer Name Role Phone Raciel Meléndez DO Primary Care Provider [phone] Source Comments [facility],non-owned Affiliates and Associated Physician Practices is amultiple site organization consisting of ambulatory clinics and hospital sitesin [place], [place], [place] and [place]. This disclosure is being madepursuant to the Care Everywhere program and may not contain all information available regarding this patient. Last updated 18.[facility] Allergies Active Allergy Reactions Criticality Noted [...] Comments Blood Pressure 142/78 06/23/2018 4:35 AM ATM SERVICER Pulse 76 06/23/2018 4:35 AM ATM SERVICER Temperature 36.6 C (97.8 F) 06/23/2018 4:35 AM ATM SERVICER Respiratory Rate 18 06/23/2018 4:35 AM ATM SERVICER Oxygen Saturation 95% 06/23/2018 4:35 AM ATM SERVICER Inhaled Oxygen Concentration - - Weight 88.5 kg (195 lb) 06/14/2018 1:52 PM ATM SERVICER Height 152.4 cm (5') 06/14/2018 1:52 PM ATM SERVICER Body Mass Index 38.08 06/14/2018 1:52 PM ATM SERVICER Plan of Treatment Health Maintenance Due Date Last Done Comments BONE DENSITY TESTING 1948 COLOGUARD (AGES 45-75) - COLON CA SCREENING 1948 COLON MONITORING 1948 COLONOSCOPY - COLON CA SCREENING 1948 CT COLONOGRAPHY - COLON CA SCREENING 1948 Colorectal Cancer Screening 1948 FIT - COLON CA SCREENING 1948 FLEX SIG - COLON CA SCREENING 1948 HEPATITIS C SCREENING 08/04/1966 DTAP/TDAP/TD VACCINES (1 - Tdap) 1967 PNEUMOCOCCAL VACCINE 50+ (1 of 1 - PCV) 1998 ZOSTER VACCINE (1 of 2) 1998 MAMMOGRAM 05/23/2020 05/23/2018 Respiratory Syncytial Virus (RSV) Vaccine Pt: or over 60 yrs (1 - 1-dose 75+ series) 2023 COVID-19 VACCINE ( - season) 2024 INFLUENZA VACCINE (#1) 2024 9, 03/26/2018, 03/14/2018, Additional history exists DEPRESSION SCREENING 06/27/2024 HEPATITIS B VACCINE Aged Out No longe r eligible based on patient's age to complete this topic HIB VACCINE Aged Out No longer eligi ble based on patient's age to complete this topic HPV VACCINE Aged Out No longer eligi ble based on patient's age to complete this topic MENINGOCOCCAL (Group B) VACCINE SHARED DECISION-MAKING Aged Out No longer eligible based on patient's age to complete this topic MENINGOCOCCAL GROUPS A/C/Y/W VACCINE Aged Out No longer eligible based on patient's age to complete this topic Medical Devices Implanted Type Area Electric System Operator Device Identifier Shelf Expiration Date Model / Serial / Lot Sub Bngf Pro[employer] Dbm Bvn Clgn Ptty 1ml Implanted:Qty: 1 on 06/21/2018 by Gerson Ingram DPM at [facility] [employer] [id number] / / [id number] Explanted Type Area Electric System Operator Device Identifier Shelf Expiration Date Model / Serial / Lot Wire K Asns 1.2mm 100mm 3mm Screw Fx Flynn Explanted:Qty: 2 on 06/02/2018 at [facility] Left: Foot [employer] [id number] / / Screw 3mm 16mm Flynn Rvrs Cut Flut Ft Hand Implanted:Qty: 2 on 06/02/2018 by Gerson Ingram DPM at [facility] Explanted:Qty: 2 on 06/16/2018 by Gerson Ingram DPM at [facility] Left: Foot [employer] [id number] / / Advance Directives Documents on File Type Date Recorded Patient Title One Teacher Expl anation Adv Directive/Living Will/POA 06/09/2018 1:32 AM * Full Code (Latest Code Status on File) Date Activated Date Inactivated Comments 06/14/2018 4:33 PM 06/23/2018 12:20 PM * Full Code Date Activated Date Inactivated Comments 06/02/2018 11:01 AM 06/03/2018 6:29 PM Care Teams Dairy Equipment Repairer Relationship Specialty Start Date End Date Raciel Meléndez DO PCP - General Internal Medicine Geriatric Medicine 02/15/18
--- OUTSIDE RECORDS SUMMARY | 2024-09-06 17:00 | XMS_ITS | Patient Health Summary ---
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 This disclosure is being madepursuant to the Care Everywhere program and may not contain all information available regarding this patient. Last updated 18.[facility] Allergies * Butorphanol(Nausea and/or Vomiting) * Cephalexin(Nausea and/or Vomiting) * Poultry Meal(Rash,Swelling) -Medium Criticality * Codeine(Rash,Nausea and/or Vomiting) -Medium Criticality * Erythromycin(Rash,Nausea and/or Vomiting) -Medium Criticality * Hydrocodone(Nausea and/or Vomiting) * Hydromorphone(Nausea and/or Vomiting,Headache) * Morphine(Nausea and/or Vomiting,Headache) * Penicillins(Rash,Nausea and/or Vomiting) -Medium Criticality * Ondansetron(Other),Inactive Medications * Be aware that medications may not be up to date on this document. Alwaysverify current medications with the patient. * apixaban (ELIQUIS) 5 MG tablet Take 5 mg by mouth 2 times daily * bumetanide (BUMEX) 1 MG tablet Take 1 mg by mouth once daily * Cholecalciferol (D3 HIGH POTENCY) 2000 UNITS Take by mouth once daily * clopidogrel (PLAVIX) 75 MG tablet Take 75 mg by mouth once daily * Cranberry 250 MG Take by mouth once daily * ferrous sulfate 325 (65 FE) MG tablet Take 325 mg by mouth once daily * gabapentin (NEURONTIN) 600 MG tablet Take 600 mg by mouth 3 times daily * levothyroxine (SYNTHROID) 100 MCG tablet Take 100 mcg by mouth daily before breakfast * LORazepam (ATIVAN) 0.5 MG tablet Take 0.5 mg by mouth every 8 hours as needed for Anxiety * lovastatin (MEVACOR) 40 MG tablet Take 40 mg by mouth at bedtime * mirtazapine (REMERON) 15 MG tablet Take 15 mg by mouth at bedtime * ondansetron (ZOFRAN) 4 MG tablet Take 4 mg by mouth every 6 hours as needed for Nausea/Vomiting * spironolactone (ALDACTONE) 25 MG tablet Take 25 mg by mouth once daily * venlafaxine XR 24hr (EFFEXOR XR) 37.5 MG capsule Take 37.5 mg by mouth daily with breakfast * B Complex Vitamins (VITAMIN B COMPLEX PO) Take by mouth once daily * vitamin E (TOCOPHERYL) 400 UNIT tablet Take by mouth once daily * zolpidem (AMBIEN) 5 MG tablet Take 5 mg by mouth nightly as needed for Insomnia * multivitamin daily tablet Take 1 tablet by mouth daily with food * Sennosides-Docusate Sodium (KAYLYN-COLACE PO) Take by mouth once daily * acetaminophen (TYLENOL) 325 MG tablet Take 325 mg by mouth every 4 hours as needed for Fever or Pain Maximum allowable Acetaminophen amount = 4 Grams (4000 mg) / 24 hours. * omeprazole (PRILOSEC) 40 MG capsule(Started 06/03/2018) Take 1 capsule by mouth 2 times daily,before breakfast and supper * traMADol (ULTRAM) 50 MG tablet(Started 06/23/2018) Take 2 tablets by mouth every 6 hours as needed * vancomycin (VANCOCIN) injection(Started 06/23/2018) 1,250 mg by Intravenous route every 24 hours Active Problems Problem Noted Date Diagnosed Date [...] Comments Blood Pressure 142/78 06/23/2018 4:35 AM TECHNICAL ANALYST Pulse 76 06/23/2018 4:35 AM TECHNICAL ANALYST Temperature 36.6 C (97.8 F) 06/23/2018 4:35 AM TECHNICAL ANALYST Respiratory Rate 18 06/23/2018 4:35 AM TECHNICAL ANALYST Oxygen Saturation 95% 06/23/2018 4:35 AM TECHNICAL ANALYST Inhaled Oxygen Concentration - - Weight 88.5 kg (195 lb) 06/14/2018 1:52 PM TECHNICAL ANALYST Height 152.4 cm (5') 06/14/2018 1:52 PM TECHNICAL ANALYST Body Mass Index 38.08 06/14/2018 1:52 PM TECHNICAL ANALYST Medical Devices Implanted Type Area Manufacturing Assembler Device Identifier Shelf Expiration Date Model / Serial / Lot Sub Bngf Progenix Dbm Bvn Clgn Ptty 1ml Implanted:Qty: 1 on 06/21/2018 by Gerson Ingram DPM at [facility] [employer] [id number] / / [id number] Explanted Type Area Manufacturing Assembler Device Identifier Shelf Expiration Date Model / Serial / Lot Wire K Asns 1.2mm 100mm 3mm Screw Fx Kimber Explanted:Qty: 2 on 06/02/2018 at [facility] Left: Foot [place] [employer] (now [employer]s [id number] / / Screw 3mm 16mm Kimber Rvrs Cut Flut Ft Hand Implanted:Qty: 2 on 06/02/2018 by Gerson Ingram DPM at [facility] Explanted:Qty: 2 on 06/16/2018 by Gerson Ingram DPM at [facility] Left: Foot [place] [employer] [id number] / / Procedures * CARDIAC EKG ORDER(Performed 06/26/2018) * GLUCOSE - POINT OF CARE(Performed 06/22/2018) * CT RENAL STONE(Performed 06/22/2018) Performed for Hematuria, unspecified type * GLUCOSE - POINT OF CARE(Performed 06/22/2018) * VANCOMYCIN LEVEL RANDOM(Performed 06/22/2018) * CBC W AUTO DIFFERENTIAL(Performed 06/22/2018) * PATHOLOGY TISSUE EXAM (STL)(Performed 06/21/2018) Performed for Diagnosis unknown * RESECTION METATARSAL(Performed 06/21/2018) * URINE MICROSCOPIC ONLY(Performed 06/21/2018) * URINALYSIS REFLEX TO MICROSCOPIC NO CULTURE(Performed 06/21/2018) * VANCOMYCIN LEVEL TROUGH(Performed 06/21/2018) * IR PICC PT OVER 5 YRS WO PORT(Performed 06/21/2018) Performed for Infection of deep incisional surgical site after procedure, initial encounter * COMPREHENSIVE METABOLIC PANEL(Performed 06/21/2018) * CBC W AUTO DIFFERENTIAL(Performed 06/21/2018) * CT HUMERUS RIGHT WO CONTRAST(Performed 06/20/2018) Performed for Right arm pain * CT CHEST WO CONTRAST(Performed 06/20/2018) Performed for Right arm pain * VAS RIGHT VENOUS DUPLEX UE(Performed 06/18/2018) Performed for Infection of deep incisional surgical site after procedure, initial encounter * DIFFERENTIAL MANUAL(Performed 06/18/2018) * BASIC METABOLIC PANEL (CALCIUM TOTAL)(Performed 06/18/2018) * CBC W AUTO DIFFERENTIAL(Performed 06/18/2018) * VANCOMYCIN LEVEL TROUGH(Performed 06/17/2018) * BASIC METABOLIC PANEL (CALCIUM TOTAL)(Performed 06/17/2018) * CULTURE FUNGUS OTHER+FUNGUS SMEAR(Performed 06/16/2018) Performed for Diagnosis unknown * CULTURE WOUND+GRAM STAIN(Performed 06/16/2018) Performed for Diagnosis unknown * CULTURE ANAEROBE(Performed 06/16/2018) Performed for Diagnosis unknown * PATHOLOGY TISSUE EXAM (STL)(Performed 06/16/2018) Performed for Diagnosis unknown * PERIPHERAL IV NOTE(Performed 06/16/2018) * INCISION AND DRAINAGE ABSCESS / CYST(Performed 06/16/2018) * CARDIAC EKG ORDER(Performed 06/16/2018) * XR FOOT LEFT 3VW OR MORE(Performed 06/14/2018) Performed for Infection of deep incisional surgical site after procedure, initial encounter * COMPREHENSIVE METABOLIC PANEL(Performed 06/14/2018) * CULTURE WOUND+GRAM STAIN(Performed 06/14/2018) * C-REACTIVE PROTEIN(Performed 06/14/2018) * ERYTHROCYTE SEDIMENTATION RATE(Performed 06/14/2018) * CBC W AUTO DIFFERENTIAL(Performed 06/14/2018) * XR CHEST 2VW(Performed 06/14/2018) Performed for SOB (shortness of breath) * EKG 12-LEAD(Performed 06/14/2018) Performed for SOB (shortness of breath) * CARDIAC PACER/DEFIB ORDER(Performed 06/09/2018) * CBC W AUTO DIFFERENTIAL(Performed 06/03/2018) Performed for Left foot pain * BASIC METABOLIC PANEL (CALCIUM TOTAL)(Performed 06/03/2018) Performed for Left foot pain * GLUCOSE - POINT OF CARE(Performed 06/02/2018) * PATHOLOGY TISSUE EXAM (STL)(Performed 06/02/2018) Performed for Diagnosis unknown * EKG 12-LEAD(Performed 06/02/2018) Performed for Preop examination * BUNIONECTOMY WITH OSTEOTOMY (CHEVRON)(Performed 06/02/2018) * BASIC METABOLIC PANEL (CALCIUM TOTAL)(Performed 06/02/2018) Performed for Preop examination * GROSS + MICRO EXAM(Performed 05/26/2002) Results * CARDIAC EKG ORDER (06/26/2018 2:59 PM TECHNICAL ANALYST) Only the most recent of2 resultswithin the time period is included. Narrative 06/26/2018 2:59 PM TECHNICAL ANALYST Ordered by an unspecified provider. Scanned Document CARDIAC SERVICES ORD ERABLES * (ABNORMAL) GLUCOSE - POINT OF CARE (06/22/2018 9:23 PM TECHNICAL ANALYST) Only the most recent of3 resultswithin the time period is included. Glucose WB/POC 152(H) 70 - 106 mg/dL 06/23/2018 12:26 AM TECHNICAL ANALYST [facility] Blood BLOOD SPECIMEN / Unknown 06/22/2018 9:23 PM TECHNICAL ANALYST 06/23/2018 12:26 AM TECHNICAL ANALYST Aly Moulton DO LAB - POINT OF CAR E ORDERABLES [facility] [address] [place] [address] * CT RENAL STONE (06/22/2018 5:31 PM TECHNICAL ANALYST) Anatomical Region Laterality Modality Abdomen Computed Tomogra phy 06/22/2018 5:33 PM TECHNICAL ANALYST Narrative 06/22/2018 5:41 PM TECHNICAL ANALYST Examination: Noncontrast CT abdomen and pelvis. Indication for examination: Hematuria. Ovarian carcinoma, breast cancer. Previous abdominal and pelvic surgery. Noncontrast CT examination of the abdomen and pelvis is performed with 5 mm helical technique. Coronal and sagittal reconstructions were performed. No prior abdominal imaging studies are available. CT abdomen: CT examination of the abdomen shows elevation of the left hemidiaphragm with atelectasis left lung base. Liver and spleen are normal in size. No focal liver parenchymal abnormality is identified on this unenhanced study. Gallbladder is surgically absent. Bile ducts are not dilated. There is fatty infiltration of the pancreas without focal mass or acute inflammatory change. There is no urinary obstruction or perinephric fluid. There is a 3.5 cm cyst at the lower pole of the left kidney. No calcified ureteral stone or ureteral dilatation. There are no abnormally enlarged retroperitoneal lymph nodes. There is an inferior vena cava filter in place. There is no bowel obstruction or perforation. No ascites or loculated peritoneal fluid. CT PELVIS: CT examination of pelvis shows no soft tissue mass, lymphadenopathy or fluid collection. Bilateral iliac venous stents are in place. There is no evidence of acute colitis or acute diverticulitis. Appendix is normal in caliber. Uterus and ovaries are apparently surgically absent. No bone destruction. CONCLUSION: 3.5 cm diameter left lower pole renal cyst. No obstruction or calcified stone. No suspicious abdominal or pelvic mass, adenopathy or fluid collection. See above. Reading Radiologist: Chris Maldonado MD on 06/22/2018 at 5:41 PM Procedure Note Chris Maldonado MD - 06/22/2018 Examination: Noncontrast CT abdomen and pelvis. Indication for examination: Hematuria. Ovarian carcinoma, breast cancer. Previous abdominal and pelvic surgery. Noncontrast CT examination of the abdomen and pelvis is performed with 5 mm helical technique. Coronal and sagittal reconstructions were performed. No prior abdominal imaging studies are available. CT abdomen: CT examination of the abdomen shows elevation of the left hemidiaphragm with atelectasis left lung base. Liver and spleen are normal in size. No focal liver parenchymal abnormality is identified on this unenhanced study. Gallbladder is surgically absent. Bile ducts are not dilated. There is fatty infiltration of the pancreas without focal mass or acute inflammatory change. There is no urinary obstruction or perinephric fluid. There is a 3.5 cm cyst at the lower pole of the left kidney. No calcified ureteral stone or ureteral dilatation. There are no abnormally enlarged retroperitoneal lymph nodes. There is an inferior vena cava filter in place. There is no bowel obstruction or perforation. No ascites or loculated peritoneal fluid. CT PELVIS: CT examination of pelvis shows no soft tissue mass, lymphadenopathy or fluid collection. Bilateral iliac venous stents are in place. There is no evidence of acute colitis or acute diverticulitis. Appendix is normal in caliber. Uterus and ovaries are apparently surgically absent. No bone destruction. CONCLUSION: 3.5 cm diameter left lower pole renal cyst. No obstruction or calcified stone. No suspicious abdominal or pelvic mass, adenopathy or fluid collection. See above. Reading Radiologist: Chris Maldonado MD on 06/22/2018 at 5:41 PM Aly Moulton DO CT ORDERABLES * (ABNORMAL) CBC W AUTO DIFFERENTIAL (06/22/2018 5:02 AM TECHNICAL ANALYST) Only the most recent of5 resultswithin the time period is included. WBC 8.4 4.4 - 10.7 x10E9/L 06/22/2018 5:28 AM TECHNICAL ANALYST [facility] WBC Corrected x10E9/L 06/22/2018 5:[address] [facility] RBC 3.32(L) 3.80 - 5.20 x10E12/L 06/22/2018 5:[address] [facility] Hemoglobin 10.3(L) 12.0 - 15.6 gm/dL 06/22/2018 5:[address] [facility] Hematocrit 32.4(L) 35.9 - 45.5 % 06/22/2018 5:[address] [facility] MCV 97.6 80.7 - 98.3 fl 06/22/2018 5:[address] [facility] MCH 31.0 26.7 - 34.0 pg 06/22/2018 5:[address] [facility] MCHC 31.8 30.8 - 35.9 gm/dL 06/22/2018 5:[address] [facility] Platelet Count 291 153 - 416 x10E9/L 06/22/2018 5:[address] [facility] RDW-CV 12.2 12.1 - 14.9 % 06/22/2018 5:28 AM [facility] MPV 9.9 9.4 - 12.9 fl 06/22/2018 5:28 AM [facility] Neutrophils % 72.0 44.0 - 73.0 % 06/22/2018 5:28 AM [facility] Lymphocytes % 12.5(L) 20.0 - 43.0 % 06/22/2018 5:28 AM [facility] Monocytes % 13.3(H) 5.0 - 13.0 % 06/22/2018 5:28 AM [facility] Eosinophils % 1.2 0.0 - 6.0 % 06/22/2018 5:28 AM [facility] Basophils % 0.4 0.0 - 2.0 % 06/22/2018 5:28 AM [facility] Immature Granulocytes 0.6 0 - 1 % 06/22/2018 5:28 AM [facility] Neutrophil Absolute 6.08 2.01 - 7.14 x10E9/L 06/22/2018 5:28 AM [facility] Lymphocytes Absolute 1.05(L) 1.07 - 3.94 x10E9/L 06/22/2018 5:28 AM [facility] Monocytes Absolute 1.12(H) 0.26 - 1.07 x10E9/L 06/22/2018 5:28 AM [facility] Eosinophils Absolute 0.10 0 - 0.47 x10E9/L 06/22/2018 5:28 AM [facility] Basophils Absolute 0.03 0 - 0.08 x10E9/L 06/22/2018 5:28 AM [facility] Immature Granulocytes Absolute 0.05 0.00 - 0.06 x10E9/L 06/22/2018 5:28 AM [facility] nRBC Auto 0 /100 WBC 06/22/2018 5:28 AM [facility] Blood BLOOD SPECIMEN / Unknown Venipuncture / Unknown 06/22/2018 5:02 AM TECHNICAL ANALYST 06/22/2018 5:15 AM TECHNICAL ANALYST Aly Moulton DO LAB - HEMATOLOGY O RDERABLES [facility] [address] [place] [address] * VANCOMYCIN LEVEL RANDOM (06/22/2018 5:02 AM TECHNICAL ANALYST) Vancomycin Random 18.3 ug/mL 06/22/2018 5:46 AM TECHNICAL ANALYST [facility] Blood BLOOD SPECIMEN / Unknown Venipuncture / Unknown 06/22/2018 5:02 AM TECHNICAL ANALYST 06/22/2018 5:15 AM TECHNICAL ANALYST Narrative [facility] - 06/22/2018 5:46 AM TECHNICAL ANALYST No reference range available for random Vancomycin levels. All results interpreted by ordering physician. Cooper Cruz MD LAB - CHEMISTRY JEREMY PINEDA [facility] [address] [place] [address] * GROSS + MICRO EXAM (STL) (06/21/2018 5:55 PM TECHNICAL ANALYST) Only the most recent of3 resultswithin the time period is included. Case Report Surgical Pathology Report Case: [id number] Authorizing Provider: Gerson Ingram, Collected: 06/21/2018 05:55 PM DPM Ordering Location: [facility] Received: 06/22/2018 07:08 AM Pathologist: Clifford Chase MD Specimen: Metatarsus, FIRST METATARSAL CLEARANCE FRAGMENT- STITCH IS PROXIMAL 06/28/2018 9:30 AM TECHNICAL ANALYST [facility] Final Diagnosis 1. Left metatarsus, resection/first metatarsal head amputation: -- Osteocartilagenous proliferation consistent with repair (see microscopic) AB/ludmila 06/28/2018 9:30 AM [facility] Gross Description Received in a container of formalin labeled Campbell, Lorie, first metatarsal clearance fragment, stitch is proximal is a portion of metatarsal measuring approximately 1.3 cm in length x 2.1 cm in diameter. There is a stitch indicating the proximal aspect. The proximal aspect is inked blue. Sectioning displays a red-brown trabecular surface. Ophthalmic Dispenser sections are submitted in cassette A1 following decalcification. EMIGDIO/alec 06/28/2018 9:30 AM TECHNICAL ANALYST [facility] Microscopic Description The sections of the metatarsal shows hypercellular cartilage undergoing ossification. There are minute fragments of bone embedded in soft tissue adjacent to this osteocartilaginous proliferation. No osteomyelitis is seen. The changes could be reparative if there is a history of previous trauma/surgery. Clinical correlation is recommended. Dr. Kelly has reviewed and concurs AB/sm 06/28/2018 9:30 AM [facility] Disclaimer All histochemical and/or immunohistochemical results are interpreted with controls that demonstrate appropriate staining reactions before reporting results. Note on use of immunocytochemistry reagents: This test was developed and its performance characteristic determined by [facility], Department of Laboratory Medicine. It has not been cleared or approved by the U.S. Food and Drug Administration (FDA). The FDA has determined that such clearance or approval is not necessary. The test is used for clinical purpose. It should not be regarded as investigational or for research. This laboratory is certified to perform high complexity testing. 06/28/2018 9:30 AM [facility] Embedded Images 06/28/2018 9:30 AM [facility] Pathology/Cytolo gy STRUCTURE OF METATARSAL REGION OF FOOT / Unknown 06/21/2018 5:55 PM TECHNICAL ANALYST 06/22/2018 7:08 AM TECHNICAL ANALYST Gerson Ingram [facility] - PATHO LOGY/CYTOLOGY ORDERABLES [facility] [address] [place] [address] * (ABNORMAL) URINALYSIS REFLEX TO MICROSCOPIC NO CULTURE (06/21/2018 4:35 PM TECHNICAL ANALYST) Color UA Yellow Straw, Yellow 06/21/2018 5:04 PM TECHNICAL ANALYST [facility] Clarity UA Slt Cloudy(A) Clear 06/21/2018 5:04 PM TECHNICAL ANALYST [facility] Glucose UA Negative Negative 06/21/2018 5:04 PM TECHNICAL ANALYST [facility] Bilirubin UA Negative Negative 06/21/2018 5:04 PM TECHNICAL ANALYST [facility] Ketone UA Negative Negative 06/21/2018 5:04 PM TECHNICAL ANALYST [facility] Specific [place] UA 1.012 1.005 - 1.030 06/21/2018 5:04 PM TECHNICAL ANALYST [facility] Blood UA 2+(A) Negative 06/21/2018 5:04 PM TECHNICAL ANALYST [facility] pH UA 7.0 5.0 - 8.0 pH 06/21/2018 5:04 PM TECHNICAL ANALYST [facility] Protein UA Negative Negative 06/21/2018 5:04 PM TECHNICAL ANALYST [facility] Urobilinogen UA Negative Negative mg/dL 06/21/2018 5:04 PM TECHNICAL ANALYST [facility] Nitrite UA Negative Negative 06/21/2018 5:04 PM TECHNICAL ANALYST [facility] Leukocyte UA 3+(A) Negative 06/21/2018 5:04 PM TECHNICAL ANALYST [facility] Urine Microscopy Urine microscopy to follow 06/21/2018 5:04 PM TECHNICAL ANALYST [facility] Urine URINE SPECIMEN OBTAINED BY CLEAN CATCH PROCEDURE / Unknown Collection / Unknown 06/21/2018 4:35 PM TECHNICAL ANALYST 06/21/2018 4:50 PM TECHNICAL ANALYST Narrative [facility] - 06/21/2018 5:04 PM TECHNICAL ANALYST Aly Moulton DO LAB - URINALYSIS O RDERABLES Performing Organization Address [facility] de Phone Number [facility] [address] [place] [id number] * (ABNORMAL) URINE MICROSCOPIC ONLY (06/21/2018 4:35 PM TECHNICAL ANALYST) RBC UA 51-100(A) None Seen, 0-2, 3-5 # /hpf 06/21/2018 5:09 PM TECHNICAL ANALYST [facility] WBC UA 6-10(A) None Seen, 0-5 # /hpf 06/21/2018 5:09 PM TECHNICAL ANALYST [facility] Bacteria UA None Seen None Seen 06/21/2018 5:09 PM TECHNICAL ANALYST [facility] Squamous Epithelial Cells 3-5 None Seen, 0-2, 3-5 /hpf 06/21/2018 5:09 PM TECHNICAL ANALYST [facility] Urine URINE SPECIMEN OBTAINED BY CLEAN CATCH PROCEDURE / Unknown Collection / Unknown 06/21/2018 4:35 PM TECHNICAL ANALYST 06/21/2018 4:50 PM TECHNICAL ANALYST Narrative [facility] - 06/21/2018 5:09 PM TECHNICAL ANALYST Aly Moulton DO LAB - URINALYSIS O RDERABLES Performing Organization Address [facility] Co de Phone Number [facility] [address] [place] [address] * (ABNORMAL) VANCOMYCIN LEVEL TROUGH (06/21/2018 3:12 PM TECHNICAL ANALYST) Only the most recent of2 resultswithin the time period is included. Vancomycin Trough 26.4(HH) 10.0 - 20.0 ug/mL 06/21/2018 3:39 PM TECHNICAL ANALYST [facility] Blood BLOOD SPECIMEN / Unknown Venipuncture / Unknown 06/21/2018 3:12 PM TECHNICAL ANALYST 06/21/2018 3:20 PM TECHNICAL ANALYST Cooper Cruz MD LAB - CHEMISTRY JEREMY PINEDA [facility] [address] [place] [address] * IR PICC PT OVER 5 YRS WO PORT (06/21/2018 9:01 AM TECHNICAL ANALYST) Anatomical Region Laterality Modality X-Ray Angiograph y 06/21/2018 9:29 AM TECHNICAL ANALYST Impressions 06/21/2018 9:31 AM TECHNICAL ANALYST SONOGRAPHICALLY AND FLUOROSCOPICALLY GUIDED PLACEMENT OF A 28 CM LENGTH SINGLE LUMEN 5 F PICC, WITHOUT INCIDENT. THERE IS OCCLUSION OF THE RIGHT SUBCLAVIAN VEIN AT THE ACCESS SITES OF THE AICD LEADS Reading Radiologist: Preston Malave MD on 06/21/2018 at 9:31 AM Narrative 06/21/2018 9:31 AM TECHNICAL ANALYST RIGHT ARM ULTRASOUND AND FLUOROSCOPICALLY GUIDED PICC PLACEMENT INDICATION: Postoperative wound infection TECHNIQUE: The procedure was performed by Dr. Malave. The procedure was explained, and potential risks of pain, bleeding, infection, venous thrombosis and vessel injury were discussed. The patient wished to proceed. The procedure was performed using a sterile technique, including scrub prep of my hands, with the procedure team all wearing surgical caps, mask, gown and sterile gloves. The skin of the right upper arm was prepped in the usual manner with a chlorhexidine scrub. The area was draped. A timeout was performed. Under sterile conditions, the deep veins of the right upper extremity were evaluated with compression and color Doppler ultrasound, from the antecubital space to the axilla. The deep veins evaluated in the upper extremity are readily compressible and free of thrombus. The skin over the right basilic vein was infiltrated with a buffered lidocaine solution, and the vessel was accessed directly under ultrasound guidance, with the needle seen entering through the anterior wall of this vessel on sonography. Permanent ultrasound images were obtained. An 0.018 floppy tipped guidewire was then advanced, under fluoroscopy, and a dermatotomy was made. An exchange was made for a 5 [place] peel-away sheath, and the guide was then passed to the level of the mid right subclavian vein. There was an impediment to passage of the wire centrally. A 5 [place] Kumpe catheter was passed over the guidewire, but I was not able to direct a guidewire centrally. A length measurement was then made. A 28 cm length single lumen 5 [place] PICC was then placed so that its tip was in the mid right subclavian vein, peripheral to the entrance site of the AICD leads. The guide wire and peel-away sheath were removed. That the catheter could aspirate blood was confirmed, and it was then flushed with saline. The catheter was secured to the skin with the anchoring device, and a digital spot image confirmed final catheter tip position. The total fluoroscopy time was 1.3 minutes. Procedure Note Preston Malave MD - 06/21/2018 RIGHT ARM ULTRASOUND AND FLUOROSCOPICALLY GUIDED PICC PLACEMENT INDICATION: Postoperative wound infection TECHNIQUE: The procedure was performed by Dr. Malave. The procedure was explained, and potential risks of pain, bleeding, infection, venous thrombosis and vessel injury were discussed. The patient wished to proceed. The procedure was performed using a sterile technique, including scrub prep of my hands, with the procedure team all wearing surgical caps, mask, gown and sterile gloves. The skin of the right upper arm was prepped in the usual manner with a chlorhexidine scrub. The area was draped. A timeout was performed. Under sterile conditions, the deep veins of the right upper extremity were evaluated with compression and color Doppler ultrasound, from the antecubital space to the axilla. The deep veins evaluated in the upper extremity are readily compressible and free of thrombus. The skin over the right basilic vein was infiltrated with a buffered lidocaine solution, and the vessel was accessed directly under ultrasound guidance, with the needle seen entering through the anterior wall of this vessel on sonography. Permanent ultrasound images were obtained. An 0.018 floppy tipped guidewire was then advanced, under fluoroscopy, and a dermatotomy was made. An exchange was made for a 5 [place] peel-away sheath, and the guide was then passed to the level of the mid right subclavian vein. There was an impediment to passage of the wire centrally. A 5 [place] Kumpe catheter was passed over the guidewire, but I was not able to direct a guidewire centrally. A length measurement was then made. A 28 cm length single lumen 5 [place] PICC was then placed so that its tip was in the mid right subclavian vein, peripheral to the entrance site of the AICD leads. The guide wire and peel-away sheath were removed. That the catheter could aspirate blood was confirmed, and it was then flushed with saline. The catheter was secured to the skin with the anchoring device, and a digital spot image confirmed final catheter tip position. The total fluoroscopy time was 1.3 minutes. IMPRESSION SONOGRAPHICALLY AND FLUOROSCOPICALLY GUIDED PLACEMENT OF A 28 CM LENGTH SINGLE LUMEN 5 F PICC, WITHOUT INCIDENT. THERE IS OCCLUSION OF THE RIGHT SUBCLAVIAN VEIN AT THE ACCESS SITES OF THE AICD LEADS Reading Radiologist: Preston Malave MD on 06/21/2018 at 9:31 AM Anat Ferro MD IR ORDERABL ES * (ABNORMAL) COMPREHENSIVE METABOLIC PANEL (06/21/2018 4:12 AM TECHNICAL ANALYST) Only the most recent of2 resultswithin the time period is included. Glucose 122(H) 74 - 106 mg/dL 06/21/2018 4:[address] [facility] Sodium 137 136 - 145 mmol/L 06/21/2018 4:58 AM TECHNICAL ANALYST [facility] Potassium 3.6 3.5 - 5.1 mmol/L 06/21/2018 4:[address] [facility] Chloride 100 98 - 107 mmol/L 06/21/2018 4:[address] [facility] CO2 32(H) 22 - 31 mmol/L 06/21/2018 4:[address] [facility] Calcium 8.3(L) 8.5 - 10.1 mg/dL 06/21/2018 4:58 AM [facility] Anion Gap 5(L) 8 - 16 mmol/L 06/21/2018 4:58 AM [facility] BUN 23(H) 7 - 21 mg/dL 06/21/2018 4:58 AM [facility] Creatinine 0.89 0.50 - 1.30 mg/dL 06/21/2018 4:58 AM [facility] Alkaline Phosphatase 97 38 - 126 U/L 06/21/2018 4:58 AM [facility] ALT 18 13 - 61 U/L 06/21/2018 4:58 AM [facility] AST 19 5 - 40 U/L 06/21/2018 4:58 AM [facility] Protein Total 8.4(H) 6.4 - 8.2 gm/dL 06/21/2018 4:58 AM [facility] Albumin 2.9(L) 3.4 - 5.0 gm/dL 06/21/2018 4:58 AM [facility] Bilirubin Total 0.4 0.2 - 1.0 mg/dL 06/21/2018 4:58 AM [facility] eGFR by MDRD >60 >60 mL/min/1.7 3m2 06/21/2018 4:58 AM [facility] eGFR by MDRD >60 >60 mL/min/1.7 3m2 06/21/2018 4:58 AM [facility] Blood BLOOD SPECIMEN / Unknown Venipuncture / Unknown 06/21/2018 4:12 AM TECHNICAL ANALYST 06/21/2018 4:23 AM TECHNICAL ANALYST Caroline Brown MD LAB - CHEMISTRY [facility] Organization Address City/State/ZIP Co de Phone Number [facility] [address] [place] [phone] * CT HUMERUS RIGHT WO CONTRAST (06/20/2018 9:41 AM TECHNICAL ANALYST) Anatomical Region Laterality Modality Upper Extremity Computed Tomogra phy 06/20/2018 9:54 AM TECHNICAL ANALYST Impressions 06/20/2018 9:56 AM TECHNICAL ANALYST Subcoracoid bursitis. No acute findings. Reading Radiologist: Vanesa Stover MD on 06/20/2018 at 9:56 AM Narrative 06/20/2018 9:[address] right humerus without contrast CLINICAL INDICATIONS: Severe right arm pain, bruising, and limited range of motion. TECHNIQUE: Axial CT imaging of the right humerus was performed without contrast. Coronal and sagittal multiplanar reformats were created. FINDINGS: There is fluid-filled distention of the subcoracoid bursa consistent with a bursitis. There are no other fluid collections. There is no glenohumeral or elbow joint effusion. The musculature is normal in configuration. There is no soft tissue gas. The humerus is in anatomic alignment. There is no evidence of acute or subacute fracture. There is no evidence of periostitis or bone destruction. Procedure Note Vanesa Stover MD - 06/20/2018 CT right humerus without contrast CLINICAL INDICATIONS: Severe right arm pain, bruising, and limited range of motion. TECHNIQUE: Axial CT imaging of the right humerus was performed without contrast. Coronal and sagittal multiplanar reformats were created. FINDINGS: There is fluid-filled distention of the subcoracoid bursa consistent with a bursitis. There are no other fluid collections. There is no glenohumeral or elbow joint effusion. The musculature is normal in configuration. There is no soft tissue gas. The humerus is in anatomic alignment. There is no evidence of acute or subacute fracture. There is no evidence of periostitis or bone destruction. IMPRESSION Subcoracoid bursitis. No acute findings. Reading Radiologist: Vanesa Stover MD on 06/20/2018 at 9:56 AM Anat Ferro MD CT ORDERABL ES * CT CHEST WO CONTRAST (06/20/2018 9:41 AM TECHNICAL ANALYST) Anatomical Region Laterality Modality Chest Computed Tomogra phy 06/20/2018 9:56 AM TECHNICAL ANALYST Impressions 06/20/2018 10:33 AM TECHNICAL ANALYST LEFT BASILAR CONSOLIDATION CONSISTENT WITH ATELECTASIS AND/OR INFILTRATE. ADVANCED THORACIC SCOLIOSIS CONVEX TO THE RIGHT. Edited by Kacey Johnson on 06/20/2018 10:03 AM Reading Radiologist: Vanesa Stover MD on 06/20/2018 at 10:33 AM Narrative 06/20/2018 10:[address] THORAX WITHOUT CONTRAST CLINICAL INDICATION: Breast cancer, status post left mastectomy. Worsening chest swelling and right arm pain. Worsening nausea. Cardiac dysrhythmia. COMPARISON: Chest x-ray 06/14/2018. TECHNIQUE: Axial CT imaging of the thorax from the lung apices to the upper abdomen was performed without contrast. Coronal and sagittal multiplanar reformats were created. FINDINGS: There are postsurgical changes consistent with a left mastectomy. There is mild pleural thickening and minimal interstitial thickening along the anterior left chest wall consistent with sequela of prior radiation therapy. There is consolidation with air bronchogram formation in the caudal aspect of the left lower lobe consistent with atelectasis and/or infiltrate. There is minimal subpleural atelectasis within the posterior right lower lobe. There are no suspicious pulmonary nodules or masses. There is no pneumothorax. There is no pleural effusion. The heart size is normal. A triple-chamber AICD is in place. There are no pathologically enlarged mediastinal, hilar, or axillary lymph nodes. There is no pericardial effusion. There is advanced thoracic scoliosis convex to the right. There is bony demineralization. There are no suspicious osteoblastic or osteolytic lesions. Images of the upper abdomen demonstrate a left renal cyst. An IVC filter is noted. The gallbladder is surgically absent. Procedure Note Vanesa Stover MD - 06/20/2018 CT THORAX WITHOUT CONTRAST CLINICAL INDICATION: Breast cancer, status post left mastectomy. Worsening chest swelling and right arm pain. Worsening nausea. Cardiac dysrhythmia. COMPARISON: Chest x-ray 06/14/2018. TECHNIQUE: Axial CT imaging of the thorax from the lung apices to the upper abdomen was performed without contrast. Coronal and sagittal multiplanar reformats were created. FINDINGS: There are postsurgical changes consistent with a left mastectomy. There is mild pleural thickening and minimal interstitial thickening along the anterior left chest wall consistent with sequela of prior radiation therapy. There is consolidation with air bronchogram formation in the caudal aspect of the left lower lobe consistent with atelectasis and/or infiltrate. There is minimal subpleural atelectasis within the posterior right lower lobe. There are no suspicious pulmonary nodules or masses. There is no pneumothorax. There is no pleural effusion. The heart size is normal. A triple-chamber AICD is in place. There are no pathologically enlarged mediastinal, hilar, or axillary lymph nodes. There is no pericardial effusion. There is advanced thoracic scoliosis convex to the right. There is bony demineralization. There are no suspicious osteoblastic or osteolytic lesions. Images of the upper abdomen demonstrate a left renal cyst. An IVC filter is noted. The gallbladder is surgically absent. IMPRESSION LEFT BASILAR CONSOLIDATION CONSISTENT WITH ATELECTASIS AND/OR INFILTRATE. ADVANCED THORACIC SCOLIOSIS CONVEX TO THE RIGHT. Edited by Kacey Johnson on 06/20/2018 10:03 AM Reading Radiologist: Vanesa Stover MD on 06/20/2018 at 10:33 AM Anat Ferro MD CT ORDERABL ES * VAS RIGHT VENOUS DUPLEX UE (06/18/2018 2:29 PM TECHNICAL ANALYST) Anatomical Region Laterality Modality Ultrasound 06/18/2018 1:48 PM TECHNICAL ANALYST Narrative Procedure Note Dk [place] MD - 06/19/2018 [place] [address] Upper Extremity Venous Ultrasound Report Pat.Name: LORIE CAMPBELL Pat.ID: [id number] .Date: 06/18/2018 Refer.MD: Bhumika Roblero Exam Time: 1:48:00 PM Study Type:UE Venous Age: 2 1950,67Y Sex: FEMALE Sonogrphr: Akhil Sanchez RVT Pat. Stat.:Inpatient Room: [facility] Reason for Study:T81.42XA Infection of deep incisional surgical after procedure, initial encounter Procedures:Upper Extremity Venous - Right Visit ID: [id number] ++++++++++++++++++++++++++++++++++++ SUMMARY: ++++++++++++++++++++++++++++++++++++ There is no evidence of an acute deep venous thrombosis in the right internal jugular vein. There is no evidence of an acute deep or superificial venous thrombosis in the right upper extremity. ++++++++++++++++++++++++++++++++++++ FINDINGS: ++++++++++++++++++++++++++++++++++++ Procedure: Venous duplex imaging of the right upper extremity, up to and including the internal jugular vein, was performed using color flow and spectral Doppler analysis. Study Quality: This study is of adequate technical quality. Rt Arm: This study is limited to the right upper extremity at the request of the ordering physician and is of adequate technical quality. All vessels seen appear patent and compressible. There was spontaneous and phasic flow seen in all the other veins of the right arm. Signed 06/19/2018 10:47 AM Dk [place] MD Bhumika Roblero MD VASCULAR LAB ORDERAB LES * (ABNORMAL) DIFFERENTIAL MANUAL (06/18/2018 3:48 AM TECHNICAL ANALYST) WBC Auto 6.6 x10E9/L 06/18/2018 4:54 AM [facility] WBC Corrected 4.4 - 10.7 x10E9/L 06/18/2018 4:54 AM [facility] nRBC /100 WBC 06/18/2018 4:54 AM [facility] Neutrophil % Manual 57 44 - 73 % 06/18/2018 4:54 AM [facility] Lymphocytes % Manual 36 20 - 43 % 06/18/2018 4:54 AM [facility] Monocytes % Manual 5 5 - 13 % 06/18/2018 4:54 AM [facility] Eosinophils % Manual 1 0 - 6 % 06/18/2018 4:54 AM [facility] Atypical Lymphocyte % Manual 1(H) <=0 % 06/18/2018 4:54 AM [facility] Cells Counted 100 # cells 06/18/2018 4:54 AM [facility] RBC Morphology Normal 06/18/2018 4:54 AM [facility] WBC Morph Normal 06/18/2018 4:54 AM [facility] Platelet Estimation Normal 06/18/2018 4:54 AM [facility] Blood BLOOD SPECIMEN / Unknown Venipuncture / Unknown 06/18/2018 3:48 AM TECHNICAL ANALYST 06/18/2018 3:55 AM TECHNICAL ANALYST Bhumika Roblero MD LAB - HEMATOLOGY ORD ERABLES Performing Organization Address City/[facility]/ZIP Co de Phone Number [facility] [address] [place] [address] * (ABNORMAL) BASIC METABOLIC PANEL (CALCIUM TOTAL) (06/18/2018 3:48 AM TECHNICAL ANALYST) Only the most recent of4 resultswithin the time period is included. Glucose 99 74 - 106 mg/dL 06/18/2018 4:11 AM [facility] Sodium 136 136 - 145 mmol/L 06/18/2018 4:11 AM [facility] Potassium 3.8 3.5 - 5.1 mmol/L 06/18/2018 4:11 AM [facility] Chloride 99 98 - 107 mmol/L 06/18/2018 4:11 AM [facility] CO2 33(H) 22 - 31 mmol/L 06/18/2018 4:11 AM [facility] Calcium 9.0 8.5 - 10.1 mg/dL 06/18/2018 4:11 AM [facility] Anion Gap 4(L) 8 - 16 mmol/L 06/18/2018 4:11 AM [facility] BUN 17 7 - 21 mg/dL 06/18/2018 4:11 AM [facility] Creatinine 0.84 0.50 - 1.30 mg/dL 06/18/2018 4:11 AM [facility] eGFR by MDRD >60 >60 mL/min/1.7 3m2 06/18/2018 4:11 AM [facility] eGFR by MDRD >60 >60 mL/min/1.7 3m2 06/18/2018 4:11 AM [facility] Blood BLOOD SPECIMEN / Unknown Venipuncture / Unknown 06/18/2018 3:48 AM TECHNICAL ANALYST 06/18/2018 3:55 AM TECHNICAL ANALYST Bhumika Roblero MD LAB - CHEMISTRY ORDE RABBRANDY Performing Organization Address City/[facility]/ZIP Co de Phone Number [facility] [address] [place] [address] * CULTURE FUNGUS OTHER+FUNGUS SMEAR (06/16/2018 5:27 PM TECHNICAL ANALYST) Culture No fungus isolated KIMBER 07/10/2018 12:06 PM [facility] Fungus Smear No yeast or hyphae seen 07/10/2018 12:06 PM [facility] Microbiology SPECIMEN FROM WOUND / Unknown 06/16/2018 5:27 PM TECHNICAL ANALYST 06/16/2018 6:[address] [facility] Narrative [facility] - 07/10/2018 12:06 PM TECHNICAL ANALYST Surgical Description: Left Foot Deep Wound Gerson Eppersonumair DP LAB - MICRO BIOLOGY ORDERABLES [facility] [address] [place] [address], [facility] [phone] * (ABNORMAL) CULTURE WOUND+GRAM STAIN (06/16/2018 5:27 PM TECHNICAL ANALYST) Only the most recent of2 resultswithin the time period is included. Culture Light Diphtheroids(A) KIMBER 06/20/2018 7:24 AM [facility] Comment:No further workup pe rformed Culture Rare Staphylococcus aureus(A) KIMBER 06/20/2018 7:24 AM [facility] Culture Rare Staphylococcus epidermidis(A) KIMBER 06/20/2018 7:24 AM [facility] Comment:No further workup pe rformed Gram Stain Light White blood cells 06/20/2018 7:24 AM [facility] Gram Stain No organisms seen 018 7:24 AM [facility] Microbiology SPECIMEN FROM WOUND / Unknown 06/16/2018 5:27 PM TECHNICAL ANALYST 06/16/2018 6:[address] [facility] Narrative [facility] - 06/20/2018 7:24 AM TECHNICAL ANALYST Surgical Description: Left Foot Deep Wound Organism Antibiotic Method Susceptibility Staphylococcus aureus Ciprofloxacin KIMBER <=0.5 ug/mL: Susceptible Staphylococcus aureus Clindamycin KIMBER 0.25 ug/mL: Susceptible Staphylococcus aureus Doxycycline KIMBER <=0.5 ug/mL: Susceptible Staphylococcus aureus Erythromycin KIMBER <=0.25 ug/mL: Susceptible Staphylococcus aureus Gentamicin KIMBER <=0.5 ug/mL: Susceptible Staphylococcus aureus Inducible Clindamy maria teresa Resistance KIMBER NEG ug/mL: Neg Staphylococcus aureus Levofloxacin KIBMER 0.25 ug/mL: Susceptible Staphylococcus aureus Linezolid KIMBER 2 ug/mL: Susceptible Staphylococcus aureus Oxacillin KIMBER <=0.25 ug/mL: Susceptible Staphylococcus aureus Tetracycline KIMBER <=1 ug/mL: Susceptible Staphylococcus aureus Trimethoprim-sulfa methoxa zole KIMBER <=10 ug/mL: Susceptible Staphylococcus aureus Vancomycin KIMBER <=0.5 ug/mL: Susceptible Comment:Methicillin-suscepti ble Staphylococci are susceptible to oxacillin, nafcillin, cloxacillin,dicloxacillin, beta lactam/betalactamase inhibitor combinations, cephalosporins including cefazolin and carbapenems. Gerson Ingram [facility] - MICRO BIOLOGY ORDERABLES Performing Organization Address City/[facility]/ZIP Co de Phone Number [facility] [address] [place] [address], [facility] [phone] * CULTURE ANAEROBE (06/16/2018 5:27 PM TECHNICAL ANALYST) Culture No anaerobic organisms isolated KIMBER 06/22/2018 3:04 PM TECHNICAL ANALYST [facility] Microbiology SPECIMEN FROM WOUND / Unknown 06/16/2018 5:27 PM TECHNICAL ANALYST 06/16/2018 6:39 PM TECHNICAL ANALYST Narrative [facility] - 06/22/2018 3:04 PM TECHNICAL ANALYST Surgical Description: Left Foot Deep Wound Gerson XAVIER LAB - MICRO BIOLOGY ORDERABLES Performing Organization Address [facility] Co de Phone Number [facility] [address] [facility] [place] [address], [facility] [phone] * XR FOOT LEFT 3VW OR MORE (06/14/2018 4:27 PM TECHNICAL ANALYST) Anatomical Region Laterality Modality Ankle / Foot Radiographic Maddison ging 06/14/2018 4:33 PM TECHNICAL ANALYST Impressions 06/14/2018 4:34 PM TECHNICAL ANALYST Irregular lucency at the first metatarsal. Diffuse soft tissue swelling of the foot. Reading Radiologist: Ana Watkins MD on 06/14/2018 at 4:34 PM Narrative 06/14/2018 4:34 PM TECHNICAL ANALYST Left foot 3 views unilateral INDICATION: Left foot infection, pain 3 views of the left foot are provided and show diffuse soft tissue swelling. Postsurgical changes are noted of the first proximal phalanx with 2 cannulated screws in the metatarsal. Irregular osteotomy line remains visible. Please correlate with the timing of the surgery. This may be postoperative finding. If surgery was not recent, this is concerning for infection. Procedure Note Ana Watkins MD - 06/14/2018 Left foot 3 views unilateral INDICATION: Left foot infection, pain 3 views of the left foot are provided and show diffuse soft tissue swelling. Postsurgical changes are noted of the first proximal phalanx with 2 cannulated screws in the metatarsal. Irregular osteotomy line remains visible. Please correlate with the timing of the surgery. This may be postoperative finding. If surgery was not recent, this is concerning for infection. IMPRESSION Irregular lucency at the first metatarsal. Diffuse soft tissue swelling of the foot. Reading Radiologist: Ana Watkins MD on 06/14/2018 at 4:34 PM Bhavesh Murry [facility] DIAGNOSTIC IMAGING O RDERABLES * (ABNORMAL) C-REACTIVE PROTEIN (06/14/2018 3:39 PM TECHNICAL ANALYST) C-Reactive Protein 4.09(H) <0.30 mg/dL 06/14/2018 4:14 PM TECHNICAL ANALYST [facility] Blood BLOOD SPECIMEN / Unknown Venipuncture / Unknown 06/14/2018 3:39 PM TECHNICAL ANALYST 06/14/2018 3:38 PM TECHNICAL ANALYST Jhonathan Carrillo MD LAB - CHEMISTRY [facility] Organization Address City/State/ZIP Co de Phone Number [facility] [address] [place] [address] * (ABNORMAL) ERYTHROCYTE SEDIMENTATION RATE (06/14/2018 3:39 PM TECHNICAL ANALYST) Erythrocyte Sedimentation Rate Automated 97(H) 0 - 30 MM/HR 06/14/2018 3:46 PM TECHNICAL ANALYST [facility] Blood BLOOD SPECIMEN / Unknown Venipuncture / Unknown 06/14/2018 3:39 PM TECHNICAL ANALYST 06/14/2018 3:39 PM TECHNICAL ANALYST Jhonathan Carrillo MD LAB - HEMATOLOGY ORD ERABLES [facility] [address] [place] [address] * XR CHEST PA AND LATERAL (06/14/2018 2:27 PM TECHNICAL ANALYST) Anatomical Region Laterality Modality Chest Radiographic Maddison ging 06/14/2018 2:29 PM TECHNICAL ANALYST Narrative 06/14/2018 2:30 PM TECHNICAL ANALYST Chest 2 views INDICATION: Shortness of breath FINDINGS: 2 views the chest the prior shows right-sided pacemaker with lead tips in right atrium with 2 toward the right ventricle. There is slight elevation left hemidiaphragm with left lower lobe atelectasis. Heart size is normal. Right convex midthoracic scoliosis is present. Reading Radiologist: Javi Colby MD on 06/14/2018 at 2:30 PM Procedure Note Javi Colby MD - 06/14/2018 Chest 2 views INDICATION: Shortness of breath FINDINGS: 2 views the chest the prior shows right-sided pacemaker with lead tips in right atrium with 2 toward the right ventricle. There is slight elevation left hemidiaphragm with left lower lobe atelectasis. Heart size is normal. Right convex midthoracic scoliosis is present. Reading Radiologist: Javi Colby MD on 06/14/2018 at 2:30 PM Pauline Jorge VEHICLE CARE SPECIALIST-OIL AND [employer] FIELD TECHNICIAN DIAGNOSTIC IMAGING ORDERABLES * EKG 12-LEAD (06/14/2018 2:25 PM TECHNICAL ANALYST) Only the most recent of2 resultswithin the time period is included. Ventricular Rate 91 BPM [facility] Atrial Rate 91 BPM [facility] P-R Interval 116 ms [facility] QRS Duration ms 128 ms [facility] Q-T Interval ms 408 ms [facility] QTC Calculation (Bezet) 501 ms [facility] Calculated P Palmer 38 degrees [facility] Calculated R Palmer -160 degrees [facility] Calculated T Palmer 23 degrees [facility] Interpretation EKG Normal sinus rhythm AV sequential or dual chamber electronic pacemaker with Right bundle branch block morphology (consider BiV pacemaker) Abnormal ECG Confirmed by LIBAN DAWSON [facility] ([id number]) on 06/17/2018 9:38:21 AM [facility] MUSE 06/14/2018 2:25 PM TECHNICAL ANALYST 06/17/2018 9:38 AM TECHNICAL ANALYST Jhonathan Carrillo MD ECG ORDERABLES [facility] * CARDIAC PACER/DEFIB ORDER (06/09/2018 1:31 AM TECHNICAL ANALYST) Narrative 06/09/2018 1:31 AM TECHNICAL ANALYST Ordered by an unspecified provider. Scanned Document CARDIAC SERVICES ORD ERABLES * GROSS + MICRO EXAM (05/26/2002 11:02 AM TECHNICAL ANALYST) Result CASE NUMBER [id number] Comment: ORDERING PHYSICIAN MARGARET SCHMIDT SPECIMEN TYPE Esophageal Biopsy-DISTAL Date 05/28/2002 Physician Rubén Gross Description The specimen is received in formalin, labeled with the patient's name, and `distal esophagus' and consists of two fragments of soft white tissue, one measuring .2 x .2 x .1 cm. and .4 x .2 x .1 cm. The entire specimen is submitted in one cassette. [facility] [place] Microscopic Exam Sections show fragment of squamous mucosa with unremarkable histology. A few scattered chronic inflammatory cells are seen. No glandular elements are identified. There is no evidence of basal cell hyperplasia, eosinophil infiltration or elongation of papillae. Intestinal metaplasia, dysplasia, or malignancy is not seen. MC/ Diagnosis I. Esophagus, distal, biopsy A. Mild chronic inflammation. MC/ Certified Personal Trainer [facility] [place] Pathologist Benito Martin M.D. / Soo Mart M.D. [place]. 05/28/2002 0952 <1> CPT code 79954 MISCELLANEOUS SAMPLES / Unknown 05/26/2002 11:02 AM TECHNICAL ANALYST 05/26/2002 11:02 AM TECHNICAL ANALYST Historical Provider LAB - PATHOLOGY/C YTOLOGY ORDERABLES Care Teams Bone Cooking Operator Relationship Specialty Start Date End Date Raciel Meléndez DO PCP - General Internal Medicine Geriatric Medicine 8/22/18
[2024-09-06 19:00] VITALS: BP 126/75; PULSE 63; RESP 17; O2SAT 98
[2024-09-06 20:05] VITALS: BP 119/72; PULSE 70; RESP 19; TEMP 36.7; O2SAT 97
== END 2024-09-06 19:55 | disposition home or self-care (01) ==
PROVIDERS: Emergency Provider Student in an Organized Health Care Education/Training Program
DX: S09.90XA Unspecified injury of head, initial encounter (principal); I50.9 Heart failure, unspecified; I11.0 Hypertensive heart disease with heart failure; I25.10 Atherosclerotic heart disease of native coronary artery without angina pectoris; E78.00 Pure hypercholesterolemia, unspecified; E03.9 Hypothyroidism, unspecified; G47.33 Obstructive sleep apnea (adult) (pediatric); Z95.810 Presence of automatic (implantable) cardiac defibrillator; Z85.3 Personal history of malignant neoplasm of breast; Z86.73 Personal history of transient ischemic attack (TIA), and cerebral infarction without residual deficits; Z92.21 Personal history of antineoplastic chemotherapy; Z90.710 Acquired absence of both cervix and uterus; Z90.49 Acquired absence of other specified parts of digestive tract; Z79.01 Long term (current) use of anticoagulants; Z79.899 Other long term (current) drug therapy; W07.XXXA Fall from chair, initial encounter
CPT/HCPCS: 70450; 72125; 93005; 99284; A9270

== ENCOUNTER 2025-06-07 11:42 | Inpatient (IN) | payer MEDICARE, SELFPAY ==
[2025-06-07] VITALS (7 sets, daily range): BP systolic 100–137; BP diastolic 53–87; PULSE 64–78; RESP 16–18; TEMP 36.6–36.9; O2SAT 98–100
--- NOTE | ~2025-06-07 | XR_ITS ---
EXAMINATION: XR foot LT min 3V, 06/07/2025 14:41 SEARCH ENGINE MARKETING MANAGER HISTORY: LT FOOT PAIN SWELLING COMPARISON: No comparisons available. Findings: Postsurgical changes proximal phalanx fifth digit. No acute fracture identified. Severe degenerative changes of the second and first metatarsophalangeal joints with probable remote fractures, there are severe degenerative changes also of the second proximal interphalangeal joint. Soft tissues unremarkable. Impression: No acute fracture or malalignment. Reviewed, dictated and finalized at location P. CH ENGINE MARKETING MANAGER Impression: No acute fracture or malalignment.
--- NOTE | ~2025-06-07 | XR_ITS ---
EXAMINATION: XR chest 1V portable DATE: 06/07/2025 14:48 INDICATION: Cough TECHNIQUE: frontal view of the chest was obtained. COMPARISON: Chest radiograph dated 05/01/2022 FINDINGS: Opacities along the elevated left hemidiaphragm and atelectasis although differential includes pneumonia. No pulmonary edema, pleural effusion or pneumothorax. Heart size is normal. Three lead pacemaker/AICD seen with leads projecting over the expected locations of the right atrial appendage, apex of t he right ventricle and overlying the left ventricle likely having traversed the coronary sinus. Left subclavian and axillary vascular stenting. IMPRESSION: 1. Unchanged prominent elevation of the left hemidiaphragm with chronic atelectasis/scarring at the left lung base. Reviewed, dictated and finalized at location A. LER HELPER IMPRESSION: 1. Unchanged prominent elevation of the left hemidiaphragm with chronic atelect asis/scarring at the left lung base.
--- NOTE | ~2025-06-07 | CT_ITS ---
EXAM/PROCEDURE: CT foot LT w con HISTORY: foot ulcer COMPARISON: X-rays from same date TECHNIQUE: Contrast-enhanced left foot CT FINDINGS: Partially visualized internal fixation hardware along the lateral distal fibula. Cerclage wire also present in the proximal great toe metatarsal bone. Dysplastic/postsurgical changes in the distal great toe metatarsal bone also present. Changes about the great toe appear corticated with no acute or aggressive cortical erosive changes seen. Moderate infiltrative changes in the soft tissues about the great toe metatarsophalangeal joint noted. No abscess or drainable fluid collection. IMPRESSION: Moderately extensive infiltrative changes about the great toe metatarsophalangeal joint which could be associated with inflammatory or infectious process such as cellulitis. No abscess. No definite osteomyelitis, although extensive dysplastic changes are present about the great toe metatarsal bone and proximal phalanx; if there is persistent concern for possible osteomyelitis, correlation with left foot MRI may provide additional beneficial information. Reviewed, dictated and finalized at location A. CIATE PROFESSOR COMPUTER SCIENCE IMPRESSION: Moderately extensive infiltrative changes about the great toe metat arsophalangeal joint which could be associated with inflammatory or infectious process such as cellulitis. No abscess. No definite osteomyelitis, although ext ensive dysplastic changes are present about the great toe metatarsal bone and p roximal phalanx; if there is persistent concern for possible osteomyelitis, cor relation with left foot MRI may provide additional beneficial information.
--- NOTE | 2025-06-07 12:15 | PC.NURSE ---
Pt visitor shouted for help in waiting room reporting pt had syncopal episode while sitting in wheelchair. Pt immediately brought back for repeat vital signs, Pt BP went from 107/87 to 100/53. Pt A&Ox4 at this time, states she felt no different prior to syncopal event. ED supervisor propellant charge loading made aware. Cold rag placed on pt head.
[2025-06-07 14:47] LABS: Hematocrit 34.2 % (37.0-47.0); Hemoglobin 10.8 g/dL (12.0-15.0); Immature Granulocyte Percent A 0.8 % (0-0.5); Lymphocytes Absolute Auto 1.49 K/mm3 (0.9-3.2); Mean Corpuscular HGB Conc 31.6 g/dl (32-36); Mean Corpuscular Hemoglobin 30.9 pg (26-34); Mean Corpuscular Volume 97.7 fl (80-100); Nucleated Red Blood Cells Absolute Auto 0.000 K/mm3 (0.0-0.012); Nucleated Red Blood Cells Perc 0.0 % (0.0-0.2); Platelet Count Result 288 k/mm3 (150-375); Red Blood Count 3.50 M/mm3 (4.2-5.4); White Blood Count 6.5 K/mm3 (4.5-10.0)
[2025-06-07 14:58] LABS: Alanine Aminotransferase 14 U/L (6-35); Albumin Level 3.8 g/dL (3.5-5.1); Alkaline Phosphatase 85 U/L (38-126); Anion Gap 3 mmol/L (4-12); Aspartate Amino Transferase 26 U/L (14-36); Bilirubin,Total 0.9 mg/dL (0.2-1.3); Blood Urea Nitrogen 9 mg/dL (7-17); CRP 3.6 mg/dL (<1.0); Calcium 8.7 mg/dL (8.4-10.2); Carbon Dioxide 35 mmol/L (22-30); Chloride 100 mmol/L (98-107); Estimated CRCL calculation 51 ml/min; Estimated Glomerular Filt Rate > 60; Glucose 124 mg/dL (65-110); Potassium 3.3 mmol/L (3.4-5.0); Sodium 138 mmol/L (137-145); Total Protein 8.0 g/dL (6.3-8.2)
[2025-06-07 15:27] LABS: Procalcitonin 0.1 ng/mL
[2025-06-07] MEDS: MEROPENEM 1 GM in SODIUM CHLORIDE 0.9% IV 100 ML 200 ML IVPB (16:16)
--- NOTE | 2025-06-07 16:59 | ED.GENADULT ---
HPI - General Adult General Chief complaint: Wound/Laceration Stated complaint: foot infection left Time Seen by Provider: 06/07/25 14:08 History of Present Illness HPI narrative: Patient is a 74-year-old female presents emergency department chief complaint of infected left toe patient reports that she sees Podiatry and noticed that she started having redness to her left foot patient states that she talked to her psychological anthropologist who recommended that she come to the emergency department and recieve IV antibiotics and CT scan. Related Data Home Medications ?Medication ?Instructions ?Recorded ?Confirmed ?Last Taken ?Type albuterol sulfate 90 mcg/actuation 1 puff inhalation Q4-6H 09/05/20 10/05/22 Unknown History aerosol inhaler aspirin 81 mg tablet,delayed 81 mg PO DAILY 09/05/20 10/05/22 Unknown History release gabapentin 600 mg tablet 600 mg PO QID 09/05/20 10/05/22 Unknown History lorazepam 0.5 mg tablet 0.5 mg PO DAILY 09/05/20 10/05/22 Unknown History lovastatin 40 mg tablet 40 mg PO DAILY 09/05/20 10/05/22 Unknown History mirtazapine 15 mg tablet 15 mg PO HS 09/05/20 10/05/22 Unknown History pantoprazole 20 mg tablet,delayed 40 mg PO DAILY 09/05/20 10/05/22 Unknown History release sennosides 8.6 mg-docusate sodium 1 tablet PO BID 09/05/20 10/05/22 Unknown History 50 mg tablet (Stool Softener-Laxative) spironolactone 25 mg tablet 25 mg PO DAILY 09/05/20 10/05/22 Unknown History tramadol 50 mg tablet 50 mg PO Q6-8H 09/05/20 10/05/22 Unknown History apixaban 5 mg tablet (Eliquis) 5 mg PO BID 01/22/21 10/05/22 Unknown History carvedilol 3.125 mg tablet 3.125 mg PO BID 01/22/21 10/05/22 Unknown History furosemide 20 mg tablet 40 mg PO DAILY 01/22/21 10/05/22 Unknown History trazodone 50 mg tablet 50 mg PO HS 01/22/21 10/05/22 Unknown History magnesium gluconate 500 mg tablet 500 mg PO BID 04/28/22 10/05/22 Unknown History meclizine 25 mg tablet 25 mg PO QID 04/28/22 10/05/22 Unknown History potassium chloride 10 mEq 10 meq PO DAILY 04/28/22 10/05/22 Unknown History capsule,extended release Allergies Allergy/AdvReac Type Severity Reaction Status Date / Time erythromycin base Allergy Mild RASH Verified 06/07/25 11:43 morphine Allergy Mild RASH Verified 06/07/25 11:43 Penicillins Allergy Mild RASH Verified 06/07/25 11:43 Macrolide Antibiotics Allergy Unknown Unknown Verified 06/07/25 11:43 azithromycin Allergy Nausea and Verified 06/07/25 11:43 Vomiting cephalexin (From Keflex) Allergy Nausea and Verified 06/07/25 11:43 Vomiting Cephalosporins AdvReac Intermediate Nausea and Verified 06/07/25 11:43 Vomiting codeine AdvReac Intermediate Nausea and Verified 06/07/25 11:43 Vomiting hydrocodone AdvReac Intermediate Confusion Verified 06/07/25 11:43 meperidine AdvReac Intermediate Nausea and Verified 06/07/25 11:43 Vomiting CYCLOBENZAPRINE HCL Allergy Mild Unknown Uncoded 09/06/24 14:46 Chicken Meat Allergy Unknown Unknown Uncoded 09/06/24 14:46 TAXATINE Allergy Unknown Unknown Uncoded 09/06/24 14:46 BUTORPHANOL TARTRATE AdvReac Intermediate Nausea and Uncoded 09/06/24 14:46 Vomiting Review of Systems Review of Systems: A 10 system review of systems was completed on the patient and is negative except for what is stated in the HPI. Nursing and ancillary documentation was reviewed. [facility]LY [facility] Past Medical History Medical History History of CVA (cerebrovascular accident) Chemotherapy-induced neuropathy Cataracts, bilateral Breast cancer chemo Insomnia Hypothyroidism TIKI on CPAP CHF (congestive heart failure) CAD (coronary artery disease) High cholesterol HTN (hypertension) Chronic anticoagulation Surgical History Surgical History History of tonsillectomy History of removal of pigmented skin lesion AICD (automatic cardioverter/defibrillator) present H/O breast biopsy H/O hysterectomy with oophorectomy S/P cholecystectomy H/O mastectomy left Family History Family History Grandparent Breast cancer Father Rupture of bowel Cerebrovascular accident Mother Diabetes mellitus Acute myocardial infarction Sibling Acute myocardial infarction Diabetes mellitus Social History Social History Social History: The patient lives with her . 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 She has 1 daughter Osbaldo who is her durable power skip miner blasting for healthcare. The patient is a lifelong nonsmoker. She does not use any alcohol marijuana or illicit drugs. Code status full code. Smoking status: Never smoker Alcohol intake: never Substance use: never Lack of Transportation: No Lack of Food: Never True Current Housing: I Have Housing Concerned About Future Housing: No Difficulty Paying Gas/Electric Bills: No Difficulty Paying for Meds: No Currently Unemployed: No Education: High School Diploma/GED Difficulty w/ Childcare or Family Care: No Spiritual care concerns: No Exam Narrative: GENERAL: Well-appearing, well-nourished, and in no acute distress. HEAD: Normocephalic, atraumatic. EYES: PERRLA and EOMI. ENT: Nares clear, no rhinorrhea or epistaxis. Mucous membranes moist. NECK: Supple. CHEST: Clear to auscultation. No respiratory distress. HEART: Regular rate and rhythm. No murmur heard. Normal peripheral pulses. ABDOMEN: Soft, nontender, nondistended, normal active bowel sounds. EXTREMITIES: Normal range of motion. No edema. SKIN: Warm, dry, no rash. There is redness present to the left foot and 3rd toe NEURO: No focal deficits. Alert and oriented x3. PSYCH: Normal mood and affect. Course Vital Signs Vital signs: Vital Signs Temperature 36.7 C 06/07/25 11:48 Pulse Rate 68 06/07/25 11:48 Respiratory Rate 16 06/07/25 11:48 Blood Pressure 107/87 06/07/25 11:48 Pulse Oximetry 99 06/07/25 11:48 Oxygen Delivery Room Air 06/07/25 11:48 Temperature 36.9 C 06/07/25 13:51 Pulse Rate 68 06/07/25 13:53 Respiratory Rate 18 06/07/25 13:53 Blood Pressure 116/58 L 06/07/25 13:53 Pulse Oximetry 98 06/07/25 13:53 Oxygen Delivery Room Air 06/07/25 13:51 MDM Differential Diagnosis Differential Diagnosis: Differential diagnosis includes cellulitis, abscess, osteomyelitis, CT scan of the foot showed no evidence of to find osteomyelitis the patient did have an elevated CRP and sed rate but has a normal white blood cell count case was discussed with patient's psychological anthropologist who recommended starting antibiotics and given her white blood cell count was normal the patient be treated as an outpatient the patient will be started on Levaquin and Flagyl While finishing her IV antibiotics patient started to have increasing redness and streaking up the left leg with increased discomfort. At this time the patient does not have an immediate surgical intervention is required but in discussion with patient's psychological anthropologist it was felt the patient may benefit from IV antibiotics in the hospital. Lab Data 06/07/25 14:37 06/07/25 14:39 Labs: Lab Results 06/07/25 06/07/25 06/07/25 Range/Units 14:37 14:39 16:23 WBC 6.5 (4.5-10.0) K/mm3 RBC 3.50 L (4.2-5.4) M/mm3 Hgb 10.8 L (12.0-15.0) g/dL Hct 34.2 L (37.0-47.0) % MCV 97.7 (80-100) fl MCH 30.9 (26-34) pg MCHC 31.6 L (32-36) g/dl RDW 11.9 (11.5-14.5) % Plt Count 288 (150-375) k/mm3 MPV 10.2 (7.4-10.4) fl Immature Gran % (Auto) 0.8 H (0-0.5) % Neut % (Auto) 64.3 (45.5-73.1) % Lymph % (Auto) 23.1 (18.3-44.2) % [place] % (Auto) 8.8 H (2.6-8.5) % Eos % (Auto) 2.5 (0-4.4) % Baso % (Auto) 0.5 (0.2-1.2) % Lymph # (Auto) 1.49 (0.9-3.2) K/mm3 [place] # (Auto) 0.6 (0.1-0.6) K/mm3 Eos # (Auto) 0.2 (0-0.3) K/mm3 Baso # (Auto) 0.0 (0.0-0.1) K/mm3 Abs Immat Gran (auto) 0.05 H (0.00-0.031) K/mm3 Absolute Neuts (auto) 4.2 (1.3-6.7) K/mm3 Absolute Nucleated RBC 0.000 (0.0-0.012) K/mm3 Nucleated RBC % 0.0 (0.0-0.2) % ESR 77 H (0-20) mm/hr Sodium 138 (137-145) mmol/L Potassium 3.3 L (3.4-5.0) mmol/L Chloride 100 (98-107) mmol/L Carbon Dioxide 35 H (22-30) mmol/L Anion Gap 3 L (4-12) mmol/L BUN 9 D (7-17) mg/dL Creatinine 0.75 (0.7-1.0) mg/dL Estim Creat Clear Calc 51 ml/min Estimated GFR > 60 (59 - ) Glucose 124 H (65-110) mg/dL Lactic Acid 0.9 (0.7-2.0) mmol/L Calcium 8.7 (8.4-10.2) mg/dL Total Bilirubin 0.9 (0.2-1.3) mg/dL AST 26 (14-36) U/L ALT 14 (6-35) U/L Alkaline Phosphatase 85 (38-126) U/L C-Reactive Protein 3.6 H (<1.0) mg/dL Total Protein 8.0 (6.3-8.2) g/dL Albumin 3.8 (3.5-5.1) g/dL Procalcitonin 0.1 ng/mL Urine Color Yellow (Yellow) Urine Appearance Cloudy H (Clear) Urine pH 5.5 (5.0-9.0) Ur Specific [place] 1.017 (1.001-1.035) Urine Protein Negative (Negative) mg/dL Urine Glucose (UA) Negative (Negative) mg/dL Urine Ketones Negative (Negative) mg/dL Ur Blood (Man) Negative (Negative) Urine Nitrate Negative (Negative) Urine Bilirubin Negative (Negative) Urine Urobilinogen 0.2 (<2.0) mg/dL Leukocyte Esterase Rfl 1+ H (Negative) SHANITA/UL Urine RBC 0-2 (0-2) /hpf Urine WBC 0-5 (0-3) /hpf Ur Squamous Epith Cells None seen (Few) /hpf Urine Bacteria None seen /hpf Urine Casts 3-5 Hyaline Casts Present (None) /lpf Nasal MRSA (PCR) (NOT DETECTE) 06/07/25 Range/Units 16:25 WBC (4.5-10.0) K/mm3 RBC (4.2-5.4) M/mm3 Hgb (12.0-15.0) g/dL Hct (37.0-47.0) % MCV (80-100) fl MCH (26-34) pg MCHC (32-36) g/dl RDW (11.5-14.5) % Plt Count (150-375) k/mm3 MPV (7.4-10.4) fl Immature Gran % (Auto) (0-0.5) % Neut % (Auto) (45.5-73.1) % Lymph % (Auto) (18.3-44.2) % [place] % (Auto) (2.6-8.5) % Eos % (Auto) (0-4.4) % Baso % (Auto) (0.2-1.2) % Lymph # (Auto) (0.9-3.2) K/mm3 [place] # (Auto) (0.1-0.6) K/mm3 Eos # (Auto) (0-0.3) K/mm3 Baso # (Auto) (0.0-0.1) K/mm3 Abs Immat Gran (auto) (0.00-0.031) K/mm3 Absolute Neuts (auto) (1.3-6.7) K/mm3 Absolute Nucleated RBC (0.0-0.012) K/mm3 Nucleated RBC % (0.0-0.2) % ESR (0-20) mm/hr Sodium (137-145) mmol/L Potassium (3.4-5.0) mmol/L Chloride (98-107) mmol/L Carbon Dioxide (22-30) mmol/L Anion Gap (4-12) mmol/L BUN (7-17) mg/dL Creatinine (0.7-1.0) mg/dL Estim Creat Clear Calc ml/min Estimated GFR (59 - ) Glucose (65-110) mg/dL Lactic Acid (0.7-2.0) mmol/L Calcium (8.4-10.2) mg/dL Total Bilirubin (0.2-1.3) mg/dL AST (14-36) U/L ALT (6-35) U/L Alkaline Phosphatase (38-126) U/L C-Reactive Protein (<1.0) mg/dL Total Protein (6.3-8.2) g/dL Albumin (3.5-5.1) g/dL Procalcitonin ng/mL Urine Color (Yellow) Urine Appearance (Clear) Urine pH (5.0-9.0) Ur Specific [place] (1.001-1.035) Urine Protein (Negative) mg/dL Urine Glucose (UA) (Negative) mg/dL Urine Ketones (Negative) mg/dL Ur Blood (Man) (Negative) Urine Nitrate (Negative) Urine Bilirubin (Negative) Urine Urobilinogen (<2.0) mg/dL Leukocyte Esterase Rfl (Negative) SHANITA/UL Urine RBC (0-2) /hpf Urine WBC (0-3) /hpf Ur Squamous Epith Cells (Few) /hpf Urine Bacteria /hpf Urine Casts Hyaline Casts (None) /lpf Nasal MRSA (PCR) Not detected (NOT DETECTE) Imaging Data Radiologist's impression: ITS Impressions Chest X-Ray 06/07/25 14:49 IMPRESSION: 1. Unchanged prominent elevation of the left hemidiaphragm with chronic atelectasis/scarring at the left lung base. Foot X-Ray 06/07/25 15:00 Impression: No acute fracture or malalignment. Foot CT 06/07/25 15:53 IMPRESSION: Moderately extensive infiltrative changes about the great toe metatarsophalangeal joint which could be associated with inflammatory or infectious process such as cellulitis. No abscess. No definite osteomyelitis, although extensive dysplastic changes are present about the great toe metatarsal bone and proximal phalanx; if there is persistent concern for possible osteomyelitis, correlation with left foot MRI may provide additional beneficial information. Discharge Plan Discharge Clinical Impression: Cellulitis of foot, left Patient Disposition: Still a Patient Condition: Stable Instructions: Cellulitis (ED) Patient Language: Wolof Prescriptions: New levofloxacin 750 mg tablet 750 mg PO DAILY 10 Days Qty: 10 0RF metronidazole 500 mg tablet 500 mg PO Q8H 10 Days Qty: 30 0RF No Action gabapentin 600 mg tablet 600 mg PO QID lovastatin 40 mg tablet 40 mg PO DAILY sennosides-docusate sodium [Stool Softener-Laxative] 8.6-50 mg tablet 1 tablet PO BID aspirin 81 mg tablet,delayed release (DR/EC) 81 mg PO DAILY tramadol 50 mg tablet 50 mg PO Q6-8H spironolactone 25 mg tablet 25 mg PO DAILY pantoprazole 20 mg tablet,delayed release (DR/EC) 40 mg PO DAILY lorazepam 0.5 mg tablet 0.5 mg PO DAILY Rx Instructions: May take 1/2 to 1 tab mirtazapine 15 mg tablet 15 mg PO HS Rx Instructions: Take 1/2 to 1 tab at bedtime albuterol sulfate 90 mcg/actuation HFA aerosol inhaler 1 puff INHALATION Q4-6H clindamycin HCl 300 mg capsule 300 mg PO Q6H Qty: 40 0RF trazodone 50 mg tablet 50 mg PO HS Rx Instructions: Take 1 or 2 tabs at HS carvedilol 3.125 mg tablet 3.125 mg PO BID furosemide 20 mg tablet 40 mg PO DAILY Eliquis 5 mg tablet 5 mg PO BID docusate sodium [Stool Softener] 100 mg capsule 100 mg PO BID Qty: 60 0RF potassium chloride 10 mEq Capsule, Extended Release 10 meq PO DAILY magnesium gluconate 500 mg Tablet 500 mg PO BID meclizine 25 mg Tablet 25 mg PO QID doxycycline hyclate 100 mg capsule 100 mg PO BID Qty: 10 0RF Follow-up/Referrals: Tianna Poon DPM [Physician, Podiatry] UNKNOWN,DOCTOR [Primary Care Provider] Time of Disposition: 17:19
[2025-06-07] MEDS: metroNIDAZOLE 500 MG/ISO 100ML 500 MG/100 ML BAG 100 MG IVPB (17:07)
[2025-06-07 17:30] LABS: Add Urine Microscopic? YES; Appearance Urine Cloudy (Clear); Glucose Urine UA Negative (Negative); Leukocyte Esterase Ur 1+ LEU/UL (Negative); Nitrate Urine Negative (Negative); Specific Grav Ur 1.017 (1.001-1.035)
[2025-06-07 17:43] LABS: MRSA (PCR) NOT DETECTED (NOT DETECTE)
[2025-06-07] MEDS: VANCOMYCIN 1,750 MG/NS 500 ML 1,750 MG/500 ML BAG 250 MG IVPB (18:12)
--- NOTE | 2025-06-07 19:39 | PC.NURSE ---
patient foot and leg noted to be more red and swollen with redness traveling up her leg. Dr notified, and requested at bedside to look at the patients leg and foot
[2025-06-07] MEDS: KCL 20 MEQ/SW 100 ML 100 ML 50 MEQ IVPB (20:36)
[2025-06-07] MEDS: traMADol HCL (*CRX) 50 MG TABLET PO (20:37)
[2025-06-07] MEDS: POTASSIUM CHLORIDE 20 MEQ PACKET (FOR LIQUID) 40 MEQ PO (22:09)
[2025-06-07] MEDS: HYDROmorphone HCL INJ (*CRX) 1 MG/ML SYR 0.5 MG IV PUSH (22:10)
--- NOTE | 2025-06-07 22:18 | WPCEDHO ---
ED Hand Off Checklist All vitals saved:YES IV Site documented: YES All med administrations documented: YES Triage Note Triage Note Pt sent to ED by inventory associate 06/07/25 13:51 Cleve who she states wants her admitted on IV antibiotics for an infection to her L foot. Pt reports multiple wounds to her L foot that she states she noticed a couple months ago. Reports the main wound they are concerned with is one on the side of her L big toe that started 8 weeks ago. Pt reports hx of lymphedema. Pt denies fevers. Allergies erythromycin base Allergy (Mild, Verified 06/07/25 11:43) RASH morphine Allergy (Mild, Verified 06/07/25 11:43) RASH Penicillins Allergy (Mild, Verified 06/07/25 11:43) RASH Macrolide Antibiotics Allergy (Unknown, Verified 06/07/25 11:43) Unknown UNKNOWN REACTION PER PT 02/19/15, PER UNCODED ALLERGIES 10/09/08 azithromycin Allergy (Verified 06/07/25 11:43) Nausea and Vomiting cephalexin (From Keflex) Allergy (Verified 06/07/25 11:43) Nausea and Vomiting Cephalosporins Adverse Reaction (Intermediate, Verified 06/07/25 11:43) Nausea and Vomiting codeine Adverse Reaction (Intermediate, Verified 06/07/25 11:43) Nausea and Vomiting hydrocodone Adverse Reaction (Intermediate, Verified 06/07/25 11:43) Confusion PT REPORTS N/V REACTION ON 02/19/15 meperidine Adverse Reaction (Intermediate, Verified 06/07/25 11:43) Nausea and Vomiting CYCLOBENZAPRINE HCL Allergy (Mild, Uncoded 09/06/24 14:46) Unknown PT DOESN'T REMEMBER EVER TAKING THIS OR HAVING A REACTION Chicken Meat Allergy (Unknown, Uncoded 09/06/24 14:46) Unknown TAXATINE Allergy (Unknown, Uncoded 09/06/24 14:46) Unknown BUTORPHANOL TARTRATE Adverse Reaction (Intermediate, Uncoded 09/06/24 14:46) Nausea and Vomiting Family History (Last Reviewed 06/07/25 @ 17:14 by Jeff Concepcion MD) Grandparent Breast cancer Father Rupture of bowel Cerebrovascular accident Mother Diabetes mellitus Acute myocardial infarction Sibling Acute myocardial infarction Diabetes mellitus Active Medications including assessments/comments Hydromorphone HCl (Hydromorphone Hcl Inj (*Crx) 1 Mg/Ml Syr) 0.5 mg IV PUSH Q4H PRN PRN Reason: Pain Rated 7-10 Last Admin: 06/07/25 22:10 Dose: 0.5 mg Documented By: JACKELINE RENEE Pain Assessment Document 06/07/25 22:10 JACKELINE (Rec: 06/07/25 22:10 JACKELINE [id number]) Pain Evaluation Pain Evaluation Assessment Pain Scale Pain Scale Used Numeric (1 - 10) Self Report Pain Assessment Reported Pain Level 10 Pain Score Pain Score 10: Self Report Administered/Completed Medications Discontinued Medications Metronidazole (Flagyl 500 Mg/Iso Soln 100 Ml) 500 mg in 100 mls @ 100 mls/hr IVPB ONCE STA Stop: 06/07/25 15:16 Last Infusion: 06/07/25 18:13 Dose: Infused Documented By: Admin: 06/07/25 17:07 Dose: 100 mls/hr Documented By: IDRIS Meropenem 1 gm/ Sodium (Chloride) 100 mls @ 200 mls/hr IVPB ONCE ONE Stop: 06/07/25 14:46 Last Infusion: 06/07/25 17:08 Dose: Infused Documented By: Admin: 06/07/25 16:16 Dose: 200 mls/hr Documented By: IDRIS Vancomycin HCl (Vancomycin 1,750 Mg/Ns 500 Ml) 1,750 mg in 500 mls @ 250 mls/hr IVPB ONCE ONE Stop: 06/07/25 17:59 Last Infusion: 06/07/25 20:36 Dose: Infused Documented By: Admin: 06/07/25 18:12 Dose: 250 mls/hr Documented By: IDRIS Potassium Chloride (Kcl 20 Meq/Sw 100 Ml) 100 mls @ 50 mls/hr IVPB ONCE STA Stop: 06/07/25 22:12 Last Admin: 06/07/25 20:36 Dose: 50 mls/hr Documented By: JACKELINE Co-signed By: GRICELDA Potassium Chloride (Potassium Chloride 20 Meq Packet (For Liquid)) 40 meq PO ONCE STA Stop: 06/07/25 20:15 Last Admin: 06/07/25 22:09 Dose: 40 meq Documented By: JACKELINE Tramadol HCl (Tramadol Hcl (*Crx) 50 Mg Tablet) 50 mg PO ONCE ONE Stop: 06/07/25 19:30 Last Admin: 06/07/25 20:37 Dose: 50 mg Documented By: JACKELINE Notes 06/07/25 19:39 Nurse Note by Nadia Perera. patient foot and leg noted to be more red and swollen with redness traveling up her leg. notified, and requested at bedside to look at the patients leg and foot Initialized on 06/07/25 19:39 - END OF NOTE 06/07/25 12:15 Nurse Note by Brandi Ferguson Pt visitor shouted for help in waiting room reporting pt had syncopal episode while sitting in wheelchair. Pt immediately brought back for repeat vital signs, Pt BP went from 107/87 to 100/53. Pt A&Ox4 at this time, states she felt no different prior to syncopal event. ED furnace charger made aware. Cold rag placed on pt head. Initialized on 06/07/25 12:15 - END OF NOTE Interventions/Assessments IV / Saline Lock, Insert Start: 06/07/25 16:16 Freq: Status: Active Protocol: Document 06/07/25 16:16 AJW (Rec: 06/07/25 16:17 IDRIS [id number]) IV Assessment Peripheral Access Right Antecubital IV Catheter Access Initiated IV Insertion Date 06/07/25 IV Insertion Time 16:17 Catheter Gauge 20 IV Site Assessment WNL IV Care and WNL Maintenance Last Vital Signs Temperature 98.4 F 06/07/25 13:51 Pulse Rate 64 06/07/25 22:10 Respiratory Rate 18 06/07/25 22:10 Pulse Oximetry 98 06/07/25 22:10 Blood Pressure 103/61 06/07/25 22:10 Blood Pressure Mean 75 06/07/25 22:10 Blood Pressure Position Supine 06/07/25 22:10 Oxygen Delivery Room Air 06/07/25 13:51 Weight 70.6 kg 06/07/25 13:51 Last Result - Abnormals Only RBC 3.50 M/mm3 (4.2-5.4) L 06/07/25 14:37 Hgb 10.8 g/dL (12.0-15.0) L 06/07/25 14:37 Hct 34.2 % (37.0-47.0) L 06/07/25 14:37 MCHC 31.6 g/dl (32-36) L 06/07/25 14:37 Immature Gran % (Auto) 0.8 % (0-0.5) H 06/07/25 14:37 [place] % (Auto) 8.8 % (2.6-8.5) H 06/07/25 14:37 Abs Immat Gran (auto) 0.05 K/mm3 (0.00-0.031) H 06/07/25 14:37 ESR 77 mm/hr (0-20) H 06/07/25 14:37 Potassium 3.3 mmol/L (3.4-5.0) L 06/07/25 14:39 Carbon Dioxide 35 mmol/L (22-30) H 06/07/25 14:39 Anion Gap 3 mmol/L (4-12) L 06/07/25 14:39 Glucose 124 mg/dL (65-110) H 06/07/25 14:39 C-Reactive Protein 3.6 mg/dL (<1.0) H 06/07/25 14:39 Urine Appearance Cloudy (Clear) H 06/07/25 16:23 Leukocyte Esterase Rfl 1+ SHANITA/UL (Negative) H 06/07/25 16:23 Most Recent Suicide Severity Rating Suicide Severity Rating NO RISK INDICATED 06/07/25 13:51
--- NOTE | 2025-06-07 22:45 | ADMGEN ---
This patient, Lorie White, was admitted to 3 [facility] Surg Room 319-01. Patient/family oriented to hospital policies and general routines including ID bracelet, bed and alarms, visiting hours, pain management, procedures, bathroom and other care routines, personal items, smoking policy, room service/diet, and visiting hours. Information on how to activate the Rapid Response Team has been discussed. Patient/Family are encouraged to report perceived risks to care and to ask questions if they do not understand what they are told or what they should do.
--- NOTE | 2025-06-07 22:45 | PM.IMHP2 ---
H&P: HPI History of Present Illness Date/Time: 06/07/25 22:45 Chief Complaint: Chronic foot wound that is infected Narrative: 74-year-old female with a past medical history of coronary artery disease, essential hypertension, CVA, breast cancer status post chemotherapy with associated chemotherapy-induced peripheral neuropathy, she says that someone mention 1 time that she also may have [id number]-Pugla. She presented to the ER who was referred to the ER by her lamp decorator due to increasing erythema of the foot. The patient has an area on the 3rd toe of the left foot that is open has surrounding callus. The end of the toe is erythematous. She reports that the wound developed about 8 weeks ago. She has been following with her lamp decorator each week regarding the wound. Six days ago she began having rigors and chills. Three days ago she developed increasing of the toe with the chronic wound. She also noticed developing erythema to the lateral portion of the ball of the foot overlying the site of her prior bunionectomy. Erythema then started to extend up the side of her foot into her ankle. She developed increasing lower extremity swelling. She denies any nausea or vomiting. She reports that she does not have much pain in the toe itself but she does have some pain that extends up into her ankle. She noticed that the erythema acutely worsened while she was in the ER. At the time my evaluation she thinks that the erythema has improved significantly after antibiotics. She reports that she has developed some functional urinary incontinence that she cannot get to the bathroom fast enough since she has been feeling weak. She denies any increased urinary frequency. She denies any shortness of breath, chest pain or palpitations. Review of Systems Review of Systems: 12 systems were reviewed with pertinent positives and negatives per HPI. Except as documented in the HPI, all other systems were reviewed and are negative. 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 She states that [facility] Past Medical History Medical History (Updated 06/07/25 @ 23:44 by Elyssa Scott DO) Ixlcfdk-Bhpbm-Hlejg disease Pulmonary embolism Endometrial cancer Lymphedema History of CVA (cerebrovascular accident) Chemotherapy-induced neuropathy Cataracts, bilateral Breast cancer chemo Insomnia Hypothyroidism TIKI on CPAP CHF (congestive heart failure) CAD (coronary artery disease) High cholesterol HTN (hypertension) Chronic anticoagulation Chronic anticoagulation with Eliquis Surgical History Surgical History (Updated 06/07/25 @ 23:26 by Elyssa Scott DO) History of tonsillectomy History of removal of pigmented skin lesion AICD (automatic cardioverter/defibrillator) present H/O breast biopsy H/O hysterectomy with oophorectomy S/P cholecystectomy H/O mastectomy left Family History Family History Grandparent Breast cancer Father Rupture of bowel Cerebrovascular accident Mother Diabetes mellitus Acute myocardial infarction Sibling Acute myocardial infarction Diabetes mellitus Social History Social History (Updated 06/08/25 @ 09:24 by Elyssa Scott DO) Social History: The patient lives with her of 57 years. 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 The patient is a lifelong nonsmoker. She does not use any alcohol marijuana or illicit drugs. She has 1 daughter. She still drives. Code status: DNR/DNI (per patient request) Surrogate decision maker: Nick Alley (daughter) Smoking status: Never smoker Second hand tobacco smoke exposure: Yes Alcohol intake: never Substance use: never Substance use type: does not use Lack of Transportation: No Lack of Food: Never True Current Housing: I Have Housing Concerned About Future Housing: No Difficulty Paying Gas/Electric Bills: No Difficulty Paying for Meds: No Currently Unemployed: No Education: High School Diploma/GED Difficulty w/ Childcare or Family Care: No Spiritual care concerns: No Meds Home Medications and Allergies Home Medications ?Medication ?Instructions ?Recorded ?Confirmed ?Type albuterol sulfate 90 mcg/actuation 1 puff inhalation Q4-6H 09/05/20 06/07/25 History aerosol inhaler aspirin 81 mg tablet,delayed 81 mg PO DAILY 09/05/20 06/07/25 History release gabapentin 600 mg tablet 900 mg PO QID 09/05/20 06/07/25 History lorazepam 0.5 mg tablet 0.5 mg PO DAILY 09/05/20 06/07/25 History lovastatin 40 mg tablet 40 mg PO DAILY 09/05/20 06/07/25 History mirtazapine 15 mg tablet 15 mg PO HS 09/05/20 06/07/25 History pantoprazole 20 mg tablet,delayed 40 mg PO DAILY 09/05/20 06/07/25 History release sennosides 8.6 mg-docusate sodium 1 tablet PO BID 09/05/20 06/07/25 History 50 mg tablet (Stool Softener-Laxative) spironolactone 25 mg tablet 25 mg PO DAILY 09/05/20 06/07/25 History tramadol 50 mg tablet 50 mg PO Q6-8H PRN pain 09/05/20 06/07/25 History apixaban 5 mg tablet (Eliquis) 5 mg PO BID 01/22/21 06/07/25 History carvedilol 3.125 mg tablet 3.125 mg PO BID 01/22/21 06/07/25 History furosemide 20 mg tablet 40 mg PO DAILY 01/22/21 06/07/25 History trazodone 50 mg tablet 50 mg PO HS 01/22/21 06/07/25 History magnesium gluconate 500 mg tablet 500 mg PO BID 04/28/22 06/07/25 History meclizine 25 mg tablet 25 mg PO QID 04/28/22 06/07/25 History potassium chloride 10 mEq 10 meq PO DAILY 04/28/22 06/07/25 History capsule,extended release docusate sodium 100 mg capsule 100 mg PO TID 06/07/25 06/07/25 History (Stool Softener) levofloxacin 750 mg tablet 750 mg PO DAILY 10 days #10 tabs 06/07/25 Rx metronidazole 500 mg tablet 500 mg PO Q8H 10 days #30 tabs 06/07/25 Rx nitroglycerin 0.4 mg sublingual 0.4 mg sublingual Q5M PRN chest 06/07/25 06/07/25 History tablet pain Allergies Allergy/AdvReac Type Severity Reaction Status Date / Time erythromycin base Allergy Mild RASH Verified 06/07/25 23:41 morphine Allergy Mild RASH Verified 06/07/25 23:41 Penicillins Allergy Mild RASH Verified 06/07/25 23:41 Macrolide Antibiotics Allergy Unknown Unknown Verified 06/07/25 23:41 azithromycin Allergy Nausea and Verified 06/07/25 23:41 Vomiting cephalexin (From Keflex) Allergy Nausea and Verified 06/07/25 23:41 Vomiting Cephalosporins AdvReac Intermediate Nausea and Verified 06/07/25 23:41 Vomiting codeine AdvReac Intermediate Nausea and Verified 06/07/25 23:41 Vomiting hydrocodone AdvReac Intermediate Confusion Verified 06/07/25 23:41 meperidine AdvReac Intermediate Nausea and Verified 06/07/25 23:41 Vomiting CYCLOBENZAPRINE HCL Allergy Mild Unknown Uncoded 09/06/24 14:46 Chicken Meat Allergy Unknown Unknown Uncoded 09/06/24 14:46 TAXATINE Allergy Unknown Unknown Uncoded 09/06/24 14:46 BUTORPHANOL TARTRATE AdvReac Intermediate Nausea and Uncoded 09/06/24 14:46 Vomiting Vital Signs Vital Signs - 24 hr 06/07/25 11:48 06/07/25 12:14 06/07/25 13:51 Temperature 98.1 F 98.0 F 98.4 F Pulse Rate 68 67 76 Respiratory Rate 16 17 18 Blood Pressure 107/87 100/53 L 116/58 L Pulse Oximetry 99 99 100 Oxygen Delivery Room Air Room Air 06/07/25 13:53 06/07/25 22:10 Temperature Pulse Rate 68 64 Respiratory Rate 18 18 Blood Pressure 116/58 L 103/61 Pulse Oximetry 98 98 Oxygen Delivery Exam Narrative: Weight 70.6 kg BMI 28.5 Results Labs Labs: Laboratory Tests 06/07/25 14:37 06/07/25 14:39 06/07/25 06/07/25 06/07/25 14:37 14:39 16:23 WBC 6.5 RBC 3.50 L Hgb 10.8 L Hct 34.2 L MCV 97.7 MCH 30.9 MCHC 31.6 L RDW 11.9 Plt Count 288 MPV 10.2 Immature Gran % (Auto) 0.8 H Neut % (Auto) 64.3 Lymph % (Auto) 23.1 [place] % (Auto) 8.8 H Eos % (Auto) 2.5 Baso % (Auto) 0.5 Lymph # (Auto) 1.49 [place] # (Auto) 0.6 Eos # (Auto) 0.2 Baso # (Auto) 0.0 Abs Immat Gran (auto) 0.05 H Absolute Neuts (auto) 4.2 Absolute Nucleated RBC 0.000 Nucleated RBC % 0.0 ESR 77 H Sodium 138 Potassium 3.3 L Chloride 100 Carbon Dioxide 35 H Anion Gap 3 L BUN 9 D Creatinine 0.75 Estim Creat Clear Calc 51 Estimated GFR > 60 Glucose 124 H Lactic Acid 0.9 Calcium 8.7 Total Bilirubin 0.9 AST 26 ALT 14 Alkaline Phosphatase 85 C-Reactive Protein 3.6 H Total Protein 8.0 Albumin 3.8 Procalcitonin 0.1 Urine Color Yellow Urine Appearance Cloudy H Urine pH 5.5 Ur Specific [place] 1.017 Urine Protein Negative Urine Glucose (UA) Negative Urine Ketones Negative Ur Blood (Man) Negative Urine Nitrate Negative Urine Bilirubin Negative Urine Urobilinogen 0.2 Leukocyte Esterase Rfl 1+ H Urine RBC 0-2 Urine WBC 0-5 Ur Squamous Epith Cells None seen Urine Bacteria None seen Urine Casts 3-5 Hyaline Casts Present Nasal MRSA (PCR) 06/07/25 16:25 WBC RBC Hgb Hct MCV MCH MCHC RDW Plt Count MPV Immature Gran % (Auto) Neut % (Auto) Lymph % (Auto) [place] % (Auto) Eos % (Auto) Baso % (Auto) Lymph # (Auto) [place] # (Auto) Eos # (Auto) Baso # (Auto) Abs Immat Gran (auto) Absolute Neuts (auto) Absolute Nucleated RBC Nucleated RBC % ESR Sodium Potassium Chloride Carbon Dioxide Anion Gap BUN Creatinine Estim Creat Clear Calc Estimated GFR Glucose Lactic Acid Calcium Total Bilirubin AST ALT Alkaline Phosphatase C-Reactive Protein Total Protein Albumin Procalcitonin Urine Color Urine Appearance Urine pH Ur Specific [place] Urine Protein Urine Glucose (UA) Urine Ketones Ur Blood (Man) Urine Nitrate Urine Bilirubin Urine Urobilinogen Leukocyte Esterase Rfl Urine RBC Urine WBC Ur Squamous Epith Cells Urine Bacteria Urine Casts Hyaline Casts Nasal MRSA (PCR) Not detected Impressions Chest X-Ray 06/07/25 14:49 IMPRESSION: 1. Unchanged prominent elevation of the left hemidiaphragm with chronic atelectasis/scarring at the left lung base. Foot X-Ray 06/07/25 15:00 Impression: No acute fracture or malalignment. Foot CT 06/07/25 15:53 IMPRESSION: Moderately extensive infiltrative changes about the great toe metatarsophalangeal joint which could be associated with inflammatory or infectious process such as cellulitis. No abscess. No definite osteomyelitis, although extensive dysplastic changes are present about the great toe metatarsal bone and proximal phalanx; if there is persistent concern for possible osteomyelitis, correlation with left foot MRI may provide additional beneficial information. Quality VTE Prophylaxis VTE prophylaxis: pharmacologic ordered (Continue home Eliquis.) Assessment and Plan Assessment and plan (1) Cellulitis of foot, left: Code(s): L03.116 - Cellulitis of left lower limb Status: Acute (2) Chronic foot ulcer: Qualifiers: Laterality: left Non-pressure ulcer stage: unspecified non-pressure ulcer stage Qualified Code(s): L97.529 - Non-pressure chronic ulcer of other part of left foot with unspecified severity Code(s): L97.509 - Non-pressure chronic ulcer of other part of unspecified foot with unspecified severity Status: Acute (3) Lymphedema: Code(s): I89.0 - Lymphedema, not elsewhere classified Status: Acute (4) Acute hypokalemia: Code(s): E87.6 - Hypokalemia Status: Acute (5) TIKI on CPAP: Code(s): G47.33 - Obstructive sleep apnea (adult) (pediatric); Z99.89 - Dependence on other enabling machines and devices Status: Acute (6) Peripheral neuropathy: Qualifiers: Peripheral neuropathy type: polyneuropathy, other Qualified Code(s): G62.89 - Other specified polyneuropathies Code(s): G62.9 - Polyneuropathy, unspecified Status: Acute Plan Patient who has chronic foot wound due to multifactorial neuropathy and lymphedema who did now has an associated acute cellulitis with elevated ESR and CRP with rapidly spreading erythema. The patient will be admitted for treatment with IV antibiotic therapy. Due to the patient's multiple antibiotic ?allergies? antibiotic choices limited subsequently patient has been started on meropenem, Flagyl and vancomycin. Patient's lamp decorator has been consulted for further recommendations and management. Blood and wound cultures have been obtained and are pending. The patient will repeat CBC in a.m. will continue home tramadol and gabapentin pain. Patient does have some mild acute hypokalemia. Patient received 40 mEq p.o. potassium in the ER. Will repeat BMP in a.m. and will check magnesium level with a.m. labs. The patient does have a history of CHF, coronary disease and obstructive sleep apnea. Will order patient's home cardiac medications, Eliquis and auto titrating CPAP. Patient has been admitted as observation status. MEDICAL DECISION MAKING NARRATIVE -Spoke with the ED provider in detail regarding patient's evaluation, workup and management -Patient seen and examined at bedside -Collaborated with patient's nurse at the bedside in detail and addressed all concerns -Labs, electrolytes, radiology, investigations and test results personally reviewed and interpreted unless otherwise specified -ED/Consult/Nursing/Ancilliary notes on the chart reviewed and appreciated -applicable past medical records and labs were reviewed and unless stated otherwise. -Spoke with patient at bedside and diagnosis, plan of care was discussed and questions answered. Hospitalist MIPS Advance Care Plan I have confirmed that the patient's Advanced Care Plan is present, code status is documented, or surrogate decision maker is listed in patient medical record.: Yes Medication Reconciliation I have utilized all available resources to obtain, update and review the patients current medications (includes all prescriptions, OTC, herbals, cannabis, and nutritional supplements).: Yes
[2025-06-08] MEDS: APIXABAN 5 MG TABLET PO ×2 (00:08→07:58)
[2025-06-08] MEDS: MIRTAZAPINE 15 MG TABLET PO ×2 (00:09→20:10)
[2025-06-08] MEDS: GABAPENTIN 300 MG CAPSULE 900 MG PO ×5 (00:09→20:10)
[2025-06-08] MEDS: metroNIDAZOLE 500 MG/ISO 100ML 500 MG/100 ML BAG 100 MG IVPB ×2 (00:12→09:19)
[2025-06-08] MEDS: traMADol HCL (*CRX) 50 MG TABLET PO ×3 (00:20→20:18)
[2025-06-08 04:54] VITALS: BP 91/45; PULSE 70; RESP 18; TEMP 36.5; O2SAT 91
[2025-06-08 05:15] VITALS: BP 100/58
[2025-06-08 06:25] LABS: Hematocrit 32.9 % (37.0-47.0); Hemoglobin 10.3 g/dL (12.0-15.0); Immature Granulocyte Percent A 0.5 % (0-0.5); Lymphocytes Absolute Auto 1.35 K/mm3 (0.9-3.2); Mean Corpuscular HGB Conc 31.3 g/dl (32-36); Mean Corpuscular Hemoglobin 31.2 pg (26-34); Mean Corpuscular Volume 99.7 fl (80-100); Nucleated Red Blood Cells Absolute Auto 0.000 K/mm3 (0.0-0.012); Nucleated Red Blood Cells Perc 0.0 % (0.0-0.2); Platelet Count Result 264 k/mm3 (150-375); Red Blood Count 3.30 M/mm3 (4.2-5.4); White Blood Count 7.3 K/mm3 (4.5-10.0)
[2025-06-08 06:45] LABS: Anion Gap 0 mmol/L (4-12); Blood Urea Nitrogen 7 mg/dL (7-17); Calcium 8.4 mg/dL (8.4-10.2); Carbon Dioxide 33 mmol/L (22-30); Chloride 105 mmol/L (98-107); Estimated CRCL calculation 61 ml/min; Estimated Glomerular Filt Rate > 60; Glucose 77 mg/dL (65-110); Magnesium 2.0 mg/dL (1.6-2.3); Potassium 4.1 mmol/L (3.4-5.0); Sodium 138 mmol/L (137-145)
[2025-06-08] MEDS: PANTOPRAZOLE 40 MG TABLET PO (07:58)
[2025-06-08] MEDS: SPIRONOLACTONE 25 MG TABLET PO (07:58)
[2025-06-08] MEDS: FUROSEMIDE 40 MG TABLET PO (07:58)
[2025-06-08] MEDS: LORazepam (*CRX) 0.5 MG TABLET PO (07:58)
[2025-06-08] MEDS: ASPIRIN 81 MG ENTERIC TABLET PO (07:58)
[2025-06-08] MEDS: MECLIZINE HCL 25 MG TABLET PO ×4 (07:59→20:11)
[2025-06-08 08:00] VITALS: PULSE 70; RESP 18; O2SAT 91
[2025-06-08] MEDS: LOVASTATIN 20 MG TABLET 40 MG PO (08:00)
[2025-06-08] MEDS: DOCUSATE SODIUM 100 MG CAPSULE PO ×3 (08:00→17:33)
[2025-06-08] MEDS: POTASSIUM CHLORIDE 10 MEQ ER TABLET PO (08:00)
--- NOTE | 2025-06-08 10:05 | PM.IMPN2 ---
Assessment and Plan Assessment and Plan (1) Cellulitis of foot, left: Code(s): L03.116 - Cellulitis of left lower limb Status: Acute Assessment and Plan: 06/[address] Moderately extensive infiltrative changes about the great toe metatarsophalangeal joint which could be associated with inflammatory or infectious process such as cellulitis. No abscess. No definite osteomyelitis, although extensive dysplastic changes are present about the great toe metatarsal bone and proximal phalanx; if there is persistent concern for possible osteomyelitis, correlation with left foot MRI may provide additional beneficial information. --Follow podiatry recommendations. pending note. Patient reports she was seen by podiatry prior to admission, Dr Tianna Calix. Consult if able. Otherwise may need a surgery consult --Stop eliquis and start lovenox since discussing OR. Unclear reason for anticoagulation. 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 Requested records from [facility]. Also can consider discussing with cardiolgist, Dr Niles Moffett, who knows her well. --s/p 1 dose of meropenem, resume meropenem for now --Pharmacy to dose vancomycin. --Stop flagyl on meropenem --Follow blood cultures 06/07 Patient reports fever and chills prior to admission. --Follow clinically --ID consult with multiple allergies and ICD - (2) Chronic foot ulcer: Qualifiers: Laterality: left Non-pressure ulcer stage: unspecified non-pressure ulcer stage Qualified Code(s): L97.529 - Non-pressure chronic ulcer of other part of left foot with unspecified severity Code(s): L97.509 - Non-pressure chronic ulcer of other part of unspecified foot with unspecified severity Status: Acute (3) Lymphedema: Code(s): I89.0 - Lymphedema, not elsewhere classified Status: Acute Assessment and Plan: Avoid blood pressures and sticks to left arm (4) Acute hypokalemia: Code(s): E87.6 - Hypokalemia Status: Acute Assessment and Plan: Potassium 3.3, repeated and 4.1 today Follow BMP (5) TIKI on CPAP: Code(s): G47.33 - Obstructive sleep apnea (adult) (pediatric); Z99.89 - Dependence on other enabling machines and devices Status: Acute Assessment and Plan: CPAP hs (6) Peripheral neuropathy: Qualifiers: Peripheral neuropathy type: polyneuropathy, other Qualified Code(s): G62.89 - Other specified polyneuropathies Code(s): G62.9 - Polyneuropathy, unspecified Status: Acute Assessment and Plan: (7) Contracture, left hand: Code(s): M24.542 - Contracture, left hand Status: Acute Assessment and Plan: Patient reports contractures related to peripheral neuropathy Referral placed to PM&R outpatient Plan Reason for hospitalization Patient who has chronic foot wound due to multifactorial neuropathy and lymphedema who did now has an associated acute cellulitis with elevated ESR and CRP with rapidly spreading erythema. The patient will be admitted for treatment with IV antibiotic therapy. Due to the patient's multiple antibiotic ?allergies? antibiotic choices limited subsequently patient has been started on meropenem, Flagyl and vancomycin 1 dose of meropenem was given. Patient's director rehabilitation program has been consulted for further recommendations and management. Blood and wound cultures have been obtained and are pending. The patient will repeat CBC in a.m. will continue home tramadol and gabapentin pain. Patient does have some mild acute hypokalemia. Patient received 40 mEq p.o. potassium in the ER. Continue to follow BMP, mag The patient does have a history of CHF, coronary disease and obstructive sleep apnea. Will order patient's home cardiac medications, Eliquis and auto titrating CPAP. Time Spent With Patient Time with patient: Greater than 35 minutes Subjective Date/time seen: 06/08/25 10:05 Interval history: BP 91/45. Not dizzy. No fever or chills overnight Podiatry consulted, pending recommendations. She reports her foot is overall improved since admission but still warm and red, worse if dependent so she's been elevating her foot. She reports fevers and chills prior to admission. Consult ID with multiple antibiotic allergies and ICD. She received one dose of meropenem yesterday. Resume pending recommendations She's not sure why she's taking anticoagulation. Denies a history of afib or valve replacement. 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 She has an IVC filter. changing eliquis to lovenox She has a curriculum and assessment coordinator, Niles Moffett who is also a relative of a friend and should know more specifics [phone] Also requesting records from [facility]. Review of Systems Review of Systems: Exam Narrative: Weight 70.6 kg BMI 28.5 General - Awake and alert. No acute distress Eyes - PERRLA, EOM intact ENT - No thrush, No erythema Neck - No noticeable or palpable swelling Lymph Nodes - No lymphadenopathy Cardiovascular - RRR no m/r/g, no JVD Lungs: Clear to auscultation, No wheezing, use of accessory muscles or crackles Skin - Skin warm and dry, mild pink below mid calf to foot, warm, left 2nd toe is markedly red and painful. Abdomen - Normal bowel sounds, abdomen soft and nontender Extremities - No edema, cyanosis or clubbing. left hand contracted Musculoskeletal - 5/5 strength, normal range of motion, no swollen or erythematous joints. Neurological ? Alert and oriented x 3, CN 2-12 grossly intact. Psych: Normal mood and affect Objective Data Vital Signs Vital Signs: Vital Signs - 24 hr 06/07/25 11:48 06/07/25 12:14 06/07/25 13:51 Temperature 98.1 F 98.0 F 98.4 F Pulse Rate 68 67 76 Respiratory Rate 16 17 18 Blood Pressure 107/87 100/53 L 116/58 L Pulse Oximetry 99 99 100 Oxygen Delivery Room Air Room Air 06/07/25 13:53 06/07/25 22:10 06/07/25 23:09 Temperature 97.8 F Pulse Rate 68 64 78 Respiratory Rate 18 18 18 Blood Pressure 116/58 L 103/61 137/62 Pulse Oximetry 98 98 100 Oxygen Delivery 06/07/25 23:23 06/08/25 04:54 06/08/25 05:15 Temperature 97.7 F Pulse Rate 70 Respiratory Rate 18 Blood Pressure 91/45 L 100/58 L Pulse Oximetry 99 91 Oxygen Delivery Room Air 06/08/25 08:00 Temperature Pulse Rate 70 Respiratory Rate 18 Blood Pressure Pulse Oximetry 91 Oxygen Delivery Room Air Intake/Output Intake/Output: Intake & Output 06/05/25 06/06/25 06/07/25 06/08/25 23:59 23:59 23:59 23:59 Intake Total 700 340 Balance 700 340 Meds/Results Medications: Active Medications Generic Name Dose Route Start Last Admin Trade Name Freq PRN Reason Stop Dose Admin Albuterol 2 puff 06/07/25 23:35 Albuterol Sulfate (*Sp) Aerosol 1 Puff INHALATION Q4-6H JENNIFER Apixaban 5 mg 06/07/25 23:40 06/08/25 07:58 Apixaban 5 Mg Tablet PO 5 mg Q12HR JENNIFER Administration Aspirin 81 mg 06/08/25 09:00 06/08/25 07:58 Aspirin 81 Mg Enteric Tablet PO 81 mg DAILY JENNIFER Administration Carvedilol 3.125 mg 06/07/25 23:40 06/08/25 07:59 Carvedilol 3.125 Mg Tablet PO 3.125 mg Q12HR JENNIFER Administration Docusate Sodium 100 mg 06/08/25 09:00 06/08/25 08:00 Docusate Sodium 100 Mg Capsule PO 100 mg TID JENNIFER Administration Furosemide 40 mg 06/08/25 09:00 06/08/25 07:58 Furosemide 40 Mg Tablet PO 40 mg DAILY JENNIFER Administration Gabapentin 900 mg 06/07/25 23:40 06/08/25 07:58 Gabapentin 300 Mg Capsule PO 900 mg QID JENNIFER Administration Hydromorphone HCl 0.5 mg 06/07/25 20:14 06/07/25 22:10 Hydromorphone Hcl Inj (*Crx) 1 Mg/Ml Syr IV PUSH 0.5 mg Q4H PRN Administration Pain Rated 7-10 Metronidazole 500 mg in 100 mls @ 100 mls/hr 06/08/25 00:00 06/08/25 09:19 Flagyl 500 Mg/Iso Soln 100 Ml IVPB 100 mls/hr Q8H JENNIFER Administration Vancomycin HCl 1,250 mg in 250 mls @ 166.667 mls/hr 06/08/25 12:00 Vancomycin 1,250 Mg/Ns 250 Ml IVPB Q18H JENNIFER Lorazepam 0.5 mg 06/08/25 09:00 06/08/25 07:58 Lorazepam (*Crx) 0.5 Mg Tablet PO 0.5 mg DAILY JENNIFER Administration Lovastatin 40 mg 06/08/25 09:00 06/08/25 08:00 Lovastatin 20 Mg Tablet PO 40 mg DAILY JENNIFER Administration Meclizine HCl 25 mg 06/08/25 09:00 06/08/25 07:59 Meclizine Hcl 25 Mg Tablet PO 25 mg QID JENNIFER Administration Mirtazapine 15 mg 06/07/25 23:40 06/08/25 00:09 Mirtazapine 15 Mg Tablet PO 15 mg HS JENNIFER Administration Nitroglycerin 0.4 mg 06/07/25 23:35 Nitroglycerin Sl 0.4 Mg Tablet SUBLINGUAL Q5M PRN Chest Pain Pantoprazole Sodium 40 mg 06/08/25 09:00 06/08/25 07:58 Pantoprazole 40 Mg Tablet PO 40 mg DAILY JENNIFER Administration Potassium Chloride 10 meq 06/08/25 09:00 06/08/25 08:00 Potassium Chloride 10 Meq Er Tablet PO 10 meq DAILY JENNIFER Administration Spironolactone 25 mg 06/08/25 09:00 06/08/25 07:58 Spironolactone 25 Mg Tablet PO 25 mg DAILY JENNIFER Administration Tramadol HCl 50 mg 06/07/25 23:35 06/08/25 07:59 Tramadol Hcl (*Crx) 50 Mg Tablet PO 50 mg Q6-8H PRN Administration pain 4-10 Trazodone HCl 50 mg 06/07/25 23:40 06/08/25 00:09 Trazodone Hcl 50 Mg Tablet PO 50 mg HS JENNIFER Administration Radiology Results: ITS Impressions Chest X-Ray 06/07/25 14:49 IMPRESSION: 1. Unchanged prominent elevation of the left hemidiaphragm with chronic atelectasis/scarring at the left lung base. Foot X-Ray 06/07/25 15:00 Impression: No acute fracture or malalignment. Foot CT 06/07/25 15:53 IMPRESSION: Moderately extensive infiltrative changes about the great toe metatarsophalangeal joint which could be associated with inflammatory or infectious process such as cellulitis. No abscess. No definite osteomyelitis, although extensive dysplastic changes are present about the great toe metatarsal bone and proximal phalanx; if there is persistent concern for possible osteomyelitis, correlation with left foot MRI may provide additional beneficial information. Labs Labs: Laboratory Results - last 24 hr 06/07/25 06/07/25 06/07/25 14:37 14:39 16:23 WBC 6.5 RBC 3.50 L Hgb 10.8 L Hct 34.2 L MCV 97.7 MCH 30.9 MCHC 31.6 L RDW 11.9 Plt Count 288 MPV 10.2 Immature Gran % (Auto) 0.8 H Neut % (Auto) 64.3 Lymph % (Auto) 23.1 [place] % (Auto) 8.8 H Eos % (Auto) 2.5 Baso % (Auto) 0.5 Lymph # (Auto) 1.49 [place] # (Auto) 0.6 Eos # (Auto) 0.2 Baso # (Auto) 0.0 Abs Immat Gran (auto) 0.05 H Absolute Neuts (auto) 4.2 Absolute Nucleated RBC 0.000 Nucleated RBC % 0.0 ESR 77 H Sodium 138 Potassium 3.3 L Chloride 100 Carbon Dioxide 35 H Anion Gap 3 L BUN 9 D Creatinine 0.75 Estim Creat Clear Calc 51 Estimated GFR > 60 Glucose 124 H Lactic Acid 0.9 Calcium 8.7 Magnesium Total Bilirubin 0.9 AST 26 ALT 14 Alkaline Phosphatase 85 C-Reactive Protein 3.6 H Total Protein 8.0 Albumin 3.8 Procalcitonin 0.1 Urine Color Yellow Urine Appearance Cloudy H Urine pH 5.5 Ur Specific [place] 1.017 Urine Protein Negative Urine Glucose (UA) Negative Urine Ketones Negative Ur Blood (Man) Negative Urine Nitrate Negative Urine Bilirubin Negative Urine Urobilinogen 0.2 Leukocyte Esterase Rfl 1+ H Urine RBC 0-2 Urine WBC 0-5 Ur Squamous Epith Cells None seen Urine Bacteria None seen Urine Casts 3-5 Hyaline Casts Present Nasal MRSA (PCR) 06/07/25 06/08/25 16:25 06:16 WBC 7.3 RBC 3.30 L Hgb 10.3 L Hct 32.9 L MCV 99.7 MCH 31.2 MCHC 31.3 L RDW 12.0 Plt Count 264 MPV 10.0 Immature Gran % (Auto) 0.5 Neut % (Auto) 67.6 Lymph % (Auto) 18.5 [place] % (Auto) 10.7 H Eos % (Auto) 2.2 Baso % (Auto) 0.5 Lymph # (Auto) 1.35 [place] # (Auto) 0.8 H Eos # (Auto) 0.2 Baso # (Auto) 0.0 Abs Immat Gran (auto) 0.04 H Absolute Neuts (auto) 4.9 Absolute Nucleated RBC 0.000 Nucleated RBC % 0.0 ESR Sodium 138 Potassium 4.1 Chloride 105 Carbon Dioxide 33 H Anion Gap 0 L BUN 7 Creatinine 0.63 L Estim Creat Clear Calc 61 Estimated GFR > 60 Glucose 77 Lactic Acid Calcium 8.4 Magnesium 2.0 Total Bilirubin AST ALT Alkaline Phosphatase C-Reactive Protein Total Protein Albumin Procalcitonin Urine Color Urine Appearance Urine pH Ur Specific [place] Urine Protein Urine Glucose (UA) Urine Ketones Ur Blood (Man) Urine Nitrate Urine Bilirubin Urine Urobilinogen Leukocyte Esterase Rfl Urine RBC Urine WBC Ur Squamous Epith Cells Urine Bacteria Urine Casts Hyaline Casts Nasal MRSA (PCR) Not detected Quality VTE Prophylaxis VTE prophylaxis: pharmacologic ordered (Stop eliquis, start lovenox) Hospitalist MIPS Advance Care Plan I have confirmed that the patient's Advanced Care Plan is present, code status is documented, or surrogate decision maker is listed in patient medical record.: Yes Medication Reconciliation I have utilized all available resources to obtain, update and review the patients current medications (includes all prescriptions, OTC, herbals, cannabis, and nutritional supplements).: Yes
[2025-06-08] MEDS: HYDROmorphone HCL INJ (*CRX) 1 MG/ML SYR 0.5 MG IV PUSH (12:45)
[2025-06-08] MEDS: VANCOMYCIN 1,250 MG/NS 250 ML 1,250 MG/250 ML BAG 166.67 MG IVPB (13:53)
[2025-06-08 14:00] VITALS: BP 96/53; PULSE 69; RESP 17; TEMP 36.1; O2SAT 93
[2025-06-08] MEDS: ENOXAPARIN 80 MG/0.8 ML SYRINGE 70 MG SUB-Q (20:13)
[2025-06-08 20:37] VITALS: BP 90/45; PULSE 63; RESP 17; TEMP 36.1; O2SAT 94
[2025-06-08] MEDS: MEROPENEM 1 GM in SODIUM CHLORIDE 0.9% IV 100 ML 200 ML IVPB (23:09)
[2025-06-09 02:35] VITALS: BP 102/54
[2025-06-09 06:09] LABS: Estimated CRCL calculation 58 ml/min; Estimated Glomerular Filt Rate > 60
[2025-06-09 06:18] VITALS: BP 100/54; PULSE 66; RESP 15; TEMP 36.1; O2SAT 90
[2025-06-09] MEDS: VANCOMYCIN 1,250 MG/NS 250 ML 1,250 MG/250 ML BAG 166.67 MG IVPB (06:46)
--- NOTE | 2025-06-09 07:24 | P.PNIM_ITS ---
Assessment and Plan Assessment and Plan (1) Cellulitis of foot, left: Code(s): L03.116 - Cellulitis of left lower limb Status: Acute Assessment and Plan: * 06/[address] * Moderately extensive infiltrative changes about the great toe metatarsophalangeal joint which could be associated with inflammatory or infectious process such as cellulitis. No abscess. No definite osteomyelitis, although extensive dysplastic changes are present about the great toe metatarsal bone and proximal phalanx; if there is persistent concern for possible osteomyelitis, correlation with left foot MRI may provide additional beneficial information. * Follow podiatry recommendations. pending note. Patient reports she was seen by podiatry prior to admission, Dr Tianna Calix. Consult if able. Otherwise may need a surgery consult * Stop eliquis and start lovenox since discussing OR. Unclear reason for anticoagulation. 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 * Requested records from [facility]. Also can consider discussing with cardiolgist, Dr Niles Moffett, who knows her well. * s/p 1 dose of meropenem, resume meropenem for now * Pharmacy to dose vancomycin. * Stop flagyl on meropenem * Follow blood cultures 06/07 Patient reports fever and chills prior to admission. * Follow clinically * ID consult with multiple allergies and ICD * Podiatry consult pending (2) Chronic foot ulcer: Qualifiers: Laterality: left Non-pressure ulcer stage: unspecified non-pressure ulcer stage Qualified Code(s): L97.529 - Non-pressure chronic ulcer of other part of left foot with unspecified severity Code(s): L97.509 - Non-pressure chronic ulcer of other part of unspecified foot with unspecified severity Status: Acute Assessment and Plan: * See above (3) Lymphedema: Code(s): I89.0 - Lymphedema, not elsewhere classified Status: Acute Assessment and Plan: * Avoid blood pressures and sticks to left arm (4) Acute hypokalemia: Code(s): E87.6 - Hypokalemia Status: Acute Assessment and Plan: * Potassium 3.3, repeated and 4.1 today * Follow BMP (5) TIKI on CPAP: Code(s): G47.33 - Obstructive sleep apnea (adult) (pediatric); Z99.89 - Dependence on other enabling machines and devices Status: Acute Assessment and Plan: * CPAP hs (6) Peripheral neuropathy: Qualifiers: Peripheral neuropathy type: polyneuropathy, other Qualified Code(s): G62.89 - Other specified polyneuropathies Code(s): G62.9 - Polyneuropathy, unspecified Status: Acute Assessment and Plan: (7) Contracture, left hand: Code(s): M24.542 - Contracture, left hand Status: Acute Assessment and Plan: * Patient reports contractures related to peripheral neuropathy * Referral placed to PM&R outpatient Plan Reason for hospitalization Patient who has chronic foot wound due to multifactorial neuropathy and lymphedema who did now has an associated acute cellulitis with elevated ESR and CRP with rapidly spreading erythema. The patient will be admitted for treatment with IV antibiotic therapy. Due to the patient's multiple antibiotic ?allergies? antibiotic choices limited subsequently patient has been started on meropenem, Flagyl and vancomycin 1 dose of meropenem was given. Patient's computer service technician has been consulted for further recommendations and management. Blood and wound cultures have been obtained and are pending. The patient will repeat CBC in a.m. will continue home tramadol and gabapentin pain. Patient does have some mild acute hypokalemia. Patient received 40 mEq p.o. potassium in the ER. Continue to follow BMP, mag The patient does have a history of CHF, coronary disease and obstructive sleep apnea. Will order patient's home cardiac medications, Eliquis and auto titrating CPAP. Subjective Date/time seen: 06/09/25 07:24 Interval history: 74-year-old female with a past medical history of coronary artery disease, essential hypertension, CVA, breast cancer status post chemotherapy with associated chemotherapy-induced peripheral neuropathy presented to the ER due to increasing erythema of the foot. 06/09/2025 Patient resting comfortably in bed at time of exam. She endorses significant improvement of foot pain. ID and podiatry consult pending. Remains afebrile without leukocytosis or major electrolyte abnormalities. Otherwise stable and has no concerns at this time, continue IV abx. Review of Systems Review of Systems: All systems reviewed & are unremarkable except as noted in HPI and below Exam Narrative: Weight 70.6 kg BMI 28.5 General - Awake and alert. No acute distress Eyes - PERRLA, EOM intact ENT - No thrush, No erythema Neck - No noticeable or palpable swelling Lymph Nodes - No lymphadenopathy Cardiovascular - RRR no m/r/g, no JVD Lungs: Clear to auscultation, No wheezing, use of accessory muscles or crackles Skin - Skin warm and dry, mild pink below mid calf to foot, warm, left 2nd toe is markedly red and painful. Abdomen - Normal bowel sounds, abdomen soft and nontender Extremities - No edema, cyanosis or clubbing. left hand contracted Musculoskeletal - 5/5 strength, normal range of motion, no swollen or erythematous joints. Neurological ? Alert and oriented x 3, CN 2-12 grossly intact. Psych: Normal mood and affect Objective Data Vital Signs Vital Signs: Vital Signs - 24 hr 06/08/25 08:00 06/08/25 14:00 06/08/25 20:00 Temperature 97 F L Pulse Rate 70 69 Respiratory Rate 18 17 Blood Pressure 96/53 L Pulse Oximetry 91 93 Oxygen Delivery Room Air Room Air 06/08/25 20:37 06/09/25 02:35 06/09/25 06:18 Temperature 97.0 F L 96.9 F L Pulse Rate 63 66 Respiratory Rate 17 15 Blood Pressure 90/45 L 102/54 L 100/54 L Pulse Oximetry 94 90 Oxygen Delivery Intake/Output Intake/Output: Intake & Output 06/06/25 06/07/25 06/08/25 06/09/25 23:59 23:59 23:59 23:59 Intake Total 700 1606 120 Balance 700 1606 120 Meds/Results Medications: Active Medications Generic Name Dose Route Start Last Admin Trade Name Tundeq PRN Reason Stop Dose Admin Albuterol 2 puff 06/08/25 17:56 Albuterol Sulfate (*Sp) Aerosol 1 Puff INHALATION Q4-6H PRN Wheezing Aspirin 81 mg 06/08/25 09:00 06/08/25 07:58 Aspirin 81 Mg Enteric Tablet PO 81 mg DAILY JENNIFER Administration Carvedilol 3.125 mg 06/07/25 23:40 06/08/25 20:11 Carvedilol 3.125 Mg Tablet PO 3.125 mg Q12HR JENNIFER Administration Docusate Sodium 100 mg 06/08/25 09:00 06/08/25 17:33 Docusate Sodium 100 Mg Capsule PO 100 mg TID JENNIFER Administration Enoxaparin Sodium 70 mg 06/08/25 21:00 06/08/25 20:13 Enoxaparin 80 Mg/0.8 Ml Syringe SUB-Q 70 mg Q12HR JENNIFER Administration Furosemide 40 mg 06/08/25 09:00 06/08/25 07:58 Furosemide 40 Mg Tablet PO 40 mg DAILY JENNIFER Administration Gabapentin 900 mg 06/07/25 23:40 06/08/25 20:10 Gabapentin 300 Mg Capsule PO 900 mg QID JENNIFER Administration Hydromorphone HCl 0.5 mg 06/07/25 20:14 06/08/25 12:45 Hydromorphone Hcl Inj (*Crx) 1 Mg/Ml Syr IV PUSH 0.5 mg Q4H PRN Administration Pain Rated 7-10 Vancomycin HCl 1,250 mg in 250 mls @ 166.667 mls/hr 06/08/25 12:00 06/09/25 06:46 Vancomycin 1,250 Mg/Ns 250 Ml IVPB 166.67 mls/hr Q18H JENNIFER Administration Meropenem 1 gm/ Sodium 100 mls @ 200 mls/hr 06/09/25 00:00 06/08/25 23:39 Chloride IVPB Infused Q8H JENNIFER Infusion Lorazepam 0.5 mg 06/08/25 09:00 06/08/25 07:58 Lorazepam (*Crx) 0.5 Mg Tablet PO 0.5 mg DAILY JENNIFER Administration Lovastatin 40 mg 06/08/25 09:00 06/08/25 08:00 Lovastatin 20 Mg Tablet PO 40 mg DAILY JENNIFER Administration Meclizine HCl 25 mg 06/08/25 09:00 06/08/25 20:11 Meclizine Hcl 25 Mg Tablet PO 25 mg QID JENNIFER Administration Mirtazapine 15 mg 06/07/25 23:40 06/08/25 20:10 Mirtazapine 15 Mg Tablet PO 15 mg HS JENNIFER Administration Nitroglycerin 0.4 mg 06/07/25 23:35 Nitroglycerin Sl 0.4 Mg Tablet SUBLINGUAL Q5M PRN Chest Pain Pantoprazole Sodium 40 mg 06/08/25 09:00 06/08/25 07:58 Pantoprazole 40 Mg Tablet PO 40 mg DAILY JENNIFER Administration Potassium Chloride 10 meq 06/08/25 09:00 06/08/25 08:00 Potassium Chloride 10 Meq Er Tablet PO 10 meq DAILY JENNIFER Administration Spironolactone 25 mg 06/08/25 09:00 06/08/25 07:58 Spironolactone 25 Mg Tablet PO 25 mg DAILY JENNIFER Administration Tramadol HCl 50 mg 06/07/25 23:35 06/08/25 20:18 Tramadol Hcl (*Crx) 50 Mg Tablet PO 50 mg Q6-8H PRN Administration pain 4-10 Trazodone HCl 50 mg 06/07/25 23:40 06/08/25 20:11 Trazodone Hcl 50 Mg Tablet PO 50 mg HS JENNIFER Administration Radiology Results: ITS Impressions Chest X-Ray 06/07/25 14:49 IMPRESSION: 1. Unchanged prominent elevation of the left hemidiaphragm with chronic atelect asis/scarring at the left lung base. Foot X-Ray 06/07/25 15:00 Impression: No acute fracture or malalignment. Foot CT 06/07/25 15:53 IMPRESSION: Moderately extensive infiltrative changes about the great toe metatarsophalangeal joint which could be associated with inflammatory or in fectious process such as cellulitis. No abscess. No definite osteomyelitis, although extensive dysplastic changes are present about the great toe metatarsal bone and proximal phalanx; if there is persistent concern for possible osteomyelitis, correlation with left foot MRI may provide additional beneficial information. Labs Labs: Laboratory Results - last 24 hr 06/09/25 05:41 Creatinine 0.66 L Estim Creat Clear Calc 58 Estimated GFR > 60 Vancomycin Trough 15.1 Quality VTE Prophylaxis VTE prophylaxis: pharmacologic ordered (Stop eliquis, start lovenox)
[2025-06-09 07:30] LABS: Alanine Aminotransferase 11 U/L (6-35); Albumin Level 3.2 g/dL (3.5-5.1); Alkaline Phosphatase 74 U/L (38-126); Anion Gap 1 mmol/L (4-12); Aspartate Amino Transferase 25 U/L (14-36); Bilirubin,Total 0.6 mg/dL (0.2-1.3); Blood Urea Nitrogen 9 mg/dL (7-17); Calcium 8.3 mg/dL (8.4-10.2); Carbon Dioxide 30 mmol/L (22-30); Chloride 104 mmol/L (98-107); Glucose 94 mg/dL (65-110); Potassium 3.8 mmol/L (3.4-5.0); Sodium 135 mmol/L (137-145); Total Protein 7.0 g/dL (6.3-8.2)
[2025-06-09 07:35] LABS: Hematocrit 32.1 % (37.0-47.0); Hemoglobin 10.2 g/dL (12.0-15.0); Immature Granulocyte Percent A 0.7 % (0-0.5); Lymphocytes Absolute Auto 0.88 K/mm3 (0.9-3.2); Mean Corpuscular HGB Conc 31.8 g/dl (32-36); Mean Corpuscular Hemoglobin 31.3 pg (26-34); Mean Corpuscular Volume 98.5 fl (80-100); Nucleated Red Blood Cells Absolute Auto 0.000 K/mm3 (0.0-0.012); Nucleated Red Blood Cells Perc 0.0 % (0.0-0.2); Platelet Count Result 262 k/mm3 (150-375); Red Blood Count 3.26 M/mm3 (4.2-5.4); White Blood Count 7.6 K/mm3 (4.5-10.0)
[2025-06-09] MEDS: MEROPENEM 1 GM in SODIUM CHLORIDE 0.9% IV 100 ML 200 ML IVPB ×3 (09:12→23:10)
[2025-06-09] MEDS: LOVASTATIN 20 MG TABLET 40 MG PO (09:13)
[2025-06-09] MEDS: GABAPENTIN 300 MG CAPSULE 900 MG PO ×4 (09:13→20:35)
[2025-06-09] MEDS: ASPIRIN 81 MG ENTERIC TABLET PO (09:13)
[2025-06-09] MEDS: PANTOPRAZOLE 40 MG TABLET PO (09:13)
[2025-06-09] MEDS: LORazepam (*CRX) 0.5 MG TABLET PO (09:13)
[2025-06-09] MEDS: POTASSIUM CHLORIDE 10 MEQ ER TABLET PO (09:14)
[2025-06-09] MEDS: DOCUSATE SODIUM 100 MG CAPSULE PO ×3 (09:14→17:20)
[2025-06-09] MEDS: MECLIZINE HCL 25 MG TABLET PO ×4 (09:14→20:45)
[2025-06-09] MEDS: ENOXAPARIN 80 MG/0.8 ML SYRINGE 70 MG SUB-Q ×2 (09:52→20:37)
[2025-06-09] MEDS: traMADol HCL (*CRX) 50 MG TABLET PO ×2 (12:03→20:34)
[2025-06-09 14:00] VITALS: BP 107/52; PULSE 79; RESP 16; TEMP 37.2; O2SAT 94
[2025-06-09] MEDS: HYDROmorphone HCL INJ (*CRX) 1 MG/ML SYR 0.5 MG IV PUSH (18:14)
[2025-06-09 19:51] VITALS: O2SAT 91
[2025-06-09] MEDS: MIRTAZAPINE 15 MG TABLET PO (20:35)
[2025-06-09 20:40] VITALS: BP 88/32; PULSE 82; RESP 20; TEMP 36.8; O2SAT 94
[2025-06-09] MEDS: traMADol HCL (*CRX) 50 MG TABLET 100 MG PO (22:35)
[2025-06-09] MEDS: VANCOMYCIN 1,250 MG/NS 250 ML 1,250 MG/250 ML BAG 166.7 MG IVPB (23:53)
[2025-06-10 06:00] VITALS: BP 128/50; PULSE 71; RESP 16; TEMP 36.4; O2SAT 93
[2025-06-10 06:06] LABS: Hematocrit 34.9 % (37.0-47.0); Hemoglobin 10.8 g/dL (12.0-15.0); Immature Granulocyte Percent A 0.8 % (0-0.5); Lymphocytes Absolute Auto 0.95 K/mm3 (0.9-3.2); Mean Corpuscular HGB Conc 30.9 g/dl (32-36); Mean Corpuscular Hemoglobin 30.5 pg (26-34); Mean Corpuscular Volume 98.6 fl (80-100); Nucleated Red Blood Cells Absolute Auto 0.000 K/mm3 (0.0-0.012); Nucleated Red Blood Cells Perc 0.0 % (0.0-0.2); Platelet Count Result 279 k/mm3 (150-375); Red Blood Count 3.54 M/mm3 (4.2-5.4); White Blood Count 5.0 K/mm3 (4.5-10.0)
[2025-06-10 06:32] LABS: Alanine Aminotransferase 12 U/L (6-35); Albumin Level 3.2 g/dL (3.5-5.1); Alkaline Phosphatase 76 U/L (38-126); Anion Gap -1 mmol/L (4-12); Aspartate Amino Transferase 26 U/L (14-36); Bilirubin,Total 0.6 mg/dL (0.2-1.3); Blood Urea Nitrogen 11 mg/dL (7-17); Calcium 8.5 mg/dL (8.4-10.2); Carbon Dioxide 33 mmol/L (22-30); Chloride 105 mmol/L (98-107); Estimated CRCL calculation 49 ml/min; Estimated Glomerular Filt Rate > 60; Glucose 85 mg/dL (65-110); Potassium 3.9 mmol/L (3.4-5.0); Sodium 137 mmol/L (137-145); Total Protein 6.8 g/dL (6.3-8.2)
[2025-06-10 08:41] VITALS: PULSE 71
[2025-06-10] MEDS: FUROSEMIDE 40 MG TABLET PO (08:41)
[2025-06-10] MEDS: LOVASTATIN 20 MG TABLET 40 MG PO (08:41)
[2025-06-10] MEDS: ASPIRIN 81 MG ENTERIC TABLET PO (08:42)
[2025-06-10] MEDS: LORazepam (*CRX) 0.5 MG TABLET PO (08:42)
[2025-06-10] MEDS: POTASSIUM CHLORIDE 10 MEQ ER TABLET PO (08:42)
[2025-06-10] MEDS: PANTOPRAZOLE 40 MG TABLET PO (08:42)
[2025-06-10] MEDS: SPIRONOLACTONE 25 MG TABLET PO (08:42)
[2025-06-10] MEDS: MECLIZINE HCL 25 MG TABLET PO ×2 (08:42→12:20)
[2025-06-10] MEDS: DOCUSATE SODIUM 100 MG CAPSULE PO ×2 (08:42→12:21)
[2025-06-10] MEDS: GABAPENTIN 300 MG CAPSULE 900 MG PO ×2 (08:43→12:20)
[2025-06-10] MEDS: ENOXAPARIN 80 MG/0.8 ML SYRINGE 75 MG SUB-Q (08:48)
[2025-06-10] MEDS: MEROPENEM 1 GM in SODIUM CHLORIDE 0.9% IV 100 ML 200 ML IVPB (08:50)
[2025-06-10] MEDS: traMADol HCL (*CRX) 50 MG TABLET 100 MG PO (12:25)
[2025-06-10 14:00] VITALS: BP 145/56; PULSE 80; RESP 16; TEMP 37; O2SAT 95
--- NOTE | 2025-06-10 15:28 | PM.DS ---
DS: Admitting Diagnosis Discharge Date 06/10/25 Admitting Diagnosis Left foot, 4th toe wound; cellulitis DS: Discharge Diagnosis Discharge Diagnosis (1) Cellulitis of foot, left: Code(s): L03.116 - Cellulitis of left lower limb Status: Acute (2) Chronic foot ulcer: Qualifiers: Laterality: left Non-pressure ulcer stage: unspecified non-pressure ulcer stage Qualified Code(s): L97.529 - Non-pressure chronic ulcer of other part of left foot with unspecified severity Code(s): L97.509 - Non-pressure chronic ulcer of other part of unspecified foot with unspecified severity Status: Acute (3) Lymphedema: Code(s): I89.0 - Lymphedema, not elsewhere classified Status: Acute (4) Acute hypokalemia: Code(s): E87.6 - Hypokalemia Status: Acute (5) TIKI on CPAP: Code(s): G47.33 - Obstructive sleep apnea (adult) (pediatric); Z99.89 - Dependence on other enabling machines and devices Status: Acute (6) Peripheral neuropathy: Qualifiers: Peripheral neuropathy type: polyneuropathy, other Qualified Code(s): G62.89 - Other specified polyneuropathies Code(s): G62.9 - Polyneuropathy, unspecified Status: Acute (7) Contracture, left hand: Code(s): M24.542 - Contracture, left hand Status: Acute DS: Summary Hospital Course Hospital Course: 74-year-old female with a past medical history of coronary artery disease, essential hypertension, CVA, breast cancer status post chemotherapy with associated chemotherapy-induced peripheral neuropathy, she says that someone mention at 1 time that she also may have Lexiunh-Iigdg-Icszl. She presented to the ER who was referred to the ER by her training and development manager due to increasing erythema of the foot. The patient has an area on the 4rd toe of the left foot that is open has surrounding callus. The end of the toe is erythematous. She reports that the wound developed about 8 weeks ago. She has been following with her training and development manager each week regarding the wound. Six days ago she began having rigors and chills. Three days ago she developed increasing of the toe with the chronic wound. She also noticed developing erythema to the lateral portion of the ball of the foot overlying the site of her prior bunionectomy. Erythema then started to extend up the side of her foot into her ankle. She developed increasing lower extremity swelling. At the time of evaluation she thinks that the erythema has improved significantly after antibiotics. CT of her foot showed moderate extensive infiltrative changes about the great toe MTP joint which could be associated with inflammatory or infectious process such as cellulitis, no abscess seen. No definite osteomyelitis visualized. Podiatry was consulted but they were unable to see the patient over the weekend. I would call them today and they stated they were unable to see them today. At the earliest he will be able to see them tomorrow. The training and development manager on-call was her training and development manager outpatient. She said if patient is needing discharge that she can follow-up with her outpatient. Patient was given meropenem and vancomycin while in the hospital. Blood cultures with no growth. Patient improved over hospital stay. She says that she has any discharge due to her lack of ride tomorrow. I discussed this with her training and development manager and Podiatry said they will follow close outpatient with her. Time Spent with Patient Time attestation: Total time spent providing and/or coordinating discharge services: Exam Narrative: GENERAL: Comfortable, no acute distress HENMT: moist mucous membranes NECK: no lymphadenopathy RESPIRATORY: clear to auscultation, no increased respiratory effort CARDIO: Regular rate and rhythm GI: soft, nontender, bowel sounds present SKIN/EXTREMITIES: no rashes, no edema, no redness or tenderness DS: Data Data Completed and Pending Labs on day of discharge: Labs from last 24 hours 06/10/25 05:36 WBC 5.0 RBC 3.54 L Hgb 10.8 L Hct 34.9 L MCV 98.6 MCH 30.5 MCHC 30.9 L RDW 11.9 Plt Count 279 MPV 10.3 Immature Gran % (Auto) 0.8 H Neut % (Auto) 62.9 Lymph % (Auto) 19.2 [place] % (Auto) 12.9 H Eos % (Auto) 3.6 Baso % (Auto) 0.6 Lymph # (Auto) 0.95 [place] # (Auto) 0.6 Eos # (Auto) 0.2 Baso # (Auto) 0.0 Abs Immat Gran (auto) 0.04 H Absolute Neuts (auto) 3.1 Absolute Nucleated RBC 0.000 Nucleated RBC % 0.0 Sodium 137 Potassium 3.9 Chloride 105 Carbon Dioxide 33 H Anion Gap -1 L BUN 11 Creatinine 0.80 Estim Creat Clear Calc 49 Estimated GFR > 60 Glucose 85 Calcium 8.5 Total Bilirubin 0.6 AST 26 ALT 12 Alkaline Phosphatase 76 Total Protein 6.8 Albumin 3.2 L Preliminary micro results at discharge 06/07/25 14:37 Blood Culture - Preliminary Blood 06/07/25 14:38 Blood Culture - Preliminary Blood Discharge Plan Discharge Consulting providers: Jes Root; Jayro Mcfarland; Jhonathan Moore; Tianna Poon Discharging Clinician: Jes King Patient Disposition: Home Activity: no preference Diet: heart healthy Discharge Instructions: Jarrod Kelley is a sales marketing manager in [place]. Call [phone] for an appointment to discuss botox for left hand contractures Discharge disposition: Levaquin once a day Flagyl Take medications as prescribed Monitor blood pressures Encouraged to continue with yearly vaccinations Return to the emergency department if he developed sudden shortness of breath, chest pain, nausea, vomiting, upset stomach or intractable diarrhea Return to the emergency department if you develop fever greater than 100.4 Follow-up with the primary care physician within 1-2 weeks Thank you for choosing [facility] for your healthcare needs Patient Instructions: Antibiotic Form, Apixaban (By mouth) Patient Language: Maltese Stand Alone Forms: General Discharge Information Follow-up/Referrals: Warren,Jarrod Bear MD [Non-Staff, Physical Medicine & Rehab] - Call for Appointment Discharge Medications: New sulfamethoxazole-trimethoprim 800-160 mg tablet 1 tablet PO Q12H 3 Days Qty: 6 0RF Continued gabapentin 600 mg tablet 900 mg PO QID lovastatin 40 mg tablet 40 mg PO DAILY sennosides-docusate sodium [Stool Softener-Laxative] 8.6-50 mg tablet 1 tablet PO BID aspirin 81 mg tablet,delayed release (DR/EC) 81 mg PO DAILY tramadol 50 mg tablet 50 mg PO Q6-8H PRN (Reason: pain) Patient Comments: Take 1 or 2 tabs Q6 PRN spironolactone 25 mg tablet 25 mg PO DAILY pantoprazole 20 mg tablet,delayed release (DR/EC) 40 mg PO DAILY lorazepam 0.5 mg tablet 0.5 mg PO DAILY Rx Instructions: May take 1/2 to 1 tab mirtazapine 15 mg tablet 15 mg PO HS Rx Instructions: Take 1/2 to 1 tab at bedtime albuterol sulfate 90 mcg/actuation HFA aerosol inhaler 1 puff INHALATION Q4-6H trazodone 50 mg tablet 50 mg PO HS Rx Instructions: Take 1 or 2 tabs at HS carvedilol 3.125 mg tablet 3.125 mg PO BID furosemide 20 mg tablet 40 mg PO DAILY Eliquis 5 mg tablet 5 mg PO BID potassium chloride 10 mEq Capsule, Extended Release 10 meq PO DAILY magnesium gluconate 500 mg Tablet 500 mg PO BID meclizine 25 mg Tablet 25 mg PO QID nitroglycerin 0.4 mg tablet, sublingual 0.4 mg sublingual Q5M PRN (Reason: chest pain) Rx Instructions: do not exceed 3 doses per episode docusate sodium [Stool Softener] 100 mg capsule 100 mg PO TID Date of admission: 06/08/25 09:39 Primary Care Provider: UNKNOWN,DOCTOR Admitting Provider: Elyssa Scott Attending physician on admission: Elyssa Scott Condition: Stable
--- NOTE | 2025-06-10 19:37 | WPDIDCN ---
Assessment and Plan Assessment and plan (1) Cellulitis of foot, left: Code(s): L03.116 - Cellulitis of left lower limb Status: Acute Plan ASSESSMENT: 1. LLE cellulitis-imprpoved 2. allergy to penicillin-->rash 3. intolerance to azithromcyin, keflex 4. neuropathy-chemo induced and ndjftlj-oecue-nvekm 5. CAD, HTN, stroke, HL, hypothyroid, breast cancer RECOMMENDATIONS: -home on po abx d/w pharmacyPt was seen via video telehealth consultation with the assistance of staff. Chart, data and patient info reviewed. Patient was located at [facility] while I was in my [place] office. Pt gave consent. HPI Data of Consult Date/Time: 06/10/25 19:37 Requesting Physician: Elyssa Scott DO Primary Care Provider: UNKNOWN,DOCTOR Consult Narrative Reason for consult: LLE cellulitis, abx mgmt Narrative: Lorie White is a 74 year old female with pmhx/o breast cancer with chemo induced neuropathy, zkzaudg-woodf-fbsgr disease, CAD, HTN, HL, stroke, hypothyroid, and LLE cellulitis. Has several abx allergies. Much improved. [facility] Past Medical History Medical History (Updated 06/08/25 @ 18:04 by Jes Root APRN) Hdcgoob-Cidgz-Crlcq disease Pulmonary embolism Endometrial cancer Lymphedema History of CVA (cerebrovascular accident) Chemotherapy-induced neuropathy Cataracts, bilateral Breast cancer chemo Insomnia Hypothyroidism TIKI on CPAP CHF (congestive heart failure) CAD (coronary artery disease) High cholesterol HTN (hypertension) Chronic anticoagulation Chronic anticoagulation with Eliquis Surgical History Surgical History (Updated 06/07/25 @ 23:26 by Elyssa Scott DO) History of tonsillectomy History of removal of pigmented skin lesion AICD (automatic cardioverter/defibrillator) present H/O breast biopsy H/O hysterectomy with oophorectomy S/P cholecystectomy H/O mastectomy left Family History Family History Grandparent Breast cancer Father Rupture of bowel Cerebrovascular accident Mother Diabetes mellitus Acute myocardial infarction Sibling Acute myocardial infarction Diabetes mellitus Social History Social History (Updated 06/08/25 @ 09:24 by Elyssa Scott DO) Social History: The patient lives with her of 57 years. 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 The patient is a lifelong nonsmoker. She does not use any alcohol marijuana or illicit drugs. She has 1 daughter. She still drives. Code status: DNR/DNI (per patient request) Surrogate decision maker: Nick Hager (daughter) Smoking status: Never smoker Second hand tobacco smoke exposure: Yes Alcohol intake: never Substance use: never Substance use type: does not use Lack of Transportation: No Lack of Food: Never True Current Housing: I Have Housing Concerned About Future Housing: No Difficulty Paying Gas/Electric Bills: No Difficulty Paying for Meds: No Currently Unemployed: No Education: High School Diploma/GED Difficulty w/ Childcare or Family Care: No Spiritual care concerns: No Meds Home Medications and Allergies Home Medications ?Medication ?Instructions ?Recorded ?Confirmed ?Type albuterol sulfate 90 mcg/actuation 1 puff inhalation Q4-6H 09/05/20 06/07/25 History aerosol inhaler aspirin 81 mg tablet,delayed 81 mg PO DAILY 09/05/20 06/07/25 History release gabapentin 600 mg tablet 900 mg PO QID 09/05/20 06/07/25 History lorazepam 0.5 mg tablet 0.5 mg PO DAILY 09/05/20 06/07/25 History lovastatin 40 mg tablet 40 mg PO DAILY 09/05/20 06/07/25 History mirtazapine 15 mg tablet 15 mg PO HS 09/05/20 06/07/25 History pantoprazole 20 mg tablet,delayed 40 mg PO DAILY 09/05/20 06/07/25 History release sennosides 8.6 mg-docusate sodium 1 tablet PO BID 09/05/20 06/07/25 History 50 mg tablet (Stool Softener-Laxative) spironolactone 25 mg tablet 25 mg PO DAILY 09/05/20 06/07/25 History tramadol 50 mg tablet 50 mg PO Q6-8H PRN pain 09/05/20 06/07/25 History apixaban 5 mg tablet (Eliquis) 5 mg PO BID 01/22/21 06/07/25 History carvedilol 3.125 mg tablet 3.125 mg PO BID 01/22/21 06/07/25 History furosemide 20 mg tablet 40 mg PO DAILY 01/22/21 06/07/25 History trazodone 50 mg tablet 50 mg PO HS 01/22/21 06/07/25 History magnesium gluconate 500 mg tablet 500 mg PO BID 04/28/22 06/07/25 History meclizine 25 mg tablet 25 mg PO QID 04/28/22 06/07/25 History potassium chloride 10 mEq 10 meq PO DAILY 04/28/22 06/07/25 History capsule,extended release docusate sodium 100 mg capsule 100 mg PO TID 06/07/25 06/07/25 History (Stool Softener) nitroglycerin 0.4 mg sublingual 0.4 mg sublingual Q5M PRN chest 06/07/25 06/07/25 History tablet pain sulfamethoxazole 800 1 tablet PO Q12H 3 days #6 tabs 06/10/25 Rx mg-trimethoprim 160 mg tablet Allergies Allergy/AdvReac Type Severity Reaction Status Date / Time erythromycin base Allergy Mild RASH Verified 06/07/25 23:41 morphine Allergy Mild RASH Verified 06/07/25 23:41 Penicillins Allergy Mild RASH Verified 06/07/25 23:41 Macrolide Antibiotics Allergy Unknown Unknown Verified 06/07/25 23:41 azithromycin Allergy Nausea and Verified 06/07/25 23:41 Vomiting cephalexin (From Keflex) Allergy Nausea and Verified 06/07/25 23:41 Vomiting Cephalosporins AdvReac Intermediate Nausea and Verified 06/07/25 23:41 Vomiting codeine AdvReac Intermediate Nausea and Verified 06/07/25 23:41 Vomiting hydrocodone AdvReac Intermediate Confusion Verified 06/07/25 23:41 meperidine AdvReac Intermediate Nausea and Verified 06/07/25 23:41 Vomiting CYCLOBENZAPRINE HCL Allergy Mild Unknown Uncoded 09/06/24 14:46 Chicken Meat Allergy Unknown Unknown Uncoded 09/06/24 14:46 TAXATINE Allergy Unknown Unknown Uncoded 09/06/24 14:46 BUTORPHANOL TARTRATE AdvReac Intermediate Nausea and Uncoded 09/06/24 14:46 Vomiting Vital Signs Vital Signs - 24 hr 06/09/25 19:51 06/09/25 20:40 06/10/25 06:00 Temperature 98.3 F 97.5 F L Pulse Rate 82 71 Respiratory Rate 20 16 Blood Pressure 88/32 L 128/50 L Pulse Oximetry 91 94 93 Oxygen Delivery Room Air Fraction of Inspired Oxygen 21 06/10/25 08:41 06/10/25 08:50 06/10/25 09:10 Temperature Pulse Rate 71 Respiratory Rate Blood Pressure Pulse Oximetry Oxygen Delivery Room Air Room Air Fraction of Inspired Oxygen 06/10/25 10:48 06/10/25 14:00 Temperature 98.6 F Pulse Rate 80 Respiratory Rate 16 Blood Pressure 145/56 H Pulse Oximetry 95 Oxygen Delivery Room Air Fraction of Inspired Oxygen Exam Narrative: On room air, NAD, non-toxic left foot with some cellulitis Results Labs 06/10/25 05:36 06/10/25 05:36 Labs: Short CBC 06/10/25 Range/Units 05:36 WBC 5.0 (4.5-10.0) K/mm3 Hgb 10.8 L (12.0-15.0) g/dL Hct 34.9 L (37.0-47.0) % Plt Count 279 (150-375) k/mm3 BMP 06/10/25 05:36 Sodium 137 Potassium 3.9 Chloride 105 Carbon Dioxide 33 H BUN 11 Creatinine 0.80 Glucose 85 Calcium 8.5 Liver Function 06/10/25 Range/Units 05:36 Total Bilirubin 0.6 (0.2-1.3) mg/dL AST 26 (14-36) U/L ALT 12 (6-35) U/L Alkaline Phosphatase 76 (38-126) U/L Albumin 3.2 L (3.5-5.1) g/dL
== END 2025-06-10 16:55 | disposition home or self-care (01) | DRG 603 ==
LOC: ANHED 19:43 → ANH3MEDSUR 21:52
PROVIDERS: Physician Assistant; Admitting Provider Internal Medicine; Emergency Provider Emergency Medicine; Visit Provider Internal Medicine Critical Care Medicine
DX: L03.116 Cellulitis of left lower limb (principal); L97.529 Non-pressure chronic ulcer of other part of left foot with unspecified severity; I25.10 Atherosclerotic heart disease of native coronary artery without angina pectoris; E87.6 Hypokalemia; E03.9 Hypothyroidism, unspecified; G60.0 Hereditary motor and sensory neuropathy; G62.0 Drug-induced polyneuropathy; G47.33 Obstructive sleep apnea (adult) (pediatric); I11.0 Hypertensive heart disease with heart failure; I50.9 Heart failure, unspecified; R32 Unspecified urinary incontinence; T45.1X5S Adverse effect of antineoplastic and immunosuppressive drugs, sequela; Z86.73 Personal history of transient ischemic attack (TIA), and cerebral infarction without residual deficits; Z85.3 Personal history of malignant neoplasm of breast; Z92.21 Personal history of antineoplastic chemotherapy; Z86.711 Personal history of pulmonary embolism; Z85.42 Personal history of malignant neoplasm of other parts of uterus; Z99.89 Dependence on other enabling machines and devices; Z79.01 Long term (current) use of anticoagulants; Z79.82 Long term (current) use of aspirin; Z66 Do not resuscitate; Z88.0 Allergy status to penicillin
CPT/HCPCS: 36415; 71045; 73630; 73701; 80048; 80053; 80202; 81001; 82565; 83605; 83735; 84145; 85025; 85652; 86140; 87040; 87086; 87641; 96365; 96366; 96367; 96376; 97161; 97166; 99285; A9270; G0378; J1171; J1650; J1836; J2185; J3373; J3480; Q9967